=== PATIENT | female | born 1955 | race Hispanic/Latino ===

== ENCOUNTER 2020-03-09 09:00 | Day surgery (SDC) | payer OTHER ==
--- NOTE | 2020-03-06 12:37 | RAD REPORT ---
EXAM DESCRIPTION: RAD - Chest Single View - 03/06/2020 12:28 pm CLINICAL HISTORY: PRE-OP FOR HEART CATH Chest pain. COMPARISON: Chest Pa And Lat (2 Views) dated 06/04/2018 FINDINGS: Portable technique limits examination quality. The lungs are grossly clear. The heart is upper limit of normal in size. No displaced fractures. IMPRESSION: No acute intrathoracic process suspected.
[2020-03-06 12:42] LABS: Absolute Lymphocytes (CBC) 2.8 K/uL (0.7-4.9); Basophils % 0.9 % (0-1.3); Hematocrit 39.4 % (36.0-45.0); Lymphocytes % 25.1 % (15.3-44.8); MPV 8.2 fL (7.6-11.3); RBC Red Blood Cell Count 4.43 M/uL (3.86-4.86)
[2020-03-06 12:47] LABS: Protime INR 1.06
--- OUTSIDE RECORDS SUMMARY | 2020-03-09 10:30 | XMS REPORT ---
:1955 Author Organization eClinicalWorks Care Team Providers Name Role Phone Jess Evans Provider Role Unavailable Allergies No Known Allergies Problems Problem Type Condition Code Onset Dates Condition Statu s Problem Rib pain R07.81 Active Problem Shortness of breath R06.02 Active Problem Essential hypertension I10 Activ e Problem Pain in right hip M25.551 Active Problem Pain in left hip M25.552 Active Problem Encounter for screening for other Z11.59 Active viral diseases Problem Cough, persistent R05 Active Problem Postnasal drip R09.82 Active Problem Allergic rhinitis, unspecified J30.9 Active seasonality, unspecified trigger Problem Right sciatic nerve pain M54.31 Act andres Problem Hypothyroidism, unspecified type E03.9 Active Problem Hyperlipidemia, unspecified E78.5 Active hyperlipidemia type Problem Allergic rhinitis J30.9 Active Problem Prediabetes R73.03 Active Problem Depression, unspecified depression F32.9 Active type Problem Right foot pain M79.671 Active Medications Medication Code Code Instructions Start End Status Dosage System Date Date Atenolol [facility] 69601427177 25 MG Orally Active 1 tabl et Once a day ProAir HFA [facility] 93414990525 108 (90 Base) December 31, Active 2 p uffs as MCG/ACT 2019 needed for Inhalation sob/wheezi Every 4-6 hours ng Liothyronine [facility] [address]-58 Orally Once Active as Sodium daily directed Nature-Throid [facility] 35050414829 195 MG Orally November Active 1 tablet Once a day 2017 on an empty stomach Fish Oil ND 97661930503 1000 MG Orally December 31, Active 1 ca psule Twice a day 2018 (otc) Rosuvastatin [facility] 32783710884 20 MG Oral Active TAKE 1 Calcium TABLET BY MOUTH ONCE DAILY FOR 90 DAYS MetFORMIN HCl ER ND 94838238238 500 MG Orally Activ e 2 tablets tid in the morning and 1 tablet at hs Mobic ND 86154306124 7.5 MG Orally Active 1 tabl et Once a day Indomethacin ND 41830616306 50 MG Oral Active TAKE 1 CAPSULE BY MOUTH TWICE DAILY NEEDED FOR PAIN WITH FOOD OR MILK FOR 30 DAYS Nature-Throid [facility] 95804687485 195 MG Orally Active 1 tablet Once a day on an empty stomach Synthroid ND 37921445977 175 MCG Oral Active TAKE 1 TABLET BY MOUTH ONCE DAILY IN THE MORNING ON AN EMPTY STOMACH FOR 90 DAYS Levothyroxine ND 95721763382 175 MCG Orally Active 1 tablet Sodium Once a day on an empty stomach in the morning Atorvastatin ND 34234918866 10 MG Orally October Active 1 tablet Calcium Once a day 2019 Lisinopril ND 00764740330 20 MG Orally Active 1 ta blet Once a day Trintellix [facility] 13636048871 10 MG Orally Active 1 ta blet Once a day for depression Gabapentin ND 49311464314 300 MG Orally May 30, Active 1 c apsule Twice a day 2018 as needed for pain Crestor [facility] 71043733844 20 MG Orally Jul 02, Active 1 table t Once a day 2018 Liothyronine [facility] 42459168004 5 MCG Orally Active 3 tabs on Sodium Once a day an empty stomach Diflucan [facility] 27332081172 150 MG Orally 1 Jul 31, Active as tablet now; 2017 directed then repeat after completing abx. ProAir HFA [facility] 63765423972 108 (90 Base) Jul 31, Active 2 p uffs as MCG/ACT 2017 needed for Inhalation sob/wheezi every 4-6 hrs ng Levothyroxine [facility] 86706402997 75MCG Orally Active 1 tablet Sodium Once a day on an empty stomach in the morning Results No Known Results Summary Purpose eClinicalWorks Submission
--- OUTSIDE RECORDS SUMMARY | 2020-03-09 10:30 | XMS REPORT ---
:1955 Author Organization eClinicalWorks Care Team Providers Name Role Phone Darin Parmar Provider Role Unavailable Allergies No Known Allergies [...] Problem Right foot pain M79.671 Active Medications No Known Medications Results No Known Results Summary Purpose eClinicalWorks Submission
--- OUTSIDE RECORDS SUMMARY | 2020-03-09 10:30 | XMS REPORT | Continuity of Care Document ---
:[address] [facility] Address [address] [place] [address] Care Team Providers Name Role Phone Unavailable Unavailable Unavailable Problems Condition Condition Condition Status Onset Resolution Last Treating Co mments Source Name Details Category Date Date Treatment Clinician Date Depression Depression Problem Active [facility]ie unspecifie Me moria d d l depression depression Ou tpati type type ent Clinics Hyperlipid Hyperlipid Problem Active [facility] emia, emia, [facility] unspecifie unspecifie Me moria d d l hyperlipid hyperlipid Ou tpati emia type emia type ent Clinics Essential Essential Diagnosis Active [facility] hypertensi hypertensi Suzie kes - on on [facility] Allergic Allergic Problem [facility] Hypothyroi Hypothyroi Problem Active [facility] dism, dism, [facility]ifie unspecifie Me moria d type [facility] Prediabete Prediabete Problem Active [facility] Rib pain Rib pain Problem [facility] Pain in Pain in Problem Active [facility] right hip right hip [facility] Right foot Right foot Problem Active [facility] pain pain [facility] Right Right Problem Active [facility] sciatic sciatic [facility] - nerve pain nerve pain Me moria l [facility] Cough, Cough, Problem Active [facility] persistent persistent Suzie kes - [facility] Shortness Shortness Diagnosis Active [facility] of breath of breath [facility] - [facility] Postnasal Postnasal Problem Active [facility] drip drip [facility] Pain in Pain in Problem Active [facility] left hip left hip [facility] Encounter Encounter Problem Active [facility] for for [facility] - screening screening Zi erika for other for other l viral viral Outpati diseases diseases ent Clinics Follow-up Follow-up Diagnosis Active [facility] exam exam [facility] ent [facility] Anxiety Anxiety Problem Active [facility] Clinics Insomnia, Insomnia, Problem Active [facility] unspecifie unspecifie Suzie kes - d type d type [facility] Right Right Problem Active [facility] lower lower [facility] - quadrant quadrant Memori a abdominal abdominal l pain pain [facility] ent Clinics Allergies, Adverse Reactions, Alerts Allergy Allergy Status Severity Reaction(s) Onset Inactive Treating Comm ents Source Name Type Date Date Clinician Crestor Adverse Active Info Not [facility] Reaction Available [facility] ent Clinics Medications Ordered Filled Start Stop Current Ordering Indication Dosage Frequency Signature Comments Components Source Medication Medication Date Date Medication? Clinician (SIG) Name Name BusPIRone BusPIRone Yes Jess [address] [facility] HCl HCl 6-25 [place] as needed [facility] - 00:[facility]: for Memoria 00 anxiety l [facility] ent Clinics Trazodone Trazodone Yes Jess 1-[address] HCl HCl 6-25 [place] tablets at [facility] - 00:00: bedtime as Memoria 00 needed for l sleep [facility] Clinics Metformin Metformin Yes Jess [address] [facility] HCl HCl 6-23 [place] with a [facility] - 00:00: meal an Memoria 00 one tablet l at pm [facility]ics Atorvastati Atorvastati Yes Jess [address] [facility] n Calcium n Calcium 3-20 Millender [facility] - 00:[facility]: Memoria 00 l [facility] Clinics Crestor Crestor 2018-08 Yes Jess [address] 1-05 [place] [facility] - 00:[facility]: Memoria 00 l [facility] Clinics Gabapentin Gabapentin 2018-08 Yes Jess [address] [facility] 0-03 [place] as needed [facility] - 00:00: for pain Memoria 00 l [facility] Clinics Fish Oil Fish Oil Yes Jess [address] [facility] [facility] 5-06 [place] (otc) [facility] - 00:00: Memoria 00 l [facility] Clinics ProAir HFA ProAir HFA Yes Jess [address] [facility] 5-06 [place] needed for [facility] - 00:00: sob/wheezi [facility]oria 00 ng l [facility] Diflucan Diflucan 2017-08 Yes Jess as [facility] 2-04 [place] directed [facility] - 00:[facility]: [facility] 00 [facility] Nature-Thro Nature-Thro Yes Jess [address] [facility] id id 4-18 [place] on an [facility] - 00:00: empty [facility]oria 00 stomach l [facility] Synthroid Synthroid Yes Jess TAKE [address] [place] TABLET BY [facility] - MOUTH ONCE Memoria DAILY IN l THE Outpati MORNING ON ent AN EMPTY Clinics STOMACH FOR 90 DAYS Atenolol Atenolol Yes Jess [address] [facility] Indomethaci Indomethaci Yes Jess TAKE [address] [facility] n n Millender CAPSULE BY Luke s - MOUTH Memoria TWICE l DAILY Outpati NEEDED FOR ent PAIN WITH Clinics FOOD OR MILK FOR 30 DAYS Mobic Mobic Yes Jess [address] [facility] [place] [facility] Levothyroxi Levothyroxi Yes Jess [address] [facility] [facility] ne Sodium ne Sodium Millender on an [facility] - empty Memoria stomach in l the Outpati morning ent Clinics Rosuvastati Rosuvastati Yes Jess TAKE [address] [facility] [facility] n Calcium n Calcium [place] TABLET BY [facility] - MOUTH ONCE Memoria DAILY FOR l 90 DAYS [facility] Levothyroxi Levothyroxi Yes Jess [address] [facility] [facility] ne Sodium ne Sodium Millender on an [facility] - empty Memoria stomach in l the Outpati morning ent Clinics Liothyronin Liothyronin Yes Jess as [facility] e Sodium e Sodium [place] directed [facility] Lisinopril Lisinopril Yes Jess [address] [facility] Millender [facility] MetFORMIN MetFORMIN Yes Jess [address] HCl ER HCl ER Millender in the Luke s - morning Memoria and 1 l tablet at Outpati hs ent Clinics Trintellix Trintellix Yes Jess [address] [facility] [facility] Mill[place] [facility] Liothyronin Liothyronin Yes Jess [address] [facility] e Sodium e Sodium Millender an empty [facility] - stomach [facility] Procedures This patient has no known procedures. Encounters Start End Encounter Admission Attending Care Care Encounter Source Date/Time Date/Time Type Type Clinicians Facility Department ID 2020-02-20 2020-02-20 Outpatient Brittany Sotot [id number] [facility] 15:00[facility]00 15:00:00 [facility] 2020-02-17 2020-02-17 [facility] [id number] [facility] 14[facility]33:00 14:33:00 [facility] ent [facility] 2020-02-14 2020-02-14 [facility] [id number] 11:24:00 11:24:00 [facility] 2020-02-11 2020-02-11 [facility] [id number] [facility] 12:38:00 12:38:00 [facility] Clinics 2020-02-11 2020-02-11 [facility] [id number] 10:00:00 10:00:00 [facility] Clinics 2019-12-26 2019-12-26 [facility] [id number] 09:17:00 09:17:00 [facility] ent Clinics 2019-11-14 2019-11-14 [facility] [id number] 15:13:00 15:13:00 [facility] ent Clinics 2019-11-06 2019-11-06 [facility] [id number] 11[facility]32:00 11:32:00 [facility] ent Clinics 2019-10-30 2019-10-30 [facility] [id number] [facility] 16[facility]15:00 16:15:00 t [facility] Medicine Outpati ent Clinics 2019-10-15 2019-10-15 [facility] [id number] [address] 08[facility]45:00 08:45:00 [facility] Medicine Outpati ent Clinics 2019-07-01 2019-07-01 [facility] [id number] 14:54:00 14:54:00 t [facility] Medicine Outpati ent Clinics 2019-06-10 2019-06-10 [facility] [id number] 18:38:00 18:38:00 t [facility] Medicine Outpati ent Clinics 2019-06-02 2019-06-02 [facility] [id number] 21:31:00 21:31:00 t [facility] Medicine Outpati ent Clinics 2019-05-30 2019-05-30 [facility] [id number] 10:40:00 10:40:00 t [facility] Medicine Outpati ent Clinics 2019-05-21 2019-05-21 [facility] [id number] 16:34:00 16:34:00 t [facility] Medicine Outpati ent Clinics 2019-01-02 2019-01-02 [facility] [id number] 11:12:00 11:12:00 t [facility] Medicine Outpati ent Clinics 2018-12-31 2018-12-31 [facility] [id number] 09:40:00 09:40:00 t [facility] Medicine Outpati ent Clinics 2018-12-12 2018-12-12 [facility] [id number] [facility] 10:30:00 10:30:00 t [facility] ent Clinics 2018-12-03 2018-12-03 [facility] [id number] 11:00:00 11:00:00 t [facility] ent Clinics 2018-11-29 2018-11-29 [facility] [id number] [facility] 16:31:00 16:31:00 t [facility] Medicine Outpati ent Clinics 2018-11-07 2018-11-07 [facility] [id number] 15:07:00 15:07:00 t [facility] Medicine Outpati ent Clinics 2018-10-30 2018-10-30 [facility] [id number] 13:00:00 13:00:00 t [facility] 2018-08-23 2018-08-23 [facility] [id number] 10:45:00 10:45:00 t [facility] Medicine Outpati ent Clinics 2018-05-29 2018-05-29 [facility] [id number] 23:12:00 23:12:00 t [facility] Medicine Outpati ent Clinics 2018-05-29 2018-05-29 [facility] [id number] [facility] 14:45:00 14:45:00 t [facility] Medicine Outpati ent Clinics 2018-04-04 2018-04-04 [facility] [id number] [facility] [address] 11:00:00 11:00:00 t [facility] Medicine Outpati ent Clinics 2018-04-03 2018-04-03 [facility] [id number] 13:30:00 13:30:00 t [facility] Medicine Outpati ent Clinics 2018-02-20 2018-02-20 [facility] [id number] 09:37:00 09:37:00 t [facility] Medicine l Medicine Outpati ent Clinics 2018-01-30 2018-01-30 [place] [place] [id number] [facility] 14:34:00 14:34:00 t [facility] Medicine Outpati ent Clinics 2018-01-12 2018-01-12 [place] [id number] [facility] 16:45:00 16:45:00 t [facility] Medicine Outpati ent Clinics 2018-01-12 2018-01-12 [place] [place] [id number] 10:34:00 10:34:00 t [facility] Medicine Outpati ent Clinics 2018-01-10 2018-01-10 [place] [place] [place] [id number] [facility] 22:28:00 22:28:00 t [facility] Medicine Outpati ent Clinics 2017-12-28 2017-12-28 Outpatient Brittany [facility] [id number] 13:45:00 13:45:00 t [facility] Medicine Outpati ent Clinics Results This patient has no known results.
--- OUTSIDE RECORDS SUMMARY | 2020-03-09 10:30 | XMS REPORT ---
:1955 Author Organization eClinicalWorks Care Team Providers Name Role Phone Cristina Jess Provider Role Unavailable Allergies No Known Allergies [...]
--- OUTSIDE RECORDS SUMMARY | 2020-03-09 10:31 | XMS REPORT ---
:1955 Author Organization eClinicalWorks Care Team Providers Name Role Phone ParmarDarin Provider Role Unavailable Allergies, Adverse Reactions, Alerts Substance Reaction Event Type Crestor Info Not Available Drug Allergy Problems Problem Type Condition Code Onset Dates Condition Statu s Problem Rib pain R07.81 Active Problem Shortness of breath R06.02 Active Problem Essential hypertension I10 Activ e Problem Pain in right hip M25.551 Active Assessment Left hip pain M25.552 Active Problem Pain in left hip M25.552 Active Problem Encounter for screening for other Z11.59 Active viral diseases Problem Cough, persistent R05 Active Problem Postnasal drip R09.82 Active Problem Allergic rhinitis, unspecified J30.9 Active seasonality, unspecified trigger Problem Right sciatic nerve pain M54.31 Act andres Assessment Trochanteric bursitis of right hip M70.61 Active Assessment Right hip pain M25.551 Active Assessment Trochanteric bursitis, left hip M70.62 Active Problem Hypothyroidism, unspecified type E03.9 Active Problem Hyperlipidemia, unspecified E78.5 Active hyperlipidemia type Problem Allergic rhinitis J30.9 Active Problem Prediabetes R73.03 Active Problem Depression, unspecified depression F32.9 Active type Problem Right foot pain M79.671 Active Medications Medication Code Code Instructions Start End Status Dosage System Date Date Nature-Throid [facility] 48621624881 195 MG Orally Active 1 tablet Once a day on an empty stomach Synthroid [facility] 95597866284 175 MCG Oral Active TAKE 1 TABLET BY MOUTH ONCE DAILY IN THE MORNING ON AN EMPTY STOMACH FOR 90 DAYS Atorvastatin ND 58142278722 10 MG Orally October Active 1 tablet Calcium Once a day 2019 Atenolol ND 68382770792 25 MG Orally Active 1 tabl et Once a day Indomethacin [facility] 34189269813 50 MG Oral Active TAKE 1 CAPSULE BY MOUTH TWICE DAILY NEEDED FOR PAIN WITH FOOD OR MILK FOR 30 DAYS Fish Oil ND 41350393250 1000 MG Orally December 31, Active 1 ca psule Twice a day 2019 (otc) Mobic [facility] 46378874378 7.5 MG Orally Active 1 tabl et Once a day Levothyroxine [facility] 33427920862 75MCG Orally Active 1 tablet Sodium Once a day on an empty stomach in the morning ProAir HFA [facility] 05159465545 108 (90 Base) Jul 31, Active 2 p uffs as MCG/ACT 2017 needed for Inhalation sob/wheezi every 4-6 hrs ng Rosuvastatin [facility] 37451745531 20 MG Oral Active TAKE 1 Calcium TABLET BY MOUTH ONCE DAILY FOR 90 DAYS Nature-Throid [facility] 36932044267 195 MG Orally November Active 1 tablet Once a day 2017 on an empty stomach ProAir HFA [facility] 97561754389 108 (90 Base) December 31, Active 2 p uffs as MCG/ACT 2018 needed for Inhalation sob/wheezi Every 4-6 hours ng Levothyroxine [facility] 84623008332 175 MCG Orally Active 1 tablet Sodium Once a day on an empty stomach in the morning Liothyronine [facility] [address]-68 Orally Once Active as Sodium daily directed Lisinopril [facility] 95283418914 20 MG Orally Active 1 ta blet Once a day MetFORMIN HCl ER [facility] 43577113914 500 MG Orally Activ e 2 tablets tid in the morning and 1 tablet at hs Trintellix [facility] 31085573861 10 MG Orally Active 1 ta blet Once a day for depression Diflucan [facility] 03760295237 150 MG Orally 1 Jul 31, Active as tablet now2017 directed then repeat after completing abx. Liothyronine [facility] 67298184591 5 MCG Orally Active 3 tabs on Sodium Once a day an empty stomach Crestor [facility] 36886276458 20 MG Orally Jul 02, Active 1 table t Once a day 2019 Gabapentin ND 18016682343 300 MG Orally May 30, Active 1 c apsule Twice a day 2019 as needed for pain Results No Known Results Summary Purpose eClinicalWorks Submission
--- OUTSIDE RECORDS SUMMARY | 2020-03-09 10:31 | XMS REPORT ---
[...] Medications Medication Code Code Instructions Start End Date Status Dosage System Date Metformin HCl [facility] 63868446644 500 MG Orally February 17, Active 2 tablet three a day 2019 with a meal an one tablet at pm Results No Known Results Summary Purpose eClinicalWorks Submission
--- OUTSIDE RECORDS SUMMARY | 2020-03-09 10:32 | XMS REPORT ---
:1955 [facility] Organization [facility] Care Team Providers Name Role Phone Cristina Jess Provider Role Unavailable Allergies, Adverse Reactions, Alerts Substance Reaction Event Type Crestor Info Not Available Drug Allergy Problems Problem Type Condition Code Onset Dates Condition Statu s Assessment Pain in right hip M25.551 Active Assessment Pain in left hip M25.552 Active Assessment Hypothyroidism, unspecified type E03.9 Active Assessment Follow-up exam Z09 Active Problem Essential hypertension I10 Activ e Assessment Anxiety F41.9 Active Problem Cough, persistent R05 Active Assessment Insomnia, unspecified type G47.00 A ctive Problem Shortness of breath R06.02 Active Problem Right sciatic nerve pain M54.31 Act andres Problem Postnasal drip R09.82 Active Problem Pain in left hip M25.552 Active Problem Pain in right hip M25.551 Active Assessment Essential hypertension I10 Activ e Assessment Shortness of breath R06.02 Active Problem Encounter for screening for other Z11.59 Active viral diseases Assessment Right lower quadrant abdominal pain R10.31 Active Problem Right lower quadrant abdominal pain R10.31 Active Problem Anxiety F41.9 Active Problem Allergic rhinitis, unspecified J30.9 Active seasonality, unspecified trigger Problem Insomnia, unspecified type G47.00 A ctive Problem Depression, unspecified depression F32.9 Active type Problem Hypothyroidism, unspecified type E03.9 Active Problem Allergic rhinitis J30.9 Active Problem Right foot pain M79.671 Active Problem Rib pain R07.81 Active Problem Hyperlipidemia, unspecified E78.5 Active hyperlipidemia type Problem Prediabetes R73.03 Active Medications Medication Code Code Instructions Start End Status Dosage System Date Date Lisinopril ND 21036680646 20 MG Orally Active 1 ta blet Once a day Nature-Throid [facility] 92290595152 195 MG Orally Active 1 tablet Once a day on an empty stomach BusPIRone HCl ND 25033708634 7.5 MG Orally February 19, Active 1 tablet Twice a day 2019 as needed for anxiety Levothyroxine ND 27004856524 175 MCG Orally Active 1 tablet Sodium Once a day on an empty stomach in the morning Crestor ND 50008609653 20 MG Orally Jul 02, Active 1 table t Once a day 2018 Metformin HCl ND 64425206770 500 MG Orally February 17, Active 2 tablet three a day 2019 with a meal an one tablet at pm Fish Oil ND 11841326751 1000 MG Orally December 31, Active 1 ca psule Twice a day 2018 (otc) Mobic ND 17969918668 7.5 MG Orally Active 1 tabl et Once a day Levothyroxine ND 83699418948 75MCG Orally Active 1 tablet Sodium Once a day on an empty stomach in the morning Atorvastatin ND 54042895668 10 MG Orally October Active 1 tablet Calcium Once a day 2019 ProAir HFA [facility] 31214664521 108 (90 Base) Jul 31, Active 2 p uffs as MCG/ACT 2017 needed for Inhalation sob/wheezi every 4-6 hrs ng Liothyronine [facility] 57284199793 5 MCG Orally Active 3 tabs on Sodium Once a day an empty stomach Diflucan [facility] 37770507375 150 MG Orally Jul 31, Active as tablet now; 2018 directed then repeat after completing abx. Nature-Throid [facility] 02695145922 195 MG Orally November Active 1 tablet Once a day 2017 on an empty stomach Rosuvastatin [facility] 28619532841 20 MG Oral Active TAKE 1 Calcium TABLET BY MOUTH ONCE DAILY FOR 90 DAYS Gabapentin ND 81665536334 300 MG Orally May 30, Active 1 c apsule Twice a day 2018 as needed for pain Trazodone HCl [facility] 85402806856 50 MG Orally February 19, Active 1-2 Once a day 2019 tablets at bedtime as needed for sleep MetFORMIN HCl ER ND 52901022478 500 MG Orally Activ e 2 tablets tid in the morning and 1 tablet at hs Liothyronine [facility] [address]-58 Orally Once Active as Sodium daily directed ProAir HFA [facility] 74202516580 108 (90 Base) December 31, Active 2 p uffs as MCG/ACT 2018 needed for Inhalation sob/wheezi Every 4-6 hours ng Indomethacin [facility] 06004380985 50 MG Oral Active TAKE 1 CAPSULE BY MOUTH TWICE DAILY NEEDED FOR PAIN WITH FOOD OR MILK FOR 30 DAYS Atenolol [facility] 79779052744 25 MG Orally Active 1 tabl et Once a day Synthroid [facility] 51071939287 175 MCG Oral Active TAKE 1 TABLET BY MOUTH ONCE DAILY IN THE MORNING ON AN EMPTY STOMACH FOR 90 DAYS Trintellix [facility] 55202541424 10 MG Orally Active 1 ta blet Once a day for depression Results No Known Results Summary Purpose eClinicalWorks Submission
[2020-03-09] MEDS ORDERED: FENTANYL CITR 100 MCG/2 ML ONE (11:43)
[2020-03-09] MEDS ORDERED: NICARDIPINE HCL 25 MG/10 ML IV ONE (11:43)
[2020-03-09] MEDS ORDERED: ATROPINE SULF 1 MG/10 ML SYR IV ONE (11:43)
[2020-03-09] MEDS ORDERED: HEPARIN 10,000 UNIT/10 ML VIAL IV ONE (11:43)
[2020-03-09] MEDS ORDERED: LIDOCAINE 1% 20 ML MDV ONE (11:43)
[2020-03-09] MEDS ORDERED: MIDAZOLAM HCL 2 MG/2 ML INJ ONE (11:43)
[2020-03-09] MEDS ORDERED: HEPARIN 5000 UNIT/ML 1 ML VIAL ONE (11:43)
[2020-03-09] MEDS ORDERED: NITROGLYCERIN 100 MCG/ML SYR (for cath lab use only) IV ONE (11:43)
[2020-03-09] MEDS ORDERED: NA CHLORIDE 0.9% 500 ML ONE (11:52)
[2020-03-09] MEDS ORDERED: HEPA 1000U/500MLS 2,000 UNIT/1,000 ML BAG IV ONE (12:47)
[2020-03-09] MEDS ORDERED: NA CHLORIDE 0.9% 100 ML IV ONE (12:47)
[2020-03-09 15:33] VITALS: BP 120/64; O2SAT 96
[2020-03-09 15:34] VITALS: TEMP 97.4
[2020-03-09 16:53] LABS: Blood Gas Oxyhemoglobin 75.6 % (94-97); Blood O2 Saturation 77.1 % (92-98.5)
--- NOTE | 2020-03-10 01:22 | OP ---
Date of Procedure: 03/09/2020 Surgeon: CECILIO CAMARGO Procedures Performed: 1.Selective coronary angiogram. 2.Right heart catheterization. Access: Right radial artery 6-South African closed with TR band, right IJ 7-South African closed with manual press ure. Indication: Unstable angina and severe dyspnea on exertion. Complications: None. Anesthesia: Total sedation time was 45 minutes. Description Of Procedure: Patient was brought to the cardiac catheterization laboratory after she si gned informed consent. She was prepped and draped in usual sterile fashion. The access right radial artery using pediatric micropuncture kit and we inserted a 6-South African slender sheath. Then, we access right IJ using ultrasound guidance and using a micropuncture kit and we inserted a 7-South African pinnacle sheath and we took a 7-[place] catheter into the right atrium, then right ventricle, and then th e pulmonary artery, then the wedge, and then obtained around PA saturation. Then, we removed the Swa n-Davey. Then, we proceeded for the coronary angiogram by advancing a 6-[place] African [place] catheter into th e aortic root over J-wire, engaged the left main coronary artery, then engaged the right coronary art royce, and took standard views and then we removed all wires out of the body and closed the 6-South African sl linda sheath for radial artery using TR band and took the 7-South African catheter out of the IJ and applied manual pressure with good hemostasis. Findings: 1.Left main is normal. 2.LAD has proximal 50% stenosis, otherwise, is normal. Left circumflex is normal. Right coronary a rtery is large and normal. The right heart catheterization, RA pressure was 10, RV pressure was 13, PA pressure was 23/13, mean of 18, which was a 7. Impression And Recommendations: 1.Moderate proximal left anterior descending disease. Recommend IFR/FFR, which are not available [facility]. Will schedule the patient to [facility] for this matter and stent only if IFR/FFR are positive. Discussed with the patient and patient's son, she agrees with the plan. 2.Normal filling pressures. SR/MODL Voice ID: [id number] Report ID: [id number]
== END 2020-03-09 15:20 | disposition home or self-care (01) ==
LOC: CCL 09:00
PROVIDERS: ATTEND Internal Medicine
DX: I25.110 Atherosclerotic heart disease of native coronary artery with unstable angina pectoris (principal); I10 Essential (primary) hypertension; E11.9 Type 2 diabetes mellitus without complications; E78.5 Hyperlipidemia, unspecified; Z11.59 Encounter for screening for other viral diseases; Z82.49 Family history of ischemic heart disease and other diseases of the circulatory system
CPT/HCPCS: 85025; 36415; 85610; 85730; 71045; 93456; 82805; U0002; C1893; J1644 ×2; J2250; J3010; J7040

== ENCOUNTER 2023-03-15 10:39 | Day surgery (SDC) | payer MEDICARE ==
[2023-03-15] MEDS ORDERED: NA CHLORIDE 0.9% 1,000 ML ONE (11:05)
[2023-03-15] MEDS ORDERED: propofoL 200 MG/20 ML VIAL IV ONE ×2 (11:29→12:42)
[2023-03-15] MEDS ORDERED: LIDOCAINE 2% MPF 5 ML VIAL ONE (11:30)
[2023-03-15] MEDS ORDERED: BUPIVACAINE 0.25% PF 10 ML VIAL ONE (12:06)
[2023-03-15] MEDS ORDERED: LIDOCAINE 1% 20 ML MDV ONE (12:08)
[2023-03-15] MEDS: TRIAMCINOLONE ACETON 40 MG/ML VIAL ONE ×2 (12:36→12:37)
[2023-03-15] MEDS ORDERED: TRIAMCINOLONE ACETON 40 MG/ML VIAL ONE (13:02)
[2023-03-15 13:30] VITALS: TEMP 97.3
[2023-03-15 14:24] VITALS: BP 106/50
[2023-03-15 14:40] VITALS: O2SAT 98
== END 2023-03-15 14:35 | disposition home or self-care (01) ==
LOC: OR 10:39
PROVIDERS: ATTEND Pain Medicine Interventional Pain Medicine
PROC: 3E0U33Z Introduction of Anti-inflammatory into Joints, Percutaneous Approach (ICD-10-PCS; 2023-03-15)
PROC: 3E0U33Z Introduction of Anti-inflammatory into Joints, Percutaneous Approach (ICD-10-PCS; principal; 2023-03-15 12:15)
DX: M46.1 Sacroiliitis, not elsewhere classified (principal); M70.61 Trochanteric bursitis, right hip; I10 Essential (primary) hypertension; E11.9 Type 2 diabetes mellitus without complications; E78.5 Hyperlipidemia, unspecified; E66.9 Obesity, unspecified
CPT/HCPCS: 27096; 20610; 77002; 82947; 77003; J2704; J2001 ×2; J3301 ×2; J7030; Q9967

== ENCOUNTER 2023-05-09 14:36 | Inpatient (IN) | payer MEDICARE ==
--- OUTSIDE RECORDS SUMMARY | 2023-05-09 14:43 | XMS REPORT | Continuity of Care Document ---
:[address] [facility] t Address [address] [place] [address] Care Team Providers Name Role Phone RADHA ADAMS Primary Care Physician Unavailable Arielle Avila Attending Clinician Unavailable Radha Adams Attending Clinician Unavailable Kyle Avendano Attending Clinician Unavailable Jess Evans Attending Clinician Unavailable [email or web address] Attending Clinician Unavailable FIDE SCHROEDER Attending Clinician Unavailable FARNAZ ELDER Attending Clinician Unavailable FAUSTINO RUBIO Attending Clinician Unavailable FAUSTINO RUBIO Attending Clinician Unavailable FAITH QUINTANILLA Attending Clinician Unavailable Trang Archer Attending Clinician Piper Jorge MD Attending Clinician TRANG OLVERA Attending Clinician Unavailable Faith Quintanilla MD Attending Clinician Doctor Unassigned, [place] Attending Clinician Unavailable RADIOLOGY Attending Clinician Unavailable Radiology Attending Clinician Unavailable Fide Schroeder MD Attending Clinician Farnaz Elder MD Attending Clinician WATERS_S Attending Clinician Unavailable Haven Feng MD Attending Clinician ANTOINE JONES Attending Clinician Unavailable Antoine Jones MD Attending Clinician Jess Evans Admitting Clinician Unavailable [email or web address] Admitting Clinician Unavailable TAYLOR LUGO Admitting Clinician Unavailable FIDE SCHROEDER Admitting Clinician Unavailable WATERS_S Admitting Clinician Unavailable Payers Payer Name Policy Type Policy Number Effective Date Expiration Date Bart lamb [employer] [id number] 2020spring 00:00:00 [facility] [id number] 2022 (MEDICARE 00:00:00 REPLACEMENT HMO) [employer] C1 [id number] 2020 Common g Medicare 00:00:00 [facility] [employer] C1 [id number] 2020 Common g Medicare 00:00:00 [facility] [employer] C1 [id number] 2020 Common g Medicare 00:00:00 [facility] - [facility] CIG[employer] HE[employer]CARE [id number] [employer] C1 [id number] 2020 Common g Medicare 00:00:00 [facility] - [facility] [employer] C1 [id number] 2020 Common g Medicare 00:00:00 [facility] - [facility] [employer] C1 [id number] 2020 Common g Medicare 00:00:00 [facility] - [facility] [employer] C1 [id number] 2020 Common g Medicare 00:00:00 [facility] - [facility] [employer] C1 [id number] 2020 Common g Medicare 00:00:00 [facility] - [facility] [employer] C1 [id number] 2020 Common g Medicare 00:00:00 [facility] - [facility] TERELL RACHEL FROM [id number] [address] [facility] 00:00:00 Problems Condition Condition Condition Status Onset Resolution Last Treating Co mments Source Name Details Category Date Date Treatment Clinician Date UTI UTI Disease Active Univers symptoms symptoms 3-23 ity of 00:00: [place] [facility] Abnormal Abnormal Disease Active Unive rs urinalysis urinalysis 3-23 it y of 00:00: [place] [facility] Obesity Obesity Disease Active Univers (BMI (BMI 3-23 ity of 30-39.9) 30-39.9) 00:00: [place] [address] Medical Branch Vasomotor Vasomotor Disease Active 2016-08 Uni vers symptoms symptoms 2-21 ity of due to due to 00:00: [place] menopause menopause 00 [facility] Branch Unspecifie Unspecifie Disease Active 2015-08 U nivers d urinary d urinary 1-08 ity of incontin[place] [facility] Branch Condyloma Condyloma Disease Active 2015-08 Uni vers acuminatum acuminatum 1-08 it y of 00:00: [place] [facility] Branch S/P S/P Disease Active 2015-08 Univers hysterecto hysterecto 108 it y of my my 00:00: [address] Branch Essential Essential Disease Active 2015-08 Uni vers hypertensi hypertensi 108 it y of on, benign on, benign [place] [facility] Branch Depression Depression Disease Active 2015-08 U jayashreeers , , 1-08 ity of unspecifie unspecifie [place] Medical depression depression Br anch type type Abdominal Abdominal Disease Active 2015-08 Uni vers discomfort discomfort 108 it y of in left in left 00:00: [place] lower lower 00 Medical quadrant quadrant Branch [id number] Right Problem Common sciatic Spirit nerve pain - [facility] [id number] Pain in Problem Common left hip Spirit - [facility] [id number] Insomnia, Problem Com mon unspecifie Spirit d type - [facility] [id number] 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 y, Medical unspecifie Center d trigger [id number] Essential Problem Comm on hypertensi Spirit on - [facility] [id number] Familial Problem Commo n hyperlipid Spirit emia, high - CHI LDL [facility] [id number] Statin Problem Common intoleranc Spirit e - [facility] [id number] Low back Problem Comm on pain, Spirit unspecifie - CHI d back pain 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, syndrome, Spir it acquired acquired - [facility] [id number] Varicose Problem Commo n veins of Spirit bilateral - [facility] lower [facility] s with Medical pain Center Trochanter Trochanter Problem C ommon ic ic Spirit bursitis bursitis - CHI of right of right St hip hip [facility] [id number] 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 [facility] Abnormal Abnormal Problem Commo n mammogram mammogram Spir it - [facility] [id number] Inappropri Problem Com mon ately high Spirit serum - CHI insulin [facility] Kidney Kidney Problem Common stone stones Spirit - [facility] Lower Lower Problem Common urinary urinary [facility] tract tract - CHI symptoms symptoms St (LUTS) [facility] [id number] Lumbago Problem Commo n with Spirit sciatica, - CHI right side [facility] [id number] Other Problem Common chronic Spirit pain [facility] [id number] 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 2 diabetes Medica l mellitus Center RAM - [place] Problem Commo n Nonalcohol titis, Spirit ic nonalcohol - CHI [place] ic [facility] Vaginal Vaginal Problem Common discomfort discomfort Sp caryl - [facility] [id number] Acute Problem Common right-side Spirit d low back - CHI pain with St right-side [facility] sciatica Medica [facility] Leukocytos Leukocytos Problem C larissa is is [facility] [id number] Left renal Problem Co mmon mass [facility] [id number] Neuropathy Problem Co mmon [facility] [id number] Constipati Problem Com mon on, Spirit unspecifie - CHI d St constipati [facility] on type Medical Center Allergies, Adverse Reactions, Alerts Allergy Allergy Status Severity Reaction(s) Onset Inactive Treating Comm ents Source Name Type Date Date Clinician ROSUVAST DRUG Active Unknown-Cmnt 2020-08 Un gayle ATIN INGREDI 10-05 ity of 00:00: [address] rosuvast rosuvast Active muscle aches Common atin atin [facility] Social History Social Habit Start Date Stop Date Quantity Comments Source History of Common Spirit - Tobacco Use [facility] Sex Assigned At Common Sp caryl - [facility] Exposure to 2022-05-27 2022-06-06 Not sure [facility] SARS-CoV-2 00:00:00 11:33:00 [facility] (event) [place] Tobacco use and 2022-06-06 2022-06-06 Smokeless tobacco Un iversity of exposure 00:00:00 00:00:00 non-user [facility] Alcohol intake 2022-06-06 2022-06-06 0 /d University of 00:00:00 00:00:00 [facility] Tobacco Comment 2022-06-06 2022-06-06 Positive smoke Unive rsity of 00:00:00 00:00:00 exposure - [facility] smokes Branch Smoking Status Start Date Stop Date Source Never Smoker [facility] Medications Ordered Filled Start Stop Current Ordering Indication Dosage Frequency Signature Comments Components Source Medication Medication Date Date Medication? Clinician (SIG) Name Name glipiZIDE glipiZIDE No QD glipiZIDE 10 MG 10 MG 4-19 10 MG 00:00: 00 cetirizine 2021-08 Yes [id number] 10mg Take 1 Univers (ZYRTEC) 10 0-10 tablet by ity of mg tablet 00:00[place] the Medical morning. Branch fluticasone 2021-08 Yes [id number] 2{spray Use 2 Univers propionate 0-10 } Sprays in ity of 50 00:00: each [place] mcg/actuati 00 nostril in In dical on nasal the Branch spray morning. benzonatate 2021-08 Yes [id number] 200mg Take 1 Univers 200 mg 0-10 capsule by ity of capsule 00:00: mouth 3 [place] 00 (three) Medical times Branch daily as needed for Cough. acetaminoph Yes TAKE 1 Univ ers en-codeine 9-08 TABLET BY ity of 300-30 mg 00:00: MOUTH [place] tablet 00 EVERY 6 Medical HOURS Branch NEEDED FOR ACUTE PAIN montelukast Yes 10mg Take 10 mg Univers 10 mg 8-29 by mouth ity of tablet 00:00: every [place] 00 morning. Medical Branch gabapentin Yes TAKE 1 Unive rs 100 mg 8-11 CAPSULE BY ity of capsule 00:00: [place]TH [place] DAILY AT Medical BEDTIME Branch Gabapentin Gabapentin 2021-0 No 1{capsu Gabapentin 100 MG 100 MG 8-11 le} 100 MG 00:00: 00 Gabapentin Gabapentin 2021-0 No 1{capsu Gabapentin 100 MG 100 MG 8-11 le} 100 MG 00:00: 00 Gabapentin Gabapentin 2021-0 No 1{capsu Gabapentin 100 MG 100 MG 8-11 le} 100 MG 00:00: 00 Gabapentin Gabapentin 2022-0 No 1{capsu Gabapentin 100 MG 100 MG 8-11 le} 100 MG 00:00: 00 Gabapentin Gabapentin 2022-0 No 1{capsu Gabapentin 100 MG 100 MG 8-11 le} 100 MG 00:00: 00 Gabapentin Gabapentin 2022-0 No 1{capsu Gabapentin 100 MG 100 MG 8-11 le} 100 MG 00:00: 00 Gabapentin Gabapentin 2022-0 No 1{capsu Gabapentin 100 MG 100 MG 8-11 le} 100 MG 00:00: 00 Gabapentin Gabapentin 2022-0 No 1{capsu Gabapentin 100 MG 100 MG 8-11 le} 100 MG 00:00: 00 Gabapentin Gabapentin 2022-0 No 1{capsu Gabapentin 100 MG 100 MG 8-11 le} 100 MG 00:00: 00 Gabapentin Gabapentin No 1{capsu Gabapentin 100 MG 100 MG 04-07 le} 100 MG 00:00: 00 gadobenate 2021- No [id number] .2mL/kg 0.2 mL/kg, Univers dimeglumine 02-16 Intravenou i ty of (MULTIHANCE 15:30: 15:28 s, ONCE, 1 [place] -20 mL) 00 :00 dose, On Medical injection Wed Branch 0.2 mL/kg 02/16/22 at 1030, Routine Levothyroxi Levothyroxi No QD Levothyrox ne Sodium ne Sodium 6-20 ine Sodium 200 MCG 200 MCG 00:00: 200 MCG 00 Levothyroxi Levothyroxi No QD Levothyrox ne Sodium ne Sodium 6-20 ine Sodium 200 MCG 200 MCG 00:00: 200 MCG 00 Levothyroxi Levothyroxi No QD Levothyrox ne Sodium ne Sodium 6-20 ine Sodium 125 MCG 125 MCG 00:00: 125 MCG 00 Levothyroxi Levothyroxi No QD Levothyrox ne Sodium ne Sodium 6-20 ine Sodium 125 MCG 125 MCG 00:00: 125 MCG 00 Levothyroxi Levothyroxi No QD Levothyrox ne Sodium ne Sodium 6-20 ine Sodium 125 MCG 125 MCG 00:00: 125 MCG 00 Levothyroxi Levothyroxi No QD Levothyrox ne Sodium ne Sodium 6-20 ine Sodium 125 MCG 125 MCG 00:00: 125 MCG 00 Levothyroxi Levothyroxi No QD Levothyrox ne Sodium ne Sodium 6-20 ine Sodium 200 MCG 200 MCG 00:00: 200 MCG 00 Levothyroxi Levothyroxi No QD Levothyrox ne Sodium ne Sodium 6-20 ine Sodium 200 MCG 200 MCG 00:00: 200 MCG 00 Levothyroxi Levothyroxi No QD Levothyrox ne Sodium ne Sodium 6-20 ine Sodium 200 MCG 200 MCG 00:00: 200 MCG 00 Levothyroxi Levothyroxi No QD Levothyrox ne Sodium ne Sodium 6-20 ine Sodium 200 MCG 200 MCG 00:00: 200 MCG 00 Levothyroxi Levothyroxi 2021-0 No QD Levothyrox ne Sodium ne Sodium 6-20 ine Sodium 200 MCG 200 MCG 00:00: 200 MCG 00 Levothyroxi Levothyroxi 2021-0 No QD Levothyrox ne Sodium ne Sodium 6-20 ine Sodium 200 MCG 200 MCG 00:00: 200 MCG 00 Levothyroxi Levothyroxi 2021-0 No QD Levothyrox ne Sodium ne Sodium 6-20 ine Sodium 200 MCG 200 MCG 00:00: 200 MCG 00 Levothyroxi Levothyroxi 2021-0 No QD Levothyrox ne Sodium ne Sodium 6-20 ine Sodium 200 MCG 200 MCG 00:00: 200 MCG 00 furosemide 2-0 Yes 40mg Take 1 Unive rs 40 mg 6-08 tablet by ity of tablet 00:00: mouth 2 [place] 00 (two) Medical times Branch daily. furosemide 2022-0 Yes 40mg Take 1 Unive rs 40 mg 6-08 tablet by ity of tablet 00:00: mouth 2 [place] 00 (two) Medical times Branch daily. furosemide 2022-0 Yes 40mg Take 1 Unive rs 40 mg 6-08 tablet by ity of tablet 00:00: mouth 2 [place] 00 (two) Medical times Branch daily. furosemide 2022-0 Yes 40mg Take 1 Unive rs 40 mg 6-08 tablet by ity of tablet 00:00: mouth 2 [place] 00 (two) Medical times Branch daily. furosemide 2022-0 Yes 40mg Take 1 Unive rs 40 mg 6-08 tablet by ity of tablet 00:00: mouth 2 [place] 00 (two) Medical times Branch daily. furosemide 2022-0 Yes 40mg Take 1 Unive rs 40 mg 6-08 tablet by ity of tablet 00:00: mouth 2 [place] (two) Medical times Branch daily. FreeStyle FreeStyle 2-0 No QD FreeStyle Tashi 14 Tashi 14 6-06 Tashi 14 Day [place] Day [place] 00:00: Day [place] - - 00 - FreeStyle FreeStyle 2-0 No QD FreeStyle Tashi 14 Tashi 14 6-06 Tashi 14 Day [place] Day [place] 00:00: Day [place] - - 00 - FreeStyle FreeStyle 2-0 No QD FreeStyle [place] 14 Tashi 14 6-06 Tashi 14 Day [place] Day [place] 00:00: Day [place] - - 00 - FreeStyle FreeStyle 2021-0 No QD FreeStyle [place] 14 Tashi 14 6-06 Tashi 14 Day [place] Day [place] 00:00: Day [place] - - 00 - FreeStyle FreeStyle 2021-0 No QD FreeStyle [place]ashi 14 Tashi 14 6-06 Tashi 14 Day [place] Day [place] 00:00: Day [place] - - 00 - FreeStyle FreeStyle 2021-0 No QD FreeStyle Tashi 14 Tashi 14 6-06 Tashi 14 Day [place] Day [place] 00:00: Day [place] - - 00 - FreeStyle FreeStyle 2021-0 No QD FreeStyle [place]ashi 14 Tashi 14 6-06 Tashi 14 Day [place] Day [place] 00:00: Day [place] - - 00 - FreeStyle FreeStyle 2021-0 No QD FreeStyle [place] 14 Tashi 14 6-06 Tashi 14 Day [place] Day [place] 00:00: Day [place] - - 00 - tamsulosin 0 Yes 1 capsule Un gayle 0.4 mg 24 3-23 ity of hr capsule 13:41: [address] atenoloL 25 0 Yes 1 tablet Un gayle mg tablet 3-23 ity of 13:41: [address] tamsulosin 0 Yes 1 capsule Un gayle 0.4 mg 24 3-23 ity of hr capsule 13:41: [address] atenoloL 25 0 Yes 1 tablet Un gayle mg tablet 3-23 ity of 13:41: [address] tamsulosin 0 Yes 1 capsule Un gayle 0.4 mg 24 3-23 ity of hr capsule 13:41: [address] atenoloL 25 2021-0 Yes 1 tablet Un gayle mg tablet 3-23 ity of 13:41: [address] tamsulosin 2021-0 Yes 1 capsule Un gayle 0.4 mg 24 3-23 ity of hr capsule 13:41: [address] atenoloL 25 2021-0 Yes 1 tablet Un gayle mg tablet 3-23 ity of 13:41: [address] tamsulosin 2021-0 Yes 1 capsule Un gayle 0.4 mg 24 3-23 ity of hr capsule 13:41: [address] atenoloL 25 Yes 1 tablet Un gayle mg tablet 3-23 ity of 13:41: [address] tamsulosin Yes 1 capsule Un gayle 0.4 mg 24 3-23 ity of hr capsule 13:41: [address] atenoloL 25 Yes 1 tablet Un gayle mg tablet 3-23 ity of 13:41: [address] tamsulosin Yes 1 capsule Un gayle 0.4 mg 24 3-23 ity of hr capsule 13:41: [address] atenoloL Yes 1 tablet Un gayle mg tablet 3-23 ity of 13:41: [address] Nitrofurant 2021- No [id number] 100mg Take 1 Univers oin&Nit. 11-17 capsule by ity of [place] 00:00: 04:59 mouth 2 [place] as (MACROBID) 00 :00 (two) Medical 100 mg times Branch capsule daily for 7 days. Nitrofurant 2021- No [id number] 100mg Take 1 Univers oin&Nit. 11-17 capsule by ity of [place] 00:00: 00:00 mouth 2 [place] as (MACROBID) 00 :00 (two) Medical 100 mg times Branch capsule daily for 7 days. Levothyroxi Levothyroxi No QD Levothyrox ne Sodium ne Sodium 3-22 ine Sodium 100 MCG 100 MCG 00:00: 100 MCG 00 Levothyroxi Levothyroxi No QD Levothyrox ne Sodium ne Sodium 3-22 ine Sodium 100 MCG 100 MCG 00:00: 100 MCG 00 Levothyroxi Levothyroxi No QD Levothyrox ne Sodium ne Sodium 3-22 ine Sodium 100 MCG 100 MCG 00:00: 100 MCG 00 Levothyroxi Levothyroxi No QD Levothyrox ne Sodium ne Sodium 3-22 ine Sodium 100 MCG 100 MCG 00:00: 100 MCG 00 Levothyroxi Levothyroxi No QD Levothyrox ne Sodium ne Sodium 3-22 ine Sodium 100 MCG 100 MCG 00:00: 100 MCG 00 Levothyroxi Levothyroxi No QD Levothyrox ne Sodium ne Sodium 3-22 ine Sodium 100 MCG 100 MCG 00:00: 100 MCG 00 Levothyroxi Levothyroxi 0 No QD Levothyrox ne Sodium ne Sodium 3-22 ine Sodium 100 MCG 100 MCG 00:00: 100 MCG 00 Levothyroxi Levothyroxi 0 No QD Levothyrox ne Sodium ne Sodium 3-22 ine Sodium 100 MCG 100 MCG 00:00: 100 MCG 00 tiZANidine tiZANidine 2021- No 1{capsu tiZANidine HCl 2 MG HCl 2 MG -11 28-14 le_as_n HCl 2 MG 00:00: 00:00 eeded} 00 :00 Medrol 4 MG Medrol 4 MG 2021- No QD Medrol 4 3- 03-10 MG 00:00: 00:00 00 :00 Bactrim DS Bactrim DS 2021- No 1{table BID Bactrim DS 800-160 MG 800-160 MG 10-21 03-03 t} 800-160 MG 00:00: 00:00 00 :00 furosemide 2021-0 Yes 40mg Take 1 Unive rs 40 mg 1-11 tablet by ity of tablet 00:00: mouth 2 [place] [address] (two) Medical times Branch daily. Lab needed for further refills. furosemide 0 2021- No 40mg Take 1 Univ ers 40 mg 1-11 -08 tablet by ity of tablet 00:00: 00:00 mouth 2 [place] 00 :00 (two) Medical times Branch daily. Lab needed for further refills. FreeStyle FreeStyle 0 No FreeStyle Tashi 2 Tashi 2 1-10 Tashi 2 Sensor - Sensor - 00:00: Sensor - 00 FreeStyle FreeStyle 2021-0 No FreeStyle Tashi 2 Tashi 2 1-10 Tashi 2 Sensor - Sensor - 00:00: Sensor - 00 FreeStyle FreeStyle 2021-0 No FreeStyle Tashi 2 Tashi 2 1-10 Tashi 2 Sensor - Sensor - 00:00: Sensor - 00 FreeStyle FreeStyle 2021-0 No FreeStyle Tashi 2 Tashi 2 1-10 Tashi 2 Sensor - Sensor - 00:00: Sensor - 00 FreeStyle FreeStyle 2022-0 No FreeStyle Tashi 2 Tashi 2 1-10 Tashi 2 Sensor - Sensor - 00:00: Sensor - 00 FreeStyle FreeStyle 2022-0 No FreeStyle Tashi 2 Tashi 2 1-10 Tashi 2 Sensor - Sensor - 00:00: Sensor - 00 FreeStyle FreeStyle 2022-0 No FreeStyle Tashi 2 Tashi 2 1-10 Tashi 2 Sensor - Sensor - 00:00: Sensor - 00 FreeStyle FreeStyle 2022-0 No FreeStyle Tashi 2 Tashi 2 1-10 Tashi 2 Sensor - Sensor - 00:00: Sensor - 00 Gabapentin Gabapentin 2021-1 No 1{capsu Gabapentin 100 MG 100 MG 2-07 le} 100 MG 00:00: 00 Gabapentin Gabapentin 2021-1 No 1{capsu Gabapentin 100 MG 100 MG 2-07 le} 100 MG 00:00: 00 Gabapentin Gabapentin 2021-1 No 1{capsu Gabapentin 100 MG 100 MG 2-07 le} 100 MG 00:00: 00 Gabapentin Gabapentin 2021-1 No 1{capsu Gabapentin 100 MG 100 MG 2-07 le} 100 MG 00:00: 00 Gabapentin Gabapentin 2021-1 No 1{capsu Gabapentin 100 MG 100 MG 2-07 le} 100 MG 00:00: 00 Gabapentin Gabapentin 2021-1 No 1{capsu Gabapentin 100 MG 100 MG 2-07 le} 100 MG 00:00: 00 Gabapentin Gabapentin 2021-1 No 1{capsu Gabapentin 100 MG 100 MG 2-07 le} 100 MG 00:00: 00 Gabapentin Gabapentin 2021-1 No 1{capsu Gabapentin 100 MG 100 MG 2-07 le} 100 MG 00:00: 00 Gabapentin Gabapentin 2021-1 No 1{capsu Gabapentin 100 MG 100 MG 2-07 le} 100 MG 00:00: 00 Gabapentin Gabapentin 2021-1 No 1{capsu Gabapentin 100 MG 100 MG 2-07 le} 100 MG 00:00: 00 Gabapentin Gabapentin 2021-1 No 1{capsu Gabapentin 100 MG 100 MG 2-07 le} 100 MG 00:00: 00 gabapentin 2021-1 2022- No 1 capsule U nivers 100 mg 2 03- ity of capsule 00:00: 00:00 [place] 00 :00 Medical Branch ergocalcife 2020-08 Yes Caitlin s rol, 1-29 ity of vitamin d2, 00:00: [place] 1,250 mcg 00 Medical (50,000 Branch unit) capsule ergocalcife 2020-08 Yes [place]lin [place] rol, 1-29 ity of vitamin d2, 00:00: [place] 1,250 mcg 00 Medical (50,000 Branch unit) capsule ergocalcife 2020-08 Yes [place]lin [place] rol, 1- ity of vitamin d2, 00:00: [place] 1,250 mcg 00 Medical (50,000 Branch unit) capsule ergocalcife 2020-08 Yes [place]lin s rol, 1- ity of vitamin d2, 00:00: [place] 1,250 mcg 00 Medical (50,000 Branch unit) capsule ergocalcife 2020-08 Yes C[place]lin s rol, 1- ity of vitamin d2, 00:00: [place] 1,250 mcg 00 Medical (50,000 Branch unit) capsule ergocalcife 2020-08 Yes Caitlin sanchez rol, 1- ity of vitamin d2, 00:00: [place] 1,250 mcg 00 Medical (50,000 Branch unit) capsule ergocalcife 2020-08 Yes [place]lin [place] rol, 1- ity of vitamin d2, 00:00: [place] 1,250 mcg 00 Medical (50,000 Branch unit) capsule rosuvastati 2020-08 Yes Univer s n 10 mg 1-12 ity of tablet 00:00: [place] [facility] rosuvastati 2020-08 Yes Univer s n 10 mg 1-12 ity of tablet 00:00: [place] [facility] rosuvastati 2020-08 Yes Univer s n 10 mg 1-12 ity of tablet 00:00: [place] [facility] rosuvastati 2020-08 Yes Univer s n 10 mg 1-12 ity of tablet 00:00: [place] [facility] rosuvastati 2020-08 Yes Univer s n 10 mg 1-12 ity of tablet 00:00: Medical Branch rosuvastati 2020-08 Yes Univer s n 10 mg 1-12 ity of tablet 00:00: [place] [facility] rosuvastati 2020-08 Yes Univer s n 10 mg 1-12 ity of tablet 00:00: [place] [facility] Rosuvastati Rosuvastati 2020-08 No 1{table Rosuvastat n Calcium n Calcium 1-08 t} in Calcium 20 MG 20 MG 00:00: 20 MG 00 pravastatin 2020-08 Yes Univer s 40 mg 1-03 ity of tablet 00:00: [place] [facility] pravastatin 2020-08 Yes Univer s 40 mg 1-03 ity of tablet 00:00: [place] [facility] pravastatin 2020-08 Yes Univer s 40 mg 1-03 ity of tablet 00:00: [place] [facility] pravastatin 2020-08 Yes Univer s 40 mg 1-03 ity of tablet 00:00: [place] [facility] pravastatin 2020-08 Yes Univer s 40 mg 1-03 ity of tablet 00:00: [place] [facility] pravastatin 2020-08 Yes Univer s 40 mg 1-03 ity of tablet 00:00: [place] [address] Medical Branch pravastatin 2020-08 Yes Univer s 40 mg 1-03 ity of tablet 00:00: [place] [facility] nystatin-tr 2020-08 Yes Univer s iamcinolone 0-22 ity of cream 00:00: [place] [facility] nystatin-tr 2020-08 Yes Univer s iamcinolone 0-22 ity of cream 00:00: [place] [facility] nystatin-tr 2020-08 Yes Univer s iamcinolone 0-22 ity of cream 00:00: [place] [address] Medical Branch nystatin-tr 2020-08 Yes Univer s iamcinolone 0-22 ity of cream 00:00: [place] [facility] nystatin-tr 2020-08 Yes Univer s iamcinolone 0-22 ity of cream 00:00: [place] [address] Medical Branch nystatin-tr 2020-08 Yes Univer s iamcinolone 0-22 ity of cream 00:00: [place] [address] Medical Branch nystatin-tr 2020-08 Yes Univer s iamcinolone 0-22 ity of cream 00:00: [place] [address] Medical Branch Kenalog Kenalog 2020-08 No 40mg Common (Triamcinol (Triamcinol 0-22 S pirit one) one) 00:00: - [address] Kenalog Kenalog 2020-08 No 40mg Common (Triamcinol (Triamcinol 0-22 S pirit one) one) 00:00: - [facility] 00 [facility] 2020-08 No 40mg Common (Triamcinol (Triamcinol 0-22 S pirit one) one) 00:00: - [facility] 00 [facility] 2020-08 No 40mg Common (Triamcinol (Triamcinol 0-22 S pirit one) one) 00:00: - [facility] 2020-08 No 40mg Common (Triamcinol (Triamcinol 0-22 S pirit one) one) 00:00: - [facility] 2020-08 No 40mg Common (Triamcinol (Triamcinol 0-22 S pirit one) one) 00:00: - [facility] 2020-08 No 40mg Common (Triamcinol (Triamcinol 0-22 S pirit one) one) 00:00: - [facility] 2020-08 No 40mg Common (Triamcinol (Triamcinol 0-22 S pirit one) one) 00:00: - [facility] 2020-08 No 40mg Common (Triamcinol (Triamcinol 0-22 S pirit one) one) 00:00: - [facility] 2020-08 No 40mg Common (Triamcinol (Triamcinol 0-22 S pirit one) one) 00:00: - [facility] 2020-08 No 40mg Common (Triamcinol (Triamcinol 0-22 S pirit one) one) 00:00: - [facility] 2020-08 No 40mg Common (Triamcinol (Triamcinol 0-22 S pirit one) one) 00:00: - [facility] 00 [facility] 2020-08 No 40mg Common (Triamcinol (Triamcinol 0-22 S pirit one) one) 00:00: - [facility] Jose Antonio Brady 2020-08 No 40mg Common (Triamcinol (Triamcinol 0-22 S pirit one) one) 00:00: - [facility] 00 [facility] Jose Antonio Kensoledad 2020-08 No 40mg Common (Triamcinol (Triamcinol 0-22 S pirit one) one) 00:00: - [facility] 2020-08 No 40mg Common (Triamcinol (Triamcinol 0-22 S pirit one) one) 00:00: - [facility] 00 [facility] 2020-08 No 40mg Common (Triamcinol (Triamcinol 0-22 S pirit one) one) 00:00: - [facility] 2020-08 No 40mg Common (Triamcinol (Triamcinol 0-22 S pirit one) one) 00:00: - [facility] 2020-08 No 40mg Common (Triamcinol (Triamcinol 0-22 S pirit one) one) 00:00: - [facility] 2020-08 No 40mg Common (Triamcinol (Triamcinol 0-22 S pirit one) one) 00:00: - [facility] 00 [facility] Jose Antonio Kensoledad 2020-08 No 40mg Common (Triamcinol (Triamcinol 0-22 S pirit one) one) 00:00: - [facility] 00 [facility] Jose Antonio Kensoledad 2020-08 No 40mg Common (Triamcinol (Triamcinol 0-22 S pirit one) one) 00:00: - [facility] 00 [facility] Jose Antonio Kensoledad 2020-08 No 40mg Common (Triamcinol (Triamcinol 0-22 S pirit one) one) 00:00: - [facility] 00 [facility] Jose Antonio Kensoledad 2020-08 No 40mg Common (Triamcinol (Triamcinol 0-22 S pirit one) one) 00:00: - [facility] 00 [facility] Kenalog Kenalog 2020-08 No 40mg Common (Triamcinol (Triamcinol 0-22 S pirit one) one) 00:00: - [facility] 00 [facility] Kenalog Kenalog 2020-08 No 40mg Common (Triamcinol (Triamcinol 0-22 S pirit one) one) 00:00: - [facility] Nystatin-Tr Nystatin-Tr 2020-08- No 1{appli BID Nystatin-T iamcinolone iamcinolone 0-22 11-18 cation} riamcinolo [id number] 00:00: 00:00 ne UNIT/GM UNIT/GM 00 :00 [id number] UNIT/GM Nystatin-Tr Nystatin-Tr 2020-08- No 1{appli BID Nystatin-T iamcinolone iamcinolone 0-22 11-18 cation} riamcinolo [id number] 00:00: 00:00 ne UNIT/GM UNIT/GM 00 :00 [id number] UNIT/GM Nystatin-Tr Nystatin-Tr 2020-08- No 1{appli BID Nystatin-T iamcinolone iamcinolone 0-22 11-18 cation} riamcinolo [id number] 00:00: 00:00 ne UNIT/GM UNIT/GM 00 :00 [id number] UNIT/GM Nystatin-Tr Nystatin-Tr 2020-08- No 1{appli BID Nystatin-T iamcinolone iamcinolone 0-22 11-18 cation} riamcinolo [id number] 00:00: 00:00 ne UNIT/GM UNIT/GM 00 :00 [id number] UNIT/GM Nystatin-Tr Nystatin-Tr 2020-08- No 1{appli BID Nystatin-T iamcinolone iamcinolone 0-22 11-18 cation} riamcinolo [id number] 00:00: 00:00 ne UNIT/GM UNIT/GM 00 :00 [id number] UNIT/GM Nystatin-Tr Nystatin-Tr 2020-1- No 1{appli BID Nystatin-T iamcinolone iamcinolone 0-22 11-18 cation} riamcinolo [id number] 00:00: 00:00 ne UNIT/GM UNIT/GM 00 :00 [id number] UNIT/GM FREESTYLE 2020-08 Yes Univers TASHI 14 0-20 ity of DAY SENSOR 00:00: [place] [facility] 00 [facility] FREESTYLE 2020-08 Yes Univers TASHI 14 0-20 ity of DAY SENSOR 00:00: [place] [facility] FREESTYLE 2020-08 Yes Univers TASHI 14 0-20 ity of DAY SENSOR 00:00: [place] [facility] FREESTYLE 2020-08 Yes Univers TASHI 14 0-20 ity of DAY SENSOR 00:00: [place] [facility] FREESTYLE 2020-08 Yes Univers TASHI 14 0-20 ity of DAY SENSOR 00:00: [place] [facility] FREESTYLE 2020-08 Yes Univers TASHI 14 0-20 ity of DAY SENSOR 00:00: [place] Kit [facility] FREESTYLE 2020-08 Yes Univers TASHI 14 0-20 ity of DAY SENSOR 00:00: [place] Kit 00 [facility] FreeStyle FreeStyle 0 No QD FreeStyle Tashi 14 Tashi 14 6-11 Tashi 14 Day [place] 00:00: Day [place] - - 00 - FreeStyle FreeStyle 2020-0 No QD FreeStyle Tashi 14 Tashi 14 6-11 Tashi 14 Day [place] Day [place] 00:00: Day [place] - - 00 - FreeStyle FreeStyle 2020-0 No QD FreeStyle Tashi 14 Tashi 14 6-11 Tashi 14 Day [place] Day [place] 00:00: Day [place] - - 00 - FreeStyle FreeStyle 2020-0 No QD FreeStyle Tashi 14 Tashi 14 6-11 Tashi 14 Day [place] Day [place] 00:00: Day [place] - - 00 - FreeStyle FreeStyle 2020-0 No QD FreeStyle Tashi 14 Tashi 14 6-11 Tashi 14 Day [place] Day [place] 00:00: Day [place] - - 00 - FreeStyle FreeStyle 2021-0 No QD FreeStyle Tashi 14 Tashi 14 6-11 Tashi 14 Day [place] Day [place] 00:00: Day [place] - - 00 - FreeStyle FreeStyle 2021-0 No QD FreeStyle Tashi 14 Tashi 14 6-11 Tashi 14 Day [place] Day [place] 00:00: Day [place] - - 00 - FreeStyle FreeStyle 2021-0 No QD FreeStyle Tashi 14 Tashi 14 6-11 Tashi 14 Day [place] Day [place] 00:00: Day [place] - - 00 - FreeStyle FreeStyle 2021-0 No QD FreeStyle Tashi 14 Tashi 14 6-11 Tashi 14 Day [place] Day [place] 00:00: Day [place] - - 00 - FreeStyle FreeStyle 2021-0 No QD FreeStyle Tashi 14 Tashi 14 6-11 Tashi 14 Day [place] Day [place] 00:00: Day [place] - - 00 - FreeStyle FreeStyle 2021-0 No QD FreeStyle Tashi 14 Tashi 14 6-11 Tashi 14 Day [place] Day [place] 00:00: Day [place] - - 00 - FreeStyle FreeStyle 2021-0 No QD FreeStyle Tashi 14 Tashi 14 6-11 Tashi 14 Day [place] Day [place] 00:00: Day [place] - - 00 - FreeStyle FreeStyle 2021-0 No QD FreeStyle Tashi 14 Tashi 14 6-11 Tashi 14 Day [place] Day [place] 00:00: Day [place] - - 00 - FreeStyle FreeStyle 2021-0 No QD FreeStyle Tashi 14 Tashi 14 6-11 Tashi 14 Day [place] Day [place] 00:00: Day [place] - - 00 - FreeStyle FreeStyle 2021-0 No QD FreeStyle Tashi 14 Tashi 14 6-11 Tashi 14 Day [place] Day [place] 00[place]00: Day [place] - - 00 - FreeStyle FreeStyle 2021-0 No QD FreeStyle Tashi 14 Tashi 14 6-11 Tashi 14 Day [place] Day [place] 00:00: Day [place] - - 00 - FreeStyle FreeStyle 2021-0 No QD FreeStyle Tashi 14 Tashi 14 6-11 Tashi 14 Day [place] Day [place] 00:00: Day [place] - - 00 - FreeStyle FreeStyle 2021-0 No QD FreeStyle Tashi 14 Tashi 14 6-11 Tashi 14 Day [place] Day [place] 00:00: Day [place] - - 00 - FreeStyle FreeStyle 1-0 No QD FreeStyle Tashi 14 Tashi 14 6-11 Tashi 14 Day [place] Day [place] 00:00: Day [place] - - 00 - FreeStyle FreeStyle 2021-0 No QD FreeStyle Tashi 14 Tashi 14 6-11 Tashi 14 Day [place] Day [place] 00:00: Day [place] - - 00 - FreeStyle FreeStyle 2021-0 No QD FreeStyle Tashi 14 Tashi 14 6-11 Tashi 14 Day [place] Day [place] 00[place]00: Day [place] - - 00 - FreeStyle FreeStyle 1-0 No QD FreeStyle Tashi 14 Tashi 14 6-11 Tashi 14 Day [place] Day [place] 00:00: Day [place] - - 00 - FreeStyle FreeStyle 1-0 No QD FreeStyle Tashi 14 Tashi 14 6-11 Tashi 14 Day [place] Day [place] 00:00: Day [place] - - 00 - FreeStyle FreeStyle 2021-0 No QD FreeStyle Tashi 14 Tashi 14 6-11 Tashi 14 Day [place] Day [place] 00:00: Day [place] - - 00 - FreeStyle FreeStyle 1-0 No QD FreeStyle Tashi 14 [place] 14 6-11 Tashi 14 Day [place] Day [place] 00:00: Day [place] - - 00 - FreeStyle FreeStyle 1-0 No QD FreeStyle Tashi 14 Tashi 14 6-11 Tashi 14 Day [place] Day [place] 00:00: Day [place] - - 00 - FreeStyle FreeStyle 1-0 No QD FreeStyle Tashi 14 Tashi 14 6-11 Tashi 14 Day [place] Day [place] 00[place]00: Day [place] - - 00 - FreeStyle FreeStyle 1-0 No QD FreeStyle Tashi 14 Tashi 14 6-11 Tashi 14 Day [place] Day [place] 00:00: Day [place] - - 00 - FreeStyle FreeStyle 2021-0 No QD FreeStyle Tashi 14 Tashi 14 6-11 Tashi 14 Day [place] Day [place] 00[place]00: Day [place] - - 00 - FreeStyle FreeStyle 2021-0 No QD FreeStyle Tashi 14 Tashi 14 6-11 Tashi 14 Day [place] Day [place] 00:00: Day [place] - - 00 - FreeStyle FreeStyle 2020-0 No QD FreeStyle Tashi 14 Tashi 14 6-11 Tashi 14 Day [place] Day [place] 00:00: Day [place] - - 00 - FreeStyle FreeStyle 1-0 No QD FreeStyle Tashi 14 Tashi 14 6-11 Tashi 14 Day [place] Day [place] 00:00: Day [place] - - 00 - FreeStyle FreeStyle 2020-0 No QD FreeStyle Tashi 14 Tashi 14 6-11 Tashi 14 Day [place] Day [place] 00:00: Day [place] - - 00 - FreeStyle FreeStyle 2020-0 No QD FreeStyle Tashi 14 Tashi 14 6-11 Tashi 14 Day [place] Day [place] 00:00: Day [place] - - 00 - FreeStyle FreeStyle 1-0 No QD FreeStyle Tashi 14 Tashi 14 6-11 Tashi 14 Day [place] Day [place] 00:00: Day [place] - - 00 - FreeStyle FreeStyle 2020-0 No QD FreeStyle Tashi 14 Tashi 14 6-11 Tashi 14 Day [place] Day [place] 00:00: Day [place] - - 00 - FreeStyle FreeStyle 2020-0 No QD FreeStyle Tashi 14 Tashi 14 6-11 Tashi 14 Day [place] Day [place] 00:00: Day [place] - - 00 - FreeStyle FreeStyle 1-0 No QD FreeStyle Tashi 14 Tashi 14 6-11 Tashi 14 Day [place] Day [place] 00:00: Day [place] - - 00 - levothyroxi 2020-0 Yes TAKE 2 Univ ers ne 112 mcg 4-19 TABLETS BY ity of tablet 00:00: MOUTH ONCE [place] 00 DAILY IN [facility] THE [place] MORNING ON AN EMPTY STOMACH levothyroxi 2020-0 Yes TAKE 2 Univ ers ne 112 mcg 4-19 TABLETS BY ity of tablet 00:00: MOUTH ONCE [place] 00 DAILY IN [facility] THE [place] MORNING ON AN EMPTY STOMACH levothyroxi 2020-0 Yes TAKE 2 Univ ers ne 112 mcg 4-19 TABLETS BY ity of tablet 00:00: MOUTH ONCE [place] 00 DAILY IN [facility] [place] MORNING ON AN EMPTY STOMACH levothyroxi 2020-0 Yes TAKE 2 Univ ers ne 112 mcg 4-19 TABLETS BY ity of tablet 00:00: MOUTH ONCE [place] 00 DAILY IN [facility] MORNING ON AN EMPTY STOMACH levothyroxi Yes TAKE 2 Univ ers ne 112 mcg 4-19 TABLETS BY ity of tablet 00:00: MOUTH ONCE [place] 00 DAILY IN [facility] MORNING ON AN EMPTY STOMACH levothyroxi 2020- Yes TAKE 2 Univ ers ne 112 mcg 4-19 TABLETS BY ity of tablet 00:00: MOUTH ONCE [place] 00 DAILY IN [facility] MORNING ON AN EMPTY STOMACH levothyroxi 2020- Yes TAKE 2 Univ ers ne 112 mcg 4-19 TABLETS BY ity of tablet 00:00: MOUTH ONCE [place] 00 DAILY IN [facility] MORNING ON AN EMPTY STOMACH Claritin 10 Claritin 10 2019-08- No 1{table QD Claritin MG MG 2-15 12-10 t} 10 MG 00:00: 00:00 00 :00 Claritin 10 Claritin 10 2019-08- No 1{table QD Claritin MG MG 2-15 12-10 t} 10 MG 00:00: 00:00 00 :00 Claritin 10 Claritin 10 2019-08- No 1{table QD Claritin MG MG 2-15 12-10 t} 10 MG 00:00: 00:00 00 :00 Claritin 10 Claritin 10 2019-08- No 1{table QD Claritin MG MG 2-15 12-10 t} 10 MG 00:00: 00:00 00 :00 Claritin 10 Claritin 10 2019-08- No 1{table QD Claritin MG MG 2-15 12-10 t} 10 MG 00:00: 00:00 00 :00 Claritin 10 Claritin 10 2019-08- No 1{table QD Claritin MG MG 2-15 12-10 t} 10 MG 00:00: 00:00 00 :00 Claritin 10 Claritin 10 2019-08- No 1{table QD Claritin MG MG 2-15 12-10 t} 10 MG 00:00: 00:00 00 :00 Claritin 10 Claritin 10 2019-08- No 1{table QD Claritin MG MG 2-15 12-10 t} 10 MG 00:00: 00:00 00 :00 Claritin 10 Claritin 10 2020-1 2021- No 1{table QD Claritin MG MG 2-15 12-10 t} 10 MG 00:00: 00:00 00 :00 Claritin 10 Claritin 10 2019- 2021- No 1{table QD Claritin MG MG 2-15 12-10 t} 10 MG 00:00: 00:00 00 :00 Atorvastati Atorvastati 2019-0 Yes Jess 1 tablet Common n Calcium n Calcium 3-20 [facility] 00:00: - [facility] 00 [facility] Atorvastati Atorvastati 2019-0 No 1{table QD Atorvastat n Calcium n Calcium 3-20 t} in Calcium 10 MG 10 MG 00:00: 10 MG 00 Depo Medrol Depo Medrol 2018-0 No 40mg Common (40mg) (40mg) 12-12 Spirit 00:00: - [facility] LIDOCAINE LIDOCAINE 2018-0 No 10mg Com mon HCL 10MG/ML HCL 10MG/ML 4 S pirit 00:00: - [facility] Depo Medrol Depo Medrol 2019-0 No 40mg Common (40mg) (40mg) 12-12 Spirit 00:00: - [facility] LIDOCAINE LIDOCAINE 2018-0 No 10mg Com mon HCL 10MG/ML HCL 10MG/ML 4-17 S pirit 00:00: - [facility] Depo Medrol Depo Medrol 2018-0 No 40mg Common (40mg) (40mg) 12-12 Spirit 00:00: - [facility] LIDOCAINE LIDOCAINE 2019-0 No 10mg Com mon HCL 10MG/ML HCL 10MG/ML 4- S pirit 00:00: - [facility] Depo Medrol Depo Medrol 2019-0 No 40mg Common (40mg) (40mg) 12-12 Spirit 00:00: - [facility] LIDOCAINE LIDOCAINE 2019-0 No 10mg Com mon HCL 10MG/ML HCL 10MG/ML 4-17 S pirit 00:00: - [facility] Depo Medrol Depo Medrol 2019-0 No 40mg Common (40mg) (40mg) 12-12 Spirit 00:00: - [facility] LIDOCAINE LIDOCAINE 2019-0 No 10mg Com mon HCL 10MG/ML HCL 10MG/ML 4- S pirit 00:00: - [facility] Depo Medrol Depo Medrol 2019-0 No 40mg Common (40mg) (40mg) 12-12 Spirit 00:00: - [facility] LIDOCAINE LIDOCAINE 2019-0 No 10mg Com mon HCL 10MG/ML HCL 10MG/ML 12-12 S pirit 00:00: - [facility] Depo Medrol Depo Medrol 2019-0 No 40mg Common (40mg) (40mg) 12-12 Spirit 00:00: - [facility] LIDOCAINE LIDOCAINE 2019-0 No 10mg Com mon HCL 10MG/ML HCL 10MG/ML 12-12 S pirit 00:00: - [facility] Depo Medrol Depo Medrol 2019-0 No 40mg Common (40mg) (40mg) 12-12 Spirit 00:00: - [facility] LIDOCAINE LIDOCAINE 2019-0 No 10mg Com mon HCL 10MG/ML HCL 10MG/ML 12-12 S pirit 00:00: - [facility] Depo Medrol Depo Medrol 2019-0 No 40mg Common (40mg) (40mg) 12-12 Spirit 00:00: - [facility] LIDOCAINE LIDOCAINE 2019-0 No 10mg Com mon HCL 10MG/ML HCL 10MG/ML 12-12 S pirit 00:00: - [facility] Depo Medrol Depo Medrol 2019-0 No 40mg Common (40mg) (40mg) 12-12 Spirit 00:00: - [facility] LIDOCAINE LIDOCAINE 2019-0 No 10mg Com mon HCL 10MG/ML HCL 10MG/ML 12-12 S pirit 00:00: - [facility] Depo Medrol Depo Medrol 2019-0 No 40mg Common (40mg) (40mg) 12-12 Spirit 00:00: - [facility] LIDOCAINE LIDOCAINE 2019-0 No 10mg Com mon HCL 10MG/ML HCL 10MG/ML 4 S pirit 00:00: - [facility] Depo Medrol Depo Medrol 2019-0 No 40mg Common (40mg) (40mg) 12-12 Spirit 00:00: - [facility] LIDOCAINE LIDOCAINE 2019-0 No 10mg Com mon HCL 10MG/ML HCL 10MG/ML 12-12 S pirit 00:00: - [facility] Depo Medrol Depo Medrol 2019-0 No 40mg Common (40mg) (40mg) 12-12 Spirit 00:00: - [facility] LIDOCAINE LIDOCAINE 2019-0 No 10mg Com mon HCL 10MG/ML HCL 10MG/ML 12-12 S pirit 00:00: - [facility] Depo Medrol Depo Medrol 2019-0 No 40mg Common (40mg) (40mg) 12-12 Spirit 00:00: - [facility] LIDOCAINE LIDOCAINE 2019-0 No 10mg Com mon HCL 10MG/ML HCL 10MG/ML 12-12 S pirit 00:00: - [facility] Depo Medrol Depo Medrol 2019-0 No 40mg Common (40mg) (40mg) 12-12 Spirit 00:00: - [facility] LIDOCAINE LIDOCAINE 2019-0 No 10mg Com mon HCL 10MG/ML HCL 10MG/ML 12-12 S pirit 00:00: - [facility] Depo Medrol Depo Medrol 2019-0 No 40mg Common (40mg) (40mg) 12-12 Spirit 00:00: - [facility] LIDOCAINE LIDOCAINE 2019-0 No 10mg Com mon HCL 10MG/ML HCL 10MG/ML 12-12 S pirit 00:00: - [facility] Depo Medrol Depo Medrol 2019-0 No 40mg Common (40mg) (40mg) 12-12 Spirit 00:00: - [facility] LIDOCAINE LIDOCAINE 2019-0 No 10mg Com mon HCL 10MG/ML HCL 10MG/ML 12-12 S pirit 00:00: - [facility] Depo Medrol Depo Medrol 2019-0 No 40mg Common (40mg) (40mg) 12-12 Spirit 00:00: - [facility] LIDOCAINE LIDOCAINE 2019-0 No 10mg Com mon HCL 10MG/ML HCL 10MG/ML 4 S pirit 00:00: - [facility] Depo Medrol Depo Medrol 2019-0 No 40mg Common (40mg) (40mg) 12-12 Spirit 00:00: - [facility] LIDOCAINE LIDOCAINE 2019-0 No 10mg Com mon HCL 10MG/ML HCL 10MG/ML 12-12 S pirit 00:00: - [facility] Depo Medrol Depo Medrol 2019-0 No 40mg Common (40mg) (40mg) 12-12 Spirit 00:00: - [facility] LIDOCAINE LIDOCAINE 2019-0 No 10mg Com mon HCL 10MG/ML HCL 10MG/ML 12-12 S pirit 00:00: - [facility] Depo Medrol Depo Medrol 2019-0 No 40mg Common (40mg) (40mg) 12-12 Spirit 00:00: - [facility] LIDOCAINE LIDOCAINE 2019-0 No 10mg Com mon HCL 10MG/ML HCL 10MG/ML 12-12 S pirit 00:00: - [facility] Depo Medrol Depo Medrol 2019-0 No 40mg Common (40mg) (40mg) 12-12 Spirit 00:00: - [facility] LIDOCAINE LIDOCAINE 2019-0 No 10mg Com mon HCL 10MG/ML HCL 10MG/ML 12-12 S pirit 00:00: - [facility] Depo Medrol Depo Medrol 2019-0 No 40mg Common (40mg) (40mg) 12-12 Spirit 00:00: - [facility] LIDOCAINE LIDOCAINE 2019-0 No 10mg Com mon HCL 10MG/ML HCL 10MG/ML 12-12 S pirit 00:00: - [facility] Depo Medrol Depo Medrol 2019-0 No 40mg Common (40mg) (40mg) 12-12 Spirit 00:00: - [facility] LIDOCAINE LIDOCAINE 2019-0 No 10mg Com mon HCL 10MG/ML HCL 10MG/ML 12-12 S pirit 00:00: - [facility] Depo Medrol Depo Medrol 2019-0 No 40mg Common (40mg) (40mg) 4-17 Spirit 00:00: - [facility] LIDOCAINE LIDOCAINE No 10mg Com mon HCL 10MG/ML HCL 10MG/ML 4-17 S pirit 00:00: - [facility] Depo Medrol Depo Medrol No 40mg Common (40mg) (40mg) 4-17 Spirit 00:00: - [facility] LIDOCAINE LIDOCAINE No 10mg Com mon HCL 10MG/ML HCL 10MG/ML 4-17 S pirit 00:00: - [facility] lisinopril 2015-08 Yes 20mg Take 20 mg U nivers (PRINIVIL,Z 0-20 by mouth ity of ESTRIL) 20 00:00: daily. [place] mg tablet [facility] lisinopril 2015-08 Yes 20mg Take 20 mg U nivers (PRINIVIL,Z 0-20 by mouth ity of ESTRIL) 20 00:00: daily. [place] mg tablet [facility] lisinopril 2015-08 Yes 20mg Take 20 mg U nivers (PRINIVIL,Z 0-20 by mouth ity of ESTRIL) 20 00:00: daily. [place] mg tablet [facility] lisinopril 2015-08 Yes 20mg Take 20 mg U nivers (PRINIVIL,Z 0-20 by mouth ity of ESTRIL) 20 00:00: daily. [place] mg tablet [facility] lisinopril 2015-08 Yes 20mg Take 20 mg U nivers (PRINIVIL,Z 0-20 by mouth ity of ESTRIL) 20 00:00: daily. [place] mg tablet [facility] lisinopril 2015-08 Yes 20mg Take 20 mg U nivers (PRINIVIL,Z 0-20 by mouth ity of ESTRIL) 20 00:00: daily. [place] mg tablet [facility] lisinopril 2015-08 Yes 20mg Take 20 mg U nivers (PRINIVIL,Z 0-20 by mouth ity of ESTRIL) 20 00:00: daily. [place] mg tablet [facility] metFORMIN Yes 1000mg Take 1,000 Univers 1,000 mg 8-21 mg by ity of tablet 00:00: mouth 2 [place] 00 (two) Medical times Branch daily. metFORMIN 2016-0 Yes 1000mg Take 1,000 Univers 1,000 mg 8-21 mg by ity of tablet 00:00: mouth (two) Medical times Branch daily. metFORMIN 2016-0 Yes 1000mg Take 1,000 Univers 1,000 mg 8-21 mg by ity of tablet 00:00: mouth 2 (two) Medical times Branch daily. metFORMIN 2016-0 Yes 1000mg Take 1,000 Univers 1,000 mg 8-21 mg by ity of tablet 00:00: mouth (two) Medical times Branch daily. metFORMIN 2016-0 Yes 1000mg Take 1,000 Univers 1,000 mg 8-21 mg by ity of tablet 00:00: mouth (two) Medical times Branch daily. metFORMIN 2016-0 Yes 1000mg Take 1,000 Univers 1,000 mg 8-21 mg by ity of tablet 00:00: mouth (two) Medical times Branch daily. metFORMIN 2016-0 Yes 1000mg Take 1,000 Univers 1,000 mg 8-21 mg by ity of tablet 00:00: mouth (two) Medical times Branch daily. Lisinopril Lisinopril No 1{table QD Lisinopril 20 MG 20 MG t} 20 MG ZyrTEC ZyrTEC No 1{table QD ZyrTEC Allergy 10 Allergy 10 t} Allergy 10 MG MG MG Singulair Singulair No 1{table QD Singulair 10 MG 10 MG t} 10 MG Atenolol 25 Atenolol 25 No 1{table QD Atenolol MG MG t} 25 MG FreeStyle FreeStyle No QD FreeStyle Tashi 14 Tashi 14 Tashi 14 Day [place] Day [place] Day [place] - - - Furosemide Furosemide No 1{table BID Furosemide 40 MG 40 MG t} 40 MG FreeStyle FreeStyle No FreeStyle Tashi 14 Tashi 14 Tashi 14 Day Sensor Day Sensor Day Sensor - - - Rosuvastati Rosuvastati No Rosuvastat n Calcium n Calcium in Calcium 10 MG 10 MG 10 MG Tylenol # 3 Tylenol # 3 No Tylenol # 300/30mg 300/30mg 3 300/30mg Lisinopril Lisinopril No 1{table QD Lisinopril 20 MG 20 MG t} 20 MG ZyrTEC ZyrTEC No 1{table QD ZyrTEC Allergy 10 Allergy 10 t} Allergy 10 MG MG MG Singulair Singulair No 1{table QD Singulair 10 MG 10 MG t} 10 MG Atenolol 25 Atenolol 25 No 1{table QD Atenolol MG MG t} 25 MG FreeStyle FreeStyle No QD FreeStyle Tashi 14 Tashi 14 Tashi 14 Day [place] Day [place] Day [place] - - - Furosemide Furosemide No 1{table BID Furosemide 40 MG 40 MG t} 40 MG FreeStyle FreeStyle No FreeStyle Tashi 14 Tashi 14 Tashi 14 Day [place] Day Sensor Day Sensor - - - Rosuvastati Rosuvastati No Rosuvastat n Calcium n Calcium in Calcium 10 MG 10 MG 10 MG Tylenol # 3 Tylenol # 3 No Tylenol # 300/30mg 300/30mg 3 300/30mg Lisinopril Lisinopril No 1{table QD Lisinopril 20 MG 20 MG t} 20 MG ZyrTEC ZyrTEC No 1{table QD ZyrTEC Allergy 10 Allergy 10 t} Allergy 10 MG MG MG Singulair Singulair No 1{table QD Singulair 10 MG 10 MG t} 10 MG Atenolol 25 Atenolol 25 No 1{table QD Atenolol MG MG t} 25 MG FreeStyle FreeStyle No QD FreeStyle Tashi 14 Tashi 14 Tashi 14 Day [place] Day [place] - - - Furosemide Furosemide No 1{table BID Furosemide 40 MG 40 MG t} 40 MG Atenolol 25 Atenolol 25 No 1{table QD Atenolol MG MG t} 25 MG Tylenol # 3 Tylenol # 3 No Tylenol # 300/30mg 300/30mg 3 300/30mg Singulair Singulair No 1{table QD Singulair 10 MG 10 MG t} 10 MG FreeStyle FreeStyle No FreeStyle Tashi 14 Tashi 14 Tashi 14 Day Sensor Day Sensor Day Sensor - - - Furosemide Furosemide No 1{table BID Furosemide 40 MG 40 MG t} 40 MG ZyrTEC ZyrTEC No 1{table QD ZyrTEC Allergy 10 Allergy 10 t} Allergy 10 MG MG MG Lisinopril Lisinopril No 1{table QD Lisinopril 20 MG 20 MG t} 20 MG Rosuvastati Rosuvastati No Rosuvastat n Calcium n Calcium in Calcium 10 MG 10 MG 10 MG FreeStyle FreeStyle No QD FreeStyle Tashi 14 Tashi 14 Tashi 14 Day [place] Day [place] Day [place] - - - Atenolol 25 Atenolol 25 No 1{table QD Atenolol MG MG t} 25 MG Tylenol # 3 Tylenol # 3 No Tylenol # 300/30mg 300/30mg 3 300/30mg Singulair Singulair No 1{table QD Singulair 10 MG 10 MG t} 10 MG FreeStyle FreeStyle No FreeStyle Tashi 14 Tashi 14 Tashi 14 Day Sensor Day Sensor Day Sensor - - - Furosemide Furosemide No 1{table BID Furosemide 40 MG 40 MG t} 40 MG ZyrTEC ZyrTEC No 1{table QD ZyrTEC Allergy 10 Allergy 10 t} Allergy 10 MG MG MG Lisinopril Lisinopril No 1{table QD Lisinopril 20 MG 20 MG t} 20 MG Rosuvastati Rosuvastati No Rosuvastat n Calcium n Calcium in Calcium 10 MG 10 MG 10 MG FreeStyle FreeStyle No QD FreeStyle Tashi 14 Tashi 14 Tashi 14 Day [place] Day [place] Day [place] - - - Atenolol 25 Atenolol 25 No 1{table QD Atenolol MG MG t} 25 MG Rosuvastati Rosuvastati No Rosuvastat n Calcium n Calcium in Calcium 10 MG 10 MG 10 MG FreeStyle FreeStyle No QD FreeStyle Tashi 14 Tashi 14 Tashi 14 Day [place] Day [place] Day [place] - - - FreeStyle FreeStyle No FreeStyle Tashi 14 Tashi 14 Tashi 14 Day Sensor Day Sensor Day Sensor - - - Singulair Singulair No 1{table QD Singulair 10 MG 10 MG t} 10 MG Lisinopril Lisinopril No 1{table QD Lisinopril 20 MG 20 MG t} 20 MG ZyrTEC ZyrTEC No 1{table QD ZyrTEC Allergy 10 Allergy 10 t} Allergy 10 MG MG MG Tylenol # 3 Tylenol # 3 No Tylenol # 300/30mg 300/30mg 3 300/30mg Furosemide Furosemide No 1{table BID Furosemide 40 MG 40 MG t} 40 MG Atenolol 25 Atenolol 25 No 1{table QD Atenolol MG MG t} 25 MG Rosuvastati Rosuvastati No Rosuvastat n Calcium n Calcium in Calcium 10 MG 10 MG 10 MG FreeStyle FreeStyle No QD FreeStyle Tashi 14 Tashi 14 Tashi 14 Day [place] Day [place] Day [place] - - - FreeStyle FreeStyle No FreeStyle Tashi 14 Tashi 14 Tashi 14 Day Sensor Day Sensor Day Sensor - - - Singulair Singulair No 1{table QD Singulair 10 MG 10 MG t} 10 MG Lisinopril Lisinopril No 1{table QD Lisinopril 20 MG 20 MG t} 20 MG ZyrTEC ZyrTEC No 1{table QD ZyrTEC Allergy 10 Allergy 10 t} Allergy 10 MG MG MG Tylenol # 3 Tylenol # 3 No Tylenol # 300/30mg 300/30mg 3 300/30mg Furosemide Furosemide No 1{table BID Furosemide 40 MG 40 MG t} 40 MG Furosemide Furosemide No 1{table BID Furosemide 40 MG 40 MG t} 40 MG FreeStyle FreeStyle No QD FreeStyle Tashi 14 Tashi 14 Tashi 14 Day [place] Day [place] Day [place] - - - FreeStyle FreeStyle No FreeStyle Tashi 14 Tashi 14 Tashi 14 Day Sensor Day Sensor Day Sensor - - - Atenolol 25 Atenolol 25 No Atenolol MG MG 25 MG Rosuvastati Rosuvastati No 1{table QD Rosuvastat n Calcium n Calcium t} in Calcium 10 MG 10 MG 10 MG Singulair Singulair No 1{table QD Singulair 10 MG 10 MG t} 10 MG Lisinopril Lisinopril No Lisinopril 20 MG 20 MG 20 MG ZyrTEC ZyrTEC No 1{table QD ZyrTEC Allergy 10 Allergy 10 t} Allergy 10 MG MG MG Tylenol # 3 Tylenol # 3 No Tylenol # 300/30mg 300/30mg 3 300/30mg Rosuvastati Rosuvastati No Rosuvastat n Calcium n Calcium in Calcium 20 MG 20 MG 20 MG Vitamin D3 Vitamin D3 No 1{capsu Vitamin D3 1.25 MG 1.25 MG le} 1.25 MG (66758 UT) (64598 UT) (24994 UT) metFORMIN metFORMIN No 1{table BID metFORMIN HCl 1000 MG HCl 1000 MG t_with_ HCl 1000 a_meal} MG Furosemide Furosemide No 1{table BID Furosemide 40 MG 40 MG t} 40 MG Gabapentin Gabapentin No 1{capsu BID Gabapentin 300 MG 300 MG le} 300 MG Atenolol 25 Atenolol 25 No QD Atenolol MG MG 25 MG Lisinopril Lisinopril No QD Lisinopril 20 MG 20 MG 20 MG Levothyroxi Levothyroxi No QD Levothyrox ne Sodium ne Sodium ine Sodium 200 MCG 200 MCG 200 MCG FreeStyle FreeStyle No FreeStyle Tashi 14 Tashi 14 Tashi 14 Day Sensor Day Sensor Day Sensor - - - Rosuvastati Rosuvastati No Rosuvastat n Calcium n Calcium in Calcium 10 MG 10 MG 10 MG Tylenol # 3 Tylenol # 3 No Tylenol # 300/30mg 300/30mg 3 300/30mg Lisinopril Lisinopril No 1{table QD Lisinopril 20 MG 20 MG t} 20 MG ZyrTEC ZyrTEC No 1{table QD ZyrTEC Allergy 10 Allergy 10 t} Allergy 10 MG MG MG Singulair Singulair No 1{table QD Singulair 10 MG 10 MG t} 10 MG Atenolol 25 Atenolol 25 No 1{table QD Atenolol MG MG t} 25 MG FreeStyle FreeStyle No QD FreeStyle Tashi 14 Tashi 14 Tashi 14 Day [place] Day [place] Day [place] - - - Furosemide Furosemide No 1{table BID Furosemide 40 MG 40 MG t} 40 MG Atenolol 25 Atenolol 25 No 1{table QD Atenolol MG MG t} 25 MG Tylenol # 3 Tylenol # 3 No Tylenol # 300/30mg 300/30mg 3 300/30mg Singulair Singulair No 1{table QD Singulair 10 MG 10 MG t} 10 MG FreeStyle FreeStyle No FreeStyle Tashi 14 Tashi 14 Tashi 14 Day Sensor Day Sensor Day Sensor - - - Furosemide Furosemide No 1{table BID Furosemide 40 MG 40 MG t} 40 MG ZyrTEC ZyrTEC No 1{table QD ZyrTEC Allergy 10 Allergy 10 t} Allergy 10 MG MG MG Lisinopril Lisinopril No 1{table QD Lisinopril 20 MG 20 MG t} 20 MG Rosuvastati Rosuvastati No Rosuvastat n Calcium n Calcium in Calcium 10 MG 10 MG 10 MG FreeStyle FreeStyle No QD FreeStyle Tashi 14 Tashi 14 Tashi 14 Day [place] Day [place] Day [place] - - - Atenolol 25 Atenolol 25 No Atenolol MG MG 25 MG FreeStyle FreeStyle No FreeStyle Tashi 14 Tashi 14 Tashi 14 Day Sensor Day Sensor Day Sensor - - - Furosemide Furosemide No 1{table BID Furosemide 40 MG 40 MG t} 40 MG Lisinopril Lisinopril No Lisinopril 20 MG 20 MG 20 MG Synthroid Synthroid No 2{table QD Synthroid 112 MCG 112 MCG ts} 112 MCG Tylenol # 3 Tylenol # 3 No 1{table BID Tylenol # 300/30mg 300/30mg t_as_ne 3 300/30mg eded} Atenolol 25 Atenolol 25 No Atenolol MG MG 25 MG FreeStyle FreeStyle No FreeStyle Tashi 14 Tashi 14 Tashi 14 Day Sensor Day Sensor Day Sensor - - - Synthroid Synthroid No 2{table QD Synthroid 112 MCG 112 MCG ts} 112 MCG Tylenol # 3 Tylenol # 3 No 1{table BID Tylenol # 300/30mg 300/30mg t_as_ne 3 300/30mg eded} Furosemide Furosemide No 1{table BID Furosemide 40 MG 40 MG t} 40 MG Lisinopril Lisinopril No Lisinopril 20 MG 20 MG 20 MG Atenolol 25 Atenolol 25 No Atenolol MG MG 25 MG FreeStyle FreeStyle No FreeStyle Tashi 14 Tashi 14 Tashi 14 Day Sensor Day Sensor Day Sensor - - - Synthroid Synthroid No 2{table QD Synthroid 112 MCG 112 MCG ts} 112 MCG Tylenol # 3 Tylenol # 3 No 1{table BID Tylenol # 300/30mg 300/30mg t_as_ne 3 300/30mg eded} Furosemide Furosemide No 1{table BID Furosemide 40 MG 40 MG t} 40 MG Lisinopril Lisinopril No Lisinopril 20 MG 20 MG 20 MG Atenolol 25 Atenolol 25 No Atenolol MG MG 25 MG FreeStyle FreeStyle No FreeStyle Tashi 14 Tashi 14 Tashi 14 Day Sensor Day Sensor Day Sensor - - - Synthroid Synthroid No 2{table QD Synthroid 112 MCG 112 MCG ts} 112 MCG Tylenol # 3 Tylenol # 3 No 1{table BID Tylenol # 300/30mg 300/30mg t_as_ne 3 300/30mg eded} Furosemide Furosemide No 1{table BID Furosemide 40 MG 40 MG t} 40 MG Lisinopril Lisinopril No Lisinopril 20 MG 20 MG 20 MG Atenolol 25 Atenolol 25 No Atenolol MG MG 25 MG FreeStyle FreeStyle No FreeStyle Tashi 14 Tashi 14 Tashi 14 Day Sensor Day Sensor Day Sensor - - - Synthroid Synthroid No 2{table QD Synthroid 112 MCG 112 MCG ts} 112 MCG Tylenol # 3 Tylenol # 3 No 1{table BID Tylenol # 300/30mg 300/30mg t_as_ne 3 300/30mg eded} Furosemide Furosemide No 1{table BID Furosemide 40 MG 40 MG t} 40 MG Lisinopril Lisinopril No Lisinopril 20 MG 20 MG 20 MG Synthroid Synthroid No 2{table QD Synthroid 112 MCG 112 MCG ts} 112 MCG Lisinopril Lisinopril No Lisinopril 20 MG 20 MG 20 MG FreeStyle FreeStyle No FreeStyle Tashi 14 Tashi 14 Tashi 14 Day Sensor Day Sensor Day Sensor - - - Tylenol # 3 Tylenol # 3 No 1{table BID Tylenol # 300/30mg 300/30mg t_as_ne 3 300/30mg eded} Atenolol 25 Atenolol 25 No Atenolol MG MG 25 MG Furosemide Furosemide No 1{table BID Furosemide 40 MG 40 MG t} 40 MG Synthroid Synthroid No 2{table QD Synthroid 112 MCG 112 MCG ts} 112 MCG Lisinopril Lisinopril No Lisinopril 20 MG 20 MG 20 MG Rosuvastati Rosuvastati No 1{table Rosuvastat n Calcium n Calcium t} in Calcium 10 MG 10 MG 10 MG FreeStyle FreeStyle No FreeStyle Tashi 14 Tashi 14 Tashi 14 Day Sensor Day Sensor Day Sensor - - - Tylenol # 3 Tylenol # 3 No 1{table BID Tylenol # 300/30mg 300/30mg t_as_ne 3 300/30mg eded} Atenolol 25 Atenolol 25 No Atenolol MG MG 25 MG Furosemide Furosemide No 1{table BID Furosemide 40 MG 40 MG t} 40 MG Synthroid Synthroid No 2{table QD Synthroid 112 MCG 112 MCG ts} 112 MCG Rosuvastati Rosuvastati No 1{table Rosuvastat n Calcium n Calcium t} in Calcium 10 MG 10 MG 10 MG Lisinopril Lisinopril No Lisinopril 20 MG 20 MG 20 MG Atenolol 25 Atenolol 25 No Atenolol MG MG 25 MG Furosemide Furosemide No 1{table BID Furosemide 40 MG 40 MG t} 40 MG FreeStyle FreeStyle No FreeStyle Tashi 14 Tashi 14 Tashi 14 Day Sensor Day Sensor Day Sensor - - - Tylenol # 3 Tylenol # 3 No 1{table BID Tylenol # 300/30mg 300/30mg t_as_ne 3 300/30mg eded} Synthroid Synthroid No 2{table QD Synthroid 112 MCG 112 MCG ts} 112 MCG Rosuvastati Rosuvastati No 1{table Rosuvastat n Calcium n Calcium t} in Calcium 10 MG 10 MG 10 MG Lisinopril Lisinopril No Lisinopril 20 MG 20 MG 20 MG Atenolol 25 Atenolol 25 No Atenolol MG MG 25 MG Furosemide Furosemide No 1{table BID Furosemide 40 MG 40 MG t} 40 MG FreeStyle FreeStyle No FreeStyle Tashi 14 Tashi 14 Tashi 14 Day Sensor Day Sensor Day Sensor - - - Tylenol # 3 Tylenol # 3 No 1{table BID Tylenol # 300/30mg 300/30mg t_as_ne 3 300/30mg eded} Rosuvastati Rosuvastati No 1{table Rosuvastat n Calcium n Calcium t} in Calcium 10 MG 10 MG 10 MG FreeStyle FreeStyle No FreeStyle Tashi 14 Tashi 14 Tashi 14 Day Sensor Day Sensor Day Sensor - - - Furosemide Furosemide No 1{table BID Furosemide 40 MG 40 MG t} 40 MG Lisinopril Lisinopril No Lisinopril 20 MG 20 MG 20 MG Atenolol 25 Atenolol 25 No Atenolol MG MG 25 MG Tylenol # 3 Tylenol # 3 No 1{table BID Tylenol # 300/30mg 300/30mg t_as_ne 3 300/30mg eded} Tamsulosin Tamsulosin No 1{capsu QD Tamsulosin HCl 0.4 MG HCl 0.4 MG le} HCl 0.4 MG Synthroid Synthroid No 2{table QD Synthroid 112 MCG 112 MCG ts} 112 MCG Tylenol # 3 Tylenol # 3 No 1{table BID Tylenol # 300/30mg 300/30mg t_as_ne 3 300/30mg eded} Furosemide Furosemide No 1{table BID Furosemide 40 MG 40 MG t} 40 MG FreeStyle FreeStyle No FreeStyle Tashi 14 Tashi 14 Tashi 14 Day Sensor Day Sensor Day Sensor - - - Rosuvastati Rosuvastati No 1{table Rosuvastat n Calcium n Calcium t} in Calcium 10 MG 10 MG 10 MG Synthroid Synthroid No 2{table QD Synthroid 112 MCG 112 MCG ts} 112 MCG Tamsulosin Tamsulosin No 1{capsu QD Tamsulosin HCl 0.4 MG HCl 0.4 MG le} HCl 0.4 MG Atenolol 25 Atenolol 25 No Atenolol MG MG 25 MG Lisinopril Lisinopril No Lisinopril 20 MG 20 MG 20 MG Tylenol # 3 Tylenol # 3 No 1{table BID Tylenol # 300/30mg 300/30mg t_as_ne 3 300/30mg eded} Furosemide Furosemide No 1{table BID Furosemide 40 MG 40 MG t} 40 MG FreeStyle FreeStyle No FreeStyle Tashi 14 Tashi 14 Tashi 14 Day Sensor Day Sensor Day Sensor - - - Rosuvastati Rosuvastati No 1{table Rosuvastat n Calcium n Calcium t} in Calcium 10 MG 10 MG 10 MG Synthroid Synthroid No 2{table QD Synthroid 112 MCG 112 MCG ts} 112 MCG Tamsulosin Tamsulosin No 1{capsu QD Tamsulosin HCl 0.4 MG HCl 0.4 MG le} HCl 0.4 MG Atenolol 25 Atenolol 25 No Atenolol MG MG 25 MG Lisinopril Lisinopril No Lisinopril 20 MG 20 MG 20 MG Atenolol 25 Atenolol 25 No Atenolol MG MG 25 MG Tylenol # 3 Tylenol # 3 No 1{table BID Tylenol # 300/30mg 300/30mg t_as_ne 3 300/30mg eded} Lisinopril Lisinopril No Lisinopril 20 MG 20 MG 20 MG Synthroid Synthroid No 2{table QD Synthroid 112 MCG 112 MCG ts} 112 MCG FreeStyle FreeStyle No FreeStyle Tashi 14 Tashi 14 Tashi 14 Day Sensor Day Sensor Day Sensor - - - Rosuvastati Rosuvastati No 1{table Rosuvastat n Calcium n Calcium t} in Calcium 10 MG 10 MG 10 MG Tamsulosin Tamsulosin No 1{capsu QD Tamsulosin HCl 0.4 MG HCl 0.4 MG le} HCl 0.4 MG Furosemide Furosemide No 1{table BID Furosemide 40 MG 40 MG t} 40 MG Atenolol 25 Atenolol 25 No Atenolol MG MG 25 MG Tylenol # 3 Tylenol # 3 No 1{table BID Tylenol # 300/30mg 300/30mg t_as_ne 3 300/30mg eded} Lisinopril Lisinopril No Lisinopril 20 MG 20 MG 20 MG Synthroid Synthroid No 2{table QD Synthroid 112 MCG 112 MCG ts} 112 MCG FreeStyle FreeStyle No FreeStyle Tashi 14 Tashi 14 Tashi 14 Day Sensor Day Sensor Day Sensor - - - Rosuvastati Rosuvastati No 1{table Rosuvastat n Calcium n Calcium t} in Calcium 10 MG 10 MG 10 MG Tamsulosin Tamsulosin No 1{capsu QD Tamsulosin HCl 0.4 MG HCl 0.4 MG le} HCl 0.4 MG Furosemide Furosemide No 1{table BID Furosemide 40 MG 40 MG t} 40 MG FreeStyle FreeStyle No FreeStyle Tashi 14 Tashi 14 Tashi 14 Day Sensor Day Sensor Day Sensor - - - Tamsulosin Tamsulosin No 1{capsu QD Tamsulosin HCl 0.4 MG HCl 0.4 MG le} HCl 0.4 MG Rosuvastati Rosuvastati No 1{table Rosuvastat n Calcium n Calcium t} in Calcium 10 MG 10 MG 10 MG Lisinopril Lisinopril No Lisinopril 20 MG 20 MG 20 MG Synthroid Synthroid No 2{table QD Synthroid 112 MCG 112 MCG ts} 112 MCG Atenolol 25 Atenolol 25 No Atenolol MG MG 25 MG Furosemide Furosemide No 1{table BID Furosemide 40 MG 40 MG t} 40 MG Tylenol # 3 Tylenol # 3 No 1{table BID Tylenol # 300/30mg 300/30mg t_as_ne 3 300/30mg eded} Lisinopril Lisinopril No Lisinopril 20 MG 20 MG 20 MG Tylenol # 3 Tylenol # 3 No 1{table BID Tylenol # 300/30mg 300/30mg t_as_ne 3 300/30mg eded} Rosuvastati Rosuvastati No 1{table Rosuvastat n Calcium n Calcium t} in Calcium 10 MG 10 MG 10 MG Atenolol 25 Atenolol 25 No Atenolol MG MG 25 MG FreeStyle FreeStyle No FreeStyle Tashi 14 Tashi 14 Tashi 14 Day Sensor Day Sensor Day Sensor - - - Furosemide Furosemide No 1{table BID Furosemide 40 MG 40 MG t} 40 MG Synthroid Synthroid No 2{table QD Synthroid 112 MCG 112 MCG ts} 112 MCG Tamsulosin Tamsulosin No 1{capsu QD Tamsulosin HCl 0.4 MG HCl 0.4 MG le} HCl 0.4 MG Tylenol # 3 Tylenol # 3 No 1{table BID Tylenol # 300/30mg 300/30mg t_as_ne 3 300/30mg eded} Atenolol 25 Atenolol 25 No Atenolol MG MG 25 MG Synthroid Synthroid No 2{table QD Synthroid 112 MCG 112 MCG ts} 112 MCG FreeStyle FreeStyle No FreeStyle Tashi 14 Tashi 14 Tashi 14 Day Sensor Day Sensor Day Sensor - - - Lisinopril Lisinopril No Lisinopril 20 MG 20 MG 20 MG Rosuvastati Rosuvastati No 1{table Rosuvastat n Calcium n Calcium t} in Calcium 10 MG 10 MG 10 MG Tamsulosin Tamsulosin No 1{capsu QD Tamsulosin HCl 0.4 MG HCl 0.4 MG le} HCl 0.4 MG Furosemide Furosemide No 1{table BID Furosemide 40 MG 40 MG t} 40 MG Tylenol # 3 Tylenol # 3 No 1{table BID Tylenol # 300/30mg 300/30mg t_as_ne 3 300/30mg eded} Atenolol 25 Atenolol 25 No Atenolol MG MG 25 MG Synthroid Synthroid No 2{table QD Synthroid 112 MCG 112 MCG ts} 112 MCG FreeStyle FreeStyle No FreeStyle Tashi 14 Tashi 14 Tashi 14 Day Sensor Day Sensor Day Sensor - - - Lisinopril Lisinopril No Lisinopril 20 MG 20 MG 20 MG Rosuvastati Rosuvastati No 1{table Rosuvastat n Calcium n Calcium t} in Calcium 10 MG 10 MG 10 MG Tamsulosin Tamsulosin No 1{capsu QD Tamsulosin HCl 0.4 MG HCl 0.4 MG le} HCl 0.4 MG Furosemide Furosemide No 1{table BID Furosemide 40 MG 40 MG t} 40 MG Tylenol # 3 Tylenol # 3 No 1{table BID Tylenol # 300/30mg 300/30mg t_as_ne 3 300/30mg eded} Atenolol 25 Atenolol 25 No Atenolol MG MG 25 MG Synthroid Synthroid No 2{table QD Synthroid 112 MCG 112 MCG ts} 112 MCG FreeStyle FreeStyle No FreeStyle Tashi 14 Tashi 14 Tashi 14 Day Sensor Day Sensor Day Sensor - - - Lisinopril Lisinopril No Lisinopril 20 MG 20 MG 20 MG Rosuvastati Rosuvastati No 1{table Rosuvastat n Calcium n Calcium t} in Calcium 10 MG 10 MG 10 MG Tamsulosin Tamsulosin No 1{capsu QD Tamsulosin HCl 0.4 MG HCl 0.4 MG le} HCl 0.4 MG Furosemide Furosemide No 1{table BID Furosemide 40 MG 40 MG t} 40 MG Lisinopril Lisinopril No Lisinopril 20 MG 20 MG 20 MG Tylenol # 3 Tylenol # 3 No 1{table BID Tylenol # 300/30mg 300/30mg t_as_ne 3 300/30mg eded} Atenolol 25 Atenolol 25 No Atenolol MG MG 25 MG FreeStyle FreeStyle No FreeStyle Tashi 14 Tashi 14 Tashi 14 Day Sensor Day Sensor Day Sensor - - - Rosuvastati Rosuvastati No 1{table Rosuvastat n Calcium n Calcium t} in Calcium 10 MG 10 MG 10 MG Tamsulosin Tamsulosin No 1{capsu QD Tamsulosin HCl 0.4 MG HCl 0.4 MG le} HCl 0.4 MG Furosemide Furosemide No 1{table BID Furosemide 40 MG 40 MG t} 40 MG Synthroid Synthroid No 2{table QD Synthroid 112 MCG 112 MCG ts} 112 MCG Lisinopril Lisinopril No 1{table QD Lisinopril 20 MG 20 MG t} 20 MG Rosuvastati Rosuvastati No Rosuvastat n Calcium n Calcium in Calcium 10 MG 10 MG 10 MG Furosemide Furosemide No 1{table BID Furosemide 40 MG 40 MG t} 40 MG FreeStyle FreeStyle No FreeStyle Tashi 14 Tashi 14 Tashi 14 Day Sensor Day Sensor Day Sensor - - - Atenolol 25 Atenolol 25 No 1{table QD Atenolol MG MG t} 25 MG ZyrTEC ZyrTEC No 1{table QD ZyrTEC Allergy 10 Allergy 10 t} Allergy 10 MG MG MG FreeStyle FreeStyle No FreeStyle Tashi 14 Tashi 14 Tashi 14 Day Sensor Day Sensor Day Sensor - - - Atenolol 25 Atenolol 25 No 1{table QD Atenolol MG MG t} 25 MG Lisinopril Lisinopril No 1{table QD Lisinopril 20 MG 20 MG t} 20 MG Furosemide Furosemide No 1{table BID Furosemide 40 MG 40 MG t} 40 MG Singulair Singulair No 1{table QD Singulair 10 MG 10 MG t} 10 MG Rosuvastati Rosuvastati No Rosuvastat n Calcium n Calcium in Calcium 10 MG 10 MG 10 MG ZyrTEC ZyrTEC No 1{table QD ZyrTEC Allergy 10 Allergy 10 t} Allergy 10 MG MG MG FreeStyle FreeStyle No FreeStyle Tashi 14 Tashi 14 Tashi 14 Day Sensor Day Sensor Day Sensor - - - Atenolol 25 Atenolol 25 No 1{table QD Atenolol MG MG t} 25 MG Lisinopril Lisinopril No 1{table QD Lisinopril 20 MG 20 MG t} 20 MG Furosemide Furosemide No 1{table BID Furosemide 40 MG 40 MG t} 40 MG Singulair Singulair No 1{table QD Singulair 10 MG 10 MG t} 10 MG Rosuvastati Rosuvastati No Rosuvastat n Calcium n Calcium in Calcium 10 MG 10 MG 10 MG ZyrTEC ZyrTEC No 1{table QD ZyrTEC Allergy 10 Allergy 10 t} Allergy 10 MG MG MG FreeStyle FreeStyle No FreeStyle Tashi 14 Tashi 14 Tashi 14 Day Sensor Day Sensor Day Sensor - - - Atenolol 25 Atenolol 25 No 1{table QD Atenolol MG MG t} 25 MG Lisinopril Lisinopril No 1{table QD Lisinopril 20 MG 20 MG t} 20 MG Furosemide Furosemide No 1{table BID Furosemide 40 MG 40 MG t} 40 MG Singulair Singulair No 1{table QD Singulair 10 MG 10 MG t} 10 MG Rosuvastati Rosuvastati No Rosuvastat n Calcium n Calcium in Calcium 10 MG 10 MG 10 MG Singulair Singulair No 1{table QD Singulair 10 MG 10 MG t} 10 MG FreeStyle FreeStyle No FreeStyle Tashi 14 Tashi 14 Tashi 14 Day Sensor Day Sensor Day Sensor - - - Atenolol 25 Atenolol 25 No 1{table QD Atenolol MG MG t} 25 MG Lisinopril Lisinopril No 1{table QD Lisinopril 20 MG 20 MG t} 20 MG Furosemide Furosemide No 1{table BID Furosemide 40 MG 40 MG t} 40 MG ZyrTEC ZyrTEC No 1{table QD ZyrTEC Allergy 10 Allergy 10 t} Allergy 10 MG MG MG Rosuvastati Rosuvastati No Rosuvastat n Calcium n Calcium in Calcium 10 MG 10 MG 10 MG Singulair Singulair No 1{table QD Singulair 10 MG 10 MG t} 10 MG FreeStyle FreeStyle No FreeStyle Tashi 14 Tashi 14 Tashi 14 Day Sensor Day Sensor Day Sensor - - - Atenolol 25 Atenolol 25 No 1{table QD Atenolol MG MG t} 25 MG Lisinopril Lisinopril No 1{table QD Lisinopril 20 MG 20 MG t} 20 MG Furosemide Furosemide No 1{table BID Furosemide 40 MG 40 MG t} 40 MG ZyrTEC ZyrTEC No 1{table QD ZyrTEC Allergy 10 Allergy 10 t} Allergy 10 MG MG MG Rosuvastati Rosuvastati No Rosuvastat n Calcium n Calcium in Calcium 10 MG 10 MG 10 MG Singulair Singulair No 1{table QD Singulair 10 MG 10 MG t} 10 MG FreeStyle FreeStyle No FreeStyle Tashi 14 Tashi 14 Tashi 14 Day Sensor Day Sensor Day Sensor - - - Atenolol 25 Atenolol 25 No 1{table QD Atenolol MG MG t} 25 MG Lisinopril Lisinopril No 1{table QD Lisinopril 20 MG 20 MG t} 20 MG Furosemide Furosemide No 1{table BID Furosemide 40 MG 40 MG t} 40 MG ZyrTEC ZyrTEC No 1{table QD ZyrTEC Allergy 10 Allergy 10 t} Allergy 10 MG MG MG Rosuvastati Rosuvastati No Rosuvastat n Calcium n Calcium in Calcium 10 MG 10 MG 10 MG FreeStyle FreeStyle No FreeStyle Tashi 14 Tashi 14 Tashi 14 Day Sensor Day Sensor Day Sensor - - - Atenolol 25 Atenolol 25 No 1{table QD Atenolol MG MG t} 25 MG Rosuvastati Rosuvastati No Rosuvastat n Calcium n Calcium in Calcium 10 MG 10 MG 10 MG Lisinopril Lisinopril No 1{table QD Lisinopril 20 MG 20 MG t} 20 MG Singulair Singulair No 1{table QD Singulair 10 MG 10 MG t} 10 MG Tylenol # 3 Tylenol # 3 No Tylenol # 300/30mg 300/30mg 3 300/30mg Furosemide Furosemide No 1{table BID Furosemide 40 MG 40 MG t} 40 MG ZyrTEC ZyrTEC No 1{table QD ZyrTEC Allergy 10 Allergy 10 t} Allergy 10 MG MG MG FreeStyle FreeStyle No FreeStyle Tashi 14 Tashi 14 Tashi 14 Day Sensor Day Sensor Day Sensor - - - Rosuvastati Rosuvastati No Rosuvastat n Calcium n Calcium in Calcium 10 MG 10 MG 10 MG Tylenol # 3 Tylenol # 3 No Tylenol # 300/30mg 300/30mg 3 300/30mg Immunizations Ordered Filled Immunization Date Status Comments [facility] e Immunization Name Name FLUZONE HIGH DOSE FLUZONE HIGH DOSE 2022-05-05 Completed [facility] - OVER 65 OVER 65 10:20:00 [facility] FLUZONE HIGH DOSE FLUZONE HIGH DOSE 2022-05-05 Completed [facility] - OVER 65 OVER 65 10:20:00 [facility] FLUZONE HIGH DOSE FLUZONE HIGH DOSE 2022-05-05 Completed [facility] - OVER 65 OVER 65 10:20:00 [facility] FLUZONE HIGH DOSE FLUZONE HIGH DOSE 2022-05-05 Completed [facility] - OVER 65 OVER 65 10:20:00 [facility] FLUZONE HIGH DOSE FLUZONE HIGH DOSE 2022-05-05 Completed [facility] - OVER 65 OVER 65 10:20:00 [facility] FLUZONE HIGH DOSE FLUZONE HIGH DOSE 2022-05-05 Completed [facility] - OVER 65 OVER 65 10:20:00 [facility] FLUZONE HIGH DOSE FLUZONE HIGH DOSE 2022-05-05 Completed [facility] - OVER 65 OVER 65 10:20:00 [facility] FLUZONE HIGH DOSE FLUZONE HIGH DOSE 2022-05-05 Completed [facility] - OVER 65 OVER 65 10:20:00 [facility] FLUZONE HIGH DOSE FLUZONE HIGH DOSE 2022-05-05 Completed [facility] - OVER 65 OVER 65 10:20:00 [facility] COVID19 [facility] COVID19 2022-01-28 [facility] (Low Dose Vaccine (Low Dose 14:19:[address] [facility] Booster) Booster) [facility] [address] COVID19 2022-01-28 Com[facility] (Low Dose Vaccine (Low Dose 14:19:[address] [facility] Booster) Booster) [facility] COVID19 [facility] [place] [place] COVID-19 2022-01-28 Com[facility] (Low Dose Vaccine (Low Dose 14:19:[address] [facility] [address] [facility] (Low Dose Vaccine (Low Dose 14:19:[address] [facility] Booster) Booster) [facility] [address] [facility] Com[facility] (Low Dose Vaccine (Low Dose 14:19:[address] [facility] Booster) Booster) [facility] [address] [facility] (Low Dose Vaccine (Low Dose 14:19:[address] [facility] Booster) Booster) [facility] [address] [facility] (Low Dose Vaccine (Low Dose 14:19:[address] [facility]oster) [facility] [address] [facility] (Low Dose Vaccine (Low Dose 14:19:[address] [facility] Booster) Booster) [facility] [address] [facility] (Low Dose Vaccine (Low Dose 14:19:[address] [facility] [facility] (Low Dose Vaccine (Low Dose 14:19:[address] [facility] Booster) Booster) [facility] [address] [facility] Com[facility] (Low Dose Vaccine (Low Dose 14:19:[address] [facility] Booster) Booster) [facility] [address] [facility] Com[facility] (Low Dose Vaccine (Low Dose 14:19:[address] [facility] Booster) Booster) [facility] [address] [facility] Com[facility] (Low Dose Vaccine (Low Dose 14:19:[address] [facility] Booster) Booster) [facility] [address] [facility] Com[facility] (Low Dose Vaccine (Low Dose 14:19:[address] [facility] Booster) Booster) [facility] [address] COVID19 2022-01-28 Completed [facility] (Low Dose Vaccine (Low Dose 14:19:[address] [facility] Booster) Booster) [facility] [address] COVID19 2022-01-28 Completed [facility] (Low Dose Vaccine (Low Dose 14:19:[address] [facility] Booster) Booster) [facility] [address] [facility] Com[facility] (Low Dose Vaccine (Low Dose 14:19:[address] [facility] Booster) Booster) [facility] [address] [facility]-28 Completed [facility] (Low Dose Vaccine (Low Dose 14:19:[address] [facility] Booster) Booster) [facility] [address] [facility] 2021-07-26 Com[facility] (Low Dose Vaccine (Low Dose 08:40:[address] [facility] Booster) Booster) [facility] [address] [facility] 2021-07-26 Com[facility] (Low Dose Vaccine (Low Dose 08:40:[address] [facility] Booster) Booster) [facility] [address] COVID19 2021-07-26 Completed [facility] (Low Dose Vaccine (Low Dose 08:40:[address] [facility] Booster) Booster) [facility] [address] COVID19 2021-07-26 Completed [facility] (Low Dose Vaccine (Low Dose 08:40:[address] [facility] Booster) Booster) [facility] [address] COVID19 2021-07-26 Completed [facility] (Low Dose Vaccine (Low Dose 08:40:[address] [facility] Booster) Booster) [facility] [address] COVID19 2021-07-26 Completed [facility] Vacc[facility] (Low Dose Vaccine (Low Dose 08:40:[address] [facility] Booster) Booster) [facility] [address] COVID19 2021-07-26 Completed [facility] (Low Dose Vaccine (Low Dose 08:40:[address] [facility] Booster) Booster) [facility] [address] [facility] 2021-07-26 Completed [facility] Vacc[facility] (Low Dose Vaccine (Low Dose 08:40:[address] [facility] Booster) Booster) [facility] [address] [facility] 2021-07-26 Completed [facility] (Low Dose Vaccine (Low Dose 08:40:[address] [facility] Booster) Booster) [facility] [address] [facility] 2021-07-26 Completed [facility] (Low Dose Vaccine (Low Dose 08:40:[address] [facility] Booster) Booster) [facility] [address] [facility] 2021-07-26 Completed [facility] (Low Dose Vaccine (Low Dose 08:40:[address] [facility] Booster) Booster) [facility] [address] [facility] 2021-07-26 Completed [facility] (Low Dose Vaccine (Low Dose 08:40:[address] [facility] Booster) Booster) [facility] [address] [facility] 2021-07-26 Com[facility] (Low Dose Vaccine (Low Dose 08:40:[address] [facility] Booster) Booster) [facility] [address] [facility] 2021-07-26 Completed [facility] (Low Dose Vaccine (Low Dose 08:40:[address] [facility] Booster) Booster) [facility] [address] [facility] 2021-07-26 Completed [facility] (Low Dose Vaccine (Low Dose 08:40:[address] [facility] Booster) Booster) [facility] [address] [facility] 2021-07-26 Completed [facility] (Low Dose Vaccine (Low Dose 08:40:[address] [facility] Booster) Booster) [facility] [address] COVID19 2021-07-26 Completed [facility]ine (Low Dose Vaccine (Low Dose 08:40:[address] [facility] Booster) Booster) [facility] [address] COVID19 2021-07-26 Completed [facility] (Low Dose Vaccine (Low Dose 08:40:[address] [facility] Booster) Booster) [facility] COVID19 [facility] COVID19 2021-07-26 Completed [facility] (Low Dose Vaccine (Low Dose 08:40:[address] [facility] Booster) Booster) [facility] [address] COVID19 2021-07-26 Completed [facility] Vaccine (Low Dose Vaccine (Low Dose 08:40:[address] [facility] Booster) Booster) [facility] [address] COVID19 2021-07-26 Completed [facility] Vaccine (Low Dose Vaccine (Low Dose 08:40:[address] [facility] Booster) Booster) [facility] [address] [facility] 2021-07-26 Completed [facility] Vaccine (Low Dose Vaccine (Low Dose 08:40:[address] [facility] Booster) Booster) [facility] [address] [facility] 2021-07-26 Completed [facility] Vaccine (Low Dose Vaccine (Low Dose 08:40:[address] [facility] Booster) Booster) [facility] [address] [facility] 2021-07-26 Completed [facility]ine (Low Dose Vaccine (Low Dose 08:40:[address] [facility] Booster) Booster) [facility] [address] COVID19 2021-07-26 Completed [facility] Vaccine (Low Dose Vaccine (Low Dose 08:40:[address] [facility] Booster) Booster) [facility] [address] COVID19 2021-07-26 Completed [facility] Vaccine (Low Dose Vaccine (Low Dose 08:40:[address] [facility] Booster) Booster) [facility] [address] COVID19 2021-07-26 Completed [facility] Vaccine (Low Dose Vaccine (Low Dose 08:40:[address] [facility] Booster) Booster) [facility] [address] COVID19 2021-07-26 Completed [facility]ine (Low Dose Vaccine (Low Dose 08:40:[address] [facility] Booster) Booster) [facility] COVID19 [facility] [place] COVID19 2021-07-26 Completed [facility] Vaccine (Low Dose Vaccine (Low Dose 08:40:[address] [facility] Booster) Booster) [facility] COVID19 [facility] COVID19 2021-07-26 Completed [facility] Vaccine (Low Dose Vaccine (Low Dose 08:40:[address] [facility] Booster) Booster) [facility] COVID19 [facility] COVID19 2021-07-26 Completed [facility] (Low Dose Vaccine (Low Dose 08:40:[address] [facility] Booster) Booster) [facility] JUANITAIDNathalie 2021-07-26 Completed [facility] (Low Dose Vaccine (Low Dose 08:40:[address] [facility] Booster) Booster) [facility] Jose Antonio 2021-06-18 Completed [facility] - (Triamcinolone) (Triamcinolone) 23:19:00 [facility] Jose Antonio 2021-06-18 Completed [facility] - (Triamcinolone) (Triamcinolone) 23:19:00 [facility] Jose Antonio 2021-06-18 Completed [facility] (Triamcinolone) (Triamcinolone) 23:19:00 [facility] Jose Antonio 2021-06-18 Completed [facility] (Triamcinolone) (Triamcinolone) 23:19:00 [facility] FLUZONE HIGH DOSE FLUZONE HIGH DOSE 2021-05-23 Completed [facility] - OVER 65 OVER 65 16:15:00 [facility] FLUZONE HIGH DOSE FLUZONE HIGH DOSE 2021-05-23 Completed [facility] OVER 65 OVER 65 16:15:00 [facility] FLUZONE HIGH DOSE FLUZONE HIGH DOSE 2021-05-23 Completed [facility] - OVER 65 OVER 65 16:15:00 [facility] FLUZONE HIGH DOSE FLUZONE HIGH DOSE 2021-05-23 Completed [facility] OVER 65 OVER 65 16:15:00 [facility] FLUZONE HIGH DOSE FLUZONE HIGH DOSE 2021-05-23 Completed [facility] OVER 65 OVER 65 16:15:00 [facility] FLUZONE HIGH DOSE FLUZONE HIGH DOSE 2021-05-23 Completed [facility] OVER 65 OVER 65 16:15:00 [facility] FLUZONE HIGH DOSE FLUZONE HIGH DOSE 2021-05-23 Completed [facility] OVER 65 OVER 65 16:15:00 [facility] FLUZONE HIGH DOSE FLUZONE HIGH DOSE 2021-05-23 Completed [facility] OVER 65 OVER 65 16:15:00 [facility] FLUZONE HIGH DOSE FLUZONE HIGH DOSE 2021-05-23 Completed [facility] OVER 65 OVER 65 16:15:00 [facility] FLUZONE HIGH DOSE FLUZONE HIGH DOSE 2021-05-23 Completed [facility] OVER 65 OVER 65 16:15:00 [facility] FLUZONE HIGH DOSE FLUZONE HIGH DOSE 2021-05-23 Completed [facility] OVER 65 OVER 65 16:15:00 [facility] FLUZONE HIGH DOSE FLUZONE HIGH DOSE 2021-05-23 Completed [facility] OVER 65 OVER 65 16:15:00 [facility] FLUZONE HIGH DOSE FLUZONE HIGH DOSE 2021-05-23 Completed [facility] OVER 65 OVER 65 16:15:00 [facility] FLUZONE HIGH DOSE FLUZONE HIGH DOSE 2021-05-23 Completed [facility] OVER 65 OVER 65 16:15:00 [facility] FLUZONE HIGH DOSE FLUZONE HIGH DOSE 2021-05-23 Completed [facility] OVER 65 OVER 65 16:15:00 [facility] FLUZONE HIGH DOSE FLUZONE HIGH DOSE 2021-05-23 Completed [facility] - OVER 65 OVER 65 16:15:00 [facility] FLUZONE HIGH DOSE FLUZONE HIGH DOSE 2021-05-23 Completed [facility] - OVER 65 OVER 65 16:15:00 [facility] FLUZONE HIGH DOSE FLUZONE HIGH DOSE 2021-05-23 Completed [facility] - OVER 65 OVER 65 16:15:00 [facility] FLUZONE HIGH DOSE FLUZONE HIGH DOSE 2021-05-23 Completed [facility] - OVER 65 OVER 65 16:15:00 [facility] FLUZONE HIGH DOSE FLUZONE HIGH DOSE 2021-05-23 Completed [facility] - OVER 65 OVER 65 16:15:00 [facility] FLUZONE HIGH DOSE FLUZONE HIGH DOSE 2021-05-23 Completed [facility] - OVER 65 OVER 65 16:15:00 [facility] FLUZONE HIGH DOSE FLUZONE HIGH DOSE 2021-05-23 Completed [facility] - OVER 65 OVER 65 16:15:00 [facility] FLUZONE HIGH DOSE FLUZONE HIGH DOSE 2021-05-23 Completed [facility] - OVER 65 OVER 65 16:15:00 [facility] FLUZONE HIGH DOSE FLUZONE HIGH DOSE 2021-05-23 Completed [facility] - OVER 65 OVER 65 16:15:00 [facility] FLUZONE HIGH DOSE FLUZONE HIGH DOSE 2021-05-23 Completed [facility] - OVER 65 OVER 65 16:15:00 [facility] FLUZONE HIGH DOSE FLUZONE HIGH DOSE 2021-05-23 Completed [facility] - OVER 65 OVER 65 16:15:00 [facility] FLUZONE HIGH DOSE FLUZONE HIGH DOSE 2021-05-23 Completed [facility] - OVER 65 OVER 65 16:15:00 [facility] FLUZONE HIGH DOSE FLUZONE HIGH DOSE 2021-05-23 Completed [facility] OVER 65 OVER 65 16:15:00 [facility] FLUZONE HIGH DOSE FLUZONE HIGH DOSE 2021-05-23 Completed [facility] - OVER 65 OVER 65 16:15:00 [facility] FLUZONE HIGH DOSE FLUZONE HIGH DOSE 2021-05-23 Completed [facility] - OVER 65 OVER 65 16:15:00 [facility] FLUZONE HIGH DOSE FLUZONE HIGH DOSE 2021-05-23 Completed [facility] - OVER 65 OVER 65 16:15:00 [facility] FLUZONE HIGH DOSE FLUZONE HIGH DOSE 2021-05-23 Completed [facility] - OVER 65 OVER 65 16:15:00 [facility] FLUZONE HIGH DOSE FLUZONE HIGH DOSE 2021-05-23 Completed [facility] - OVER 65 OVER 65 16:15:00 [facility] FLUZONE HIGH DOSE FLUZONE HIGH DOSE 2021-05-23 Completed [facility] - OVER 65 OVER 65 16:15:00 [facility] FLUZONE HIGH DOSE FLUZONE HIGH DOSE 2021-05-23 Completed [facility] - OVER 65 OVER 65 16:15:00 [facility] FLUZONE HIGH DOSE FLUZONE HIGH DOSE 2021-05-23 Completed [facility] - OVER 65 OVER 65 16:15:00 [facility] FLUZONE HIGH DOSE FLUZONE HIGH DOSE 2021-05-23 Completed [facility] - OVER 65 OVER 65 16:15:00 [facility] FLUZONE HIGH DOSE FLUZONE HIGH DOSE 2021-05-23 Completed [facility] - OVER 65 OVER 65 16:15:00 [facility] FLUZONE HIGH DOSE FLUZONE HIGH DOSE 2021-05-23 Completed [facility] - OVER 65 OVER 65 16:15:00 [facility] LIDOCAINE HCL LIDOCAINE HCL 2018-12-12 Completed [facility] - 10MG/ML 10MG/ML 11:39:00 [facility] LIDOCAINE HCL LIDOCAINE HCL 2018-12-12 Completed [facility] - 10MG/ML 10MG/ML 11:39:00 [facility] LIDOCAINE HCL LIDOCAINE HCL 2018-12-12 Completed [facility] - 10MG/ML 10MG/ML 11:39:00 [facility] LIDOCAINE HCL LIDOCAINE HCL 2018-12-12 Completed [facility] - 10MG/ML 10MG/ML 11:39:00 [facility] LIDOCAINE HCL LIDOCAINE HCL 2018-12-12 Completed [facility] - 10MG/ML 10MG/ML 11:39:00 [facility] Depo Medrol (40mg) Depo Medrol (40mg) 2018-12-12 Completed [facility] - 11:38:00 [facility] Depo Medrol (40mg) Depo Medrol (40mg) 2018-12-12 Completed [facility] - 11:38:00 [facility] Depo Medrol (40mg) Depo Medrol (40mg) 2018-12-12 Completed [facility] - 11:38:00 [facility] Depo Medrol (40mg) Depo Medrol (40mg) 2018-12-12 Completed [facility] - 11:38:00 [facility] Depo Medrol (40mg) Depo Medrol (40mg) 2018-12-12 Completed [facility] - 11:38:00 [facility] Influenza Virus 2016-04-18 Completed [facility] 00[facility]00 [facility] Zoster(Zostavax)( 2016-04-18 Completed Unive rsity of ingles) 00:00:00 [facility] Influenza Virus 2016-04-18 Completed [facility] 00:00:00 [facility] Zoster(Zostavax)( 2016-04-18 Completed [facility]ive rs[facility] of ingles) 00:00:00 [facility] Influenza Virus 2016-04-18 Completed [facility] 00:00:00 [facility] Zoster(Zostavax)( 2016-04-18 Completed [facility] ingles) 00:00:00 [facility] Influenza Virus 2016-04-18 Completed [facility] 00:00:00 [facility] Zoster(Zostavax)( 2016-04-18 Completed [facility]ive rs[facility] of ingles) 00:00:00 [facility] Influenza Virus 2016-04-18 Completed [facility] Vaccine 00:00:00 [facility] TDAP 2016-04-18 Completed [facility] 00:00:00 [facility] Zoster(Zostavax)( 2016-04-18 Completed [facility] ingles) 00:00:00 [facility] Influenza Virus 2016-04-18 Completed [facility] 00:00:00 [facility] Zoster(Zostavax)( 2016-04-18 Completed [facility] ingles) 00:00:00 [facility] Influenza Virus 2016-04-18 Completed [facility] of Vaccine 00:00:00 [facility] TDAP 2016-04-18 Completed [facility] 00:00:00 [facility] Zoster(Zostavax)(Sh 2016-04-18 Completed [facility] 00:00:00 [facility] Vital Signs Vital Name Observation Time Observation Value Comments Source height 2022-07-08 14:00:00 66.75 [in_i] Common [facility] weight 2022-07-08 14:00:00 231 [lb_av] [facility] temperature 2022-07-08 14:00:00 97.3 [degF] [facility] bmi 2022-07-08 14:00:00 36.45 kg/m2 [facility] oximetry 2022-07-08 14:00:00 96 % [facility] respiratory rate 2022-07-08 14:00:00 14 /min Comm on [facility] blood pressure 2022-07-08 14:00:00 115 mm[Hg] Common [facility] - systolic [facility] blood pressure 2022-07-08 14:00:00 55 mm[Hg] Common [facility] diastolic [facility] height 2022-07-08 13:40:00 66.75 [in_i] [facility] weight 2022-07-08 13:40:00 231 [lb_av] [facility] temperature 2022-07-08 13:40:00 97.3 [degF] [facility] bmi 2022-07-08 13:40:00 36.45 kg/m2 [facility] oximetry 2022-07-08 13:40:00 96 % [facility] respiratory rate 2022-07-08 13:40:00 14 /min Comm on [facility] blood pressure 2022-07-08 13:40:00 115 mm[Hg] Common [facility] - systolic [facility] blood pressure 2022-07-08 13:40:00 55 mm[Hg] Common [facility] - diastolic [facility] Systolic blood 2022-06-06 16:52:00 143 mm[Hg] Univer sity of pressure [facility] Diastolic blood 2022-06-06 16:52:00 72 mm[Hg] Unive rsity of [facility] Heart rate 2022-06-06 16:52:00 78 /min Universi ty [facility] Body temperature 2022-06-06 16:52:00 37 Alejandrina [facility] 2022-06-06 16:52:00 18 /min [facility] height 2022-06-06 16:52:00 172.7 cm [facility] Body weight 2022-06-06 16:52:00 105.461 kg [facility] BMI 2022-06-06 16:52:00 35.35 kg/m2 [facility] Oxygen saturation in 2022-06-06 16:52:00 97 /min [facility] Arterial blood by [facility] Pulse oximetry Branch height 2022-05-23 10:20:00 66.75 [in_i] [facility] weight 2022-05-23 10:20:00 227.8 [lb_av] [facility] temperature 2022-05-23 10:20:00 97.3 [degF] Common [facility] bmi 2022-05-23 10:20:00 35.94 kg/m2 [facility] oximetry 2022-05-23 10:20:00 95 % [facility] respiratory rate 2022-05-23 10:20:00 16 /min Comm on [facility] blood pressure 2022-05-23 10:20:00 126 mm[Hg] Common [facility] - systolic [facility] blood pressure 2022-05-23 10:20:00 66 mm[Hg] Common [facility] - diastolic [facility] height 2022-04-07 16:00:00 66.75 [in_i] [facility] weight 2022-04-07 16:00:00 230.0 [lb_av] Common [facility] temperature 2022-04-07 16:00:00 97.2 [degF] Common [facility] bmi 2022-04-07 16:00:00 36.29 kg/m2 Common [facility] oximetry 2022-04-07 16:00:00 95 % Common [facility] respiratory rate 2022-04-07 16:00:00 15 /min Comm on [facility] blood pressure 2022-04-07 16:00:00 118 mm[Hg] Common [facility] - systolic [facility] blood pressure 2022-04-07 16:00:00 58 mm[Hg] Common [facility] - diastolic [facility] height 2022-03-09 11:15:00 66.75 [in_i] Common [facility] weight 2022-03-09 11:15:00 233.6 [lb_av] [facility] temperature 2022-03-09 11:15:00 97.2 [degF] Common [facility] bmi 2022-03-09 11:15:00 36.86 kg/m2 [facility] oximetry 2022-03-09 11:15:00 95 % [facility] respiratory rate 2022-03-09 11:15:00 17 /min Comm on [facility] blood pressure 2022-03-09 11:15:00 136 mm[Hg] [facility] blood pressure 2022-03-09 11:15:00 67 mm[Hg] Common [facility] - diastolic [facility] height 2022-02-02 10:30:00 66.75 [in_i] Common [facility] weight 2022-02-02 10:30:00 230.8 [lb_av] Common [facility] temperature 2022-02-02 10:30:00 97.2 [degF] [facility] bmi 2022-02-02 10:30:00 36.42 kg/m2 [facility] oximetry 2022-02-02 10:30:00 99 % [facility] respiratory rate 2022-02-02 10:30:00 16 /min Comm on [facility] blood pressure 2022-02-02 10:30:00 122 mm[Hg] Common [facility] - systolic [facility] blood pressure 2022-02-02 10:30:00 60 mm[Hg] Common [facility] - diastolic [facility] height 2022-01-31 16:20:00 66.75 [in_i] [facility] weight 2022-01-31 16:20:00 227 [lb_av] [facility] temperature 2022-01-31 16:20:00 97.2 [degF] [facility] bmi 2022-01-31 16:20:00 35.82 kg/m2 [facility] oximetry 2022-01-31 16:20:00 96 % [facility] respiratory rate 2022-01-31 16:20:00 16 /min Comm on [facility] blood pressure 2022-01-31 16:20:00 121 mm[Hg] Common [facility] - systolic [facility] blood pressure 2022-01-31 16:20:00 58 mm[Hg] Common [facility] diastolic [facility] Systolic blood 2021-11-17 18:41:00 148 mm[Hg] Univer sity of [facility] Diastolic blood 2021-11-17 18:41:00 82 mm[Hg] Unive rsity of [facility] Heart rate 2021-11-17 18:40:00 87 /min Universi ty [facility] Body temperature 2021-11-17 18:40:00 36.72 Alejandrina Univ ersity [facility] Respiratory rate 2021-11-17 18:40:00 18 /min [facility] Body height 2021-11-17 18:40:00 172.7 cm [facility] Body weight 2021-11-17 18:40:00 102.513 kg [facility] BMI 2021-11-17 18:40:00 34.36 kg/m2 [facility] height 2021-10-29 16:40:00 66.75 [in_i] Common [facility] weight 2021-10-29 16:40:00 222.8 [lb_av] Common [facility] temperature 2021-10-29 16:40:00 96.9 [degF] Common [facility] bmi 2021-10-29 16:40:00 35.15 kg/m2 [facility] oximetry 2021-10-29 16:40:00 97 % [facility] respiratory rate 2021-10-29 16:40:00 16 /min Comm on [facility] blood pressure 2021-10-29 16:40:00 136 mm[Hg] Common [facility] - systolic [facility] blood pressure 2021-10-29 16:40:00 67 mm[Hg] Common [facility] - diastolic [facility] height 2021-10-21 11:00:00 66.75 [in_i] Common [facility] weight 2021-10-21 11:00:00 227.2 [lb_av] Common [facility] temperature 2021-10-21 11:00:00 96.3 [degF] Common [facility] bmi 2021-10-21 11:00:00 35.85 kg/m2 [facility] oximetry 2021-10-21 11:00:00 95 % Common [facility] respiratory rate 2021-10-21 11:00:00 15 /min Comm on [facility] blood pressure 2021-10-21 11:00:00 127 mm[Hg] [facility] - systolic [facility] blood pressure 2021-10-21 11:00:00 58 mm[Hg] [facility] - diastolic [facility] height 2021-08-04 09:40:00 66.75 [in_i] Common S pirit - [facility] weight 2021-08-04 09:40:00 222.6 [lb_av] Common [facility] - [facility] temperature 2021-08-04 09:40:00 97.4 [degF] Common S pirit - [facility] bmi 2021-08-04 09:40:00 35.12 kg/m2 Common S pirit [facility] oximetry 2021-08-04 09:40:00 96 % Common S pirit [facility] blood pressure 2021-08-04 09:40:00 131 mm[Hg] Common [facility] - systolic [facility] blood pressure 2021-08-04 09:40:00 63 mm[Hg] [facility] - diastolic [facility] height 2021-08-03 11:40:00 66.75 [in_i] Common S pirit [facility] weight 2021-08-03 11:40:00 221.8 [lb_av] Common [facility] temperature 2021-08-03 11:40:00 97.3 [degF] Common S pirit [facility] bmi 2021-08-03 11:40:00 35 kg/m2 Common S pirit [facility] oximetry 2021-08-03 11:40:00 98 % Common S pirit [facility] respiratory rate 2021-08-03 11:40:00 16 /min Comm on [facility] - [facility] blood pressure 2021-08-03 11:40:00 134 mm[Hg] [facility] - systolic [facility] blood pressure 2021-08-03 11:40:00 61 mm[Hg] [facility] - diastolic [facility] height 2021-06-18 10:20:00 66.75 [in_i] Common S pirit - [facility] weight 2021-06-18 10:20:00 218 [lb_av] [facility] temperature 2021-06-18 10:20:00 96.3 [degF] [facility] bmi 2021-06-18 10:20:00 34.4 kg/m2 [facility] oximetry 2021-06-18 10:20:00 98 % [facility] respiratory rate 2021-06-18 10:20:00 17 /min Comm on [facility] blood pressure 2021-06-18 10:20:00 131 mm[Hg] Common [facility] systolic [facility] blood pressure 2021-06-18 10:20:00 62 mm[Hg] [facility] diastolic [facility] height 2021-06-03 15:20:00 66.75 [in_i] [facility] weight 2021-06-03 15:20:00 218 [lb_av] [facility] temperature 2021-06-03 15:20:00 96.6 [degF] [facility] bmi 2021-06-03 15:20:00 34.4 kg/m2 [facility] oximetry 2021-06-03 15:20:00 96 % [facility] respiratory rate 2021-06-03 15:20:00 14 /min Comm on [facility] blood pressure 2021-06-03 15:20:00 125 mm[Hg] Common [facility] systolic [facility] blood pressure 2021-06-03 15:20:00 67 mm[Hg] Common [facility] diastolic [facility] Procedures Procedure Date / Time Performed Performing Clinician Sour e REFERRAL- 2022-05-31 05:01:00 Doctor Unassigned, No [facility] REQUEST/RESPONSE Name Medical Branch MR ABDOMEN W WO 2022-02-16 15:27:39 Requisition, Paper [facility] [place] CONTRAST [facility] Branch ASSIGNMENT OF BENEFITS 2022-02-16 14:23:05 Doctor Unassigned, No [facility] POCT URINALYSIS 2021-11-17 18:43:00 Faustino Rubio [facility] Encounters Start End Encounter Admission Attending Care Care Encounter Source Date/Time Date/Time Type Type Clinicians Facility Department ID 2023-05-08 Outpatient Avila, STLMLC STLMLC [id number] Common 08:50:00 Arielle [id number] [facility] 2023-04-07 Outpatient Avila, STLMLC STLMLC [id number] Common 09:31:00 Arielle [id number] [facility] 2023-03-13 Outpatient Avila, STLMLC STLMLC [id number] Common 09:31:00 Arielle [id number] [facility] 2022-12-13 Outpatient Avila, STLMLC STLMLC [id number] Common 08:19:00 Arielle [id number] [facility] 2022-10-12 Outpatient Avila, STLMLC STLMLC [id number] Common 08:43:00 Arielle [id number] [facility] 2022-09-01 Outpatient Avila, STLMLC STLMLC [id number] Common 16:19:00 Arielle [id number] [facility] 2022-07-06 Outpatient Adams, Na STLMLC STLMLC [id number] 2 Common 10:54:00 [facility] 2022-07-05 Outpatient Adams, Na STLMLC STLMLC [id number] 2 Common 15:36:00 [facility] 2022-05-20 Outpatient Adams, Na STLMLC STLMLC [id number] 2 Common 08:02:01 [facility] 2022-04-05 Outpatient Adams, Na STLMLC STLMLC [id number] 2 Common 15:15:00 [facility] 2022-01-27 Outpatient Adams, Na STLMLC STLMLC [id number] 2 Common 15:35:01 [facility] 2021-10-28 Outpatient Adams, Na STLMLC STLMLC [id number] 2 Common 10:41:00 [facility] 2021-10-27 Outpatient Adams, Na STLMLC STLMLC [id number] 2 Common 13:20:00 [facility] 2021-09-22 Outpatient Adams, Na STLMLC STLMLC [id number] 2 Common 14:39:43 [facility] 2021-09-22 Outpatient Adams, Na STLMLC STLMLC [id number] 2 Common 14:32:03 [facility] 2021-09-22 Outpatient Adams, Na STLMLC STLMLC [id number] 2 Common 14:31:07 [facility] 2021-09-22 Outpatient Adams, Na STLMLC STLMLC [id number] 2 Common 14:22:08 [id number] [facility] 2021-09-22 Outpatient Adams, Na STLMLC STLMLC [id number] Common 14:21:42 [facility] 2021-09-22 Outpatient Adams, Na STLMLC STLMLC [id number] 2 Common 13:56:50 [id number] [facility] 2021-09-22 Outpatient Adams, Na STLMLC STLMLC [id number] 2 Common 13:48:06 [id number] [facility] 2021-09-22 Outpatient Adams, Na STLMLC STLMLC [id number] 2 Common 13:47:22 [id number] [facility] 2021-09-22 Outpatient Adams, Na STLMLC STLMLC [id number] 2 Common 13:12:37 [id number] [facility] 2021-09-22 Outpatient Adams, Na STLMLC STLMLC [id number] 2 Common 12:56:05 [id number] [facility] 2021-09-22 Outpatient Adams, Na STLMLC STLMLC [id number] 2 Common 12:39:10 [id number] [facility] 2021-09-22 Outpatient Adams, Na STLMLC STLMLC [id number] 2 Common 12:38:32 [id number] [facility] 2021-09-22 Outpatient Adams, Na STLMLC STLMLC [id number] 2 Common 12:37:48 [id number] [facility] 2021-09-22 Outpatient Adams, Na STLMLC STLMLC [id number] 2 Common 12:35:43 [id number] [facility] 2021-09-22 Outpatient STLMLC STLMLC [id number] Common 12:35:27 [id number] [facility] 2021-09-22 Outpatient STLMLC STLMLC [id number] Common 12:19:59 [id number] [facility] 2021-09-22 Outpatient Juan Alberto, Kin STLMLC STLMLC [id number] Common 12:12:49 [id number] [facility] 2021-09-22 Outpatient Avendano, Kin STLMLC STLMLC [id number] Common 12:08:54 [id number] [facility] 2021-09-22 Outpatient Avendano, Kin STLMLC STLMLC [id number] Common 12:03:08 [id number] [facility] 2021-09-22 Outpatient Millender, STLMLC STLMLC [id number] Common 11:22:54 Jess [id number] [facility] 2021-09-22 Outpatient Millender, STLMLC STLMLC [id number] Common 11:14:03 Jess [id number] [facility] 2021-09-22 Outpatient Millender, STLMLC STLMLC [id number] Common 11:12:01 Jess [id number] [facility] 2021-09-22 Outpatient Millender, STLMLC STLMLC [id number] Common 11:11:19 Jess [id number] [facility] 2021-06-28 Emergency [facility] [id number] Univers 12:18:22 [facility] 2023-05-08 2023-05-08 Outpatient GC_GCBZW_Ka PRIV PRIV [id number] [facility] 00:00:00 00:00:00 sandra_S [id number] Medic al 2022-12-30 2022-12-30 Outpatient DMG DMG [id number] [facility] 00:00:00 00:00:00 [id number] [facility] l [facility] 2022-09-16 2022-09-16 (TEL) STLMLC STLC [id number] Co mmon 00:00:00 00:00:00 Spirit - [facility] 2022-09-07 2022-09-07 Outpatient R ALEXANDRE, [facility] [id number] Univers 11:20:00 11:20:00 FIDE ity o f [facility] 2022-09-05 2022-09-05 Outpatient R FARNAZ ELDER [facility] [id number] Univers 15:30:00 15:30:00 ity [facility] 2022-09-05 2022-09-05 Outpatient R FARNAZ ELDER [facility] [id number] Univers 15:30:00 15:30:00 ity [facility] 2022-09-05 2022-09-05 Outpatient R FARNAZ ELDER [facility] [id number] Univers 15:30:00 15:30:00 [facility] 2022-09-05 2022-09-05 Outpatient R RAMIRO ANYIJONG [facility] B [id number] Univers 13:30:00 13:30:00 FAUSTINO RUBIO [facility] 2022-07-25 2022-07-25 Outpatient DMG DMG [id number] [facility] 00:00:00 00:00:00 [id number] [facility]ica l [facility] 2022-07-08 2022-07-08 SUB ANNUAL STLMLC STLMLC [id number] Common 00:00:00 00:00:00 MCR Spirit WELLNESS - CHI VISIT [facility] 2022-07-08 2022-07-08 OFFICE STLMLC STLMLC [id number] Co mmon 00:00:00 00:00:00 VISIT EST Spir it PT LEVEL 3 - [facility] 2022-06-30 2022-06-30 (TEL) STLMLC STLMLC [id number] Co mmon 00:00:00 00:00:00 [facility] 2022-06-07 2022-06-07 [facility] [id number] Univers 11:00:00 11:00:00 FAITH henderson [facility] 2022-06-06 2022-06-06 [facility] 1.2.840. 114 [id number] Univers 11:40:00 12:00:00 [facility] [id number] ity of [place] 4.2.7.2.686 [place] as KIRSTY?BLEA [phone] [address] MEDICAL OFFICE BUILDING 2022-06-06 2022-06-06 [facility] [id number] Univers 11:40:00 11:40:00 TRANG henderson [facility] 2022-06-01 2022-06-01 Telephone Dwight [facility] 1.2.840.114 [id number] Univers 00:00:00 00:00:00 Faith [facility] [id number] ity of [place] [phone] [facility] 205 Branch 2022-05-31 2022-05-31 Orders Doctor JORGE ALBERTO 1.2.840.114 [id number] Univers 00:00:00 00:00:00 Only Unassigned, JOSEE [id number] ity of [place] [facility] 4.2.7.2.686 [place] as [phone] [facility] 009 Branch 2022-05-23 2022-05-23 OFFICE STLMLC STLMLC [id number] Co mmon 00:00:00 00:00:00 VISIT EST Spir it PT LEVEL 3 - [facility] 2022-05-09 2022-05-09 (TEL) STLMLC STLMLC [id number] Co mmon 00:00:00 00:00:00 Spirit [facility] 2022-04-11 2022-04-11 (TEL) STLMLC STLMLC [id number] Co mmon 00:00:00 00:00:00 [facility] 2022-04-07 2022-04-07 OFFICE STLMLC STLMLC [id number] Co mmon 00:00:00 00:00:00 VISIT EST Spir it PT LEVEL 3 - [facility] 2022-03-29 2022-03-29 Outpatient R RADIOLOGY [facility] [id number] Univers 00:00:00 00:00:00 ity of [facility] 2022-03-09 2022-03-09 OFFICE STLMLC STLMLC [id number] Co mmon 00:00:00 00:00:00 VISIT Spirit ESTAB PT - [facility] LEVEL 2 [facility] 2022-03-08 2022-03-08 (TEL) STLMLC STLMLC [id number] Co mmon 00:00:00 00:00:00 [facility] 2022-02-23 2022-02-23 (TEL) STLMLC STLMLC [id number] Co mmon 00:00:00 00:00:00 [facility] 2022-02-16 2022-02-16 Outpatient R RADIOLOGY [facility] [id number] Univers 09:23:42 23:59:00 ity [facility] 2022-02-16 2022-02-16 Hospital Radiology [facility] 1.2.840.114 [id number] Univers 09:23:42 23:59:00 Encounter [place] 350.1.13.10 ity of [place] 4.2.7.2.686 [facility] [id number] [facility] 804 Branch 2022-02-16 2022-02-16 Orders Doctor JORGE ALBERTO 1.2.840.114 [id number] Univers 00:00:00 00:00:00 Only Unassigned, JOSEE 350.1.13.10 ity of [place] [facility] 4.2.7.2.686 [facility] [phone] [facility] 009 Branch 2022-02-14 2022-02-14 (TEL) STLMLC STLMLC [id number] Co mmon 00:00:00 00:00:00 [facility] 2022-02-04 2022-02-04 (TEL) STLMLC STLMLC [id number] Co mmon 00:00:00 00:00:00 [facility] 2022-02-02 2022-02-02 OFFICE STLMLC STLMLC [id number] Co mmon 00:00:00 00:00:00 VISIT Spirit ESTAB PT - CHI LEVEL 4 [facility] 2022-02-01 2022-02-01 [facility] 1.2.840.114 [id number] Univers 00:00:00 00:00:00 Fide [place] 350.1.13.10 ity [facility] 4.2.7.2.686 Samuel WING [phone] [address] 2022-01-31 2022-01-31 OFFICE STLMLC STLMLC [id number] Co mmon 00:00:00 00:00:00 VISIT EST Spir it PT LEVEL 3 - [facility] 2022-01-31 2022-01-31 (TEL) STLMLC STLMLC [id number] Co mmon 00:00:00 00:00:00 [facility] 2021-12-21 2021-12-21 Outpatient R RADIOLOGY [facility] [id number] Univers 00:00:00 00:00:00 [facility] 2021-12-21 2021-12-21 (TEL) STLMLC STLMLC [id number] Co mmon 00:00:00 00:00:00 [facility] 2021-11-23 2021-11-23 (TEL) STLMLC STLMLC [id number] Co mmon 00:00:00 00:00:00 [facility] 2021-11-18 2021-11-18 (TEL) STLMLC STLMLC [id number] Co mmon 00:00:00 00:00:00 [facility] 2021-11-17 2021-11-17 Outpatient R FAUSTINO RUBIO [facility] B [id number] Univers 13:15:00 13:50:43 FAUSTINO RUBIO [facility] 2021-11-17 2021-11-17 Office Ramiro [facility] 1.2.840.114 [id number] Univers 13:15:00 13:50:43 Visit Anyijong SAEED 350.1.13.10 it y of WOMEN'S 4.2.7.2.686 [facility] [phone] [facility] 134 Branch 2021-11-17 2021-11-17 Outpatient R RAMIRO FAUSTINO [facility] B [id number] Univers 13:15:00 13:50:43 RAMIRO FAUSTINO ity [facility] 2021-11-15 2021-11-15 (TEL) STLMLC STLMLC [id number] Co mmon 00:00:00 00:00:00 [facility] 2021-10-29 2021-10-29 OFFICE STLMLC STLMLC [id number] Co mmon 00:00:00 00:00:00 VISIT EST Spir it PT LEVEL 3 [facility] 2021-10-21 2021-10-21 OFFICE STLMLC STLMLC [id number] Co mmon 00:00:00 00:00:00 VISIT EST Spir it PT LEVEL 3 [facility] 2021-10-20 2021-10-20 (TEL) STLMLC STLMLC [id number] Co mmon 00:00:00 00:00:00 [facility] 2021-10-14 2021-10-14 Orders Doctor AZUL 1.2.840.114 [id number] Univers 00:00:00 00:00:00 Only Unassigned, JOSEE 350.1.13.10 ity of [place] [facility] 4.2.7.2.686 [place] [phone] [facility] 009 Branch 2021-09-06 2021-09-06 (TEL) STLMLC STLMLC [id number] Co mmon 00:00:00 00:00:00 [facility] 2021-09-03 2021-09-03 Kevin Schroeder [facility] 1.2.840.114 [id number] Univers 00:00:00 00:00:00 Fide [place] 350.1.13.10 [place] [phone] In dical [facility] 059 [facility] 2021-09-02 2021-09-02 Office Farnaz Elder [facility] 1.2.840.114 [id number] Univers 14:00:00 15:23:34 Visit SAEED 350.1.13.10 it y [place] [facility] [phone] [facility] 134 Branch 2021-09-02 2021-09-02 Outpatient R FARNAZ ELDER [facility] [id number] Univers 14:00:00 15:23:34 ity [facility] 2021-09-02 2021-09-02 Outpatient R FARNAZ ELDER [facility] [id number] Univers 14:00:00 15:23:34 ity [facility] 2021-09-02 2021-09-02 Outpatient R EMMANUEL FARNAZ [facility] [id number] Univers 14:00:00 14:00:00 ity [facility] 2021-08-12 2021-08-12 Orders Doctor JORGE ALBERTO 1.2.840.114 [id number] Univers 00:00:00 00:00:00 Only Unassigned, JOSEE 350.1.13.10 ity of [facility] 4.2.7.2.686 [place] [phone] [facility] 009 Branch 2021-08-10 2021-08-10 (TEL) STLMLC STLMLC [id number] Co mmon 00:00:00 00:00:00 Spirit - [facility] 2021-08-04 2021-08-04 OFFICE STLMLC STLMLC [id number] Co mmon 00:00:00 00:00:00 VISIT NEW Spir it PT LEVEL 3 - [facility] 2021-08-03 2021-08-03 OFFICE STLMLC STLMLC [id number] Co mmon 00:00:00 00:00:00 VISIT Spirit ESTAB PT - CHI LEVEL 4 [facility] 2021-08-02 2021-08-02 Orders Doctor JORGE ALBERTO Lee.2.840.114 [id number] Univers 00:00:00 00:00:00 Only Unassigned, JOSEE 350.1.13.10 ity of [place] [facility] 4.2.7.2.686 [place] [phone] [facility] 009 Branch 2021-07-30 2021-07-30 Outpatient R ALEXANDRE, [facility] [id number] Univers 14:54:00 23:59:00 FIDE cartery o f [facility] 2021-07-30 2021-07-30 [facility] 1.2.840.114 [id number] Univers 14:54:00 23:59:00 Encounter Fide [place] 350.1.13.10 [place].7.2.686 [place] [facility] [id number] [facility] 850 Branch 2021-07-30 2021-07-30 (TEL) STLMLC STLMLC [id number] Co mmon 00:00:00 00:00:00 Spirit - [facility] 2021-07-30 2021-07-30 Orders Doctor AZUL 1.2.840.114 [id number] Univers 00:00:00 00:00:00 Only Unassigned, JOSEE 350.1.13.10 ity of [place] [facility] 4.2.7.2.686 [place] [id number] [place] [address] Branch 2021-07-26 2021-07-26 (TEL) STLMLC STLMLC [id number] Co mmon 00:00:00 00:00:00 Spirit [facility] 2021-07-09 2021-07-09 Outpatient R ALEXANDRE, [facility] [id number] Univers 15:00:00 15:35:33 FIDE ity o f [facility] 2021-07-09 2021-07-09 Outpatient R ALEXANDRE, [facility] [id number] Univers 15:00:00 15:35:33 FIDE ity o f [facility] 2021-07-09 2021-07-09 Outpatient R ALEXANDRE, [facility] [id number] Univers 15:00:00 15:35:33 FIDE ity o f [facility] 2021-07-09 2021-07-09 Office [facility] 1.2.840.114 [id number] Univers 14:44:32 15:35:33 Visit Fide [place] 350.1.13.10 [facility] 4.2.[place] [phone] [facility] 059 [facility] 2021-07-09 2021-07-09 Orders Doctor JORGE ALBERTO 1.2.840.[id number] [place] [address] 00:00:00 00:00:00 Only Unassigned, JOSEE 350.1.13.10 ity of [place] [facility] 4.2.7.2.686 [place] as [id number] [facility] ilan 009 Branch 2021-07-08 2021-07-08 (TEL) STLMLC STLMLC [id number] Co mmon 00:00:00 00:00:00 [facility] 2021-07-06 2021-07-06 Outpatient WATERS_S [facility] [id number] [place] 12:32:00 12:32:00 [facility] 2021-07-02 2021-07-02 (TEL) STLMLC STLMLC [id number] Co mmon 00:00:00 00:00:00 [facility] 2021-06-28 2021-06-28 (TEL) STLMLC STLMLC [id number] Co mmon 00:00:00 00:00:00 [facility] 2021-06-23 2021-06-23 (TEL) STLMLC STLMLC [id number] Co mmon 00:00:00 00:00:00 [facility] 2021-06-21 2021-06-21 (TEL) STLMLC STLMLC [id number] Co mmon 00:00:00 00:00:00 [facility] 2021-06-21 2021-06-21 Orders Doctor JORGE ALBERTO 1.2.840.114 [id number] 00:00:00 00:00:00 Only Unassigned, JOSEE 350.1.13.10 [place] [facility] 4.2.7.2.686 [place] as [id number] [facility] ilan 009 Branch 2021-06-18 2021-06-18 OFFICE STLMLC STLMLC [id number] Co mmon 00:00:00 00:00:00 VISIT EST Spir it PT LEVEL 3 [facility] 2021-06-16 2021-06-16 (TEL) STLMLC STLMLC [id number] Co mmon 00:00:00 00:00:00 [facility] 2021-06-11 2021-06-11 Orders Doctor AZUL 1.2.840.114 [id number] Univers 00:00:00 00:00:00 Only Unassigned, JOSEE 350.1.13.10 ity of [facility] 4.2.7.2.686 [facility] [phone] [facility] 009 Branch 2021-06-03 2021-06-03 OFFICE STLMLC STLMLC [id number] Co mmon 00:00:00 00:00:00 VISIT Spirit ESTAB PT - CHI LEVEL 4 [facility] 2021-05-06 2021-05-06 Outpatient STLMLC STLMLC [id number] Common 00:00:00 00:00:00 [facility] 2021-05-05 2021-05-05 Outpatient STLMLC STLMLC [id number] Common 00:00:00 00:00:00 [facility] 2021-04-07 2021-04-07 Outpatient STLMLC STLMLC [id number] Common 00:00:00 00:00:00 [facility] 2021-03-28 2021-03-29 Emergency [facility] 1.2.830.842 [id number] [facility] 23:26:00 02:04:00 [place] 350.1.13.10 ity [facility] 4.2.7.2.686 [facility] [phone] [facility] 084 Branch 2021-02-12 2021-02-12 Outpatient STLMLC STLMLC [id number] Common 00:00:00 00:00:00 [facility] 2021-02-05 2021-02-05 Outpatient STLMLC STLMLC [id number] Common 00:00:00 00:00:00 [facility] 2021-01-29 2021-01-29 Outpatient STLMLC STLMLC [id number] Common 00:00:00 00:00:00 [facility] 2021-01-13 2021-01-13 Outpatient STLMLC STLMLC [id number] Common 00:00:00 00:00:00 [facility] 2020-12-24 2020-12-24 Outpatient [facility] [id number] Univers 10:22:32 23:59:00 ANTOINESHAJI coker [facility] 2020-12-24 2020-12-24 Hospital [facility] 1.2.840.114 [id number] Univers 10:22:32 23:59:00 Encounter Antoine Pyle [facility] 350.1.13.10 ity of Surgical 4.2.7.2.686 [place] Specialti [phone] In dical es 809 [facility] 2020-12-24 2020-12-24 Office [facility] 1.2.435.278 [id number] Univers 10:03:51 10:36:04 Visit Antoine Pyle [facility] 350.1.13.10 it y of Surgical 4.2.7.2.686 [place] Specialti [phone] Me dical es 198 [facility] 2020-12-24 2020-12-24 [facility] [id number] Univers 10:30:00 10:30:00 ANTOINE coker [facility] 2020-12-18 2020-12-18 Outpatient STLMLC STLMLC [id number] Common 00:00:00 00:00:00 [facility] [facility] 2020-12-18 2020-12-18 Orders Doctor AZUL [id number] [employer] 00:00:00 00:00:00 Only Unassigned, JOSEE [id number] [facility] [id number] Genaro as [id number] [address] 2020-11-30 2020-11-30 Outpatient STLMLC STLMLC [id number] Common 00:00:00 00:00:00 [facility] 2020-11-24 2020-11-24 Outpatient STLMLC STLMLC [id number] Common 00:00:00 00:00:00 [facility] 2020-11-24 2020-11-24 Outpatient STLMLC STLMLC [id number] Common 00:00:00 00:00:00 [facility] 2020-11-05 2020-11-05 Outpatient STLMLC STLMLC [id number] Common 00:00:00 00:00:00 [facility] 2020-10-27 2020-10-27 Outpatient STLMLC STLMLC [id number] Common 00:00:00 00:00:00 [facility] 2020-08-11 2020-08-11 Outpatient STLMLC STLMLC [id number] Common 00:00:00 00:00:00 [facility] 2020-05-11 2020-05-11 [facility] [id number] Common 17:21:00 17:21:[address] [facility] 2020-05-07 2020-05-07 [facility] [id number] Common 15:39:00 15:39:00 [facility] 2020-05-07 2020-05-07 [facility] [id number] Common 14:30:00 14:30:00 t [facility] 2020-05-05 2020-05-05 [facility] [id number] Common 01:03:00 01:03:[address] [facility] 2020-04-30 2020-04-30 [facility] [id number] Common 13:40:00 13:40:[address] [facility] 2020-04-27 2020-04-27 [facility] [id number] Common 14:51:00 14:51:[address] [facility] 2020-04-15 2020-04-15 [facility] [id number] Common 09:13:00 09:13:[address] [facility] 2020-04-06 2020-04-06 [facility] [id number] Common 11:43:00 11:43:[address] [facility] 2020-02-20 2020-02-20 [facility] [id number] Common 15:00:00 15:00:[address] [facility] 2020-02-17 2020-02-17 [facility] [id number] Common 14:33:00 14:33:[address] [facility] 2020-02-14 2020-02-14 [facility] [id number] Common 11:24:00 11:24:00 t Bone Bone and Spiri t and [facility] 2020-02-11 2020-02-11 [facility] [id number] Common 12:38:00 12:38:00 t Bone Bone and Spiri t and [facility] 2020-02-11 2020-02-11 [facility] [id number] Common 10:00:00 10:00:00 t [facility] Bone and Spiri t and [facility] 2019-12-26 2019-12-26 [facility] [id number] Common 09:17:00 09:17:[address] [facility] 2019-11-14 2019-11-14 [facility] [id number] Common 15:13:00 15:13:[address] [facility] 2019-11-06 2019-11-06 [facility] [id number] Common 11:32:00 11:32:[address] [facility] 2019-10-30 2019-10-30 [facility] [id number] Common 16:15:00 16:15:[address] [facility] 2019-10-15 2019-10-15 [facility] [id number] Common 08:45:00 08:45:[address] [facility] 2019-07-01 2019-07-01 [facility] [id number] Common 14:54:00 14:54:[address] [facility] 2019-06-10 2019-06-10 [facility] [id number] Common 18:38:00 18:38:[address] [facility] 2019-06-02 2019-06-02 [facility] [id number] Common 21:31:00 21:31:[address] [facility] 2019-05-30 2019-05-30 [facility] [id number] Common 10:40:00 10:40:[address] [facility] 2019-05-21 2019-05-21 [facility] [id number] Common 16:34:00 16:34:[address] [facility] 2019-01-02 2019-01-02 [facility] [id number] Common 11:12:00 11:12:[address] [facility] 2018-12-31 2018-12-31 [facility] [id number] Common 09:40:00 09:40:[address] [facility] 2018-12-12 2018-12-12 [facility] [id number] Common 10:30:00 10:30:00 t Bone Bone and Spiri t and Joint [facility] 2018-12-03 2018-12-03 [facility] [id number] Common 11:00:00 11:00:00 t Bone Bone and Spiri t and Joint [facility] 2018-11-29 2018-11-29 [facility] [id number] Common 16:31:00 16:31:[address] [facility] 2018-11-07 2018-11-07 [facility] [id number] Common 15:07:00 15:07:[address] [facility] 2018-10-30 2018-10-30 [facility] [id number] Common 13:00:00 13:00:[address] [facility] 2018-08-23 2018-08-23 [facility] [id number] Common 10:45:00 10:45:[address] [facility] 2018-05-29 2018-05-29 [facility] [id number] Common 23:12:00 23:12:[address] [facility] 2018-05-29 2018-05-29 [facility] [id number] Common 14:45:00 14:45:[address] [facility] 2018-04-04 2018-04-04 [facility] [id number] Common 11:00:00 11:00:[address] [facility] 2018-04-03 2018-04-03 [facility] [id number] Common 13:30:00 13:30:[address] [facility] 2018-02-20 2018-02-20 [facility] [id number] Common 09:37:00 09:37:[address] [facility] 2018-01-30 2018-01-30 [facility] [id number] Common 14:34:00 14:34:[address] [facility] 2018-01-12 2018-01-12 [facility] [id number] Common 16:45:00 16:45:00 t [facility] [address] [facility] 2018-01-12 2018-01-12 [facility] [id number] Common 10:34:00 10:34:[address] [facility] 2018-01-10 2018-01-10 [facility] [id number] Common 22:28:00 22:28:00 t [facility] [address] [facility] 2017-12-28 2017-12-28 Outpatient Brittany [facility]ot[facility] [id number] Common 13:45:00 13:45:00 t [facility] [address] [facility] Results Test Description Test Time Test Comments Results Result Comments Source POCT URINALYSIS W SPECIFIC GRAVITY 2021-11-17 18:44:00 Test Item Value Reference Range Interpretation Comme nts POCT U SP GRAV (test code = 3255) 1.015 mg/dl 1.005-1.025 POCT PH U (test code = 3254) 5 mg/dl 5-8 POCT U LEUK EST (test code = 3263) Trace Negative - Negative POCT U NIT (test code = 3262) Negative Negative - Negative POCT U PROT (test code = 3259) trace Negative - Negative POCT U GLU (test code = 3256) Negative Negative - Negative POCT U KETONE (test code = 3258) positive Negative - Negative POCT U UROBILI (test code = 3260) 0.2 mg/dl 0.2-1 POCT U BILI (test code = 3261) Negative Negative - Negative POCT U BLD (test code = 3257) 1+t Negative - Negative POCT U COLOR (test code = 3266) POCT U APPEAR (test code = 3267) [facility]
[2023-05-09 15:22] LABS: Specific Gravity 1.014 (1.005-1.030); Urine Bacteria None Seen /HPF (<20); Urine Bilirubin NEGATIVE (Negative); Urine Blood Trace (Negative); Urine Clarity Clear (Clear); Urine Color Colorless (Yellow); Urine Glucose NEGATIVE (Negative); Urine Protein 3+ (Negative); Urine RBC <5 /HPF (None Seen); Urine Urobilinogen Normal (Normal); Urine pH 6.5 (5.0-7.0)
[2023-05-09 15:23] LABS: Absolute Lymphocytes (CBC) 2.5 K/uL (0.7-4.9); Hematocrit 37.4 % (36.0-45.0); MCV 88.2 fL (80-100); MPV 7.7 fL (7.6-11.3); Platelets 265 thou/uL (152-406); Protime INR 1.07; RBC Red Blood Cell Count 4.24 M/uL (3.86-4.86)
[2023-05-09 15:55] LABS: ALT/SGPT 22 U/L (13-56); AST/SGOT 18 U/L (15-37); Albumin 3.2 g/dL (3.4-5.0); Alkaline Phosphatase 50 U/L (45-117); BUN Blood Urea Nitrogen 36 mg/dL (7-18); Bicarbonate 23 mEq/L (21-32); Bilirubin Total 0.2 mg/dL (0.2-1.0); Glomerular Filtration Rate 19 ml/min (=/>90); Glucose Level 64 mg/dL (74-106); Magnesium 2.7 mg/dL (1.6-2.4); NT PRO-BNP 84 pg/mL (<125); Potassium 4.3 mEq/L (3.5-5.1); Sodium Level 139 mEq/L (136-145); Troponin High Sensitivity 3.7 pg/mL (<58.9)
[2023-05-09 15:58] LABS: Bilirubin Direct < 0.1 mg/dL (0-0.2); Bilirubin Indirect, Calculated ND mg/dL (0.2-0.8)
[2023-05-09 16:05] LABS: SARS-CoV-2 Antigen Rapid Res Negative (Negative)
--- NOTE | 2023-05-09 16:05 | ER ---
Nurse's Notes [facility] Name: Daphney Herrera Age: 67 yrs Sex: Female : 1955 Arrival Date: 05/09/2023 Time: 14:36 Bed 19 Private MD: Arielle Avila Diagnosis: Acute kidney failure, unspecified Presentation: 05/09 14:53 Chief complaint: Patient states: she received a phone call from her PCP today who ap3 informed her to come to the ED for evaluation after blood work showed poor kidney function. patient denies symptoms. Coronavirus screen: At this time, the client does not indicate any symptoms associated with coronavirus-19. Ebola Screen: No symptoms or risks identified at this time. Initial Sepsis Screen: Does the patient meet any 2 criteria? No. Patient's initial sepsis screen is negative. Does the patient have a suspected source of infection? No. Patient's initial sepsis screen is negative. Risk Assessment: Do you want to hurt yourself or someone else? Patient reports no desire to harm self or others. Onset of symptoms is unknown. 14:53 Method Of Arrival: Ambulatory ap3 14:53 Acuity: GEE 3 ap3 Triage Assessment: 14:56 General: Appears in no apparent distress. Behavior is calm, cooperative, appropriate ap3 for age. Pain: Denies pain. Neuro: Level of Consciousness is awake, alert, obeys commands, Oriented to person, place, time, situation, Appropriate for age. Cardiovascular: Patient's skin is warm and dry. Respiratory: Airway is patent Respiratory effort is even, unlabored, Respiratory pattern is regular, symmetrical. 14:57 : No deficits noted. No signs and/or symptoms were reported regarding the ap3 genitourinary system. Historical: - Allergies: 14:55 No Known Allergies; ap3 - PMHx: 14:55 Hypertensive disorder; Diabetes mellitus; ap3 - Immunization history:: Client reports receiving the 2nd dose of the Covid vaccine. - Social history:: Smoking status: Patient denies any tobacco usage or history of. Screenin:57 [facility] ED Fall Risk Assessment (Adult) History of falling in the last 3 months, ap3 including since admission No falls in past 3 months (0 pts). Abuse screen: Denies threats or abuse. Nutritional screening: No deficits noted. Tuberculosis screening: No symptoms or risk factors identified. Assessment: 15:10 General: Appears in no apparent distress. comfortable, Behavior is calm, cooperative, kc6 appropriate for age. Pain: Denies pain. Neuro: Level of Consciousness is awake, alert, obeys commands, Oriented to person, place, time, situation, Appropriate for age. Cardiovascular: Capillary refill < 3 seconds. Respiratory: Airway is patent Trachea midline Respiratory effort is even, unlabored, Respiratory pattern is regular, symmetrical. GI: No signs and/or symptoms were reported involving the gastrointestinal system. : No signs and/or symptoms were reported regarding the genitourinary system. Urine is clear. EENT: No signs and/or symptoms were reported regarding the EENT system. Derm: No signs and/or symptoms reported regarding the dermatologic system. Skin is intact, is healthy with good turgor, Skin is pink, warm \T\ dry. Musculoskeletal: No signs and/or symptoms reported regarding the musculoskeletal system. Circulation, motion, and sensation intact. Capillary refill < 3 seconds, Range of motion: intact in all extremities. 16:01 Reassessment: Patient appears in no apparent distress at this time. No changes from kc6 previously documented assessment. Patient and/or family updated on plan of care and expected duration. Pain level reassessed. Patient is alert, oriented x 3, equal unlabored respirations, skin warm/dry/pink. 16:16 Reassessment: Pt given turkey sandwich and lemon-berry creek soda per MD. aa5 17:28 Reassessment: Patient appears in no apparent distress at this time. Patient and/or hb family updated on plan of care and expected duration. Pain level reassessed. Patient is alert, oriented x 3, equal unlabored respirations, skin warm/dry/pink. 18:45 Reassessment: Patient appears in no apparent distress at this time. Patient and/or hb family updated on plan of care and expected duration. Pain level reassessed. Patient is alert, oriented x 3, equal unlabored respirations, skin warm/dry/pink. 19:08 Reassessment: Patient appears in no apparent distress at this time. Patient and/or jb4 family updated on plan of care and expected duration. Pain level reassessed. Patient is alert, oriented x 3, equal unlabored respirations, skin warm/dry/pink. 20:02 Reassessment: Patient appears in no apparent distress at this time. Patient and/or jb4 family updated on plan of care and expected duration. Pain level reassessed. Patient is alert, oriented x 3, equal unlabored respirations, skin warm/dry/pink. Vital Signs: 14:53 BP 113 / 72; Pulse 88; Resp 18; Temp 97.7; Pulse Ox 97% ; Weight 103.42 kg; ap3 16:01 BP 106 / 55; Pulse 70; Resp 17 S; Pulse Ox 97% on R/A; kc6 17:28 BP 121 / 58; Pulse 68; Resp 15; Pulse Ox 99% on R/A; hb 19:08 BP 97 / 52; Pulse 80; Resp 16; Pulse Ox 96% on R/A; jb4 20:02 BP 114 / 51; Pulse 85; Resp 16; Pulse Ox 94% on R/A; jb4 ED Course: 14:39 Patient arrived in ED. mr 14:39 Arielle Avila is Private Physician. mr 14:40 Aneudy Su MD is Attending Physician. sp3 14:55 Triage completed. ap3 14:57 Arm band placed on right wrist. ap3 14:57 Patient has correct armband on for positive identification. Bed in low position. Call ap3 light in reach. Side rails up X 1. Pulse ox on. NIBP on. 15:09 Keila Byrd, REHANA is Primary Nurse. kc6 15:09 Inserted saline lock: 20 gauge in right antecubital area, using aseptic technique. kc6 Blood collected. 16:04 Baltazar Mariscal MD is Hospitalizing Provider. sp3 20:02 No provider procedures requiring assistance completed. Patient admitted, IV remains in jb4 place. Administered Medications: No medications were administered Medication: 17:28 VIS not applicable for this client. hb Outcome: 16:04 Decision to Hospitalize by Provider. sp3 20:02 Admitted to Tele accompanied by nurse, via wheelchair, room 425, with chart, Report jb4 called to REHANA armirez 20:02 Condition: stable 20:02 Discharge instructions given to patient, Instructed on the need for admit, Demonstrated understanding of instructions. 20:04 Patient left the ED. jb4 Signatures: Anyi Rich mr Monique Prieto, RN RN aa5 nAa Paula Godfrey RN RN hb Porter Vasquez, RN RN jb4 Piper Chisholm, RN RN ap3 Aneudy Su MD MD sp3 Keila Byrd, RN RN kc6
--- NOTE | 2023-05-09 16:05 | EDPHYS ---
Physician Documentation [facility] Name: Daphney Herrera Age: 67 yrs Sex: Female : 1955 Arrival Date: 05/09/2023 Time: 14:36 Bed 19 Private MD: Arielle Avila ED Physician Aneudy Su HPI: 05/09 15:08 This 67 yrs old Female presents to ER via Ambulatory with complaints of sp3 Abnormal Lab Results. 15:08 67-year-old female with history of hypertension, diabetes presents to the ED referred sp3 by her physician for elevated creatinine. Patient has no complaints whatsoever and has no symptoms. She denies headache, fever, URI symptoms, neck pain, chest pain, shortness of breath, back pain and abdominal pain, nausea, vomiting, diarrhea, changes in her urine output, dysuria, urinary frequency, gross hematuria, syncope, near syncope, focal neurological deficit, known sick contacts, travel history, or any other signs or symptoms on ROS at this time.. Historical: - Allergies: 14:55 No Known Allergies; ap3 - PMHx: 14:55 Hypertensive disorder; Diabetes mellitus; ap3 - Immunization history:: Client reports receiving the 2nd dose of the Covid vaccine. - Social history:: Smoking status: Patient denies any tobacco usage or history of. ROS: 15:13 Constitutional: Negative for fever, chills, and weight loss, Eyes: Negative for injury, sp3 pain, redness, and discharge, ENT: Negative for injury, pain, and discharge, Neck: Negative for injury, pain, and swelling, Cardiovascular: Negative for chest pain, palpitations, and edema, Respiratory: Negative for shortness of breath, cough, wheezing, and pleuritic chest pain, Abdomen/GI: Negative for abdominal pain, nausea, vomiting, diarrhea, and constipation, Back: Negative for injury and pain, MS/Extremity: Negative for injury and deformity, Skin: Negative for injury, rash, and discoloration, Neuro: Negative for headache, weakness, numbness, tingling, and seizure, Psych: Negative for depression, anxiety, suicide ideation, homicidal ideation, and hallucinations, Allergy/Immunology: Negative for hives, rash, and allergies, Endocrine: Negative for neck swelling, polydipsia, polyuria, polyphagia, and marked weight changes. 15:13 All other systems are negative. Exam: 15:14 Constitutional: This is a well developed, well nourished patient who is awake, alert, sp3 and in no acute distress. Head/Face: Normocephalic, atraumatic. Eyes: Pupils equal round and reactive to light, extra-ocular motions intact. Lids and lashes normal. Conjunctiva and sclera are non-icteric and not injected. Cornea within normal limits. Periorbital areas with no swelling, redness, or edema. ENT: Nares patent. No nasal discharge, no septal abnormalities noted. External auditory canals are clear. Oropharynx with no redness, swelling, or masses, exudates, or evidence of obstruction, uvula midline. Mucous membranes moist. Neck: Trachea midline, no thyromegaly or masses palpated, and no cervical lymphadenopathy. Supple, full range of motion without nuchal rigidity, or vertebral point tenderness. No Meningismus. Chest/axilla: Normal chest wall appearance and motion. Nontender with no deformity. No lesions are appreciated. Cardiovascular: Regular rate and rhythm with a normal S1 and S2. No gallops, murmurs, or rubs. Normal PMI, no JVD. No pulse deficits. Respiratory: Lungs have equal breath sounds bilaterally, clear to auscultation and percussion. No rales, rhonchi or wheezes noted. No increased work of breathing, no retractions or nasal flaring. Abdomen/GI: Soft, non-tender, with normal bowel sounds. No distension or tympany. No guarding or rebound. No evidence of tenderness throughout. Back: No spinal tenderness. No costovertebral tenderness. Full range of motion. Skin: Warm, dry with normal turgor. Normal color with no rashes, no lesions, and no evidence of cellulitis. MS/ Extremity: Pulses equal, no cyanosis. Neurovascular intact. Full, normal range of motion. Neuro: Awake and alert, GCS 15, oriented to person, place, time, and situation. Cranial nerves II-XII grossly intact. Motor strength 5/5 in all extremities. Sensory grossly intact. Cerebellar exam normal. Normal gait. Psych: Awake, alert, with orientation to person, place and time. Behavior, mood, and affect are within normal limits. 15:14 ECG was reviewed by the Attending Physician. EKG demonstrates normal sinus rhythm at 83 bpm with normal QRS, normal axis, nonspecific diffuse ST/T changes without evidence of acute ischemia. Intervals are also normal. Vital Signs: 14:53 BP 113 / 72; Pulse 88; Resp 18; Temp 97.7; Pulse Ox 97% ; Weight 103.42 kg; ap3 16:01 BP 106 / 55; Pulse 70; Resp 17 S; Pulse Ox 97% on R/A; kc6 17:28 BP 121 / 58; Pulse 68; Resp 15; Pulse Ox 99% on R/A; hb 19:08 BP 97 / 52; Pulse 80; Resp 16; Pulse Ox 96% on R/A; jb4 20:02 BP 114 / 51; Pulse 85; Resp 16; Pulse Ox 94% on R/A; jb4 MDM: 14:41 Patient medically screened. sp3 15:14 Data reviewed: vital signs, nurses notes, lab test result(s), EKG. ED course: sp3 67-year-old female with reported decreased kidney function. Patient has no symptoms at all. Patient does not have labs with her therefore we will have to repeat them. Full labs are pending and disposition will be based on results and patient course.. 16:02 ED course: Creatinine elevated greater than 2 with no other significant abnormalities. sp3 We will admit patient to hospital service and consult nephrology.. 05/09 14:49 Order name: Basic Metabolic Panel; Complete Time: 16:01 3 05/09 14:49 Order name: CBC with Diff; Complete Time: 15:52 3 05/09 14:49 Order name: LFT's; Complete Time: 16: 3 05/09 14:49 Order name: Magnesium; Complete Time: 16:01 3 05/09 14:49 Order name: NT PRO-BNP; Complete Time: 16:01 3 05/09 14:49 Order name: PT-INR; Complete Time: 15:52 3 05/09 14:49 Order name: Troponin HS; Complete Time: 16:01 3 05/09 14:49 Order name: UAM; Complete Time: 15:52 3 05/09 15:40 Order name: Flu; Complete Time: 17:34 6 05/09 15:40 Order name: SARS RAPID; Complete Time: 17:34 6 05/09 15:40 Order name: Strep kc6 05/09 16:18 Order name: Throat Culture EDSD 05/09 19:37 Order name: PTT, Activated Partial Thromb EDSD 05/09 19:53 Order name: Phosphorus EDSD 05/09 19:53 Order name: T4 Free EDSD 05/09 19:53 Order name: Magnesium EDSD 05/09 19:53 Order name: Thyroid Stimulating Hormone EDSD 05/09 16:11 Order name: Diet Regular; Complete Time: 16:11 aa5 05/09 14:49 Order name: EKG - Nurse/Tech; Complete Time: 15:09 sp3 05/09 14:49 Order name: IV Saline Lock; Complete Time: 15:09 sp3 05/09 14:49 Order name: Labs collected and sent; Complete Time: 15:09 sp3 Administered Medications: No medications were administered Disposition Summary: 05/09/23 16:04 Hospitalization Ordered Hospitalization Status: Observation sp3 Provider: Baltazar Mariscal sp3 Location: Telemetry/MedSurg (observation) sp3 Condition: Stable sp3 Problem: new sp3 Symptoms: have worsened sp3 Bed/Room Type: Standard sp3 Room Assignment: 425(05/09/23 18:53) mw Diagnosis - Acute kidney failure, unspecified sp3 Forms: - Medication Reconciliation Form sp3 - SBAR form sp3 - Leadership Thank You Letter sp3 Signatures: Dispatcher [employer] Sarai Norris RN RN mw Piper Chisholm RN RN ap3 Alexis Hyatt MD MD rn3 Aneudy Su MD MD sp3 Corrections: (The following items were deleted from the chart) 18:53 16:04 sp3 mw
[2023-05-09] MEDS ORDERED: HYDROCODONE/APAP 5/325 MG TAB PO PRN (17:11)
[2023-05-09] MEDS ORDERED: ONDANSETRON 4 MG/2 ML VIAL IV PRN (18:26)
--- NOTE | 2023-05-09 18:28 | P.HP ---
Certification for Inpatient Patient admitted to: Observation With expected LOS: <2 Midnights Patient will require the following post-hospital care: None Practitioner: I am a practitioner with admitting privileges, knowledge of patient current condition, hospital course, and medical plan of care. Services: Services provided to patient in accordance with Admission requirements found in Title 42 Section 412.3 of the Code of Federal Regulations Patient History Date of Service: 05/09/23 Reason for admission: Abnormal labs. History of Present Illness: Patient is a 67-year-old female with a past medical history significant for hypertension, obesity, DM 2 who presents with complaint of abnormal labs. Patient reported that she had a follow-up appointment with his PCP yesterday and patient was called this morning due to abnormal renal functions to come to the ER. Patient reported that yesterday she started having symptoms of sore throat, cough and runny nose. Patient denies any other signs or symptoms. Symptoms are aggravated or relieved by nothing. Patient decided to present to the hospital as directed by her PCP. Allergies No Known Allergies Allergy (Verified 03/10/23 15:49) Home Medications: Atenolol [Tenormin] 25 mg PO BEDTIME 03/10/23 Codeine/APAP [Tylenol W/Codeine #3 tab] 1 tab PO Q6HP PRN 03/10/23 Furosemide 40 mg PO DAILY 03/10/23 Gabapentin 300 mg PO DAILY 03/10/23 Glipizide [Glipizide ER] 10 mg PO DAILY 03/10/23 Levothyroxine Sodium 200 mcg PO DAILY 03/10/23 Lisinopril [Zestril] 20 mg PO BEDTIME 03/10/23 Metformin HCl 1,000 mg PO BID 03/10/23 Rosuvastatin Calcium 20 mg PO DAILY 03/10/23 - Past Medical/Surgical History -: Hypothyroidism -: DM2 with neuropathy -: Hypertension -: Hyperlipidemia -: Hysterectomy -: Neck surgery - Family History Family History: Reviewed- Non-Contributory - Social History Smoking Status: Never smoker Alcohol use: No CD- Drugs: No Caffeine use: Yes Place of Residence: Home Review of Systems General: Unremarkable Eyes: Unremarkable ENT: Throat Pain, Other (Rhinorrhea) Respiratory: Cough Cardiovascular: Unremarkable Gastrointestinal: Unremarkable Genitourinary: Unremarkable Musculoskeletal: Unremarkable Integumentary: Unremarkable Neurological: Unremarkable Lymphatics: Unremarkable Physical Examination - Physical Exam General: Alert, In no apparent distress, Oriented x3, Cooperative HEENT: Atraumatic, PERRLA, Mucous membr. moist/pink, EOMI, Sclerae nonicteric Neck: Supple, 2+ carotid pulse no bruit, No LAD, Without JVD or thyroid abnormality Respiratory: Clear to auscultation bilaterally, Normal air movement Cardiovascular: No edema, Regular rate/rhythm, Normal S1 S2 Capillary refill: <2 Seconds Gastrointestinal: Normal bowel sounds, Soft and benign, No tenderness Musculoskeletal: No clubbing, No swelling, No tenderness Integumentary: No rashes Neurological: Normal speech, Normal tone, Normal affect Lymphatics: No axilla or inguinal lymphadenopathy - Studies Laboratory Data (last 24 hrs) 05/09/23 05/09/23 05/09/23 15:05 15:05 15:05 WBC 10.00 Hgb 12.5 Hct 37.4 Plt Count 265 PT 11.8 INR 1.07 Sodium 139 Potassium 4.3 BUN 36 H Creatinine 2.64 H Glucose 64 L Magnesium 2.7 H Total Bilirubin 0.2 AST 18 ALT 22 Alkaline Phosphatase 50 Microbiology Data (last 24 hrs): 05/09/23 15:43 Throat Group A Streptococcus Rapid Screen - Final 05/09/23 15:43 Nasopharnyx Influenza Type A Antigen Screen - Final 05/09/23 15:43 Nasopharnyx Influenza Type B Antigen Screen - Final Assessment and Plan - Plan --PONCHO. Likely secondary to dehydration. Nephrology consulted. Continue IV hydration. We will await further recommendations. --DM2 with neuropathy. BS monitoring with sliding scale insulin. Continue gabapentin for neuropathy. --Hypertension. Stable. Continue home medication. --Obesity. Likely secondary to excess calories intake. Patient counseled on weight reduction, diet and exercise therapy. --Hypothyroidism. Continue Synthroid. --Hyperlipidemia. Continue statin. --DVT prophylaxis with Lovenox subQ. Discharge Plan: Home - Advance Directives Does patient have a Living Will: No Does patient have a Durable POA for Healthcare: No - Code Status/Comfort Care Code Status Assessed: Yes Physician Review: Patient Assessed, Agree with Above Assessment and Plan Critical Care: No
[2023-05-09] MEDS ORDERED: NA CHLORIDE 0.9% 1,000 ML IV SCH (19:00)
[2023-05-09 19:53] LABS: Magnesium 2.7 mg/dL (1.6-2.4); Phosphorus 3.6 mg/dL (2.5-4.9); Thyroid Stimulating Hormone 0.383 uIU/mL (0.358-3.740)
[2023-05-09] MEDS: INSULIN -REGULAR HUMAN 50 UNIT/0.5 ML ML SQ SCH (21:00)
--- NOTE | 2023-05-09 21:27 | P.CNS ---
Date of Consult: 05/09/23 Reason for Consult: PONCHO Requesting Physician: Baltazar Mariscal Chief Complaint: PONCHO History of Present Illness: Patient is a 67-year-old female with a past medical history significant for hypertension, obesity, DM 2 who presents with complaint of abnormal labs. Patient reported that she had a follow-up appointment with his PCP yesterday and patient was called this morning due to abnormal renal functions to come to the ER. Patient reported that yesterday she started having symptoms of sore throat, cough and runny nose. Patient denies any other signs or symptoms. Symptoms are aggravated or relieved by nothing. Patient decided to present to the hospital as directed by her PCP. She reports that she started a new DM medication 6 weeks ago. She states that she received two back injections about a month ago with an improvement in her pain. Her BP has been persistently low since she received the back injections. Prior to the back injections, she was taking ~8 tabs of 200mg motrin per day. After the back injections, she reduced her motrin to 2 tabs per day. However, she started taking 2 tabs three times per day over the past two days due to a worsening headache. She denies any difficulty with her bladder and empties appropriately. She reports that her PCP referred her to urology for microscopic hematuria but she has not made the appt yet. [id number] 15:08 This 67 yrs old Female presents to ER via Ambulatory with complaints of sp3 Abnormal Lab Results. 15:08 67-year-old female with history of hypertension, diabetes presents to the ED referred sp3 by her physician for elevated creatinine. Patient has no complaints whatsoever and has no symptoms. She denies headache, fever, URI symptoms, neck pain, chest pain, shortness of breath, back pain and abdominal pain, nausea, vomiting, diarrhea, changes in her urine output, dysuria, urinary frequency, gross hematuria, syncope, near syncope, focal neurological deficit, known sick contacts, travel history, or any other signs or symptoms on ROS at this time.. Allergies No Known Allergies Allergy (Verified 03/10/23 15:49) Home medications list reviewed: Yes Home Medications: Atenolol [Tenormin] 25 mg PO BEDTIME 03/10/23 Codeine/APAP [Tylenol W/Codeine #3 tab] 1 tab PO Q6HP PRN 03/10/23 Furosemide 40 mg PO DAILY 03/10/23 Gabapentin 300 mg PO DAILY 03/10/23 Glipizide [Glipizide ER] 10 mg PO DAILY 03/10/23 Levothyroxine Sodium 200 mcg PO DAILY 03/10/23 Lisinopril [Zestril] 20 mg PO BEDTIME 03/10/23 Metformin HCl 1,000 mg PO BID 03/10/23 Rosuvastatin Calcium 20 mg PO DAILY 03/10/23 - Past Medical/Surgical History -: Hypothyroidism -: DM2 with neuropathy -: Hypertension -: Hyperlipidemia -: Hx PONCHO (Dr. Lewis/ Dr. Michel) -: Hysterectomy -: Neck surgery - Social History Alcohol use: No CD- Drugs: No Caffeine use: Yes Place of Residence: Home Review of Systems 10-point ROS is otherwise unremarkable Musculoskeletal: Back Pain Physical Examination Temp Pulse Resp BP Pulse Ox 97.7 F 85 16 114/51 L 05/09/23 14:53 05/09/23 20:02 05/09/23 20:02 05/09/23 20:02 General: Oriented x3, Cooperative HEENT: Atraumatic Neck: Supple Respiratory: Clear to auscultation bilaterally Cardiovascular: No edema, Regular rate/rhythm Gastrointestinal: Soft and benign, Non-distended Musculoskeletal: No clubbing, No contractures Integumentary: No rashes, No cyanosis Neurological: Normal speech Laboratory Data (last 24 hrs) 05/09/23 05/09/23 05/09/23 15:05 15:05 15:05 WBC 10.00 Hgb 12.5 Hct 37.4 Plt Count 265 PT 11.8 INR 1.07 Sodium 139 Potassium 4.3 BUN 36 H Creatinine 2.64 H Glucose 64 L Magnesium 2.7 H Total Bilirubin 0.2 AST 18 ALT 22 Alkaline Phosphatase 50 Conclusions/Impression: Stage III PONCHO in the setting of hypotension complicated by excessive motrin in the setting of Lisinopril Proteinuria Baseline serum creatinine 0.87 on 04-08-23 -No NSAIDs -Continue IVF with LR -Hold furosemide -Renal US prn HTN complicated by hypotension -Hold Lisinopril -Continue IVF with LR DM II with Polyneuropathy -RISS CLBP -No NSAIDs -Consider Lidoderm patch Hospitalist and ER notes reviewed Thank you kindly for the consultation
[2023-05-09] MEDS: BENZONATATE 100 MG CAP PO PRN (22:09)
[2023-05-09] MEDS: Ringers Lactate 1,000 ML IV SCH (22:29)
[2023-05-09 23:31] VITALS: BMI 34.7
[2023-05-10 04:19] LABS: Absolute Lymphocytes (CBC) 2.2 K/uL (0.7-4.9); Hematocrit 33.9 % (36.0-45.0); Lymphocytes % 25.6 % (15.3-44.8); MCV 87.4 fL (80-100); MPV 7.6 fL (7.6-11.3); Platelets 231 thou/uL (152-406); RBC Red Blood Cell Count 3.88 M/uL (3.86-4.86)
[2023-05-10 04:46] LABS: Albumin 2.9 g/dL (3.4-5.0); Bilirubin Total 0.2 mg/dL (0.2-1.0); Protein, Total 7.3 g/dL (6.4-8.2); Uric Acid 6.3 mg/dL (2.6-6.0)
[2023-05-10] MEDS: ACETAMINOPHEN 325 MG TABLET PO PRN ×2 (06:21→15:34)
[2023-05-10] MEDS: BENZONATATE 100 MG CAP PO PRN ×2 (07:10→13:55)
[2023-05-10] MEDS: INSULIN -REGULAR HUMAN 50 UNIT/0.5 ML ML SQ SCH ×4 (07:30→20:59)
[2023-05-10] MEDS: ENOXAPARIN 30 MG/0.3 ML SQ SCH (08:09)
[2023-05-10] MEDS ORDERED: ASPIRIN EC 81 MG TAB PO SCH (09:00)
[2023-05-10] MEDS: Ringers Lactate 1,000 ML IV SCH ×2 (10:42→23:02)
--- NOTE | 2023-05-10 14:56 | EKG ---
Test Date: 2023-05-09 Test Time: 14:58:43 Nurse School: [employer] MEASUREMENT RESULTS: Intervals: Rate: 83 DE: 174 QRSD: 92 QT: 366 QTc: 430 [place]: P: 58 DE: 174 QRS: -3 T: 75 INTERPRETIVE STATEMENTS: Normal sinus rhythm Low voltage QRS Borderline ECG Compared to ECG 01/04/1996 08:47:00 Low QRS voltage now present Electronically Signed On 05-10-23 14:54:09 CDT by Uziel Infante
[2023-05-10] MEDS: guaiFENesin 100 MG/5 ML UCUP PO PRN ×2 (15:31→22:12)
--- NOTE | 2023-05-10 19:32 | P.PN ---
Subjective Date of Service: 05/10/23 Chief Complaint: PONCHO No acute events overnight. She reports that, other than chronic musculoskeletal pain, she feels relatively well. She reports that she has been taking Motrin (4- 8 tablets/day) for this pain. She denies any history of kidney disease. Review of Systems 10-point ROS is otherwise unremarkable Physical Examination - Vital Signs Temperature: 97.4 F Blood Pressure: 160/76 Pulse: 82 Respirations: 16 Pulse Ox (%): 96 - Physical Exam General: Alert, In no apparent distress, Oriented x3 HEENT: Atraumatic, Mucous membr. moist/pink, Sclerae nonicteric Neck: JVD not distended Respiratory: Clear to auscultation bilaterally, Normal air movement Cardiovascular: No edema, Regular rate/rhythm, Normal S1 S2, No gallops, No rubs, No murmurs Gastrointestinal: Normal bowel sounds, Soft and benign, Non-distended, No tenderness, No rebound, No guarding Musculoskeletal: No clubbing Integumentary: No rashes Neurological: Normal speech, Normal affect - Studies Laboratory Data (last 24 hrs) 05/10/23 05/10/23 05/09/23 03:59 03:59 19:15 WBC 8.50 Hgb 11.5 L Hct 33.9 L Plt Count 231 APTT Sodium 139 Potassium 4.0 BUN 34 H Creatinine 2.42 H Glucose 127 H Uric Acid 6.3 H Phosphorus 3.6 Magnesium 2.7 H Total Bilirubin 0.2 AST 13 L ALT 20 Alkaline Phosphatase 45 Triglycerides 104 Cholesterol 122 HDL Cholesterol 28 L Cholesterol/HDL Ratio 4.36 05/09/23 19:15 WBC Hgb Hct Plt Count APTT 31.4 Sodium Potassium BUN Creatinine Glucose Uric Acid Phosphorus Magnesium Total Bilirubin AST ALT Alkaline Phosphatase Triglycerides Cholesterol HDL Cholesterol Cholesterol/HDL Ratio Microbiology Data (last 24 hrs): 05/09/23 15:43 Throat Group A Streptococcus Rapid Screen - Final 05/09/23 15:43 Nasopharnyx Influenza Type A Antigen Screen - Final 05/09/23 15:43 Nasopharnyx Influenza Type B Antigen Screen - Final Assessment And Plan - Plan # KDIGO Stage III Acute Kidney Injury likely due to NSAID use - Consulted Nephrology and spoke with Dr. Lewis - recommendations appreciated - Creatinine = 2.64 -> 2.46 (per PCP outside labs - creatinine was 0.87 on 04/08/2023) - Urinalysis = 3+ protein - Monitor creatinine and urine output - If worsening, obtain renal ultrasound - Renally dose medications - Avoid nephrotoxic agents # Type II Diabetes Mellitus - Hgb A1c = 6.4 % - Correction scale insulin # Hypertension # Hypothyroidism # Hyperlipidemia - Reconcile home medications once verified Baltazar Mariscal M.D.
--- NOTE | 2023-05-10 21:29 | P.PN ---
Date of Service: 05/10/23 Vital Signs Temp Pulse Resp BP Pulse Ox 97.4 F 82 16 160/76 H 96 05/10/23 19:39 05/10/23 19:39 05/10/23 19:39 05/10/23 19:39 05/10/23 19:39 Medications Acetaminophen (Acetaminophen 325 Mg Tablet) 650 mg PO Q6H PRN PRN Reason: TEMP > 100.4' F Last Admin: 05/10/23 15:34 Dose: 650 mg Hydrocodone Bitart/Acetaminophen (Hydrocodone/Apap 5/325 Mg Tab) 1 tab PO Q6H PRN PRN Reason: Pain scale 5-7 (Moderate) Benzonatate (Benzonatate 100 Mg Cap) 100 mg PO TID PRN PRN Reason: COUGH Last Admin: 05/10/23 13:55 Dose: 100 mg Enoxaparin Sodium (Enoxaparin 30 Mg/0.3 Ml) 30 mg SQ DAILY [facility] Last Admin: 05/10/23 08:09 Dose: 30 mg Guaifenesin (Guaifenesin 100 Mg/5 Ml Ucup) 100 mg PO QID PRN PRN Reason: COUGH Last Admin: 05/10/23 15:31 Dose: 100 mg Lactated Ringer's (Lactated Ringers) 1,000 mls @ 85 mls/hr IV .[id number] [facility] Last Admin: 05/10/23 10:42 Dose: 1,000 mls Insulin Human Regular (Insulin -Regular Human 50 Unit/0.5 Ml Ml) 0 unit SQ ACHS [facility]; Protocol Last Admin: 05/10/23 20:59 Dose: Not Given Ondansetron HCl (Ondansetron 4 Mg/2 Ml Vial) 4 mg IV Q6HP PRN PRN Reason: NAUSEA / VOMITING Sodium Chloride (Flush Normal Saline 10 Ml) 10 ml IV BID [facility] Last Admin: 05/10/23 08:09 Dose: 10 ml Lab Results (last 24 hrs) 05/10/23 11:02: POC Glucose 106 05/10/23 07:10: POC Glucose 119 05/10/23 06:28: Urine Color Cancelled, Urine Clarity Cancelled, Urine pH Cancelled, Ur Specific [place] Cancelled, Glucose (UA)(Auto) Cancelled, Urine Ketones Cancelled, Urine Blood Cancelled, Urine Nitrite Cancelled, Urine Bilirubin Cancelled, Urine Urobilinogen Cancelled, Ur Leukocyte Esterase Cancelled, Urine RBC Cancelled, Urine Red Cell Clumps Cancelled, Urine WBC Cancelled, Urine WBC Clumps Cancelled, Ur Squamous Epith Cells Cancelled, U Non- Squamous Epi Cells Cancelled, Ur Transition Epith Cell Cancelled, Ur Renal Epithelial Cell Cancelled, Calcium Carbonate Cryst Cancelled, Calcium Oxalate Crystal Cancelled, Leucine Crystals Cancelled, Cystine Crystals Cancelled, Uric Acid Crystals Cancelled, Triple Phos Crystals Cancelled, Tyrosine Crystals Cancelled, Unidentified Crystals Cancelled, Amorphous Crystals Cancelled, Urine Bacteria Cancelled, Hyaline Casts Cancelled, Granular Casts Cancelled, Waxy Casts Cancelled, RBC Casts Cancelled, WBC Casts Cancelled, Urine Mucus Cancelled, Urine Trichomonas Cancelled, Ur Yeast w Hyphae Cancelled, Urine Yeast (Budding) Cancelled, Urine Sperm Cancelled, Ur Oval Fat Bodies Cancelled, Ur Microscopic Review Cancelled, Urine Culture Reflexed Cancelled, Urine Total Protein Cancelled, Urine Ascorbic Acid Cancelled, Urine Fat Cancelled 05/10/23 03:59: Hemoglobin A1c 6.4 H 05/10/23 03:59: Sodium 139, Potassium 4.0, Chloride 110 H, Carbon Dioxide 23, Anion Gap 10.0, BUN 34 H, Creatinine 2.42 H, Est GFR (CKD-EPI) 21 L, Glucose 127 H, Uric Acid 6.3 H, Calcium 8.4 L, Total Bilirubin 0.2, AST 13 L, ALT 20, Alkaline Phosphatase 45, Creatine Kinase 95, Serum Total Protein 7.3, Albumin 2.9 L, Globulin 4.4 H, Albumin/Globulin Ratio 0.7 L, Triglycerides 104, Cholesterol 122, LDL Cholesterol, Calc 73, HDL Cholesterol 28 L, Cholesterol/HDL Ratio 4.36 05/10/23 03:59: WBC 8.50, RBC 3.88, Hgb 11.5 L, Hct 33.9 L, MCV 87.4, MCH 29.6, MCHC 33.9, RDW 14.4, Plt Count 231, MPV 7.6, Neutrophils % 57.2, Lymphocytes % 25.6, Monocytes % 9.4, Eosinophils % 7.4 H, Basophils % 0.4, Absolute Neutrophils 4.9, Absolute Lymphocytes 2.2, Absolute Monocytes 0.8, Absolute Eosinophils 0.6 H, Absolute Basophils 0.0 Microbiology Results 05/09/23 15:43 Throat Group A Streptococcus Rapid Screen - Final 05/09/23 15:43 Throat Culture & Sensitivity - Preliminary NORMAL UPPER RESPIRATORY LYNDA GROWN. 05/09/23 15:43 Nasopharnyx Influenza Type A Antigen Screen - Final 05/09/23 15:43 Nasopharnyx Influenza Type B Antigen Screen - Final Assessment/ Plan: Nephrology No dyspnea No chest pain No acute events overnight Vitals, medications, blood work and imaging reviewed in the chart General: Oriented x3, Cooperative HEENT: Atraumatic Neck: Supple Respiratory: Clear to auscultation bilaterally Cardiovascular: No edema, Regular rate/rhythm Gastrointestinal: Soft and benign, Non-distended Musculoskeletal: No clubbing, No contractures Integumentary: No rashes, No cyanosis Neurological: Normal speech Laboratory Data (last 24 hrs) 05/09/23 05/09/23 05/09/23 15:05 15:05 15:05 WBC 10.00 Hgb 12.5 Hct 37.4 Plt Count 265 PT 11.8 INR 1.07 Sodium 139 Potassium 4.3 BUN 36 H Creatinine 2.64 H Glucose 64 L Magnesium 2.7 H Total Bilirubin 0.2 AST 18 ALT 22 Alkaline Phosphatase 50 Conclusions/Impression: Stage III PONCHO in the setting of hypotension complicated by excessive motrin in the setting of Lisinopril Proteinuria Baseline serum creatinine 0.87 on 04-08-23 -No NSAIDs -Continue IVF with LR -Hold furosemide -Renal US prn HTN complicated by hypotension -Restart Atenolol DM II with Polyneuropathy -RISS Anemia in chronic illness -Monitor H&H CLBP -No NSAIDs -Consider Lidoderm patch Case reviewed with Dr. Mariscal Hospitalist note reviewed
[2023-05-10] MEDS: atenoloL 25 MG TAB PO SCH (22:56)
[2023-05-11 05:36] LABS: Hematocrit 34.1 % (36.0-45.0)
[2023-05-11 05:38] LABS: Potassium 4.3 mEq/L (3.5-5.1)
[2023-05-11] MEDS: guaiFENesin 100 MG/5 ML UCUP PO PRN ×2 (05:59→15:10)
[2023-05-11 06:33] VITALS: O2SAT 96
[2023-05-11] MEDS: INSULIN -REGULAR HUMAN 50 UNIT/0.5 ML ML SQ SCH ×4 (07:30→20:56)
[2023-05-11] MEDS: BENZONATATE 100 MG CAP PO PRN ×2 (08:26→21:33)
[2023-05-11] MEDS: Ringers Lactate 1,000 ML IV SCH (08:26)
[2023-05-11] MEDS: ENOXAPARIN 30 MG/0.3 ML SQ SCH (08:26)
[2023-05-11] MEDS: ACETAMINOPHEN 325 MG TABLET PO PRN (11:09)
--- NOTE | 2023-05-11 20:19 | P.PN ---
Subjective Date of Service: 05/11/23 Chief Complaint: PONCHO She reports feeling significantly better today. Her renal function continues to improve, but is still well above her baseline. She would likely benefit from an additional day of IV fluids. Can consider discharging tomorrow if creatinine continues to improve. She denies any symptoms at this time. Review of Systems 10-point ROS is otherwise unremarkable General: Malaise (improved) Physical Examination - Vital Signs Temperature: 97.3 F Blood Pressure: 129/61 Pulse: 60 Respirations: 16 Pulse Ox (%): 96 - Studies Microbiology Data (last 24 hrs): 05/09/23 15:43 Throat Group A Streptococcus Rapid Screen - Final 05/09/23 15:43 Throat Culture & Sensitivity - Final NORMAL UPPER RESPIRATORY LYNDA GROWN. Assessment And Plan - Plan - Physical Exam General: Alert, In no apparent distress, Oriented x3 HEENT: Atraumatic, Mucous membr. moist/pink, Sclerae nonicteric Respiratory: Clear to auscultation bilaterally, Normal air movement Cardiovascular: No edema, Regular rate/rhythm, No murmurs Gastrointestinal: Normal bowel sounds, Soft, Non-distended, No tenderness Neurological: Normal speech, Normal affect # KDIGO Stage III Acute Kidney Injury likely due to NSAID use - Consulted Nephrology and spoke with Dr. Lewis - recommendations appreciated - IV fluids per Neph - Creatinine = 2.64 -> 2.46 -> 1.94 (per PCP outside labs - creatinine was 0.87 on 04/08/2023) - Urinalysis = 3+ protein - Monitor creatinine and urine output - If worsening, obtain renal ultrasound - Renally dose medications - Avoid nephrotoxic agents # Type II Diabetes Mellitus - Hgb A1c = 6.4 % - Correction scale insulin # Hypertension # Hypothyroidism # Hyperlipidemia - Reconcile home medications once verified Baltazar Mariscal M.D.
--- NOTE | 2023-05-11 20:46 | P.PN ---
Date of Service: 05/11/23 Vital Signs Temp Pulse Resp BP Pulse Ox 97.3 F 60 16 129/61 96 05/11/23 20:16 05/11/23 20:16 05/11/23 20:16 05/11/23 20:16 05/11/23 20:16 Medications Acetaminophen (Acetaminophen 325 Mg Tablet) 650 mg PO Q6H PRN PRN Reason: TEMP > 100.4' F Last Admin: 05/11/23 11:09 Dose: 650 mg Hydrocodone Bitart/Acetaminophen (Hydrocodone/Apap 5/325 Mg Tab) 1 tab PO Q6H PRN PRN Reason: Pain scale 5-7 (Moderate) Atenolol (Atenolol 25 Mg Tab) 25 mg PO BEDTIME [facility] Last Admin: 05/10/23 22:56 Dose: 25 mg Benzonatate (Benzonatate 100 Mg Cap) 100 mg PO TID PRN PRN Reason: COUGH Last Admin: 05/11/23 08:26 Dose: 100 mg Enoxaparin Sodium (Enoxaparin 30 Mg/0.3 Ml) 30 mg SQ DAILY [facility] Last Admin: 05/11/23 08:26 Dose: 30 mg Guaifenesin (Guaifenesin 100 Mg/5 Ml Ucup) 100 mg PO QID PRN PRN Reason: COUGH Last Admin: 05/11/23 15:10 Dose: 100 mg Lactated Ringer's (Lactated Ringers) 1,000 mls @ 85 mls/hr IV .[id number] [facility] Last Admin: 05/11/23 08:26 Dose: 1,000 mls Insulin Human Regular (Insulin -Regular Human 50 Unit/0.5 Ml Ml) 0 unit SQ ACHS [facility]; Protocol Last Admin: 05/11/23 16:30 Dose: Not Given Ondansetron HCl (Ondansetron 4 Mg/2 Ml Vial) 4 mg IV Q6HP PRN PRN Reason: NAUSEA / VOMITING Sodium Chloride (Flush Normal Saline 10 Ml) 10 ml IV BID [facility] Last Admin: 05/11/23 08:27 Dose: 10 ml Microbiology Results 05/09/23 15:43 Throat Group A Streptococcus Rapid Screen - Final 05/09/23 15:43 Throat Culture & Sensitivity - Final NORMAL UPPER RESPIRATORY LYNDA GROWN. 05/09/23 15:43 Nasopharnyx Influenza Type A Antigen Screen - Final 05/09/23 15:43 Nasopharnyx Influenza Type B Antigen Screen - Final Assessment/ Plan: Nephrology No dyspnea No chest pain Feeling better No acute events overnight Vitals, medications, blood work and imaging reviewed in the chart General: Oriented x3, Cooperative HEENT: Atraumatic Neck: Supple Respiratory: Clear to auscultation bilaterally Cardiovascular: No edema, Regular rate/rhythm Gastrointestinal: Soft and benign, Non-distended Musculoskeletal: No clubbing, No contractures Integumentary: No rashes, No cyanosis Neurological: Normal speech Laboratory Data (last 24 hrs) 05/09/23 05/09/23 05/09/23 15:05 15:05 15:05 WBC 10.00 Hgb 12.5 Hct 37.4 Plt Count 265 PT 11.8 INR 1.07 Sodium 139 Potassium 4.3 BUN 36 H Creatinine 2.64 H Glucose 64 L Magnesium 2.7 H Total Bilirubin 0.2 AST 18 ALT 22 Alkaline Phosphatase 50 Conclusions/Impression: Stage III PONCHO in the setting of hypotension complicated by excessive motrin in the setting of Lisinopril Proteinuria Baseline serum creatinine 0.87 on 04-08-23 -No NSAIDs -Discontinue IVF -Restart furosemide as indicated HTN complicated by hypotension -Continue Atenolol DM II with Polyneuropathy -RISS Anemia in chronic illness -Monitor H&H CLBP -No NSAIDs -Start Lidoderm patch qhs Case reviewed with Dr. Mariscal Hospitalist note reviewed
[2023-05-11] MEDS: DOCUSATE NA 100 MG CAP PO SCH (21:00)
[2023-05-11] MEDS ORDERED: LIDOCAINE 4% PATCH TOP SCH (21:00)
[2023-05-11] MEDS: atenoloL 25 MG TAB PO SCH (21:33)
[2023-05-12 03:22] LABS: Magnesium 2.2 mg/dL (1.6-2.4); Phosphorus 4.2 mg/dL (2.5-4.9); Potassium 4.2 mEq/L (3.5-5.1)
[2023-05-12] MEDS: INSULIN -REGULAR HUMAN 50 UNIT/0.5 ML ML SQ SCH (07:30)
[2023-05-12] MEDS: DOCUSATE NA 100 MG CAP PO SCH (08:27)
[2023-05-12] MEDS: ENOXAPARIN 30 MG/0.3 ML SQ SCH (08:27)
--- NOTE | 2023-05-12 08:45 | P.DS ---
Admission Date: 05/10/23 Discharge Date: 05/12/23 Disposition: ROUTINE DISCHARGE Discharge Condition: GOOD Reason for Admission: PONCHO Consultations: 1. Nephrology Hospital Course: DIAGNOSES: # KDIGO Stage III Acute Kidney Injury likely due to NSAID use # Type II Diabetes Mellitus # Hypertension # Hypothyroidism # Hyperlipidemia HOSPITAL COURSE: Ms. Daphney Herrera is a pleasant 67 year old female with a past medical history significant for type II diabetes mellitus, hypertension, hypothyroidism, and hyperlipidemia who was admitted to the [facility] on 05/09/2023 for generalized malaise with an acute kidney injury. She was admitted to the Medicine service. Upon further evaluation, she was found to have an acute kidney injury. Her initial creatinine was 2.64, with a prior value of 0.87 on 04/08/2023. Her urinalysis was notable for 3+ proteinuria. Nephrology was consulted and she was evaluated by Dr. Lewis. Her kidney injury was found to be secondary to NSAID use. She was started on IV fluids and her creatinine levels were monitored. Over the course of her hospitalization, her creatinine improved significantly. Dr. Lewis has cleared her for discharge with outpatient follow-up. On 05/12/2023, she was seen on morning rounds and deemed medically stable for discharge. She was discharged with instructions to schedule follow-up appointments with her PCP (Dr. Avila) and with Nephrology (Dr. Lewis). She was given the opportunity to ask questions and reported no further questions. Furthermore, all questions were answered to the best of my ability. A copy of this discharge summary will be sent to the above providers to facilitate continuity of care. Today, I personally spent 25 minutes on her case, of which greater than 50% of the time was spent in patient education, counseling, and coordination of care as described above. - Physical Exam General: Alert, In no apparent distress, Oriented x3 HEENT: Atraumatic, Mucous membr. moist/pink, Sclerae nonicteric Respiratory: Clear to auscultation bilaterally, Normal air movement Cardiovascular: No edema, Regular rate/rhythm, No murmurs Gastrointestinal: Normal bowel sounds, Soft, Non-distended, No tenderness Neurological: Normal speech, Normal affect Vital Signs/Physical Exam: Temp Pulse Resp BP Pulse Ox 96.9 F 58 18 109/53 L 97 05/12/23 04:00 05/12/23 04:00 05/12/23 04:00 05/12/23 04:00 05/12/23 04:00 Laboratory Data at Discharge: WBC 8.50 thou/uL (4.3-10.9) 05/10/23 03:59 Hgb 11.7 g/dL (12.0-15.0) L 05/11/23 05:00 Hct 34.1 % (36.0-45.0) L 05/11/23 05:00 Plt Count 231 thou/uL (152-406) 05/10/23 03:59 PT 11.8 SECONDS (9.5-12.5) 05/09/23 15:05 INR 1.07 05/09/23 15:05 APTT 31.4 SECONDS (24.3-36.9) 05/09/23 19:15 Sodium 140 mEq/L (136-145) 05/12/23 02:29 Potassium 4.2 mEq/L (3.5-5.1) 05/12/23 02:29 BUN 27 mg/dL (7-18) H 05/12/23 02:29 Creatinine 1.68 mg/dL (0.55-1.02) H 05/12/23 02:29 Glucose 115 mg/dL (74-106) H 05/12/23 02:29 Uric Acid 6.3 mg/dL (2.6-6.0) H 05/10/23 03:59 Phosphorus 4.2 mg/dL (2.5-4.9) 05/12/23 02:29 Magnesium 2.2 mg/dL (1.6-2.4) 05/12/23 02:29 Total Bilirubin 0.2 mg/dL (0.2-1.0) 05/10/23 03:59 AST 13 U/L (15-37) L 05/10/23 03:59 ALT 20 U/L (13-56) 05/10/23 03:59 Alkaline Phosphatase 45 U/L (45-117) 05/10/23 03:59 Triglycerides 104 mg/dL (<150) 05/10/23 03:59 Cholesterol 122 mg/dL (<200) 05/10/23 03:59 HDL Cholesterol 28 mg/dL (40-60) L 05/10/23 03:59 Cholesterol/HDL Ratio 4.36 05/10/23 03:59 Home Medications: Codeine/APAP [Tylenol W/Codeine #3 tab] 1 tab PO Q6HP PRN 03/10/23 Furosemide 40 mg PO DAILY 03/10/23 Gabapentin 300 mg PO BID 03/10/23 Glipizide [Glipizide ER] 10 mg PO DAILY 03/10/23 Levothyroxine Sodium 200 mcg PO DAILY 03/10/23 Lisinopril [Zestril] 20 mg PO BEDTIME 03/10/23 Metformin HCl 1,000 mg PO BID 03/10/23 Rosuvastatin Calcium 40 mg PO BEDTIME 03/10/23 Physician Discharge Instructions: 1. Please call and schedule a follow-up appointment with your PCP (Dr. Avila) in 3-5 days - Your blood work showed mild anemia. Please discuss further evaluation, including a colonoscopy, with your PCP. 2. Please call and schedule a follow-up appointment with Nephrology (Dr. Lewis) in 3-5 days - Please have him repeat your kidney function blood test at this appointment. Diet: Renal Activity: Ad ashlie Followup: Douglas Lewis, [ACTIVE - CAN ADMIT] - Arielle Avila MD [Primary Care Provider] -
[2023-05-12 10:24] VITALS: BP 136/63; TEMP 97.5
== END 2023-05-12 10:55 | disposition home or self-care (01) | DRG 312 ==
LOC: ER 14:36 → ERHOLD 17:10 → 4TH 19:26 → OBSVTOIN 05-10 12:35
PROVIDERS: ADMIT Internal Medicine; ATTEND Internal Medicine
DX: I95.2 Hypotension due to drugs (principal); N17.9 Acute kidney failure, unspecified; T39.395A Adverse effect of other nonsteroidal anti-inflammatory drugs [NSAID], initial encounter; E86.0 Dehydration; E11.40 Type 2 diabetes mellitus with diabetic neuropathy, unspecified; I10 Essential (primary) hypertension; E03.9 Hypothyroidism, unspecified; E78.5 Hyperlipidemia, unspecified; J02.9 Acute pharyngitis, unspecified; J34.89 Other specified disorders of nose and nasal sinuses; D63.8 Anemia in other chronic diseases classified elsewhere; M54.50 Low back pain, unspecified; G89.29 Other chronic pain; R53.81 Other malaise; E66.09 Other obesity due to excess calories; Z68.34 Body mass index [BMI] 34.0-34.9, adult; Z71.3 Dietary counseling and surveillance; Z79.84 Long term (current) use of oral hypoglycemic drugs; Z79.899 Other long term (current) drug therapy; Z90.710 Acquired absence of both cervix and uterus
CPT/HCPCS: 36415; 80048; 80053; 80061; 80076; 81001; 82550; 82947; 83036; 83735; 83880; 84100; 84439; 84443; 84484; 84550; 85014; 85018; 85025; 85610; 85730; 86038; 86160; 87070; 87081; 87804; 87811; 93005; 99285; G0378; J1650; J7030; J7120

== ENCOUNTER 2023-06-27 08:53 | Day surgery (SDC) | payer MEDICARE ==
[2023-06-27 09:58] LABS: Protime INR 1.03
[2023-06-27 09:58] LABS: Absolute Lymphocytes (CBC) 2.6 K/uL (0.7-4.9); Hematocrit 31.9 % (36.0-45.0); Lymphocytes % 24.6 % (15.3-44.8); MCV 87.9 fL (80-100); MPV 7.4 fL (7.6-11.3); Platelets 275 thou/uL (152-406); RBC Red Blood Cell Count 3.63 M/uL (3.86-4.86)
[2023-06-27 10:05] LABS: Potassium 4.9 mEq/L (3.5-5.1)
[2023-06-27] MEDS ORDERED: NA CHLORIDE 0.9% 1,000 ML ONE (10:10)
[2023-06-27] MEDS ORDERED: FENTANYL CITR 100 MCG/2 ML ONE (10:31)
[2023-06-27] MEDS ORDERED: MIDAZOLAM HCL 2 MG/2 ML INJ ONE (10:31)
--- NOTE | 2023-06-27 11:31 | RAD REPORT ---
EXAM DESCRIPTION: CT - Renal Biopsy CT - 06/27/2023 11:17 am CLINICAL HISTORY: renal bx COMPARISON: No comparisons FINDINGS: Preoperative diagnosis: Proteinuria Post operative diagnosis: Same Conscious Sedation: 30 minutes of [id number] time. 2 milligram Versed. 50 mcg Fentanyl. Patient was continuously monitored by nursing staff. Contrast used: NONE Estimated blood loss: less than 5 mL Specimens: 3 x 18 gauge core samples Image Guidance: Intermittent CT fluoroscopy Postprocedure imaging demonstrated no complications. Samples were given to pathology for analysis. Th e patient tolerated the procedure without immediate complication and transferred to the recovery room in stable condition. IMPRESSION: Technically successful CT-guided random left renal biopsy. No immediate complications. C onscious sedation was utilized. All CT scans are performed using dose optimization technique as appropriate and may include automated exposure control or mA/KV adjustment according to patient size.
[2023-06-27 13:11] VITALS: BMI 34.7
[2023-06-27 15:58] VITALS: BP 121/64; TEMP 97; O2SAT 97
== END 2023-06-27 14:30 | disposition home or self-care (01) ==
LOC: DS 08:53
PROVIDERS: ATTEND Internal Medicine Nephrology
PROC: 0TB13ZX Excision of Left Kidney, Percutaneous Approach, Diagnostic (ICD-10-PCS; principal; 2023-06-27)
DX: N18.32 Chronic kidney disease, stage 3b (principal); E11.42 Type 2 diabetes mellitus with diabetic polyneuropathy; I12.9 Hypertensive chronic kidney disease with stage 1 through stage 4 chronic kidney disease, or unspecified chronic kidney disease; R80.8 Other proteinuria
CPT/HCPCS: 36415; 50200; 80048; 85025; 85610; 85730; 88300; J2250; J3010; J7030

== ENCOUNTER 2025-01-12 07:48 | Emergency (ER) | payer MEDICARE ==
--- OUTSIDE RECORDS SUMMARY | 2025-01-12 07:57 | XMS REPORT | Continuity of Care Document ---
Author Name Unknown Address [address] [facility] [address] [place] [address] [facility] [place] Address [address] [facility] [address] [place] [address] Care Team Providers Care Asian Studies Professor Name Role Phone Arielle Avila MD Primary Care Physician [phone] Arielle Avila Attending Clinician Unavailable Alisha Putnam Attending Clinician Unavailable Kyle Avendano Attending Clinician Unavailable Jess Evans Attending Clinician Unavailable Briana Francis Attending Clinician JACQUELINE JONES Attending Clinician Unavailable Jacqueline Jones MD Attending Clinician [phone] Candi Attending Clinician Unavailable [email or web address] Attending Clinician UnavailBETHANY Navas Attending Clinician Unavailable Bethany Hylton Attending Clinician Alejandra Johnson Attending Clinician FIDE SCHROEDER Attending Clinician Unavailable FARNAZ ELDER Attending Clinician Unavailable JAVIER RUBIO Attending Clinician UnavailJAVIER Soto Attending Clinician UnavailFAITH Harper Attending Clinician UnavailChai Mendoza Attending Clinician [phone] Piper Jorge MD Attending Clinician [phone] CHAI OLVERA Attending Clinician UnavailFaith Moreno MD Attending Clinician [phone] Doctor Unassigned, Rudyard Attending Clinician U navailable RADIOLOGY Attending Clinician Unavailable Radiology Attending Clinician Unavailable Rogerio ALVARADO, Fide Attending Clinician [phone] Farnaz Elder MD Attending Clinician [phone] TAMICA Attending Clinician Unavailable Haven Feng MD Attending Clinician [phone] ANTOINE JONES Attending Clinician UnavailAntoine Choi MD Attending Clinician [phone] Jess Evans Admitting Clinician Unavailable Candi Admitting Clinician Unavailable [email or web address]_S Admitting Clinician Unavaila BETHANY Dubois Admitting Clinician Unavailable TAYLOR LUGO Admitting Clinician Unavailable FIDE SCHROEDER Admitting Clinician Unavailable JUAN_Bart Admitting Clinician Unavailable Payers Payer Name Policy Type Policy Number Effective Date Expirati on Date Source [facility] [id number] 2020 00:00:00 [employer] [facility] MCARE ADVANTAGE PLAN OON [id number] 2023 00:00:00 [employer] [facility] Medicare [id number] 2024 00:00:00 [employer] (MEDICARE REPLACEMENT HMO) [id number] 2022 00:00:00 [employer] Medicare Replace C1 [id number] 2020 00:00:00 [facility] [employer] Medicare Replace C1 [id number] 2020 00:00:00 [facility] [employer] Medicare Replace C1 [id number] 2020 00:00:00 [facility] [id number] [employer] Medicare Replace C1 [id number] 2020 00:00:00 [facility] [employer] Medicare Replace C1 [id number] 2020 00:00:00 [facility] [employer] Medicare Replace C1 [id number] 2020 00:00:00 [facility] [employer] Medicare Replace C1 [id number] 2020 00:00:00 [facility] [employer] Medicare Replace C1 [id number] 2020 00:00:00 [facility] [employer] Medicare Replace C1 [id number] 2020 00:00:00 [facility] [place] [id number] 2018 00:00:00 Problems Condition Name Condition Details Condition Category Status Onset Date Resolution Date Last Treatment Date Treating Clinician Comments Source Constipati on Constipati on Problem Active 224 00:00: 00 [facility] Genital warts Genital Warts Problem Active 2022-08 00:00: 00 [facility] Hypothyroi dism Hypothyroi dism Problem Active 2022-08 00:00: [facility] Type 2 diabetes mellitus Type 2 Diabetes Mellitus Problem Active 2022-08 00:00: 00 [facility] 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 05-24 00:00: 00 Hugh Dickens Epic Benign hypertensi on with chronic kidney disease Benign hypertensi on with chronic kidney disease Disease Active 05-24 00:00: 00 Hugh Zhu Chronic low back pain Chronic low back pain Disease Active 05-24 00:00: 00 Hugh Zhu Long-term current use of opiate analgesic Long-term current use of opiate analgesic Disease Active 12-21 00:00: 00 Hugh Zhu Lumbar radiculopa thy Lumbar radiculopa thy Disease Active 12-21 00:00: 00 Hugh Zhu UTI symptoms UTI symptoms Disease Active 11-17 00:00: 00 [facility] Obesity (BMI 30-39.9) Obesity (BMI 30-39.9) Disease Active 11-17 00:00: 00 [facility] Essential hypertensi on Essential Hypertensi on Problem Active 817 00:00: 00 [facility] Condyloma acuminatum of the anogenital region Condyloma Acuminatum of the Anogenital Region Problem Active 03-06 00:00: 00 [facility] Lateral cystocele Lateral Cystocele Problem Active 03-06 00:00: 00 [facility] Atrophic vaginitis Atrophic Vaginitis Problem Active 03-06 00:00: 00 [facility] History of dysplasia of cervix History of Dysplasia of Cervix Problem Active 03-06 00:00: 00 [facility] Gynecologi ilan examinatio n abnormal Gynecologi ilan Examinatio n Abnormal Problem Active 03-06 00:00: 00 [facility] Vasomotor symptoms due to menopause Vasomotor symptoms due to menopause Disease Active 2016-08 00:00: 00 [facility] Hyperlipid emia Hyperlipid emia Disease Active 2015-08 00:00: 00 Hugh Zhu Depression Depression Disease Active 2015-08 00:00: 00 Hugh Zhu Hypothyroi dism Hypothyroi dism Disease Active 2015-08 00:00: 00 Hugh Zhu Unspecifie d urinary incontinen ce Unspecifie d urinary incontinen ce Disease Active 2015-08 00:00: 00 [facility] Essential hypertensi on, benign Essential hypertensi on, benign Disease Active 2015-08 00:00: 00 [facility] Increased frequency of urination Increased Frequency of Urination Problem Active 02-27 00:00: 00 [facility] [id number] Stage 3b chronic kidney disease Problem [facility] [id number] Right sciatic nerve pain Problem [facility] [id number] Pain in left hip Problem [facility] [id number] Insomnia, unspecifie d type Problem [facility] [id number] Uncontroll ed type 2 diabetes mellitus with hyperglyce raman Problem [facility] [id number] Coronary artery disease involving la posta coronary artery of [place] post[place] heart without angina pectoris Problem [facility] [id number] Thyroid nodule Problem [facility] [id number] Statin intoleranc e Problem [facility] [id number] Low back pain, unspecifie d back pain laterality , unspecifie d chronicity , unspecifie d whether sciatica present Problem [facility] [id number] DDD (degenerat andres disc disease), lumbar Problem [facility] Mixed anxiety and depressive disorder Depression with anxiety Problem [facility] [id number] Hypoglycem ia Problem [facility] Short leg syndrome, acquired Short leg syndrome, acquired Problem [facility] [id number] Varicose veins of bilateral lower extremitie s with pain Problem [facility] Anemia Anemia, unspecifie d type Problem [facility] Pain in coccyx (finding) Coccyx pain Problem [facility] [id number] Atheroscle rosis of left carotid artery Problem [facility] Abnormal mammogram Abnormal mammogram Problem [facility] [id number] Inappropri ately high serum insulin Problem [facility] Kidney stone Kidney stones Problem [facility] Lower urinary tract symptoms Lower urinary tract symptoms Problem [facility] [id number] Other chronic pain Problem [facility] [id number] Diabetic polyneurop athy associated with type 2 diabetes mellitus Problem [facility] RAM - Nonalcohol ic steatohepa titis Steatohepa titis, nonalcohol ic Problem [facility] Vaginal discomfort Vaginal discomfort Problem [facility] [id number] Acute right-side d low back pain with right-side d sciatica Problem [facility] Leukocytos is Leukocytos is Problem [facility] [id number] Left renal mass Problem [facility] [id number] Neuropathy Problem Com [facility] [id number] Vitamin D deficiency Problem [facility] 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) Disease Resolve d 2022-08 00:00: 00 2024-02-08 00:00:00 2024-02-08 15:38:18 Hugh Dcikens [facility] Hyperurice raman Hyperurice raman Disease Resolve d 2022-08 00:00: 00 2024-02-08 00:00:00 2024-02-08 15:38:18 Memjann Dickens Epic Localized edema due to fluid overload Localized edema due to fluid overload Disease Resolve d 2022-08 00:00: 00 2024-02-08 00:00:00 2024-02-08 15:38:18 Hugh Dickens Epic 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 Disease Resolve d 2022-08- 00:00: 00 2024-02-08 00:00:00 2024-02-08 15:38:18 Hugh Dickens Epic Allergic rhinitis Allergic rhinitis Disease Resolve d 05-24 00:00: 00 2024-02-08 00:00:00 2024-02-08 13:47:10 Hugh Dickens Epic Stage 1 chronic kidney disease Stage 1 chronic kidney disease Disease Resolve d 05-24 00:00: 00 2024-02-08 00:00:00 2024-02-08 15:38:18 Hugh Zhu Dysthymia Dysthymia Disease Resolve d 0 9- 00:00: 00 2024-02-08 00:00:00 2024-02-08 15:38:18 Hugh Zhu Muscle pain Muscle pain Disease Resolve d 0 9- 00:00: 00 2024-02-08 00:00:00 2024-02-08 15:38:18 Hugh Zhu Nephrogeno us proteinuri a Nephrogeno us proteinuri a Disease Resolve d 0 9- 00:00: 00 2024-02-08 00:00:00 2024-02-08 15:38:18 Hugh Zhu Onychomyco sis Onychomyco sis Disease Resolve d 0 9- 00:00: 00 2024-02-08 00:00:00 2024-02-08 15:38:18 Hugh Zhu Anemia of chronic disease Anemia of chronic disease Disease Resolve d 0 9- 00:00: 00 2024-02-08 00:00:00 2024-02-08 15:38:18 Hugh Zhu Trochanter ic bursitis of right hip Trochanter ic bursitis of right hip Disease Resolve d 0 7-19 00:00: 00 2024-02-08 00:00:00 2024-02-08 13:47:10 Hugh Zhu Inflammati on of sacroiliac joint Inflammati on of sacroiliac joint Disease Resolve d 0 7-19 00:00: 00 2024-02-08 00:00:00 2024-02-08 15:38:18 Hugh Zhu Myositis Myositis Disease Resolve d 0 4-26 00:00: 00 2024-02-08 00:00:00 2024-02-08 15:38:18 Hugh Zhu Abnormal urinalysis Abnormal urinalysis Disease Resolve d 0 3-23 00:00: 00 2024-02-08 00:00:00 2024-02-08 13:47:10 Hugh Dickens Epic Abdominal discomfort in left lower quadrant Abdominal discomfort in left lower quadrant Disease Resolve d 2015-08 00:00: 00 2024-02-08 00:00:00 2024-02-08 13:47:10 Hugh Dickens Epic Condyloma acuminatum Condyloma acuminatum Disease Resolve d 2015-08 00:00: 00 2024-02-08 00:00:00 2024-02-08 15:38:18 Hugh Dickens Epic S/P hysterecto my S/P hysterecto my Disease Resolve d 2015-08 00:00: 00 2024-02-08 00:00:00 2024-02-08 15:38:18 Hugh Zhu Allergies, Adverse Reactions, Alerts Allergy Name Allergy Type Status Severity Reaction(s) Onset Date Inactive Date Treating Clinician Comments Source ROSUVAST ATIN DRUG INGREDI Active Unknown-Cmnt 2020-08 00:00: 00 [facility] rosuvast atin rosuvast atin Active muscle aches [facility] NO KNOWN ALLERGIE S SYSTEMIC Active [facility] NO KNOWN ALLERGIE S SYSTEMIC Active MHEOUT NO KNOWN ALLERGIE S SYSTEMIC Active M[facility]OUT NO KNOWN ALLERGIE S SYSTEMIC Active [facility] NO KNOWN ALLERGIE S SYSTEMIC Active MHEOUT NO KNOWN ALLERGIE S SYSTEMIC Active MHEOUT NO KNOWN ALLERGIE S SYSTEMIC Active MHEOUT ALLERGIE S NOT ON FILE SYSTEMIC Active MHEOUT ALLERGIE S NOT ON FILE SYSTEMIC Active [facility] NO KNOWN ALLERGIE S SYSTEMIC Active MHEOUT NO KNOWN ALLERGIE S SYSTEMIC Active MHEOUT Social History Social Habit Start Date Stop Date Quantity Comments Source Gender identity 2023-12-27 12:47:31 Identifies as female gender (finding) Anna Zhu History of Tobacco Use [facility] Sex Assigned At [facility] Sexual orientation M oleg Zhu Alcoholic beverage intake 2024-05-03 00:00:00 2024-05-03 00:00:00 Lifetime non-drinker (finding) Anna Zhu History of Social function 2024-05-03 00:00:00 2024-05-03 00:00:00 [facility] Maninder [facility] Exposure to SARS-CoV-2 (event) 2022-05-27 00:00:00 2022-06-06 11:33:00 Not sure [facility] Tobacco use and exposure 2022-06-06 00:00:00 2022-06-06 00:00:00 Smokeless tobacco non-user [facility] Alcohol intake 2022-06-06 00:00:00 2022-06-06 00:00:00 0 /d [facility] Tobacco Comment 2022-06-06 00:00:00 2022-06-06 00:00:00 Positive smoke exposure - smokes [facility] Smoking Status Start Date Stop Date Source Never smoked tobacco Hugh Dickens [facility] Medications Ordered Medication Name Filled Medication Name Start Date Stop Date Current Medication? Ordering Clinician Indication Dosage Frequency Signature (SIG) Comments Components Source Farxiga 5 MG Farxiga 5 MG 03-28 14:25: 52 Yes 5mg Take 5 mg by mouth every morning. Hugh Dickens [facility] predniSONE (Deltasone) 5 MG tablet predniSONE (Deltasone) 5 MG tablet 03-28 00:00: 00 04-04 23:59 :00 No [id number] 10mg QD Take 2 tablets by mouth 1 time each day for 7 days. Hugh Dickens [facility] levothyroxi ne (Synthroid, Levoxyl) 150 MCG tablet levothyroxi ne (Synthroid, Levoxyl) 150 MCG tablet 12-22 00:00: 00 Yes 150ug Take 150 mcg by mouth in the morning. Take before meals. Hugh Zhu Ozempic, 0.25 or 0.5 MG/DOSE, 2 MG/3ML solution pen-injecto r Ozempic, 0.25 or 0.5 MG/DOSE, 2 MG/3ML solution pen-injecto r 12-22 00:00: 00 Yes INJECT 0.5 MG SUBCUTANEO USLY ONCE WEEKLY Hugh Dickens [facility] cholecalcif michael (Vitamin D-3) 1.25 MG (64269 UT) capsule cholecalcif michael (Vitamin D-3) 1.25 MG (33994 UT) capsule 2024-0 4-24 00:00: 00 Yes 1{capsu le} Q1W Take 1 capsule by mouth every 7 days. Hugh Zhu NaCl 0.9% (NS) IV infusion 1,000 mL 08-29 06:15: 08-29 06:28 :00 No 1000mL at 999 mL/hr, Intravenou s, ONCE, 1 dose, On Mon08/29/23 at 0015, Routine [facility] cefTRIAXone (ROCEPHIN) 1,000 mg in NaCl 0.9% (NS) 100 mL MINI-BAG 08-29 05:15: 00 08-29 06:28 :00 No 1000mg 1,000 mg, IV Piggyback, ONCE, 1 dose, On Mon08/28/23 at 2315, Administer over 30 Minutes, 100 mL
Reas on for Anti-Infec tive: Documented Infection< br>Documen elijah Infection Site: Urine
D uration of Therapy: Other (see Comments) [facility] cefdinir 300 mg capsule 08-29 00:00: 00 09-09 05:59 :00 No [id number] 300mg Take 1 capsule by mouth in the morning and 1 capsule in the evening. Do all this for 10 days. [facility] rosuvastati n (Crestor) 20 MG tablet rosuvastati n (Crestor) 20 MG tablet 05 00:00: 00 Yes 5mg Take 5 mg by mouth at bedtime. Hugh Zhu cetirizine (ZYRTEC) 10 mg tablet 2021-08 0 00:00: 00 Yes [id number] 10mg Take 1 tablet by mouth in the morning. [facility] fluticasone propionate 50 mcg/actuati on nasal spray 2021-08 0 00:00: 00 Yes [id number] 2{spray } Use 2 Sprays in each nostril in the morning. [facility] benzonatate 200 mg capsule 2021-08 0 00:00: 00 Yes [id number] 200mg Take 1 capsule by mouth 3 (three) times daily as needed for Cough. [facility] acetaminoph en-codeine 300-30 mg tablet 9-08 00:00: 00 Yes TAKE 1 TABLET BY MOUTH EVERY 6 HOURS NEEDED FOR ACUTE PAIN [facility] montelukast 10 mg tablet 04-25 00:00: 00 Yes 10mg Take 10 mg by mouth every morning. [facility] gabapentin 100 mg capsule 04-07 00:00: 00 Yes TAKE 1 CAPSULE BY MOUTH ONCE DAILY AT BEDTIME [facility] gadobenate dimeglumine (MULTIHANCE -20 mL) injection 0.2 mL/kg 02-16 15:30: 00 02-16 15:28 :00 No [id number] .2mL/kg 0.2 mL/kg, Intravenou s, ONCE, 1 dose, On Mon02/16/22 at 1030, Routine [facility] furosemide 40 mg tablet 02-02 00:00: 00 Yes 40mg Take 1 tablet by mouth 2 (two) times daily. [facility] tamsulosin 0.4 mg 24 hr capsule 11-17 13:41: 45 Yes 1 capsule [facility] atenoloL 25 mg tablet 11-17 13:41: 45 Yes 1 tablet [facility] Nitrofurant oin&Nit. Macrocryst (MACROBID) 100 mg capsule 11-17 00:00: 00 11-17 00:00 :00 No [id number] 100mg Take 1 capsule by mouth 2 (two) times daily for 7 days. [facility] furosemide 40 mg tablet 09-07 00:00: 00 Yes 40mg Take 1 tablet by mouth 2 (two) times daily. Lab needed for further refills. [facility] gabapentin 100 mg capsule 2020-08 2 00:00: 00 11-17 00:00 :00 No 1 capsule [facility] ergocalcife rol, vitamin d2, 1,250 mcg (50,000 unit) capsule 2020-08 00:00: 00 Yes [facility] rosuvastati n 10 mg tablet 2020-08 00:00: 00 Yes [facility] pravastatin 40 mg tablet 2020-08 00:00: 00 Yes [facility] Kenalog (Triamcinol one) Kenalog (Triamcinol one) 2020-08 00:00: 00 No 40mg [facility] nystatin-tr iamcinolone cream 2020-08 00:00: 00 Yes [facility] FREESTYLE PIERCE 14 DAY SENSOR Kit 2020-08 00:00: 00 Yes [facility] levothyroxi ne 112 mcg tablet 12-14 00:00: 00 Yes TAKE 2 TABLETS BY MOUTH ONCE DAILY IN THE MORNING ON AN EMPTY STOMACH [facility] Depo Medrol (40mg) Depo Medrol (40mg) 12-12 00:00: 00 No 40mg [facility] LIDOCAINE HCL 10MG/ML LIDOCAINE HCL 10MG/ML 12-12 00:00: 00 No 10mg [facility] lisinopril (PRINIVIL,Z ESTRIL) 20 mg tablet 2015-08 00:00: 00 Yes 20mg Take 20 mg by mouth daily. [facility] metFORMIN 1,000 mg tablet 04-17 00:00: 00 Yes 1000mg Take 1,000 mg by mouth 2 (two) times daily. [facility] acetaminoph en-codeine 300-60 mg tablet acetaminoph en-codeine 300-60 mg tablet Yes [facility] Farxiga 5 MG Farxiga 5 MG No 1{table t} QD Farxiga 5 MG Lisinopril 10 MG Lisinopril 10 MG No QD Lisinopril 10 MG Rosuvastati n Calcium 40 MG Rosuvastati n Calcium 40 MG No QD Rosuvastat in Calcium 40 MG Gabapentin 300 MG Gabapentin 300 MG No 1{capsu le} BID Gabapentin 300 MG Acetaminoph en-Codeine #4 Acetaminoph en-Codeine #4 No Acetaminop hen-Codein e #4 Acetaminoph en-Codeine 300-60 MG Acetaminoph en-Codeine 300-60 MG No Acetaminop hen-Codein e 300-60 MG Furosemide 40 MG Furosemide 40 MG No 1{table t} BID Furosemide 40 MG rosuvastati n calcium 40 mg tablet rosuvastati n calcium 40 mg tablet Yes [facility] gabapentin 300 mg capsule gabapentin 300 mg capsule Yes [facility] acetaminoph en-codeine acetaminoph en-codeine No acetaminop hen-codein e [facility] cetirizine 10 mg tablet Take 1 tablet every day by oral route. cetirizine 10 mg tablet Take 1 tablet every day by oral route. No 1 Q1D cetirizine 10 mg tablet Take 1 tablet every day by oral route. [facility] Farxiga 5 mg tablet Take 1 tablet every day by oral route. Farxiga 5 mg tablet Take 1 tablet every day by oral route. No 1 Q1D Farxiga 5 mg tablet Take 1 tablet every day by oral route. [facility] furosemide 40 mg tablet Take 1 tablet every day by oral route. furosemide 40 mg tablet Take 1 tablet every day by oral route. No 1 Q1D furosemide 40 mg tablet Take 1 tablet every day by oral route. [facility] gabapentin 300 mg capsule Take 1 capsule every day by oral route. gabapentin 300 mg capsule Take 1 capsule every day by oral route. No 1capsul e(s) Q1D gabapentin 300 mg capsule Take 1 capsule every day by oral route. [facility] levothyroxi ne 200 mcg tablet Take 1 tablet every day by oral route. levothyroxi ne 200 mcg tablet Take 1 tablet every day by oral route. No 1 Q1D levothyrox ine 200 mcg tablet Take 1 tablet every day by oral route. [facility] lisinopril 20 mg tablet Take 0.5 tablets every day by oral route. lisinopril 20 mg tablet Take 0.5 tablets every day by oral route. No .5 Q1D lisinopril 20 mg tablet Take 0.5 tablets every day by oral route. [facility] Ozempic Ozempic No Ozempic [facility] No [facility] rosuvastati n 40 mg tablet Take 1 tablet every day by oral route. rosuvastati n 40 mg tablet Take 1 tablet every day by oral route. No 1 Q1D rosuvastat in 40 mg tablet Take 1 tablet every day by oral route. [facility] FARXIGA 10 MG TABLET FARXIGA 10 MG TABLET Yes [facility] lisinopril 10 mg tablet lisinopril 10 mg tablet Yes [facility] cyclobenzap rine hcl 5 mg tablet cyclobenzap rine hcl 5 mg tablet Yes [facility] levothyroxi ne sodium 175 mcg tablet levothyroxi ne sodium 175 mcg tablet Yes [facility] Immunizations Ordered Immunization Name Filled Immunization Name Date Status Comments Source FLUZONE HIGH DOSE OVER 65 FLUZONE HIGH DOSE OVER 65 2022-05-05 10:20:00 Completed [facility] FLUZONE HIGH DOSE OVER 65 FLUZONE HIGH DOSE OVER 65 2022-05-05 10:20:00 Completed [facility] FLUZONE HIGH DOSE OVER 65 FLUZONE HIGH DOSE OVER 65 2022-05-05 10:20:00 Completed [facility] FLUZONE HIGH DOSE OVER 65 FLUZONE HIGH DOSE OVER 65 2022-05-05 10:20:00 Completed [facility] FLUZONE HIGH DOSE OVER 65 FLUZONE HIGH DOSE OVER 65 2022-05-05 10:20:00 Completed [facility] FLUZONE HIGH DOSE OVER 65 FLUZONE HIGH DOSE OVER 65 2022-05-05 10:20:00 Completed [facility] FLUZONE HIGH DOSE OVER 65 FLUZONE HIGH DOSE OVER 65 2022-05-05 10:20:00 Completed [facility] FLUZONE HIGH DOSE OVER 65 FLUZONE HIGH DOSE OVER 65 2022-05-05 10:20:00 Completed [facility] Moderna COVID-19 Vaccine (Low Dose Booster) Moderna COVID-19 Vaccine (Low Dose Booster) 2022-01-28 14:19:00 Completed [facility] Moderna COVID-19 Vaccine (Low Dose Booster) Moderna COVID-19 Vaccine (Low Dose Booster) 2022-01-28 14:19:00 Completed [facility] Moderna COVID-19 Vaccine (Low Dose Booster) Moderna COVID-19 Vaccine (Low Dose Booster) 2022-01-28 14:19:00 Completed [facility] Moderna COVID-19 Vaccine (Low Dose Booster) Moderna COVID-19 Vaccine (Low Dose Booster) 2022-01-28 14:19:00 Completed [facility] Moderna COVID-19 Vaccine (Low Dose Booster) Moderna COVID-19 Vaccine (Low Dose Booster) 2022-01-28 14:19:00 Completed [facility] Moderna COVID-19 Vaccine (Low Dose Booster) Moderna COVID-19 Vaccine (Low Dose Booster) 2022-01-28 14:19:00 Completed [facility] Moderna COVID-19 Vaccine (Low Dose Booster) Moderna COVID-19 Vaccine (Low Dose Booster) 2022-01-28 14:19:00 Completed [facility] Moderna COVID-19 Vaccine (Low Dose Booster) Moderna COVID-19 Vaccine (Low Dose Booster) 2022-01-28 14:19:00 Completed [facility] Moderna COVID-19 Vaccine (Low Dose Booster) Moderna COVID-19 Vaccine (Low Dose Booster) 2022-01-28 14:19:00 Completed [facility] Moderna COVID-19 Vaccine (Low Dose Booster) Moderna COVID-19 Vaccine (Low Dose Booster) 2022-01-28 14:19:00 Completed [facility] Moderna COVID-19 Vaccine (Low Dose Booster) Moderna COVID-19 Vaccine (Low Dose Booster) 2022-01-28 14:19:00 Completed [facility] Moderna COVID-19 Vaccine (Low Dose Booster) Moderna COVID-19 Vaccine (Low Dose Booster) 2021-07-26 08:40:00 Completed [facility] Moderna COVID-19 Vaccine (Low Dose Booster) Moderna COVID-19 Vaccine (Low Dose Booster) 2021-07-26 08:40:00 Completed [facility] Moderna COVID-19 Vaccine (Low Dose Booster) Moderna COVID-19 Vaccine (Low Dose Booster) 2021-07-26 08:40:00 Completed [facility] Moderna COVID-19 Vaccine (Low Dose Booster) Moderna COVID-19 Vaccine (Low Dose Booster) 2021-07-26 08:40:00 Completed [facility] Moderna COVID-19 Vaccine (Low Dose Booster) Moderna COVID-19 Vaccine (Low Dose Booster) 2021-07-26 08:40:00 Completed [facility] Moderna COVID-19 Vaccine (Low Dose Booster) Moderna COVID-19 Vaccine (Low Dose Booster) 2021-07-26 08:40:00 Completed [facility] Moderna COVID-19 Vaccine (Low Dose Booster) Moderna COVID-19 Vaccine (Low Dose Booster) 2021-07-26 08:40:00 Completed [facility] Moderna COVID-19 Vaccine (Low Dose Booster) Moderna COVID-19 Vaccine (Low Dose Booster) 2021-07-26 08:40:00 Completed [facility] Moderna COVID-19 Vaccine (Low Dose Booster) Moderna COVID-19 Vaccine (Low Dose Booster) 2021-07-26 08:40:00 Completed [facility] Moderna COVID-19 Vaccine (Low Dose Booster) Moderna COVID-19 Vaccine (Low Dose Booster) 2021-07-26 08:40:00 Completed [facility] Moderna COVID-19 Vaccine (Low Dose Booster) Moderna COVID-19 Vaccine (Low Dose Booster) 2021-07-26 08:40:00 Completed [facility] Moderna COVID-19 Vaccine (Low Dose Booster) Moderna COVID-19 Vaccine (Low Dose Booster) 2021-07-26 08:40:00 Completed [facility] Moderna COVID-19 Vaccine (Low Dose Booster) Moderna COVID-19 Vaccine (Low Dose Booster) 2021-07-26 08:40:00 Completed [facility] Kenalog (Triamcinolone) Kenalog (Triamcinolone) 2021-06-18 23:19:00 Completed [facility] Kenalog (Triamcinolone) Kenalog (Triamcinolone) 2021-06-18 23:19:00 Completed [facility] FLUZONE HIGH DOSE OVER 65 FLUZONE HIGH DOSE OVER 65 2021-05-23 16:15:00 Completed [facility] FLUZONE HIGH DOSE OVER 65 FLUZONE HIGH DOSE OVER 65 2021-05-23 16:15:00 Completed [facility] FLUZONE HIGH DOSE OVER 65 FLUZONE HIGH DOSE OVER 65 2021-05-23 16:15:00 Completed [facility] FLUZONE HIGH DOSE OVER 65 FLUZONE HIGH DOSE OVER 65 2021-05-23 16:15:00 Completed [facility] FLUZONE HIGH DOSE OVER 65 FLUZONE HIGH DOSE OVER 65 2021-05-23 16:15:00 Completed [facility] FLUZONE HIGH DOSE OVER 65 FLUZONE HIGH DOSE OVER 65 2021-05-23 16:15:00 Completed [facility] FLUZONE HIGH DOSE OVER 65 FLUZONE HIGH DOSE OVER 65 2021-05-23 16:15:00 Completed [facility] FLUZONE HIGH DOSE OVER 65 FLUZONE HIGH DOSE OVER 65 2021-05-23 16:15:00 Completed [facility] FLUZONE HIGH DOSE OVER 65 FLUZONE HIGH DOSE OVER 65 2021-05-23 16:15:00 Completed [facility] FLUZONE HIGH DOSE OVER 65 FLUZONE HIGH DOSE OVER 65 2021-05-23 16:15:00 Completed [facility] FLUZONE HIGH DOSE OVER 65 FLUZONE HIGH DOSE OVER 65 2021-05-23 16:15:00 Completed [facility] FLUZONE HIGH DOSE OVER 65 FLUZONE HIGH DOSE OVER 65 2021-05-23 16:15:00 Completed [facility] FLUZONE HIGH DOSE OVER 65 FLUZONE HIGH DOSE OVER 65 2021-05-23 16:15:00 Completed [facility] FLUZONE HIGH DOSE OVER 65 FLUZONE HIGH DOSE OVER 65 2021-05-23 16:15:00 Completed [facility] FLUZONE HIGH DOSE OVER 65 FLUZONE HIGH DOSE OVER 65 2021-05-23 16:15:00 Completed [facility] LIDOCAINE HCL 10MG/ML LIDOCAINE HCL 10MG/ML 2018-12-12 11:39:00 Completed [facility] LIDOCAINE HCL 10MG/ML LIDOCAINE HCL 10MG/ML 2018-12-12 11:39:00 Completed [facility] Depo Medrol (40mg) Depo Medrol (40mg) 2018-12-12 11:38:00 Completed [facility] Depo Medrol (40mg) Depo Medrol (40mg) 2018-12-12 11:38:00 Completed [facility] Influenza Virus Vaccine 2016-04-18 00:00:00 Completed [facility] TDAP 2016-04-18 00:00:00 Completed [facility] Zoster(Zostavax)( ingaura) 2016-04-18 00:00:00 Completed [facility] Influenza Virus Vaccine 2016-04-18 00:00:00 Completed [facility] TDAP 2016-04-18 00:00:00 Completed [facility] Zoster(Zostavax)( ingles) 2016-04-18 00:00:00 Completed [facility] Influenza Virus Vaccine 2016-04-18 00:00:00 Completed [facility] TDAP 2016-04-18 00:00:00 Completed [facility] Zoster(Zostavax)( ingles) 2016-04-18 00:00:00 Completed [facility] Influenza Virus Vaccine 2016-04-18 00:00:00 Completed [facility] TDAP 2016-04-18 00:00:00 Completed [facility] Zoster(Zostavax)( ingles) 2016-04-18 00:00:00 Completed [facility] Influenza Virus Vaccine 2016-04-18 00:00:00 Completed [facility] TDAP 2016-04-18 00:00:00 Completed [facility] Zoster(Zostavax)( maggi) 2016-04-18 00:00:00 Completed [facility] Influenza Virus Vaccine 2016-04-18 00:00:00 Completed [facility] TDAP 2016-04-18 00:00:00 Completed [facility] Zoster(Zostavax)( reginaldoaura) 2016-04-18 00:00:00 Completed [facility] Influenza Virus Vaccine 2016-04-18 00:00:00 Completed [facility] TDAP 2016-04-18 00:00:00 Completed [facility] Zoster(Zostavax)( reginaldoaura) 2016-04-18 00:00:00 Completed [facility] MODERNA COVID-19 VACCINE (LOW DOSE BOOSTER) MODERNA COVID-19 VACCINE (LOW DOSE BOOSTER) Unknown Completed [facility] FLUZONE HIGH DOSE OVER 65 FLUZONE HIGH DOSE OVER 65 Unknown Completed [facility] Moderna COVID-19 Vaccine (Low Dose Booster) Moderna COVID-19 Vaccine (Low Dose Booster) Unknown Completed [facility] FLUZONE HIGH DOSE OVER 65 FLUZONE HIGH DOSE OVER 65 Unknown Completed [facility] Moderna COVID-19 Vaccine (Low Dose Booster) Moderna COVID-19 Vaccine (Low Dose Booster) Unknown Completed [facility] FLUZONE HIGH DOSE OVER 65 FLUZONE HIGH DOSE OVER 65 Unknown Completed [facility] Moderna COVID-19 Vaccine (Low Dose Booster) Moderna COVID-19 Vaccine (Low Dose Booster) Unknown Completed [facility] FLUZONE HIGH DOSE OVER 65 FLUZONE HIGH DOSE OVER 65 Unknown Completed [facility] Moderna COVID-19 Vaccine (Low Dose Booster) Moderna COVID-19 Vaccine (Low Dose Booster) Unknown Completed [facility] FLUZONE HIGH DOSE OVER 65 FLUZONE HIGH DOSE OVER 65 Unknown Completed [facility] Moderna COVID-19 Vaccine (Low Dose Booster) Moderna COVID-19 Vaccine (Low Dose Booster) Unknown Completed [facility] FLUZONE HIGH DOSE OVER 65 FLUZONE HIGH DOSE OVER 65 Unknown Completed [facility] Moderna COVID-19 Vaccine (Low Dose Booster) Moderna COVID-19 Vaccine (Low Dose Booster) Unknown Completed [facility] FLUZONE HIGH DOSE OVER 65 FLUZONE HIGH DOSE OVER 65 Unknown Completed [facility] Moderna COVID-19 Vaccine (Low Dose Booster) Moderna COVID-19 Vaccine (Low Dose Booster) Unknown Completed [facility] FLUZONE HIGH DOSE OVER 65 FLUZONE HIGH DOSE OVER 65 Unknown Completed [facility] Moderna COVID-19 Vaccine (Low Dose Booster) Moderna COVID-19 Vaccine (Low Dose Booster) Unknown Completed [facility] FLUZONE HIGH DOSE OVER 65 FLUZONE HIGH DOSE OVER 65 Unknown Completed [facility] Moderna COVID-19 Vaccine (Low Dose Booster) Moderna COVID-19 Vaccine (Low Dose Booster) Unknown Completed [facility] FLUZONE HIGH DOSE OVER 65 FLUZONE HIGH DOSE OVER 65 Unknown Completed [facility] Moderna COVID-19 Vaccine (Low Dose Booster) Moderna COVID-19 Vaccine (Low Dose Booster) Unknown Completed [facility] FLUZONE HIGH DOSE OVER 65 FLUZONE HIGH DOSE OVER 65 Unknown Completed [facility] Moderna COVID-19 Vaccine (Low Dose Booster) Moderna COVID-19 Vaccine (Low Dose Booster) Unknown Completed [facility] FLUZONE HIGH DOSE OVER 65 FLUZONE HIGH DOSE OVER 65 Unknown Completed [facility] Moderna COVID-19 Vaccine (Low Dose Booster) Moderna COVID-19 Vaccine (Low Dose Booster) Unknown Completed [facility] FLUZONE HIGH DOSE OVER 65 FLUZONE HIGH DOSE OVER 65 Unknown Completed [facility] Moderna COVID-19 Vaccine (Low Dose Booster) Moderna COVID-19 Vaccine (Low Dose Booster) Unknown Completed [facility] FLUZONE HIGH DOSE OVER 65 FLUZONE HIGH DOSE OVER 65 Unknown Completed [facility] Moderna COVID-19 Vaccine (Low Dose Booster) Moderna COVID-19 Vaccine (Low Dose Booster) Unknown Completed [facility] FLUZONE HIGH DOSE OVER 65 FLUZONE HIGH DOSE OVER 65 Unknown Completed [facility] Moderna COVID-19 Vaccine (Low Dose Booster) Moderna COVID-19 Vaccine (Low Dose Booster) Unknown Completed [facility] FLUZONE HIGH DOSE OVER 65 FLUZONE HIGH DOSE OVER 65 Unknown Completed [facility] MODERNA COVID-19 VACCINE (LOW DOSE BOOSTER) MODERNA COVID-19 VACCINE (LOW DOSE BOOSTER) Unknown Completed [facility] FLUZONE HIGH DOSE OVER 65 FLUZONE HIGH DOSE OVER 65 Unknown Completed [facility] MODERNA COVID-19 VACCINE (LOW DOSE BOOSTER) MODERNA COVID-19 VACCINE (LOW DOSE BOOSTER) Unknown Completed [facility] FLUZONE HIGH DOSE OVER 65 FLUZONE HIGH DOSE OVER 65 Unknown Completed [facility] MODERNA COVID-19 VACCINE (LOW DOSE BOOSTER) MODERNA COVID-19 VACCINE (LOW DOSE BOOSTER) Unknown Completed [facility] FLUZONE HIGH DOSE OVER 65 FLUZONE HIGH DOSE OVER 65 Unknown Completed [facility] MODERNA COVID-19 VACCINE (LOW DOSE BOOSTER) MODERNA COVID-19 VACCINE (LOW DOSE BOOSTER) Unknown Completed [facility] FLUZONE HIGH DOSE OVER 65 FLUZONE HIGH DOSE OVER 65 Unknown Completed [facility] MODERNA COVID-19 VACCINE (LOW DOSE BOOSTER) MODERNA COVID-19 VACCINE (LOW DOSE BOOSTER) Unknown Completed [facility] FLUZONE HIGH DOSE OVER 65 FLUZONE HIGH DOSE OVER 65 Unknown Completed [facility] MODERNA COVID-19 VACCINE (LOW DOSE BOOSTER) MODERNA COVID-19 VACCINE (LOW DOSE BOOSTER) Unknown Completed [facility] FLUZONE HIGH DOSE OVER 65 FLUZONE HIGH DOSE OVER 65 Unknown Completed [facility] MODERNA COVID-19 VACCINE (LOW DOSE BOOSTER) MODERNA COVID-19 VACCINE (LOW DOSE BOOSTER) Unknown Completed [facility] FLUZONE HIGH DOSE OVER 65 FLUZONE HIGH DOSE OVER 65 Unknown Completed [facility] MODERNA COVID-19 VACCINE (LOW DOSE BOOSTER) MODERNA COVID-19 VACCINE (LOW DOSE BOOSTER) Unknown Completed [facility] FLUZONE HIGH DOSE OVER 65 FLUZONE HIGH DOSE OVER 65 Unknown Completed [facility] Influenza Virus Vaccine Unknown Completed [facility] TDAP Unknown Completed [facility] Zoster(Zostavax)(Sh ingles) Unknown Completed [facility] Vital Signs Vital Name Observation Time Observation Value Comments S ource height 2024-10-25 08:30:00 66.5 [in_i] Comm on [facility] weight 2024-10-25 08:30:00 216 [lb_av] Comm on [facility] temperature 2024-10-25 08:30:00 97.7 [degF] Com mon [facility] bmi 2024-10-25 08:30:00 34.34 kg/m2 Comm on [facility] BP Systolic 2024-10-21 00:00:00 130 mm[Hg] [facility] Body Weight 2024-10-21 00:00:00 212.6 [lb_av] [facility] Height 2024-10-21 00:00:00 68 [in_i] [facility] BP Diastolic 2024-10-21 00:00:00 67 mm[Hg] [facility] BMI (Body Mass Index) 2024-10-21 00:00:00 32.3 kg/m2 [facility] height 2024-09-20 14:20:00 66.5 [in_i] Comm on [facility] weight 2024-09-20 14:20:00 216.6 [lb_av] Co mmon [facility] temperature 2024-09-20 14:20:00 97.6 [degF] Com mon [facility] bmi 2024-09-20 14:20:00 34.43 kg/m2 Comm on [facility] oximetry 2024-09-20 14:20:00 97 % Commo n [facility] respiratory rate 2024-09-20 14:20:00 16 /min Common [facility] blood pressure systolic 2024-09-20 14:20:00 116 mm[Hg] [facility] blood pressure diastolic 2024-09-20 14:20:00 80 mm[Hg[facility] 2024-09-20 14:20:00 66.5 [in_i] Comm on [facility] weight 2024-09-20 14:20:00 216.6 [lb_av] Co mmon [facility] temperature 2024-09-20 14:20:00 97.6 [degF] Com mon [facility] bmi 2024-09-20 14:20:00 34.43 kg/m2 Comm on [facility] oximetry 2024-09-20 14:20:00 97 % Commo n [facility] respiratory rate 2024-09-20 14:20:00 16 /min Common [facility] blood pressure systolic 2024-09-20 14:20:00 116 mm[Hg] [facility] blood pressure diastolic 2024-09-20 14:20:00 80 mm[Hg] Common [facility] height 2024-09-20 14:20:00 66.5 [in_i] Comm on [facility] weight 2024-09-20 14:20:00 216.6 [lb_av] Co mmon [facility] temperature 2024-09-20 14:20:00 97.6 [degF] Com mon [facility] bmi 2024-09-20 14:20:00 34.43 kg/m2 Comm on [facility] oximetry 2024-09-20 14:20:00 97 % Commo n [facility] respiratory rate 2024-09-20 14:20:00 16 /min Common [facility] blood pressure systolic 2024-09-20 14:20:00 116 mm[Hg] Common [facility] blood pressure diastolic 2024-09-20 14:20:00 80 mm[Hg] [facility] height 2024-09-13 13:40:00 66.5 [in_i] Comm on [facility] weight 2024-09-13 13:40:00 215 [lb_av] Comm on [facility] temperature 2024-09-13 13:40:00 96.7 [degF] Com mon [facility] bmi 2024-09-13 13:40:00 34.18 kg/m2 Comm on [facility] oximetry 2024-09-13 13:40:00 97 % Commo n [facility] respiratory rate 2024-09-13 13:40:00 16 /min Common [facility] blood pressure systolic 2024-09-13 13:40:00 110 mm[Hg] [facility] blood pressure diastolic 2024-09-13 13:40:00 72 mm[Hg] Common [facility] height 2024-05-24 14:00:00 66.5 [in_i] Comm on [facility] weight 2024-05-24 14:00:00 243.6 [lb_av] Co mmon [facility] temperature 2024-05-24 14:00:00 97.3 [degF] Com mon [facility] bmi 2024-05-24 14:00:00 38.72 kg/m2 Comm on [facility] oximetry 2024-05-24 14:00:00 95 % Commo n [facility] respiratory rate 2024-05-24 14:00:00 16 /min [facility] blood pressure systolic 2024-05-24 14:00:00 138 mm[Hg] [facility] blood pressure diastolic 2024-05-24 14:00:00 82 mm[Hg] [facility] height 2024-05-24 14:00:00 66.5 [in_i] Comm on [facility] weight 2024-05-24 14:00:00 243.6 [lb_av] Co mmon [facility] temperature 2024-05-24 14:00:00 97.3 [degF] Com mon [facility] bmi 2024-05-24 14:00:00 38.72 kg/m2 Comm on [facility] oximetry 2024-05-24 14:00:00 95 % Commo n [facility] respiratory rate 2024-05-24 14:00:00 16 /min [facility] blood pressure systolic 2024-05-24 14:00:00 138 mm[Hg] [facility] blood pressure diastolic 2024-05-24 14:00:00 82 mm[Hg] [facility] Systolic blood pressure 2024-05-03 12:04:00 131 mm[Hg] [facility] Diastolic blood pressure 2024-05-03 12:04:00 79 mm[Hg] [facility] Heart rate 2024-05-03 12:04:00 72 /min [facility] Body weight 2024-05-03 12:04:00 102.059 kg Zimu [facility] [place] [facility] BMI 2024-05-03 12:04:00 34.21 kg/m2 Zi erikal [facility] Systolic blood pressure 2024-05-03 12:04:00 131 mm[Hg] [facility] Diastolic blood pressure 2024-05-03 12:04:00 79 mm[Hg] [facility] Heart rate 2024-05-03 12:04:00 72 /min [facility] [place] [facility] Body weight 2024-05-03 12:04:00 102.059 kg Iz rial [place] [facility] BMI 2024-05-03 12:04:00 34.21 kg/m2 Zi rial [place] [facility] Systolic blood pressure 2024-03-28 14:22:00 139 mm[Hg] [facility] Di[facility] blood pressure 2024-03-28 14:22:00 81 mm[Hg] [facility] Heart rate 2024-03-28 14:22:00 86 /min [facility] [place] [facility] Body weight 2024-03-28 14:22:00 102.059 kg Zi jose [facility] BMI 2024-03-28 14:22:00 34.21 kg/m2 Zi erikal [place] [facility] Systolic blood pressure 2024-03-28 14:22:00 139 mm[Hg] [facility] Diastolic blood pressure 2024-03-28 14:22:00 81 mm[Hg] [facility] Heart rate 2024-03-28 14:22:00 86 /min [facility] [place] [facility] Body weight 2024-03-28 14:22:00 102.059 kg Zi erikal [place] [facility] BMI 2024-03-28 14:22:00 34.21 kg/m2 Zi rial [facility] height 2024-02-20 14:20:00 66.5 [in_i] Comm on [facility] weight 2024-02-20 14:20:00 228 [lb_av] Comm on [facility] temperature 2024-02-20 14:20:00 97.6 [degF] Com mon [facility] bmi 2024-02-20 14:20:00 36.24 kg/m2 Comm on [facility] oximetry 2024-02-20 14:20:00 97 % Commo n [facility] respiratory rate 2024-02-20 14:20:00 16 /min Common [facility] blood pressure systolic 2024-02-20 14:20:00 122 mm[Hg] Common [facility] blood pressure diastolic 2024-02-20 14:20:00 78 mm[Hg] Common [facility] Systolic blood pressure 2024-02-08 13:29:00 122 mm[Hg] [facility] Diastolic blood pressure 2024-02-08 13:29:00 79 mm[Hg] [facility] Heart rate 2024-02-08 13:29:00 80 /min [facility] [place] [facility] Body height 2024-02-08 13:29:00 172.7 cm Zi Dickens [facility] Body weight 2024-02-08 13:29:00 103.874 kg Zi Dickens [facility] BMI 2024-02-08 13:29:00 34.82 kg/m2 Zimu Dickens [facility] Systolic blood pressure 2024-02-08 13:29:00 122 mm[Hg] [facility] Diastolic blood pressure 2024-02-08 13:29:00 79 mm[Hg] [facility] Heart rate 2024-02-08 13:29:00 80 /min Memor ial Maninder [facility] Body height 2024-02-08 13:29:00 [facility]-08 13:29:00 [facility]874 [facility] 2024-02-08 13:29:00 34.82 [facility] 2023-11-17 11:20:00 66.5 [in_i] Comm on [facility] weight 2023-11-17 11:20:00 228 [lb_av] Comm on [facility] temperature 2023-11-17 11:20:00 97.6 [degF] Com mon [facility] bmi 2023-11-17 11:20:00 36.24 kg/m2 Comm on [facility] oximetry 2023-11-17 11:20:00 96 % Commo n [facility] respiratory rate 2023-11-17 11:20:00 16 /min Common [facility] blood pressure systolic 2023-11-17 11:20:00 138 mm[Hg] Common [facility] blood pressure diastolic 2023-11-17 11:20:00 82 mm[Hg] Common [facility] height 2023-09-27 11:20:00 66.5 [in_i] Comm on [facility] weight 2023-09-27 11:20:00 225 [lb_av] Comm on [facility] temperature 2023-09-27 11:20:00 97.2 [degF] Com mon [facility] bmi 2023-09-27 11:20:00 35.77 kg/m2 Comm on [facility] oximetry 2023-09-27 11:20:00 97 % Commo n [facility] respiratory rate 2023-09-27 11:20:00 16 /min Common [facility] blood pressure systolic 2023-09-27 11:20:00 130 mm[Hg] [facility] blood pressure diastolic 2023-09-27 11:20:00 76 mm[Hg] Common [facility] height 2023-09-27 11:20:00 66.5 [in_i] Comm on [facility] weight 2023-09-27 11:20:00 225 [lb_av] Comm on [facility] temperature 2023-09-27 11:20:00 97.2 [degF] Com mon [facility] bmi 2023-09-27 11:20:00 35.77 kg/m2 Comm on [facility] oximetry 2023-09-27 11:20:00 97 % Commo n [facility] respiratory rate 2023-09-27 11:20:00 16 /min Common [facility] blood pressure systolic 2023-09-27 11:20:00 130 mm[Hg] [facility] blood pressure diastolic 2023-09-27 11:20:00 76 mm[Hg] Common [facility] height 2023-09-01 08:40:00 66.5 [in_i] Comm on [facility] weight 2023-09-01 08:40:00 227 [lb_av] Comm on [facility] bmi 2023-09-01 08:40:00 36.09 kg/m2 Comm on [facility] Systolic blood pressure 2023-08-29 07:00:00 135 mm[Hg] [facility] Diastolic blood pressure 2023-08-29 07:00:00 74 mm[Hg] [facility] Heart rate 2023-08-29 07:00:00 96 /min [facility] Body temperature 2023-08-29 07:00:00 36.94 Alejandrina [facility] Respiratory rate 2023-08-29 07:00:00 16 /min [facility] Oxygen saturation in Arterial blood by Pulse oximetry 2023-08-29 07:00:00 96 /min [facility] Body height 2023-08-29 03:43:00 172.7 cm [facility] Body weight 2023-08-29 03:43:00 102.422 kg [facility] BMI 2023-08-29 03:43:00 34.33 kg/m2 [facility] height 2023-08-09 10:40:00 66.5 [in_i] Comm on [facility] weight 2023-08-09 10:40:00 227 [lb_av] Comm on [facility] temperature 2023-08-09 10:40:00 97.2 [degF] Com mon [facility] bmi 2023-08-09 10:40:00 36.09 kg/m2 Comm on [facility] oximetry 2023-08-09 10:40:00 97 % Commo n [facility] respiratory rate 2023-08-09 10:40:00 16 /min Common [facility] blood pressure systolic 2023-08-09 10:40:00 134 mm[Hg] Common [facility] blood pressure diastolic 2023-08-09 10:40:00 66 mm[Hg] Common [facility] height 2023-05-16 10:20:00 66.5 [in_i] Comm on [facility] weight 2023-05-16 10:20:00 228 [lb_av] Comm on [facility] temperature 2023-05-16 10:20:00 97.6 [degF] Com mon [facility] bmi 2023-05-16 10:20:00 36.24 kg/m2 Comm on [facility] oximetry 2023-05-16 10:20:00 96 % Commo n [facility] respiratory rate 2023-05-16 10:20:00 17 /min Common [facility] blood pressure systolic 2023-05-16 10:20:00 112 mm[facility]Hg] [facility] diastolic 2023-05-16 10:20:00 68 mm[Hg] [facility] height 2023-04-11 09:40:00 66.5 [in_i] Comm on [facility] weight 2023-04-11 09:40:00 233 [lb_av] Comm on [facility] temperature 2023-04-11 09:40:00 97.0 [degF] Com [facility] bmi 2023-04-11 09:40:00 37.04 kg/m2 Comm on [facility] oximetry 2023-04-11 09:40:00 97 % Commo n [facility] respiratory rate 2023-04-11 09:40:00 16 /min [facility] blood pressure systolic 2023-04-11 09:40:00 114 mm[Hg] [facility] blood pressure diastolic 2023-04-11 09:40:00 60 mm[Hg] [facility] height 2022-12-14 16:20:00 66.75 [in_i] Com mon [facility] weight 2022-12-14 16:20:00 263.3 [lb_av] Co mmon [facility] temperature 2022-12-14 16:20:00 98.2 [degF] Com [facility] bmi 2022-12-14 16:20:00 41.54 kg/m2 Comm on [facility] oximetry 2022-12-14 16:20:00 95 % Commo n [facility] respiratory rate 2022-12-14 16:20:00 17 /min Common [facility] blood pressure systolic 2022-12-14 16:20:00 128 mm[Hg] Common [facility] blood pressure diastolic 2022-12-14 16:20:00 70 mm[Hg] Common [facility] height 2022-12-14 15:00:00 66.75 [in_i] Com [facility] weight 2022-12-14 15:00:00 236.3 [lb_av] Co mmon [facility] temperature 2022-12-14 15:00:00 98.2 [degF] Com [facility] bmi 2022-12-14 15:00:00 37.28 kg/m2 Comm on [facility] oximetry 2022-12-14 15:00:00 95 % Commo n [facility] respiratory rate 2022-12-14 15:00:00 17 /min Common [facility] blood pressure systolic 2022-12-14 15:00:00 128 mm[Hg] Common [facility] blood pressure diastolic 2022-12-14 15:00:00 70 mm[Hg] [facility] height 2022-10-14 14:40:00 66.75 [in_i] Com [facility] weight 2022-10-14 14:40:00 229.6 [lb_av] Co mmon [facility] temperature 2022-10-14 14:40:00 97.2 [degF] Com [facility] bmi 2022-10-14 14:40:00 36.23 kg/m2 Comm on [facility] oximetry 2022-10-14 14:40:00 97 % Commo n [facility] respiratory rate 2022-10-14 14:40:00 16 /min Common [facility] blood pressure systolic 2022-10-14 14:40:00 122 mm[Hg] [facility] blood pressure diastolic 2022-10-14 14:40:00 68 mm[Hg] [facility] height 2022-07-08 14:00:00 66.75 [in_i] Com [facility] weight 2022-07-08 14:00:00 231 [lb_av] Comm on [facility] temperature 2022-07-08 14:00:00 97.3 [degF] Com [facility] bmi 2022-07-08 14:00:00 36.45 kg/m2 Comm on [facility] oximetry 2022-07-08 14:00:00 96 % Commo n [facility] respiratory rate 2022-07-08 14:00:00 14 /min [facility] blood pressure systolic 2022-07-08 14:00:00 115 mm[Hg] [facility] blood pressure diastolic 2022-07-08 14:00:00 55 mm[Hg] Common [facility] height 2022-07-08 13:40:00 66.75 [in_i] Com [facility] weight 2022-07-08 13:40:00 231 [lb_av] Comm on [facility] temperature 2022-07-08 13:40:00 97.3 [degF] Com [facility] bmi 2022-07-08 13:40:00 36.45 kg/m2 Comm on [facility] oximetry 2022-07-08 13:40:00 96 % Commo n [facility] respiratory rate 2022-07-08 13:40:00 14 /min [facility] blood pressure systolic 2022-07-08 13:40:00 115 mm[Hg] [facility] blood pressure diastolic 2022-07-08 13:40:00 55 mm[Hg] [facility] Systolic blood pressure 2022-06-06 16:52:00 143 mm[Hg] [facility] Diastolic blood pressure 2022-06-06 16:52:00 72 mm[Hg] [facility] Heart rate 2022-06-06 16:52:00 78 /min [facility] 2022-06-06 16:52:00 37 Alejandrina [facility] Respiratory rate 2022-06-06 16:52:00 18 /min [facility] Body height 2022-06-06 16:52:00 172.7 cm [facility] Body weight 2022-06-06 16:52:00 105.461 kg [facility] BMI 2022-06-06 16:52:00 35.35 kg/m2 [facility] Oxygen saturation in Arterial blood by Pulse oximetry 2022-06-06 16:52:00 97 /min [facility] height 2022-05-23 10:20:00 66.75 [in_i] Com [facility] weight 2022-05-23 10:20:00 227.8 [lb_av] Co mmon [facility] temperature 2022-05-23 10:20:00 97.3 [degF] Com [facility] bmi 2022-05-23 10:20:00 35.94 kg/m2 Comm on [facility] oximetry 2022-05-23 10:20:00 95 % Commo n [facility] respiratory rate 2022-05-23 10:20:00 16 /min Common [facility] blood pressure systolic 2022-05-23 10:20:00 126 mm[Hg] [facility] blood pressure diastolic 2022-05-23 10:20:00 66 mm[Hg] [facility] height 2022-04-07 16:00:00 66.75 [in_i] Com [facility] weight 2022-04-07 16:00:00 230.0 [lb_av] Co [facility] temperature 2022-04-07 16:00:00 97.2 [degF] Com [facility] bmi 2022-04-07 16:00:00 36.29 kg/m2 Comm on [facility] oximetry 2022-04-07 16:00:00 95 % Commo n [facility] respiratory rate 2022-04-07 16:00:00 15 /min Common [facility] blood pressure systolic 2022-04-07 16:00:00 118 mm[Hg] Common [facility] blood pressure diastolic 2022-04-07 16:00:00 58 mm[Hg] Common [facility] height 2022-03-09 11:15:00 66.75 [in_i] Com [facility] weight 2022-03-09 11:15:00 233.6 [lb_av] Co [facility] temperature 2022-03-09 11:15:00 97.2 [degF] Com [facility] bmi 2022-03-09 11:15:00 36.86 kg/m2 Comm on [facility] oximetry 2022-03-09 11:15:00 95 % Commo n [facility] respiratory rate 2022-03-09 11:15:00 17 /min Common [facility] blood pressure systolic 2022-03-09 11:15:00 136 mm[Hg] Common [facility] blood pressure diastolic 2022-03-09 11:15:00 67 mm[Hg] [facility] height 2022-02-02 10:30:00 66.75 [in_i] Com [facility] weight 2022-02-02 10:30:00 230.8 [lb_av] Co [facility] temperature 2022-02-02 10:30:00 97.2 [degF] Com [facility] bmi 2022-02-02 10:30:00 36.42 kg/m2 Comm on [facility] oximetry 2022-02-02 10:30:00 99 % Commo n [facility] respiratory rate 2022-02-02 10:30:00 16 /min [facility] blood pressure systolic 2022-02-02 10:30:00 122 mm[Hg] [facility] blood pressure diastolic 2022-02-02 10:30:00 60 mm[Hg] [facility] height 2022-01-31 16:20:00 66.75 [in_i] Com [facility] weight 2022-01-31 16:20:00 227 [lb_av] Comm on [facility] temperature 2022-01-31 16:20:00 97.2 [degF] Com [facility] bmi 2022-01-31 16:20:00 35.82 kg/m2 Comm on [facility] oximetry 2022-01-31 16:20:00 96 % Commo n [facility] respiratory rate 2022-01-31 16:20:00 16 /min [facility] blood pressure systolic 2022-01-31 16:20:00 121 mm[Hg] [facility] blood pressure diastolic 2022-01-31 16:20:00 58 mm[Hg] [facility] Systolic blood pressure 2021-11-17 18:41:00 148 mm[Hg] [facility] Diastolic blood pressure 2021-11-17 18:41:00 82 mm[Hg] [facility] Heart rate 2021-11-17 18:40:00 87 /min [facility] Body temperature 2021-11-17 18:40:00 36.72 Alejandrina [facility] Respiratory rate 2021-11-17 18:40:00 18 /min [facility] Body height 2021-11-17 18:40:00 172.7 cm [facility] Body weight 2021-11-17 18:40:00 102.513 kg [facility] BMI 2021-11-17 18:40:00 34.36 kg/m2 [facility] height 2021-10-29 16:40:00 66.75 [in_i] Com [facility] weight 2021-10-29 16:40:00 222.8 [lb_av] Co [facility] temperature 2021-10-29 16:40:00 96.9 [degF] Com [facility] bmi 2021-10-29 16:40:00 35.15 kg/m2 Comm on [facility] oximetry 2021-10-29 16:40:00 97 % Commo n [facility] respiratory rate 2021-10-29 16:40:00 16 /min [facility] blood pressure systolic 2021-10-29 16:40:00 136 mm[Hg] [facility] blood pressure diastolic 2021-10-29 16:40:00 67 mm[Hg] [facility] height 2021-10-21 11:00:00 66.75 [in_i] Com [facility] weight 2021-10-21 11:00:00 227.2 [lb_av] Co mmon [facility] temperature 2021-10-21 11:00:00 96.3 [degF] Com [facility] bmi 2021-10-21 11:00:00 35.85 kg/m2 Comm on [facility] oximetry 2021-10-21 11:00:00 95 % Commo n [facility] respiratory rate 2021-10-21 11:00:00 15 /min [facility] blood pressure systolic 2021-10-21 11:00:00 127 mm[Hg] [facility] blood pressure diastolic 2021-10-21 11:00:00 58 mm[Hg] [facility] height 2021-08-04 09:40:00 66.75 [in_i] Com [facility] weight 2021-08-04 09:40:00 222.6 [lb_av] Co [facility] temperature 2021-08-04 09:40:00 97.4 [degF] Com [facility] bmi 2021-08-04 09:40:00 35.12 kg/m2 Comm on [facility] oximetry 2021-08-04 09:40:00 96 % Commo n [facility] blood pressure systolic 2021-08-04 09:40:00 131 mm[Hg] Common [facility] blood pressure diastolic 2021-08-04 09:40:00 63 mm[Hg] Common [facility] height 2021-08-03 11:40:00 66.75 [in_i] Com [facility] weight 2021-08-03 11:40:00 221.8 [lb_av] Co [facility] temperature 2021-08-03 11:40:00 97.3 [degF] Com [facility] bmi 2021-08-03 11:40:00 35 kg/m2 Commo n [facility] oximetry 2021-08-03 11:40:00 98 % Commo n [facility] respiratory rate 2021-08-03 11:40:00 16 /min Common [facility] blood pressure systolic 2021-08-03 11:40:00 134 mm[Hg] [facility] blood pressure diastolic 2021-08-03 11:40:00 61 mm[Hg] [facility] height 2021-06-18 10:20:00 66.75 [in_i] Com [facility] weight 2021-06-18 10:20:00 218 [lb_av] Comm on [facility] temperature 2021-06-18 10:20:00 96.3 [degF] Com [facility] bmi 2021-06-18 10:20:00 34.4 kg/m2 Commo n [facility] oximetry 2021-06-18 10:20:00 98 % Commo n [facility] respiratory rate 2021-06-18 10:20:00 17 /min [facility] blood pressure systolic 2021-06-18 10:20:00 131 mm[Hg] Common [facility] blood pressure diastolic 2021-06-18 10:20:00 62 mm[Hg] [facility] height 2021-06-03 15:20:00 66.75 [in_i] Com [facility] weight 2021-06-03 15:20:00 218 [lb_av] Comm on [facility] temperature 2021-06-03 15:20:00 96.6 [degF] Com [facility] bmi 2021-06-03 15:20:00 34.4 kg/m2 Commo n [facility] oximetry 2021-06-03 15:20:00 96 % Commo n [facility] respiratory rate 2021-06-03 15:20:00 14 /min [facility] blood pressure systolic 2021-06-03 15:20:00 125 mm[Hg] [facility] blood pressure diastolic 2021-06-03 15:20:00 67 mm[Hg] [facility] Procedures Procedure Date / Time Performed Performing Clinician Source Sedimentation Rate 2024-02-08 00:00:00 [facility] C-Reactive Protein 2024-02-08 00:00:00 [facility] Complete Blood Count w/Diff and Platelet 2024-02-08 00:00:00 [facility] Comprehensive Metabolic Panel 2024-02-08 00:00:00 [facility] Uric Acid 2024-02-08 00:00:00 [facility] Ferritin 2024-02-08 00:00:00 [facility] Hepatitis B Surface Antigen 2024-02-08 00:00:00 [facility] Hepatitis B core AB Total w/refl IgM 2024-02-08 00:00:00 [facility] Hepatitis C Antibody w/HCV RNA PCR if Indicated 2024-02-08 00:00:00 [facility] Cyclic Citrul Peptide Antibody IgG 2024-02-08 00:00:00 [facility] Rheumatoid Factor 2024-02-08 00:00:00 [facility] orial [facility] US soft tissue extremity complete 2024-02-08 00:00:00 [facility] XR hand 3+ views bilateral 2024-02-08 00:00:00 [facility] CT ABDOMEN PELVIS WO CONTRAST 2023-08-29 06:37:21 Bethany Salguero [facility] COMP. METABOLIC PANEL (44527) 2023-08-29 05:24[facility]00 [facility] CBC WITH DIFF 2023-08-29 05:[facility] ASSIGNMENT OF BENEFITS 2023-08-29 04:15:03 Docto r Unassigned, Rudyard [facility] URINALYSIS 2023-08-29 04:05:00 Bethany Salguero [facility] CONSENT/REFUSAL FOR DIAGNOSIS AND TREATMENT 2023-08-29 03:32:22 Doctor Unassigned, Rudyard [facility] REFERRAL- REQUEST/RESPONSE 2022-05-31 05:01:00 Doctor Unassigned, Rudyard [facility] MR ABDOMEN W WO CONTRAST 2022-02-16 15:27:39 Requisiti on, Paper [facility] ASSIGNMENT OF BENEFITS 2022-02-16 14:23:05 Docto r Unassigned, Rudyard [facility] POCT URINALYSIS 2021-11-17 18:43:00 Miladis Rubio [facility] Procedure on Neck 1997[birth year]28 00:00:00 Gabriella via Medical Hyste[facility] En[facility] Start Date/Time End Date/Time Encounter Type Admission Type Attending [facility] Care Department Encounter ID Source 2024-10-08 17:19:00 Outpatient Arielle Avila STLMLC STLMLC [id number] [facility] 2024-09-22 18:05:00 Outpatient Arielle Avila CLS CLS [id number] [facility] 2024-05-22 08:15:00 Outpatient AvilaArielle freeman STLMLC STLMLC [id number] [facility] 2024-02-16 09:40:00 Outpatient AvilaArielle freeman STLMLC STLMLC [id number] [facility] 2023-09-25 09:31:00 Outpatient AvilaArielle freeman STLMLC STLMLC [id number] [facility] 2023-08-31 16:59:00 Outpatient AvilaArielle freeman STLMLC STLMLC [id number] [facility] 2023-08-08 14:00:00 Outpatient AvilaArielle freeman STLMLC STLMLC [id number] [facility] 2023-08-07 09:53:00 Outpatient AvilaArielle freeman STLMLC STLMLC [id number] [facility] 2023-05-08 08:50:00 Outpatient AvilaArielle freeman STLMLC STLMLC [id number] [facility] 2023-04-07 09:31:00 Outpatient AvilaArielle freeman STLMLC STLMLC [id number] [facility] 2023-03-13 09:31:00 Outpatient AvilaArielle freeman STLMLC STLMLC [id number] [facility] 2022-12-13 08:19:00 Outpatient AvilaArielle STLMLC STLMLC [id number] [facility] 2022-10-12 08:43:00 Outpatient Arielle Avila STLMLC STLMLC [id number] [facility] 2022-09-01 16:19:00 Outpatient Arielle Avila STLMLC STLMLC [id number] [facility] 2022-07-06 10:54:00 Outpatient Putnam, Na STLMLC STLMLC [id number] [facility] 2022-07-05 15:36:00 Outpatient Putnam, Na STLMLC STLMLC [id number] [facility] 2022-05-20 08:02:01 Outpatient Putnam, Na STLMLC STLMLC [id number] [facility] 2022-04-05 15:15:00 Outpatient Uptnam, Na STLMLC STLMLC [id number] [facility] 2022-01-27 15:35:01 Outpatient Putnam, Na STLMLC STLMLC [id number] [facility] 2021-10-28 10:41:00 Outpatient Putnam, Na STLMLC STLMLC [id number] [facility] 2021-10-27 13:20:00 Outpatient Putnam, Na STLMLC STLMLC [id number] [facility] 2021-09-22 14:39:43 Outpatient Putnam, Na STLMLC STLMLC [id number] [facility] 2021-09-22 14:32:03 Outpatient Putnam, Na STLMLC STLMLC [id number] [facility] 2021-09-22 14:31:07 Outpatient Putnam, Na STLMLC STLMLC [id number] [facility] 2021-09-22 14:22:08 Outpatient Putnam, Na STLMLC STLMLC [id number] [facility] 2021-09-22 14:21:42 Outpatient Putnam, Na STLMLC STLMLC [id number] [facility] 2021-09-22 13:56:50 Outpatient Putnam, Na STLMLC STLMLC [id number] [facility] 2021-09-22 13:48:06 Outpatient Putnam, Na STLMLC STLMLC [id number] [facility] 2021-09-22 13:47:22 Outpatient Putnam, Na STLMLC STLMLC [id number] [facility] 2021-09-22 13:12:37 Outpatient Putnam, Na STLMLC STLMLC [id number] [facility] 2021-09-22 12:56:05 Outpatient Putnam, Na STLMLC STLMLC [id number] [facility] 2021-09-22 12:39:10 Outpatient Putnam, Na STLMLC STLMLC [id number] [facility] 2021-09-22 12:38:32 Outpatient Putnam, Na STLMLC STLMLC [id number] [facility] 2021-09-22 12:37:48 Outpatient Putnam, Na STLMLC STLMLC [id number] [facility] 2021-09-22 12:35:43 Outpatient Putnam, Na STLMLC STLMLC [id number] [facility] 2021-09-22 12:35:27 Outpatient STLMLC STLMLC [id number] [facility] 2021-09-22 12:19:59 Outpatient STLMLC STLMLC [id number] [facility] 2021-09-22 12:12:49 Outpatient Juan Alberto, Kin STLMLC STLMLC [id number] [facility] 2021-09-22 12:08:54 Outpatient Kyle Avendano STLILA STLC [id number] [facility] 2021-09-22 12:03:08 Outpatient Kyle Avendano [facility] [id number] [facility] 2021-09-22 11:22:54 Outpatient Jess Evans [facility] [id number] [facility] 2021-09-22 11:14:03 Outpatient Jess Evans ST[facility]IL[facility] [id number] [facility] 2021-09-22 11:12:01 Outpatient Jess Evans [facility] [id number] [facility] 2021-09-22 11:11:19 Outpatient Jess Evans ST[facility]IL[facility] [id number] [facility] 2021-06-28 12:18:22 Emergency [facility] [id number] [facility] 2025-01-11 12:40:00 2025-01-11 12:40:00 Outpatient R [facility] [id number] [facility] 2024-12-17 00:00:00 2024-12-17 00:00:00 (TEL) STLMLC STLC [id number] [facility] 2024-12-17 00:00:00 2024-12-17 00:00:00 (TEL) STLC STLC [id number] [facility] 2024-10-31 00:00:00 2024-10-31 00:00:00 (TEL) STLC STLMLC [id number] [facility] 2024-10-25 15:30:00 2024-10-25 16:00:00 Annual D2Me Sera Iyanoye [id number] [facility] 2024-10-25 00:00:00 2024-10-25 00:00:00 NON-BILLAB LE VISIT STLMLC STLMLC [id number] [facility] 2024-10-24 00:00:00 2024-10-24 00:00:00 (TEL) STLMLC STLMLC [id number] [facility] 2024-10-21 00:00:00 2024-10-21 00:00:00 Meryl Caruso, TR[employer] FIELD COACH: [address] [place], [place] [address], [place] [address] , Ph. Formerly [facility], [facility] - [id number] tom Ruiz* [id number] [facility] 2024-10-18 00:00:00 2024-10-18 00:00:00 (TEL) STLMLC STLMLC [id number] [facility] 2024-10-18 00:00:00 2024-10-18 00:00:00 (TEL) STLMLC STLMLC [id number] [facility] 2024-10-16 00:00:00 2024-10-16 00:00:00 (TEL) STLMLC STLMLC [id number] [facility] 2024-10-08 00:00:00 2024-10-08 00:00:00 (TEL) STLMLC STLMLC [id number] [facility] 2024-10-07 00:00:00 2024-10-07 00:00:00 (TEL) STLMLC STLMLC [id number] [facility] 2024-10-04 00:00:00 2024-10-04 00:00:00 (TEL) STLMLC STLMLC [id number] [facility] 2024-09-24 00:00:00 2024-09-24 00:00:00 (TEL) STLMLC STLMLC [id number] [facility] 2024-09-20 00:00:00 2024-09-20 00:00:00 SUB ANNUAL MCR WELLNESS VISIT STLMLC STLMLC [id number] [facility] 2024-09-20 00:00:00 2024-09-20 00:00:00 OFFICE VISIT ESTAB PT LEVEL 4 STLMLC STLMLC [id number] [facility] 2024-09-13 00:00:00 2024-09-13 00:00:00 (TEL) STLMLC STLMLC [id number] [facility] 2024-09-13 00:00:00 2024-09-13 00:00:00 OFFICE VISIT ESTAB PT LEVEL 4 STLMLC STLMLC [id number] [facility] 2024-09-03 00:00:00 2024-09-03 00:00:00 (TEL) STLMLC STLMLC [id number] [facility] 2024-07-03 00:00:00 2024-07-03 00:00:00 (TEL) STLMLC STLMLC [id number] [facility] 2024-06-26 00:00:00 2024-06-26 00:00:00 (TEL) STLMLC STLMLC [id number] [facility] 2024-06-11 00:00:00 2024-06-11 00:00:00 (TEL) STLMLC STLMLC [id number] [facility] 2024-05-30 00:00:00 2024-05-30 00:00:00 (TEL) STLMLC STLMLC [id number] [facility] 2024-05-30 00:00:00 2024-05-30 00:00:00 (TEL) STLMLC STLMLC [id number] [facility] 2024-05-24 00:00:00 2024-05-24 00:00:00 OFFICE VISIT ESTAB PT LEVEL 4 STLMLC STLMLC [id number] [facility] 2024-05-03 11:54:14 2024-05-03 12:14:08 Outpatient JACQUELINE JONES MHEOUT MHEOUT [id number] [facility] 2024-05-03 11:40:00 2024-05-03 12:14:08 [facility] [id number] [facility] 2024-04-26 00:00:00 2024-04-26 00:00:00 (TEL) STLMLC STLMLC [id number] [facility] 2024-04-09 13:12:31 2024-04-09 14:05:56 Outpatient MHEOUT EOUT [id number] EOUT 2024-03-28 14:40:00 2024-03-28 15:02:45 Consult Jacqueline Jones Rheumatol [facility] [id number] [facility] 2024-03-28 14:06:06 2024-03-28 15:02:45 Outpatient Elective JACQUELINE JONES EOUT EOUT [id number] [facility] 2024-03-27 00:00:00 2024-03-27 00:00:00 (TEL) STLMLC STLMLC [id number] [facility] 2024-02-20 00:00:00 2024-02-20 00:00:00 OFFICE VISIT ESTAB PT LEVEL 4 STLMLC STLMLC [id number] [facility] 2024-02-08 13:26:02 2024-02-08 14:05:52 Outpatient Elective JACQUELINE JONES EOUT EOUT [id number] [facility]HEOUT 2024-02-08 13:20:00 2024-02-08 14:05:52 Consult [facility] [id number] Hugh Dickens [facility] 2023-12-21 00:00:00 2023-12-21 00:00:00 (TEL) STLMLC STLMLC [id number] [facility] 2023-12-19 00:00:00 2023-12-19 00:00:00 (TEL) STLMLC STLMLC [id number] [facility] 2023-11-17 00:00:00 2023-11-17 00:00:00 OFFICE VISIT ESTAB PT LEVEL 4 STLMLC STLMLC [id number] [facility] 2023-10-30 00:00:00 2023-10-30 00:00:00 Outpatient Momo HALL VFP VFP [id number] [facility] 2023-09-27 00:00:00 2023-09-27 00:00:00 SUB ANNUAL [facility] WELLNESS VISIT STLMLC STLMLC [id number] [facility] 2023-09-27 00:00:00 2023-09-27 00:00:00 OFFICE VISIT ESTAB PT LEVEL 4 STLMLC STLMLC [id number] [facility] 2023-09-25 00:00:00 2023-09-25 00:00:00 (TEL) STLMLC STLMLC [id number] [facility] 2023-09-14 00:00:00 2023-09-14 00:00:00 Outpatient GC_GCBZW_Ka mitula_S [facility] [id number] [facility] 2023-09-01 00:00:00 2023-09-01 00:00:00 OFFICE VISIT ESTAB PT LEVEL 5 STLMLC STLMLC [id number] [facility] 2023-08-31 00:00:00 2023-08-31 00:00:00 (TEL) STLMLC STLMLC [id number] [facility] 2023-08-31 00:00:00 2023-08-31 00:00:00 (TEL) [facility] [id number] [facility] 2023-08-28 21:48:00 2023-08-29 01:41:00 Emergency X BETHANY SALGUERO [facility] ERT [id number] [facility] 2023-08-28 21:48:00 2023-08-29 01:41:00 Emergency Bethany Salguero [facility] 1.2.840.114 350.1.13.10 4.2.7.2.686 [id number] [facility] 2023-08-17 00:00:00 2023-08-17 00:00:00 Outpatient GC_GCBZW_Ka diyala_S PRIV PRIV [id number] [facility] 2023-08-09 00:00:00 2023-08-09 00:00:00 OFFICE VISIT ESTAB PT LEVEL 4 [facility] [id number] [facility] 2023-07-20 00:00:00 2023-07-20 00:00:00 Outpatient GC_GCBZW_Ka diyala_S PRIV PRIV [id number] [facility] 2023-07-14 21:00:00 2023-07-14 21:30:00 Care OnBenniemand Alejandra Johnson 2.16.840. [id number] 2.16.840.1. [id number] [facility] 2023-07-12 19:00:00 2023-07-12 20:00:00 D2Me Sera Iyanoye 2.16.840. [id number]. [id number] 2.16.840.1. [id number] [facility] 2023-07-03 00:00:00 2023-07-03 00:00:00 Outpatient GC_GCBZW_Ka diyala_S PRIV PRIV [id number] [facility] 2023-06-02 00:00:00 2023-06-02 00:00:00 (TEL) STLMLC STLMLC [id number] [facility] 2023-06-01 00:00:00 2023-06-01 00:00:00 (TEL) STLMLC STLMLC [id number] [facility] 2023-05-16 00:00:00 2023-05-16 00:00:00 (HOSP F/U) Hospital Follow Up STLMLC STLMLC [id number] [facility] 2023-05-15 00:00:00 2023-05-15 00:00:00 (TEL) STLMLC STLMLC [id number] [facility] 2023-05-09 00:00:00 2023-05-09 00:00:00 (TEL) STLMLC STLMLC [id number] [facility] 2023-05-08 00:00:00 2023-05-08 00:00:00 Outpatient GC_GCBZW_Ka diyala_S [facility] [id number] [facility] 2023-04-11 00:00:00 2023-04-11 00:00:00 OFFICE VISIT ESTAB PT LEVEL 4 STLMLC STLMLC [id number] [facility] 2023-04-05 00:00:00 2023-04-05 00:00:00 (TEL) STLMLC STLMLC [id number] [facility] 2023-02-14 00:00:00 2023-02-14 00:00:00 (TEL) STLMLC STLMLC [id number] [facility] 2023-01-24 00:00:00 2023-01-24 00:00:00 (TEL) STLMLC STLMLC [id number] [facility] 2022-12-30 00:00:00 2022-12-30 00:00:00 Outpatient DMG [facility] [id number] [facility] 2022-12-14 00:00:00 2022-12-14 00:00:00 OFFICE VISIT ESTAB PT LEVEL 4 STLMLC STLMLC [id number] [facility] 2022-12-14 00:00:00 2022-12-14 00:00:00 SUB ANNUAL [facility] WELLNESS VISIT STLMLC STLMLC [id number] [facility] 2022-11-01 00:00:00 2022-11-01 00:00:00 (TEL) STLMLC STLMLC [id number] [facility] 2022-10-14 00:00:00 2022-10-14 00:00:00 OFFICE VISIT ESTAB PT LEVEL 4 STLMLC STLMLC [id number] [facility] 2022-09-16 00:00:00 2022-09-16 00:00:00 (TEL) STLMLC STLMLC [id number] [facility] 2022-09-07 11:20:00 2022-09-07 11:20:00 Outpatient R FIDE SCHROEDER [facility] [id number] [facility] 2022-09-05 15:30:00 2022-09-05 15:30:00 Outpatient FARNAZ BALBUENA [facility] [id number] [facility] 2022-09-05 15:30:00 2022-09-05 15:30:00 Outpatient R FARNAZ ELDER [facility] [id number] [facility] 2022-09-05 15:30:00 2022-09-05 15:30:00 Outpatient R FARNAZ ELDER [facility] [id number] [facility] 2022-09-05 13:30:00 2022-09-05 13:30:00 Outpatient JAVIER CA CHERYAL [facility] [id number] [facility] 2022-07-25 00:00:00 2022-07-25 00:00:00 Outpatient DMG [facility] [id number] [facility] 2022-07-08 00:00:00 2022-07-08 00:00:00 SUB ANNUAL [facility] WELLNESS VISIT STLMLC [facility] [id number] [facility] 2022-07-08 00:00:00 2022-07-08 00:00:00 OFFICE VISIT EST PT LEVEL 3 STLMLC STLMLC [id number] [facility] 2022-06-30 00:00:00 2022-06-30 00:00:00 (TEL) ST[facility] [id number] [facility] 2022-06-07 11:00:00 2022-06-07 11:00:00 Outpatient R FAITH QUINTANILLA [facility] [id number] [facility] 2022-06-06 11:40:00 2022-06-06 12:00:00 Urgent Care Chai Olvera, [facility] 1..840.114 350.1.13.10 4.2.7.2.686 [id number] [facility] 2022-06-06 11:40:00 2022-06-06 11:40:00 Outpatient CHAI POOL [facility] [id number] [facility] 2022-06-01 00:00:00 2022-06-01 00:00:00 Telephone Faith Quintanilla [facility] 1.840.114 350.1.13.10 4.2.7.2.686 [id number] [facility] 2022-05-31 00:00:00 2022-05-31 00:00:00 Orders Only Doctor Unassigned, Rudyard [facility] 1.840.114 350.1.13.10 4.2.7.2.686 [id number] [facility] 2022-05-23 00:00:00 2022-05-23 00:00:00 OFFICE VISIT EST PT LEVEL 3 ST[facility]C [facility] [id number] [facility] 2022-05-09 00:00:00 2022-05-09 00:00:00 (TEL) STLMLC STLMLC [id number] [facility] 2022-04-11 00:00:00 2022-04-11 00:00:00 (TEL) STLMLC STLMLC [id number] [facility] 2022-04-07 00:00:00 2022-04-07 00:00:00 OFFICE VISIT EST PT LEVEL 3 STLMLC STLMLC [id number] [facility] 2022-03-29 00:00:00 2022-03-29 00:00:00 Outpatient R RADIOLOGY [facility] [id number] [facility] 2022-03-09 00:00:00 2022-03-09 00:00:00 OFFICE VISIT ESTAB PT LEVEL 2 STLMLC STLMLC [id number] [facility] 2022-03-08 00:00:00 2022-03-08 00:00:00 (TEL) STLMLC STLMLC [id number] [facility] 2022-02-23 00:00:00 2022-02-23 00:00:00 (TEL) STLMLC STLMLC [id number] [facility] 2022-02-16 09:23:42 2022-02-16 23:59:00 Outpatient R RADIOLOGY [facility] [id number] [facility] 2022-02-16 09:23:42 2022-02-16 23:59:00 Hospital Encounter Radiology [facility] 1.840.114 350.1.13.10 4.2.7.2.686 [id number] [facility] 2022-02-16 00:00:00 2022-02-16 00:00:00 Orders Only Doctor Unassigned, Rudyard [facility] 1.2.840.114 350.1.13.10 4.2.7.2.686 [id number] [facility] 2022-02-14 00:00:00 2022-02-14 00:00:00 (TEL) STLMLC STLMLC [id number] [facility] 2022-02-04 00:00:00 2022-02-04 00:00:00 (TEL) STLMLC STLMLC [id number] [facility] 2022-02-02 00:00:00 2022-02-02 00:00:00 OFFICE VISIT ESTAB PT LEVEL 4 STLMLC STLMLC [id number] [facility] 2022-02-01 00:00:00 2022-02-01 00:00:00 [address] Schroeder [facility] 1.2.840.114 350.1.13.10 4.2.7.2.686 [id number] [facility] 2022-01-31 00:00:00 2022-01-31 00:00:00 OFFICE VISIT EST PT LEVEL 3 STLMLC STLMLC [id number] [facility] 2022-01-31 00:00:00 2022-01-31 00:00:00 (TEL) STLMLC STLMLC [id number] [facility] 2021-12-21 00:00:00 2021-12-21 00:00:00 Outpatient R RADIOLOGY [facility] [id number] [facility] 2021-12-21 00:00:00 2021-12-21 00:00:00 (TEL) STLMLC STLMLC [id number] [facility] 2021-11-23 00:00:00 2021-11-23 00:00:00 (TEL) STLMLC STLMLC [id number] [facility] 2021-11-18 00:00:00 2021-11-18 00:00:00 (TEL) STLMLC STLMLC [id number] [facility] 2021-11-17 13:15:00 2021-11-17 13:50:43 Outpatient R JAVIER RUBIO CHERYAL [facility] [id number] [facility] 2021-11-17 13:15:00 2021-11-17 13:50:43 Office Visit Javier Rubio [facility] 1..840.114 350.1.13.10 4.2.7.2.686 [id number] [facility] 2021-11-17 13:15:00 2021-11-17 13:50:43 Outpatient R JAVIER RUBIO CHERYAL [facility] [id number] [facility] 2021-11-15 00:00:00 2021-11-15 00:00:00 (TEL) STLMLC STLMLC [id number] [facility] 2021-10-29 00:00:00 2021-10-29 00:00:00 OFFICE VISIT EST PT LEVEL 3 STLMLC STLMLC [id number] [facility] 2021-10-21 00:00:00 2021-10-21 00:00:00 OFFICE VISIT EST PT LEVEL 3 STLMLC STLMLC [id number] [facility] 2021-10-20 00:00:00 2021-10-20 00:00:00 (TEL) STLMLC STLMLC [id number] [facility] 2021-10-14 00:00:00 2021-10-14 00:00:00 Orders Only Doctor Unassigned, Rudyard [facility] 1..840.114 350.1.13.10 4.2.7.2.686 [id number] [facility] 2021-09-06 00:00:00 2021-09-06 00:00:00 (TEL) STLMLC STLMLC [id number] [facility] 2021-09-03 00:00:00 2021-09-03 00:00:00 Refill Fide Schroeder [facility] 1..840.114 350.1.13.10 4.2.7.2.686 [id number] [facility] 2021-09-02 14:00:00 2021-09-02 15:23:34 Office Visit Farnaz Elder [facility] 1.2.840.114 350.1.13.10 4.2.7.2.686 [id number] [facility] 2021-09-02 14:00:00 2021-09-02 15:23:34 Outpatient R EMMANUEL FARNAZ [facility] [id number] [facility] 2021-09-02 14:00:00 2021-09-02 15:23:34 Outpatient FARNAZ BALBUENA [facility] [id number] [facility] 2021-09-02 14:00:00 2021-09-02 14:00:00 Outpatient R FARNAZ ELDER [facility] [id number] [facility] 2021-08-12 00:00:00 2021-08-12 00:00:00 Orders Only Doctor Unassigned, Rudyard [facility] 1.2.840.114 350.1.13.10 4.2.7.2.686 [id number] [facility] 2021-08-10 00:00:00 2021-08-10 00:00:00 (TEL) STLMLC STLMLC [id number] [facility] 2021-08-04 00:00:00 2021-08-04 00:00:00 OFFICE VISIT NEW PT LEVEL 3 STLMLC STLMLC [id number] [facility] 2021-08-03 00:00:00 2021-08-03 00:00:00 OFFICE VISIT ESTAB PT LEVEL 4 STLMLC STLMLC [id number] [facility] 2021-08-02 00:00:00 2021-08-02 00:00:00 Orders Only Doctor Unassigned, Rudyard [facility] 1.2.840.114 350.1.13.10 4.2.7.2.686 [id number] [facility] 2021-07-30 14:54:00 2021-07-30 23:59:00 [facility] [id number] [facility] 2021-07-30 14:54:00 2021-07-30 23:59:00 [facility] 1.2.840.114 350.1.13.10 4.2.7.2.686 [id number] [facility] 2021-07-30 00:00:00 2021-07-30 00:00:00 Orders Only Doctor Unassigned, Rudyard [facility] 1.2.840.114 350.1.13.10 4.2.7.2.686 [id number] [facility] 2021-07-30 00:00:00 2021-07-30 00:00:00 (TEL) STLMLC STLMLC [id number] [facility] 2021-07-26 00:00:00 2021-07-26 00:00:00 (TEL) STLMLC STLMLC [id number] [facility] 2021-07-09 15:00:00 2021-07-09 15:35:33 [facility] [id number] [facility] 2021-07-09 15:00:00 2021-07-09 15:35:33 Outpatient R ROGERIO [facility] [id number] [facility] 2021-07-09 15:00:00 2021-07-09 15:35:33 Outpatient R ROGERIO [facility] [id number] [facility] 2021-07-09 14:44:32 2021-07-09 15:35:33 Office Visit Rogerio [facility] 1..840.114 350.1.13.10 4.2.7.2.686 [id number] [facility] 2021-07-09 00:00:00 2021-07-09 00:00:00 Orders Only Doctor Unassigned, Rudyard [facility] 1..840.114 350.1.13.10 4.2.7.2.686 [id number] [facility] 2021-07-08 00:00:00 2021-07-08 00:00:00 (TEL) STLMLC STLMLC [id number] [facility] 2021-07-06 12:32:00 2021-07-06 12:32:00 Outpatient WATERS_S [facility] [id number] [facility] 2021-07-02 00:00:00 2021-07-02 00:00:00 (TEL) STLMLC STLMLC [id number] [facility] 2021-06-28 00:00:00 2021-06-28 00:00:00 (TEL) STLMLC STLMLC [id number] [facility] 2021-06-23 00:00:00 2021-06-23 00:00:00 (TEL) STLMLC STLMLC [id number] [facility] 2021-06-21 00:00:00 2021-06-21 00:00:00 Orders Only Doctor Unassigned, Rudyard [facility] 1..840.114 350.1.13.10 4.2.7.2.686 [id number] [facility] 2021-06-21 00:00:00 2021-06-21 00:00:00 (TEL) STLMLC STLMLC [id number] [facility] 2021-06-18 00:00:00 2021-06-18 00:00:00 OFFICE VISIT EST PT LEVEL 3 STLMLC STLMLC [id number] [facility] 2021-06-16 00:00:00 2021-06-16 00:00:00 (TEL) STLMLC STLMLC [id number] [facility] 2021-06-11 00:00:00 2021-06-11 00:00:00 Orders Only Doctor Unassigned, Rudyard [facility] 1.2.840.114 350.1.13.10 4.2.7.2.686 [id number] [facility] 2021-06-03 00:00:00 2021-06-03 00:00:00 OFFICE VISIT ESTAB PT LEVEL 4 STLMLC STLMLC [id number] [facility] 2021-05-06 00:00:00 2021-05-06 00:00:00 Outpatient STLMLC STLMLC [id number] [facility] 2021-05-05 00:00:00 2021-05-05 00:00:00 Outpatient STLMLC STLMLC [id number] [facility] 2021-04-07 00:00:00 2021-04-07 00:00:00 Outpatient STLMLC STLMLC [id number] [facility] 2021-03-28 23:26:00 2021-03-29 02:04:00 Emergency [facility] 1.2.840.114 350.1.13.10 4.2.7.2.686 [id number] [facility] 2021-02-12 00:00:00 2021-02-12 00:00:00 Outpatient STLMLC STLMLC [id number] [facility] 2021-02-05 00:00:00 2021-02-05 00:00:00 Outpatient STLMLC STLMLC [id number] [facility] 2021-01-29 00:00:00 2021-01-29 00:00:00 Outpatient STLMLC STLMLC [id number] [facility] 2021-01-13 00:00:00 2021-01-13 00:00:00 Outpatient STLMLC STLMLC [id number] [facility] 2020-12-24 10:22:32 2020-12-24 23:59:00 Outpatient ANTOINE JONES [facility] [id number] [facility] 2020-12-24 10:22:32 2020-12-24 23:59:00 Hospital Encounter Antoine Jones [facility] 1.2.840.114 350.1.13.10 4.2.7.2.686 [id number] [facility] 2020-12-24 10:03:51 2020-12-24 10:36:04 Office Visit Antoine Jones [facility] [place] 1.2.840.114 350.1.13.10 4.2.7.2.686 [id number] [facility] 2020-12-24 10:30:00 2020-12-24 10:30:00 Outpatient R ANTOINE JONES [facility] [id number] [facility] 2020-12-18 00:00:00 2020-12-18 00:00:00 Orders Only Doctor Unassigned, Rudyard [facility] 1.2.840.114 350.1.13.10 4.2.7.2.686 [id number] [facility] 2020-12-18 00:00:00 2020-12-18 00:00:00 Outpatient STLMLC STLMLC [id number] [facility] 2020-11-30 00:00:00 2020-11-30 00:00:00 Outpatient STLMLC STLMLC [id number] [facility] 2020-11-24 00:00:00 2020-11-24 00:00:00 Outpatient STLMLC STLMLC [id number] [facility] 2020-11-24 00:00:00 2020-11-24 00:00:00 Outpatient STLMLC STLMLC [id number] [facility] 2020-11-05 00:00:00 2020-11-05 00:00:00 Outpatient STLMLC STLMLC [id number] [facility] 2020-10-27 00:00:00 2020-10-27 00:00:00 Outpatient STLMLC STLMLC [id number] [facility] 2020-08-11 00:00:00 2020-08-11 00:00:00 Outpatient STLMLC STLMLC [id number] [facility] 2020-05-11 17:21:00 2020-05-11 17:21:00 [place] [facility] [id number] [facility] 2020-05-07 15:39:00 2020-05-07 15:39:00 [facility] [id number] [facility] 2020-05-07 14:30:00 2020-05-07 14:30:00 [facility] [id number] [facility] 2020-05-05 01:03:00 2020-05-05 01:03:00 Out[place] [facility] [place] [facility] [id number] [facility] 2020-04-30 13:40:00 2020-04-30 13:40:00 Out[place] [facility] [place] [facility] [id number] [facility] 2020-04-27 14:51:00 2020-04-27 14:51:00 [facility] [place] [facility] [id number] [facility] 2020-04-15 09:13:00 2020-04-15 09:13:00 Outpatient [place] [facility] [id number] [facility] 2020-04-06 11:43:00 2020-04-06 11:43:00 Out[place] [facility] [place] [facility] [id number] [facility] 2020-02-20 15:00:00 2020-02-20 15:00:00 [place] [facility] [place] [facility] [id number] [facility] 2020-02-17 14:33:00 2020-02-17 14:33:00 [place] [facility] [place] [facility] [id number] [facility] 2020-02-14 11:24:00 2020-02-14 11:24:00 [facility] [id number] [facility] 2020-02-11 12:38:00 2020-02-11 12:38:00 [facility] [id number] [facility] 2020-02-11 10:00:00 2020-02-11 10:00:00 [facility] [id number] [facility] 2019-12-26 09:17:00 2019-12-26 09:17:00 Out[place] [facility] [place] [facility] [id number] [facility] 2019-11-14 15:13:00 2019-11-14 15:13:00 [place] [facility] [place] [facility] [id number] [facility] 2019-11-06 11:32:00 2019-11-06 11:32:00 [place] [facility] [place] [facility] [id number] [facility] 2019-10-30 16:15:00 2019-10-30 16:15:00 [place] [facility] [place] [facility] [id number] [facility] 2019-10-15 08:45:00 2019-10-15 08:45:00 [place] [address] [facility] [place] [facility] [id number] [facility] 2019-07-01 14:54:00 2019-07-01 14:54:[address] [place] [facility] [place] [facility] [id number] [facility] 2019-06-10 18:38:00 2019-06-10 18:38:00 [facility] [address] [facility] [id number] [facility] 2019-06-02 21:31:00 2019-06-02 21:31:00 [facility] [id number] [facility] 2019-05-30 10:40:00 2019-05-30 10:40:00 [facility] [id number] [facility] 2019-05-21 16:34:00 2019-05-21 16:34:00 [facility] [address] [facility] [id number] [facility] 2019-01-02 11:12:00 2019-01-02 11:12:00 [facility] [id number] [facility] 2018-12-31 09:40:00 2018-12-31 09:40:00 [facility] [address] [facility] [id number] [facility] 2018-12-12 10:30:00 2018-12-12 10:30:00 [facility] [id number] [facility] 2018-12-03 11:00:00 2018-12-03 11:00:00 [facility] [id number] [facility] 2018-11-29 16:31:00 2018-11-29 16:31:00 [facility] [address] [facility] [id number] [facility] 2018-11-07 15:07:00 2018-11-07 15:07:[address] [facility] [facility] [id number] [facility] 2018-10-30 13:00:00 2018-10-30 13:00:[address] [facility] [address] [facility] [id number] [facility] 2018-08-23 10:45:00 2018-08-23 10:45:[address] [facility] [facility] [id number] [facility] 2018-05-29 23:12:00 2018-05-29 23:12:00 [facility] [id number] [facility] 2018-05-29 14:45:00 2018-05-29 14:45:[address] [facility] [id number] [facility] 2018-04-04 11:00:00 2018-04-04 11:00:[address] [facility] [id number] [facility] 2018-04-03 13:30:00 2018-04-03 13:30:[address] [facility] [id number] [facility] 2018-02-20 09:37:00 2018-02-20 09:37:[address] [facility] [id number] [facility] 2018-01-30 14:34:00 2018-01-30 14:34:[address] [facility] [id number] [facility] 2018-01-12 16:45:00 2018-01-12 16:45:[address] [facility] [id number] [facility] 2018-01-12 10:34:00 2018-01-12 10:34:00 Outpatient [facility] [id number] [facility] 2018-01-10 22:28:00 2018-01-10 22:28:00 Outpatient [facility] [id number] [facility] 2017-12-28 13:45:00 2017-12-28 13:45:00 Outpatient [facility] [id number] [facility] Results Test Description Test Time Test Comments Results Result Co mments Source urinalysis, [id number] 10:53:16* Test Item Value Reference Range Interpretation Comme nts Leukocytes (test code = Leukocytes) Negative Nitrite (test code = Nitrite) negative Urobilinogen (test code = Urobilinogen) Normal Protein (test code = Protein) 3+ pH (test code = pH) 6.5 Blood (test code = Blood) 1+ Specific [place] (test code = Specific [place]) 1.020 Ketone (test code = Ketone) Negative Bilirubin (test code = Bilirubin) Negative Glucose (test code = Glucose) 2+ Appearance (test code = Appearance) Clear Color (test code = Color) Yellow [facility] MedicalCOMPREHENSIVE METABOLIC [id number] 00:00:00* Test Item Value Reference Range Interpretation Comme nts NUCLEATED RBCS (test code = 10647-6) 0.0 /100 WBC'S See_Comment [Automated message] The system which generated this result transmitted reference range: 0.0 /100 WBC'S. The reference range was not used to interpret this result as normal/abnormal. ABSOLUTE EOSINOPHILS (test code = 95959-0) 0.61 K/UL See_Comment H [Automated message] The system which generated this result transmitted reference range: 0.00-0.50 K/UL. The reference range was not used to interpret this result as normal/abnormal. ABSOLUTE LYMPHOCYTES (test code = 46865-1) 2.31 K/UL See_Comment [Automated message] The system which generated this result transmitted reference range: 1.00-4.00 K/UL. The reference range was not used to interpret this result as normal/abnormal. ABSOLUTE MONOCYTES (test code = 63342-7) 0.48 K/UL See_Comment [Automated message] The system which generated this result transmitted reference range: 0.20-1.00 K/UL. The reference range was not used to interpret this result as normal/abnormal. ABSOLUTE NEUTROPHILS (test code = 06782-8) 5.65 K/UL See_Comment [Automated message] The system which generated this result transmitted reference range: 1.50-7.50 K/UL. The reference range was not used to interpret this result as normal/abnormal. BASOPHILS (test code = 35922-7) 0.7 % EOSINOPHILS (test code = 59174-5) 6.7 % HEMATOCRIT (test code = 40536-9) 39.7 % See_Comment [Automated messa ge] The system which generated this result transmitted reference range: 34.0-45.0 %. The reference range was not used to interpret this result as normal/abnormal. HEMOGLOBIN (test code = 718-7) 12.8 G/DL See_Comment [Automated messa ge] The system which generated this result transmitted reference range: 11.5-15.5 G/DL. The reference range was not used to interpret this result as normal/abnormal. LYMPHOCYTES (test code = 45350-5) 25.3 % MCH (test code = 33141-3) 28.6 PG See_Comment [Automated messa ge] The system which generated this result transmitted reference range: 25.0-33.0 PG. The reference range was not used to interpret this result as normal/abnormal. MCHC (test code = 12843-5) 32.2 G/DL See_Comment [Automated messa ge] The system which generated this result transmitted reference range: 31.0-36.0 G/DL. The reference range was not used to interpret this result as normal/abnormal. MCV (test code = 51163-9) 88.6 fL See_Comment [Automated messa ge] The system which generated this result transmitted reference range: 80.0-99.0 fL. The reference range was not used to interpret this result as normal/abnormal. MONOCYTES (test code = 65961-9) 5.3 % NEUTROPHILS (test code = 38385-1) 61.8 % PLATELET COUNT (test code = 49328-0) 308 K/UL See_Comment [Automated messa ge] The system which generated this result transmitted reference range: 130-400 K/UL. The reference range was not used to interpret this result as normal/abnormal. RBC (test code = 37850-3) 4.48 M/UL See_Comment [Automated iCADa ge] The system which generated this result transmitted reference range: 3.80-5.40 M/UL. The reference range was not used to interpret this result as normal/abnormal. RDW (test code = 91896-2) 13.1 % See_Comment [Automated iCADa ge] The system which generated this result transmitted reference range: 11.5-15.0 %. The reference range was not used to interpret this result as normal/abnormal. WBC (test code = 60238-3) 9.1 K/UL See_Comment [Automated iCADa ge] The system which generated this result transmitted reference range: 3.5-11.0 K/UL. The reference range was not used to interpret this result as normal/abnormal. HEMOGLOBIN A1c (test code = 4548-4) 6.1 % See_Comment H [Automated iCADa ge] The system which generated this result transmitted reference range: 4.2-5.6 %. The reference range was not used to interpret this result as normal/abnormal. VITAMIN D, 25 OH (test code = 1988-) 43 NG/ML SEE BELOW NG/ML CALC LDL CHOL (test code = 66257-9) 98 MG/DL See_Comment [Automated iCADa ge] The system which generated this result transmitted reference range: <100 MG/DL. The reference range was not used to interpret this result as normal/abnormal. CHOLESTEROL (test code = 2093-3) 152 MG/DL See_Comment [Automated iCADa ge] The system which generated this result transmitted reference range: <200 MG/DL. The reference range was not used to interpret this result as normal/abnormal. HDL CHOLESTEROL (test code = 208-9) 29 MG/DL See_Comment L [Automated iCADa ge] The system which generated this result transmitted reference range: >39 MG/DL. The reference range was not used to interpret this result as normal/abnormal. RISK RATIO LDL/HDL (test code = 11110-7) 3.38 RATIO See_Comment H [Automated message] The system which generated this result transmitted reference range: <3.22 RATIO. The reference range was not used to interpret this result as normal/abnormal. TRIGLYCERIDES (test code = 2571-8) 153 MG/DL See_Comment H [Automated iCADa ge] The system which generated this result transmitted reference range: <150 MG/DL. The reference range was not used to interpret this result as normal/abnormal. FREE T4 (THYROXINE) (test code = 3024-7) 1.37 NG/DL See_Comment [Automated message] The system which generated this result transmitted reference range: 0.80-1.90 NG/DL. The reference range was not used to interpret this result as normal/abnormal. TSH, THIRD GENERATION (test code = 22661-2) 10.500 UIU/ML See_Comment H [Automated message] The system which generated this result transmitted reference range: 0.400-4.100 UIU/ML. The reference range was not used to interpret this result as normal/abnormal. ALBUMIN, URINE, RANDOM (test code = 52339-2) 393.2 MG/DL NOT ESTAB MG/DL CALC ALBUMIN/CREAT, RND (test code = 80764-6) 5292 MG/G See_Comment H [Automated iCADa ge] The system which generated this result transmitted reference range: <30 MG/G. The reference range was not used to interpret this result as normal/abnormal. CREATININE, URINE, CONC. (test code = 2161-8) 74.3 MG/DL NOT ESTAB MG/DL ALBUMIN (test code = 1751-7) 4.0 G/DL See_Comment [Automated iCADa ge] The system which generated this result transmitted reference range: 3.5-5.2 G/DL. The reference range was not used to interpret this result as normal/abnormal. ALKALINE PHOSPHATASE (test code = 6768-6) 68 U/L See_Comment [Automated message] The system which generated this result transmitted reference range: 40-142 U/L. The reference range was not used to interpret this result as normal/abnormal. BILIRUBIN, TOTAL (test code = 1975-2) 0.3 MG/DL See_Comment [Automated iCADa ge] The system which generated this result transmitted reference range: <=1.2 MG/DL. The reference range was not used to interpret this result as normal/abnormal. BUN (test code = 3094-0) 25 MG/DL See_Comment H [Automated messa ge] The system which generated this result transmitted reference range: 8-23 MG/DL. The reference range was not used to interpret this result as normal/abnormal. CALCIUM (test code = 28891-6) 9.3 MG/DL See_Comment [Automated messa ge] The system which generated this result transmitted reference range: 8.5-10.5 MG/DL. The reference range was not used to interpret this result as normal/abnormal. CALC A/G RATIO (test code = 1759-0) 1.3 RATIO See_Comment [Automated messa ge] The system which generated this result transmitted reference range: 1.0-2.6 RATIO. The reference range was not used to interpret this result as normal/abnormal. CALC BUN/CREAT (test code = 3097-3) 15 RATIO See_Comment [Automated messa ge] The system which generated this result transmitted reference range: 6-28 RATIO. The reference range was not used to interpret this result as normal/abnormal. CALC GLOBULIN (test code = 88863-8) 3.1 G/DL See_Comment [Automated messa ge] The system which generated this result transmitted reference range: 1.9-3.7 G/DL. The reference range was not used to interpret this result as normal/abnormal. CARBON DIOXIDE (test code = 1963-8) 23 MEQ/L See_Comment [Automated messa ge] The system which generated this result transmitted reference range: 19-31 MEQ/L. The reference range was not used to interpret this result as normal/abnormal. CHLORIDE (test code = 2075-0) 103 MEQ/L See_Comment [Automated messa ge] The system which generated this result transmitted reference range: 95-107 MEQ/L. The reference range was not used to interpret this result as normal/abnormal. CREATININE (test code = 2160-0) 1.66 MG/DL See_Comment H [Automated messa ge] The system which generated this result transmitted reference range: 0.60-1.30 MG/DL. The reference range was not used to interpret this result as normal/abnormal. eGFR (2020 CKD-EPI) (test code = 26457-9) 33 ML/MIN/1.73 See_Comment L [Automated message] The system which generated this result transmitted reference range: >60 ML/MIN/1.73. The reference range was not used to interpret this result as normal/abnormal. GLUCOSE (test code = 1558-6) 101 MG/DL See_Comment H [Automated messa ge] The system which generated this result transmitted reference range: 70-99 MG/DL. The reference range was not used to interpret this result as normal/abnormal. POTASSIUM (test code = 2823-3) 4.5 MEQ/L See_Comment [Automated messa ge] The system which generated this result transmitted reference range: 3.5-5.4 MEQ/L. The reference range was not used to interpret this result as normal/abnormal. PROTEIN, TOTAL (test code = 2885-2) 7.1 G/DL See_Comment [Automated messa ge] The system which generated this result transmitted reference range: 6.1-8.3 G/DL. The reference range was not used to interpret this result as normal/abnormal. AST (test code = 1920-8) 14 U/L See_Comment [Automated messa ge] The system which generated this result transmitted reference range: 9-40 U/L. The reference range was not used to interpret this result as normal/abnormal. ALT (test code = 1742-6) 11 U/L See_Comment [Automated messa ge] The system which generated this result transmitted reference range: 5-40 U/L. The reference range was not used to interpret this result as normal/abnormal. SODIUM (test code = 2951-2) 139 MEQ/L See_Comment [Automated messa ge] The system which generated this result transmitted reference range: 133-146 MEQ/L. The reference range was not used to interpret this result as normal/abnormal. COMPREHENSIVE METABOLIC [id number] 00:00:00* Test Item Value Reference Range Interpretation Comme nts NUCLEATED RBCS (test code = 40003-4) 0.0 /100 WBC'S See_Comment [Automated message] The system which generated this result transmitted reference range: 0.0 /100 WBC'S. The reference range was not used to interpret this result as normal/abnormal. ABSOLUTE EOSINOPHILS (test code = 46187-5) 0.35 K/UL See_Comment [Automated message] The system which generated this result transmitted reference range: 0.00-0.50 K/UL. The reference range was not used to interpret this result as normal/abnormal. ABSOLUTE LYMPHOCYTES (test code = 23206-6) 2.48 K/UL See_Comment [Automated message] The system which generated this result transmitted reference range: 1.00-4.00 K/UL. The reference range was not used to interpret this result as normal/abnormal. ABSOLUTE MONOCYTES (test code = 44463-5) 0.50 K/UL See_Comment [Automated message] The system which generated this result transmitted reference range: 0.20-1.00 K/UL. The reference range was not used to interpret this result as normal/abnormal. ABSOLUTE NEUTROPHILS (test code = 25966-3) 5.64 K/UL See_Comment [Automated message] The system which generated this result transmitted reference range: 1.50-7.50 K/UL. The reference range was not used to interpret this result as normal/abnormal. BASOPHILS (test code = 39367-3) 0.8 % EOSINOPHILS (test code = 81614-1) 3.9 % HEMATOCRIT (test code = 25555-2) 42.1 % See_Comment [Automated messa ge] The system which generated this result transmitted reference range: 34.0-45.0 %. The reference range was not used to interpret this result as normal/abnormal. HEMOGLOBIN (test code = 718-7) 13.5 G/DL See_Comment [Automated messa ge] The system which generated this result transmitted reference range: 11.5-15.5 G/DL. The reference range was not used to interpret this result as normal/abnormal. LYMPHOCYTES (test code = 30740-0) 27.4 % MCH (test code = 01896-5) 29.5 PG See_Comment [Automated messa ge] The system which generated this result transmitted reference range: 25.0-33.0 PG. The reference range was not used to interpret this result as normal/abnormal. MCHC (test code = 71533-8) 32.1 G/DL See_Comment [Automated messa ge] The system which generated this result transmitted reference range: 31.0-36.0 G/DL. The reference range was not used to interpret this result as normal/abnormal. MCV (test code = 70309-3) 91.9 fL See_Comment [Automated messa ge] The system which generated this result transmitted reference range: 80.0-99.0 fL. The reference range was not used to interpret this result as normal/abnormal. MONOCYTES (test code = 66573-1) 5.5 % NEUTROPHILS (test code = 64463-4) 62.2 % PLATELET COUNT (test code = 84059-7) 267 K/UL See_Comment [Automated messa ge] The system which generated this result transmitted reference range: 130-400 K/UL. The reference range was not used to interpret this result as normal/abnormal. RBC (test code = 92562-2) 4.58 M/UL See_Comment [Automated messa ge] The system which generated this result transmitted reference range: 3.80-5.40 M/UL. The reference range was not used to interpret this result as normal/abnormal. RDW (test code = 65994-2) 13.0 % See_Comment [Automated iCADa ge] The system which generated this result transmitted reference range: 11.5-15.0 %. The reference range was not used to interpret this result as normal/abnormal. WBC (test code = 22885-6) 9.1 K/UL See_Comment [Automated messa ge] The system which generated this result transmitted reference range: 3.5-11.0 K/UL. The reference range was not used to interpret this result as normal/abnormal. HEMOGLOBIN A1c (test code = 4548-4) 6.3 % See_Comment H [Automated iCADa ge] The system which generated this result transmitted reference range: 4.2-5.6 %. The reference range was not used to interpret this result as normal/abnormal. VITAMIN D, 25 OH (test code = 1988-) 42 NG/ML SEE BELOW NG/ML CALC LDL CHOL (test code = 56381-1) 117 MG/DL See_Comment H [Automated messa ge] The system which generated this result transmitted reference range: <100 MG/DL. The reference range was not used to interpret this result as normal/abnormal. CHOLESTEROL (test code = 2092-3) 174 MG/DL See_Comment [Automated iCADa ge] The system which generated this result transmitted reference range: <200 MG/DL. The reference range was not used to interpret this result as normal/abnormal. HDL CHOLESTEROL (test code = 5-9) 27 MG/DL See_Comment L [Automated messa ge] The system which generated this result transmitted reference range: >39 MG/DL. The reference range was not used to interpret this result as normal/abnormal. RISK RATIO LDL/HDL (test code = 91408-2) 4.33 RATIO See_Comment H [Automated message] The system which generated this result transmitted reference range: <3.22 RATIO. The reference range was not used to interpret this result as normal/abnormal. TRIGLYCERIDES (test code = 2571-8) 183 MG/DL See_Comment H [Automated messa ge] The system which generated this result transmitted reference range: <150 MG/DL. The reference range was not used to interpret this result as normal/abnormal. FREE T4 (THYROXINE) (test code = 3024-7) 1.11 NG/DL See_Comment [Automated message] The system which generated this result transmitted reference range: 0.80-1.90 NG/DL. The reference range was not used to interpret this result as normal/abnormal. TSH, THIRD GENERATION (test code = 52617-1) 13.800 UIU/ML See_Comment H [Automated message] The system which generated this result transmitted reference range: 0.400-4.100 UIU/ML. The reference range was not used to interpret this result as normal/abnormal. ALBUMIN, URINE, RANDOM (test code = 58718-5) >440.0 MG/DL NOT ESTAB MG/DL CALC ALBUMIN/CREAT, RND (test code = 62293-9) (NOTE) MG/G See_Comment [Automated iCADa ge] The system which generated this result transmitted reference range: <30 MG/G. The reference range was not used to interpret this result as normal/abnormal. CREATININE, URINE, CONC. (test code = 2161-8) 101.0 MG/DL NOT ESTAB MG/DL ALBUMIN (test code = 1751-7) 4.1 G/DL See_Comment [Automated iCADa ge] The system which generated this result transmitted reference range: 3.5-5.2 G/DL. The reference range was not used to interpret this result as normal/abnormal. ALKALINE PHOSPHATASE (test code = 6768-6) 68 U/L See_Comment [Automated message] The system which generated this result transmitted reference range: 40-142 U/L. The reference range was not used to interpret this result as normal/abnormal. BILIRUBIN, TOTAL (test code = 1975-2) 0.2 MG/DL See_Comment [Automated messa ge] The system which generated this result transmitted reference range: <=1.2 MG/DL. The reference range was not used to interpret this result as normal/abnormal. BUN (test code = 3094-0) 25 MG/DL See_Comment H [Automated messa ge] The system which generated this result transmitted reference range: 8-23 MG/DL. The reference range was not used to interpret this result as normal/abnormal. CALCIUM (test code = 98634-0) 9.8 MG/DL See_Comment [Automated messa ge] The system which generated this result transmitted reference range: 8.5-10.5 MG/DL. The reference range was not used to interpret this result as normal/abnormal. CALC A/G RATIO (test code = 1759-0) 1.4 RATIO See_Comment [Automated messa ge] The system which generated this result transmitted reference range: 1.0-2.6 RATIO. The reference range was not used to interpret this result as normal/abnormal. CALC BUN/CREAT (test code = 3097-3) 15 RATIO See_Comment [Automated messa ge] The system which generated this result transmitted reference range: 6-28 RATIO. The reference range was not used to interpret this result as normal/abnormal. CALC GLOBULIN (test code = 50397-2) 2.9 G/DL See_Comment [Automated messa ge] The system which generated this result transmitted reference range: 1.9-3.7 G/DL. The reference range was not used to interpret this result as normal/abnormal. CARBON DIOXIDE (test code = 1963-8) 22 MEQ/L See_Comment [Automated messa ge] The system which generated this result transmitted reference range: 19-31 MEQ/L. The reference range was not used to interpret this result as normal/abnormal. CHLORIDE (test code = 2075-0) 102 MEQ/L See_Comment [Automated messa ge] The system which generated this result transmitted reference range: 95-107 MEQ/L. The reference range was not used to interpret this result as normal/abnormal. CREATININE (test code = 2160-0) 1.71 MG/DL See_Comment H [Automated messa ge] The system which generated this result transmitted reference range: 0.60-1.30 MG/DL. The reference range was not used to interpret this result as normal/abnormal. eGFR (2020 CKD-EPI) (test code = 18268-2) 32 ML/MIN/1.73 See_Comment L [Automated message] The system which generated this result transmitted reference range: >60 ML/MIN/1.73. The reference range was not used to interpret this result as normal/abnormal. GLUCOSE (test code = 1558-6) 110 MG/DL See_Comment H [Automated messa ge] The system which generated this result transmitted reference range: 70-99 MG/DL. The reference range was not used to interpret this result as normal/abnormal. POTASSIUM (test code = 2823-3) 4.5 MEQ/L See_Comment [Automated messa ge] The system which generated this result transmitted reference range: 3.5-5.4 MEQ/L. The reference range was not used to interpret this result as normal/abnormal. PROTEIN, TOTAL (test code = 2885-2) 7.0 G/DL See_Comment [Automated messa ge] The system which generated this result transmitted reference range: 6.1-8.3 G/DL. The reference range was not used to interpret this result as normal/abnormal. AST (test code = 1920-8) 13 U/L See_Comment [Automated messa ge] The system which generated this result transmitted reference range: 9-40 U/L. The reference range was not used to interpret this result as normal/abnormal. ALT (test code = 1742-6) 9 U/L See_Comment [Automated messa ge] The system which generated this result transmitted reference range: 5-40 U/L. The reference range was not used to interpret this result as normal/abnormal. SODIUM (test code = 2951-2) 139 MEQ/L See_Comment [Automated messa ge] The system which generated this result transmitted reference range: 133-146 MEQ/L. The reference range was not used to interpret this result as normal/abnormal. CBC W/AUTO [id number] 00:00:00* Test Item Value Reference Range Interpretation Comme nts NUCLEATED RBCS (test code = 76275-8) 0.0 /100 WBC'S See_Comment [Automated messa ge] The system which generated this result transmitted reference range: 0.0 /100 WBC'S. The reference range was not used to interpret this result as normal/abnormal. ABSOLUTE EOSINOPHILS (test code = 18722-1) 0.38 K/UL See_Comment [Automated messa ge] The system which generated this result transmitted reference range: 0.00-0.50 K/UL. The reference range was not used to interpret this result as normal/abnormal. ABSOLUTE LYMPHOCYTES (test code = 76470-0) 2.54 K/UL See_Comment [Automated messa ge] The system which generated this result transmitted reference range: 1.00-4.00 K/UL. The reference range was not used to interpret this result as normal/abnormal. ABSOLUTE MONOCYTES (test code = 67651-6) 0.46 K/UL See_Comment [Automated messa ge] The system which generated this result transmitted reference range: 0.20-1.00 K/UL. The reference range was not used to interpret this result as normal/abnormal. ABSOLUTE NEUTROPHILS (test code = 68768-5) 5.49 K/UL See_Comment [Automated messa ge] The system which generated this result transmitted reference range: 1.50-7.50 K/UL. The reference range was not used to interpret this result as normal/abnormal. BASOPHILS (test code = 16291-9) 0.8 % EOSINOPHILS (test code = 88472-7) 4.2 % HEMATOCRIT (test code = 14426-0) 38.0 % See_Comment [Automated messa ge] The system which generated this result transmitted reference range: 34.0-45.0 %. The reference range was not used to interpret this result as normal/abnormal. HEMOGLOBIN (test code = 718-7) 12.6 G/DL See_Comment [Automated messa ge] The system which generated this result transmitted reference range: 11.5-15.5 G/DL. The reference range was not used to interpret this result as normal/abnormal. LYMPHOCYTES (test code = 40644-2) 28.3 % MCH (test code = 08762-2) 28.8 PG See_Comment [Automated messa ge] The system which generated this result transmitted reference range: 25.0-33.0 PG. The reference range was not used to interpret this result as normal/abnormal. MCHC (test code = 36441-9) 33.2 G/DL See_Comment [Automated messa ge] The system which generated this result transmitted reference range: 31.0-36.0 G/DL. The reference range was not used to interpret this result as normal/abnormal. MCV (test code = 50635-6) 87.0 fL See_Comment [Automated messa ge] The system which generated this result transmitted reference range: 80.0-99.0 fL. The reference range was not used to interpret this result as normal/abnormal. MONOCYTES (test code = 00713-3) 5.1 % NEUTROPHILS (test code = 71319-7) 61.4 % PLATELET COUNT (test code = 77501-7) 288 K/UL See_Comment [Automated messa ge] The system which generated this result transmitted reference range: 130-400 K/UL. The reference range was not used to interpret this result as normal/abnormal. RBC (test code = 56143-4) 4.37 M/UL See_Comment [Automated messa ge] The system which generated this result transmitted reference range: 3.80-5.40 M/UL. The reference range was not used to interpret this result as normal/abnormal. RDW (test code = 46630-1) 13.1 % See_Comment [Automated messa ge] The system which generated this result transmitted reference range: 11.5-15.0 %. The reference range was not used to interpret this result as normal/abnormal. WBC (test code = 77033-8) 9.0 K/UL See_Comment [Automated messa icomply] The system which generated this result transmitted reference range: 3.5-11.0 K/UL. The reference range was not used to interpret this result as normal/abnormal. CT ABDOMEN PELVIS WO [id number] 07:04:19Exam: CT Abdomen and Pelvis without Contrast, 08/29/2023 12:30 AM. Ordering Physician: BETHANY SALGUERO. History: Flank pain, kidney stone suspected uti, worsening renal function,leukocytosis . Comparison: MRI abdomen 02/16/2022. Technique: CT abdomen and pelvis was obtained without intravenous contrast.CT was performed according to ALARA (As Low As Reasonably Achievable). Technical Quality: Adequate. Findings: LOWER CHEST:Lungs are clear ABDOMEN/PELVIS:Liver: Enlarged 22.2 cm in cephalocaudad dimension.Gallbladder/biliary: Contracted No biliary ductal dilation.Pancreas: Normal noncontrast appearanceSpleen: Normal Adrenal glands: Normal.Kidneys and ureters: No nephrolithiasis or ureter stone. Noh ydroureteronephrosis. Minimal perinephritic stranding bilaterally.Bladder: Diffuse wall thickening.Reproductive organs: Hysterectomy Stomach/bowel: No bowel obstruction. No CT evidence of acute appendicitis.Descending colon is decompressed with likely related wall thickening. Lymph nodes: No lymphad enopathy.Peritoneum: No intraperitoneal free air. No intraperitoneal free fluid.Vessels: Atherosclerosis without aneurysm. MUSCULOSKELETAL:Bones: No acute osseous abnormality. Advanced multilevel spondylosis.Schmorl's node L2. Degenerative changes in the hips and pelvis.Soft tissues: Small fat-containing right inguinal hernia.[facility]. Metabolic Panel ([id number])2023-08-29 06:16:26* Test Item Value Reference Range Interpretation Comme nts NA (test code = 5946245472) 138 mmol/L 135-145 K (test code = 0037510703) 5.0 mmol/L 3.5-5.0 CL (test code = 3278384778) 107 mmol/L 98-108 CO2 TOTAL (test code = 5520100258) 19 mmol/L 23-31 L AGAP (test code = 6443287660) 12 2-16 BUN (test code = 7338313754) 45 mg/dL 7-23 H GLUCOSE (test code = 7121581307) 167 mg/dL 70-110 H CREATININE (test code = 1343604827) 2.03 mg/dL 0.50-1.04 H TOTAL BILI (test code = 0717204957) 0.4 mg/dL 0.1-1.1 CALCIUM (test code = 9248197420) 9.9 mg/dL 8.6-10.6 T PROTEIN (test code = 0091212773) 8.6 g/dL 6.3-8.2 H ALBUMIN (test code = 7740440734) 4.5 g/dL 3.5-5.0 ALK PHOS (test code = 3019270289) 61 U/L 34-122 ALTv (test code = 1742-6) 16 U/L 5-35 AST(SGOT) (test code = 6126921685) 18 U/L 13-40 eGFR (test code = 80611-8) 26.3 mL/min/1.73m2 CKD-EPI eGFR (2020). Assuming creatinine has been stable day-to-day for at least three months, the eGFR indicates Category G4 (15 - 29 mL/min/1.73 m2) Lab Interpretation (test code = 54908-2) Abnormal General acute hospital with [id number] 06:00:46* Test Item Value Reference Range Interpretation Comme nts WBC (test code = 6690-2) 17.64 See_Comment H [Automated message] The system which generated this result transmitted reference range: 4.30 - 11.10 10*3/?L. The reference range was not used to interpret this result as normal/abnormal. RBC (test code = 789-8) 4.28 See_Comment [Automated message] The system which generated this result transmitted reference range: 3.93 - 5.25 10*6/?L. The reference range was not used to interpret this result as normal/abnormal. HGB (test code = 718-7) 12.6 g/dL 11.6-15.0 HCT (test code = 4544-3) 38.2 % 35.7-45.2 MCV (test code = 787-2) 89.3 fL 80.6-95.5 MCH (test code = 785-6) 29.4 pg 25.9-32.8 MCHC (test code = 786-4) 33.0 g/dL 31.6-35.1 RDW-SD (test code = 05338-4) 37.9 fL 39.0-49.9 L RDW-CV (test code = 788-0) 11.9 % 12.0-15.5 L PLT (test code = 777-3) 291 See_Comment [Automated message] The system which generated this result transmitted reference range: 166 - 358 10*3/?L. The reference range was not used to interpret this result as normal/abnormal. MPV (test code = 45248-5) 9.8 fL 9.5-12.9 NRBC/100 WBC (test code = 8463175948) 0.0 See_Comment [Automated message] The system which generated this result transmitted reference range: 0.0 - 10.0 /100 WBCs. The reference range was not used to interpret this result as normal/abnormal. NRBC x10^3 (test code = 6663660168) See_Comment [Automated message] The system which generated this result transmitted reference range: 10*3/?L. The reference range was not used to interpret this result as normal/abnormal. GRAN MAT (NEUT) % (test code = 770-8) 74.0 % IMM GRAN % (test code = 1541769042) 0.40 % LYMPH % (test code = 736-9) 17.0 % MONO % (test code = 5905-5) 5.9 % EOS % (test code = 713-8) 2.2 % BASO % (test code = 706-2) 0.5 % GRAN MAT x10^3(ANC) (test code = 7487362248) 13.06 10*3/uL 1.88-7.09 H IMM GRAN x10^3 (test code = 6602556958) 0.07 10*3/uL 0.00-0.06 H LYMPH x10^3 (test code = 731-0) 2.99 10*3/uL 1.32-3.29 MONO x10^3 (test code = 742-7) 1.04 10*3/uL 0.33-0.92 H EOS x10^3 (test code = 711-2) 0.39 10*3/uL 0.03-0.39 BASO x10^3 (test code = 704-7) 0.09 10*3/uL 0.01-0.07 H Lab Interpretation (test code = 45362-5) Abnormal [facility] W/AUTO [id number] 00:00:00* Test Item Value Reference Range Interpretation Comme nts NUCLEATED RBCS (test code = 60427-2) 0.0 /100 WBC'S See_Comment [Automated messa ge] The system which generated this result transmitted reference range: 0.0 /100 WBC'S. The reference range was not used to interpret this result as normal/abnormal. ABSOLUTE EOSINOPHILS (test code = 31647-8) 0.51 K/UL See_Comment H [Automated messa ge] The system which generated this result transmitted reference range: 0.00-0.50 K/UL. The reference range was not used to interpret this result as normal/abnormal. ABSOLUTE LYMPHOCYTES (test code = 92833-6) 2.32 K/UL See_Comment [Automated messa ge] The system which generated this result transmitted reference range: 1.00-4.00 K/UL. The reference range was not used to interpret this result as normal/abnormal. ABSOLUTE MONOCYTES (test code = 81048-6) 0.40 K/UL See_Comment [Automated messa ge] The system which generated this result transmitted reference range: 0.20-1.00 K/UL. The reference range was not used to interpret this result as normal/abnormal. ABSOLUTE NEUTROPHILS (test code = 79485-5) 3.86 K/UL See_Comment [Automated messa ge] The system which generated this result transmitted reference range: 1.50-7.50 K/UL. The reference range was not used to interpret this result as normal/abnormal. BASOPHILS (test code = 52595-0) 0.8 % EOSINOPHILS (test code = 72571-2) 7.1 % HEMATOCRIT (test code = 81152-2) 34.1 % See_Comment [Automated messa ge] The system which generated this result transmitted reference range: 34.0-45.0 %. The reference range was not used to interpret this result as normal/abnormal. HEMOGLOBIN (test code = 718-7) 11.2 G/DL See_Comment L [Automated messa ge] The system which generated this result transmitted reference range: 11.5-15.5 G/DL. The reference range was not used to interpret this result as normal/abnormal. LYMPHOCYTES (test code = 19340-3) 32.4 % MCH (test code = 15218-8) 29.8 PG See_Comment [Automated messa ge] The system which generated this result transmitted reference range: 25.0-33.0 PG. The reference range was not used to interpret this result as normal/abnormal. MCHC (test code = 94921-2) 32.8 G/DL See_Comment [Automated messa ge] The system which generated this result transmitted reference range: 31.0-36.0 G/DL. The reference range was not used to interpret this result as normal/abnormal. MCV (test code = 67697-7) 90.7 fL See_Comment [Automated messa ge] The system which generated this result transmitted reference range: 80.0-99.0 fL. The reference range was not used to interpret this result as normal/abnormal. MONOCYTES (test code = 15806-5) 5.6 % NEUTROPHILS (test code = 78105-1) 54.0 % PLATELET COUNT (test code = 21005-6) 303 K/UL See_Comment [Automated messa ge] The system which generated this result transmitted reference range: 130-400 K/UL. The reference range was not used to interpret this result as normal/abnormal. RBC (test code = 51886-4) 3.76 M/UL See_Comment L [Automated messa ge] The system which generated this result transmitted reference range: 3.80-5.40 M/UL. The reference range was not used to interpret this result as normal/abnormal. RDW (test code = 26109-1) 11.9 % See_Comment [Automated messa ge] The system which generated this result transmitted reference range: 11.5-15.0 %. The reference range was not used to interpret this result as normal/abnormal. WBC (test code = 00369-9) 7.2 K/UL See_Comment [Automated messa ge] The system which generated this result transmitted reference range: 3.5-11.0 K/UL. The reference range was not used to interpret this result as normal/abnormal. CBC W/AUTO [id number] 00:00:00* Test Item Value Reference Range Interpretation Comme nts NUCLEATED RBCS (test code = 49488-0) 0.0 /100 WBC'S See_Comment [Automated messa ge] The system which generated this result transmitted reference range: 0.0 /100 WBC'S. The reference range was not used to interpret this result as normal/abnormal. ABSOLUTE EOSINOPHILS (test code = 82573-3) 0.70 K/UL See_Comment H [Automated messa ge] The system which generated this result transmitted reference range: 0.00-0.50 K/UL. The reference range was not used to interpret this result as normal/abnormal. ABSOLUTE LYMPHOCYTES (test code = 01643-2) 1.14 K/UL See_Comment [Automated messa ge] The system which generated this result transmitted reference range: 1.00-4.00 K/UL. The reference range was not used to interpret this result as normal/abnormal. ABSOLUTE MONOCYTES (test code = 73853-2) 0.56 K/UL See_Comment [Automated messa ge] The system which generated this result transmitted reference range: 0.20-1.00 K/UL. The reference range was not used to interpret this result as normal/abnormal. ABSOLUTE NEUTROPHILS (test code = 93065-7) 5.93 K/UL See_Comment [Automated messa ge] The system which generated this result transmitted reference range: 1.50-7.50 K/UL. The reference range was not used to interpret this result as normal/abnormal. BASOPHILS (test code = 32591-2) 0.8 % EOSINOPHILS (test code = 04247-4) 8.3 % HEMATOCRIT (test code = 16900-6) 37.5 % See_Comment [Automated messa ge] The system which generated this result transmitted reference range: 34.0-45.0 %. The reference range was not used to interpret this result as normal/abnormal. HEMOGLOBIN (test code = 718-7) 12.5 G/DL See_Comment [Automated messa ge] The system which generated this result transmitted reference range: 11.5-15.5 G/DL. The reference range was not used to interpret this result as normal/abnormal. LYMPHOCYTES (test code = 81736-6) 13.5 % MCH (test code = 04742-9) 29.6 PG See_Comment [Automated messa ge] The system which generated this result transmitted reference range: 25.0-33.0 PG. The reference range was not used to interpret this result as normal/abnormal. MCHC (test code = 18079-2) 33.3 G/DL See_Comment [Automated messa ge] The system which generated this result transmitted reference range: 31.0-36.0 G/DL. The reference range was not used to interpret this result as normal/abnormal. MCV (test code = 26320-3) 88.9 fL See_Comment [Automated messa ge] The system which generated this result transmitted reference range: 80.0-99.0 fL. The reference range was not used to interpret this result as normal/abnormal. MONOCYTES (test code = 70323-7) 6.6 % NEUTROPHILS (test code = 49394-1) 70.3 % PLATELET COUNT (test code = 89879-1) 247 K/UL See_Comment [Automated messa ge] The system which generated this result transmitted reference range: 130-400 K/UL. The reference range was not used to interpret this result as normal/abnormal. RBC (test code = 66191-9) 4.22 M/UL See_Comment [Automated messa ge] The system which generated this result transmitted reference range: 3.80-5.40 M/UL. The reference range was not used to interpret this result as normal/abnormal. RDW (test code = 82973-1) 13.6 % See_Comment [Automated messa ge] The system which generated this result transmitted reference range: 11.5-15.0 %. The reference range was not used to interpret this result as normal/abnormal. WBC (test code = 48832-9) 8.4 K/UL See_Comment [Automated messa ge] The system which generated this result transmitted reference range: 3.5-11.0 K/UL. The reference range was not used to interpret this result as normal/abnormal. CBC W/AUTO [id number] 00:00:00* Test Item Value Reference Range Interpretation Comme nts NUCLEATED RBCS (test code = 85043-9) 0.0 /100 WBC'S See_Comment [Automated messa ge] The system which generated this result transmitted reference range: 0.0 /100 WBC'S. The reference range was not used to interpret this result as normal/abnormal. ABSOLUTE EOSINOPHILS (test code = 92855-8) 0.31 K/UL See_Comment [Automated messa ge] The system which generated this result transmitted reference range: 0.00-0.50 K/UL. The reference range was not used to interpret this result as normal/abnormal. ABSOLUTE LYMPHOCYTES (test code = 79267-1) 2.69 K/UL See_Comment [Automated messa ge] The system which generated this result transmitted reference range: 1.00-4.00 K/UL. The reference range was not used to interpret this result as normal/abnormal. ABSOLUTE MONOCYTES (test code = 61094-5) 0.42 K/UL See_Comment [Automated messa ge] The system which generated this result transmitted reference range: 0.20-1.00 K/UL. The reference range was not used to interpret this result as normal/abnormal. ABSOLUTE NEUTROPHILS (test code = 84464-6) 5.00 K/UL See_Comment [Automated messa ge] The system which generated this result transmitted reference range: 1.50-7.50 K/UL. The reference range was not used to interpret this result as normal/abnormal. BASOPHILS (test code = 42189-9) 0.7 % EOSINOPHILS (test code = 63377-6) 3.6 % HEMATOCRIT (test code = 69590-7) 41.5 % See_Comment [Automated messa ge] The system which generated this result transmitted reference range: 34.0-45.0 %. The reference range was not used to interpret this result as normal/abnormal. HEMOGLOBIN (test code = 718-7) 13.8 G/DL See_Comment [Automated messa ge] The system which generated this result transmitted reference range: 11.5-15.5 G/DL. The reference range was not used to interpret this result as normal/abnormal. LYMPHOCYTES (test code = 72632-6) 31.6 % MCH (test code = 10576-6) 28.6 PG See_Comment [Automated messa ge] The system which generated this result transmitted reference range: 25.0-33.0 PG. The reference range was not used to interpret this result as normal/abnormal. MCHC (test code = 89227-7) 33.3 G/DL See_Comment [Automated messa ge] The system which generated this result transmitted reference range: 31.0-36.0 G/DL. The reference range was not used to interpret this result as normal/abnormal. MCV (test code = 42499-0) 85.9 fL See_Comment [Automated messa ge] The system which generated this result transmitted reference range: 80.0-99.0 fL. The reference range was not used to interpret this result as normal/abnormal. MONOCYTES (test code = 85056-2) 4.9 % NEUTROPHILS (test code = 12952-8) 58.8 % PLATELET COUNT (test code = 18049-4) 308 K/UL See_Comment [Automated messa ge] The system which generated this result transmitted reference range: 130-400 K/UL. The reference range was not used to interpret this result as normal/abnormal. RBC (test code = 48835-8) 4.83 M/UL See_Comment [Automated iCADa icomply] The system which generated this result transmitted reference range: 3.80-5.40 M/UL. The reference range was not used to interpret this result as normal/abnormal. RDW (test code = 43989-4) 13.8 % See_Comment [Automated iCADa icomply] The system which generated this result transmitted reference range: 11.5-15.0 %. The reference range was not used to interpret this result as normal/abnormal. WBC (test code = 70169-9) 8.5 K/UL See_Comment [Automated iCADa icomply] The system which generated this result transmitted reference range: 3.5-11.0 K/UL. The reference range was not used to interpret this result as normal/abnormal. POCT URINALYSIS W SPECIFIC [id number] 18:44:00* Test Item Value Reference Range Interpretation Comme nts POCT U SP GRAV (test code = 3255) 1.015 mg/dl 1.005-1.025 POCT PH U (test code = 3254) 5 mg/dl 5-8 POCT U LEUK EST (test code = 3263) Trace Negative - Negative POCT U NIT (test code = 3262) Negative Negative - Negati ve POCT U PROT (test code = 3259) trace Negative - Negative POCT U GLU (test code = 3256) Negative Negative - Negati ve POCT U KETONE (test code = 3258) positive Negative - Negative POCT U UROBILI (test code = 3260) 0.2 mg/dl 0.2-1 POCT U BILI (test code = 3261) Negative Negative - Negative POCT U BLD (test code = 3257) 1+t Negative - Negati ve POCT U COLOR (test code = 3266) POCT U APPEAR (test code = 3267) [facility] ResourcesDEX[facility], BONE DENSITY AXIAL SKELEDEXA, BONE DENSITY AXIAL EPADD9W SCR TERESA BILAT W/CAD3D SCR TERESA BILAT W/CAD3D SCR TERESA BILAT W/CAD3D SCR TERESA BILAT W/CADLumbar Spine 3 ViewsLumbar Spine 3 ViewsAbdomen 1 View (KUB)Abdomen 1 View (KUB)CoccyxCoccyxLumbar Spine 3 ViewsLumbar Spine 3 ViewsAbdomen 1 View (KUB)Abdomen 1 View (KUB)CoccyxCoccyx Notes Date/Time Note Provider Source 2024-10-25 15:30:00 ASSESSMENT SUMMARY DAPHNEY HERRERA is a 68 year old woman seen today by [facility] for a [facility]. PATIENT'S NEXT STEPS: 1. Complete eye exam as disucssed Members Preferred Language German Patient Currently Located in their home state of [place], YES DIAGNOSIS FIDYWIQX69.69 - Type 2 diabetes mellitus with other specified [id number] - Chronic kidney disease, stage 3bE11.22 - Type 2 diabetes mellitus with diabetic chronic kidney ehpxociE92.9 - Hypertensive chronic kidney disease with stage 1 through stage 4 chronic kidney disease, or unspecified chronic kidney jadmfaoG69.5 - Hyperlipidemia, unspecified VISIT PURPOSE, PATIENT'S GOALS, & AGENDA SETTING Annual Wellness Visit with PCP completed this year?: AWV already scheduled Today's Member Goals: pcp visit scheduled -- May 2025 MEDICATION RECONCILIATION Did you review the patient's prescription and non-prescription drugs, vitamins, herbal remedies, and other supplements, AND is the accompanying medication list documented in the medical record?: Yes GENERAL ASSESSMENT* Feet: 5 Inches: 6 WEIGHT (pounds): 212 <hr> BODY MEASUREMENTS:<em>Patient Height in centimeters</em>: 167.64<em>Patient Weight in kilograms</em>: 96.16<em>Patient Body Mass Index</em>: 34.21 Do you exercise regularly?: Yes Physical activity level during a typical week: stationary bike elliptical SCREENING - Depression Previously diagnosed with major depressive disorder?: No Is the patient currently on antidepressant medication?: No Little interest or pleasure in doing things?: Not at all (0) Feeling down, depressed, or hopeless?: Not at all (0) Previously recorded diagnosis of bipolar disorder, schizoaffective disorder, or schizophrenia?: No / Unknown Additional Notes: Mbr denies SCREENING - Fall Risk Have you fallen in the past year?: No Do you feel unsteady when standing or walking?: No SCREENING - DME & Home Health Does the patient use any durable medical equpiment?: No Does the patient use home health, physical therapy or fpc services?: No New orders, referrals, or any other assistance with DME or home health needed at this time?: No GENERAL REVIEW OF SYSTEMS Chest Pain or Pressure: No Palpitations: No Wheezing: No Cough: No GI Symptoms Notes: constipation Urinary Incontinence: Yes Genitourinary Symptoms Notes: stress incontinence Neurology Symptoms Notes: neuropathy bilateral toes Wounds / Sores That Don't Heal: No MSK Symptoms Notes: bilateral hip- and lower back pain CARDIOVASCULAR - Coronary Artery Disease/Angina Does the patient currently take isosorbide mononitrate, isosorbide dinitrate, or ranexa for treatment of angina?: No Has the member had SYMPTOMATIC angina within the PAST 12 MONTHS?: No STATIN USE IN PERSONS WITH DIABETES OR CARDIOVASCULAR DISEASE Statin status: Already on a statin regimen Statin refilled within last 90 days?: Yes Approxomiate date of statin refill: 2024-08-22 Select the intensity of the patient's statin therapy: Moderate or High RENAL - Chronic Kidney Disease Does patient carry a diagnosis of chronic kidney disease?: Yes Dx: N18.32 - Chronic kidney disease, stage 3b Notes for N18.32: ..Stage _3b CKD Most recent GFR: ( result and date) Currently compliant on Farxiga and Lisinopril for renal protection Recommend low sodium diet, avoidance of NSAIDS, tight control of blood pressure and blood sugar Follows with _nephrologyACTION: Confirm that the patient is on an MALIK inhibitor or ARBACTION: Discuss with the patient that referral to a office professionals is needed if the patient progresses to CKD Stage 4 (eGFR < 30) ENDOCRINE - Diabetes Diabetes Diagnosis: Type 2 Most recent Hg A1c value: 6.7 Date of Hg a1c value: 2024-09-14 Statin status: Already on a statin regimen The patient has the following medical complication secondary to diabetes: Hyperlipidemia: Yes The patient has the following medical complication secondary to diabetes: Chronic Kidney Disease with GFR < 90: Yes Taking an an MALIK inhibitor or ARB?: Yes Dx: E11.69 - Type 2 diabetes mellitus with other specified complication Notes for E11: ..Type 2 DM complicated by: hyperlipidemia Most recent A1c: (6.7% 09/14/2024) Compliant with: ozempic for dm2. Rosuvastatin for hld Eye exam-- Mbr will self schedule Recommended low carbohydrate diet and regular exercise regimen as tolerated Follows with PCP. Dx: E78.5 - Hyperlipidemia, unspecified Notes for E78.5: Compliant with: rosuvastatin Most recent lipid levels: Total Chol<em>152</em>, HDL_29 , LDL_98, TRIG<em>153</em> (09/13/2024) Counseled on low fat diet and increased exercise. Continue to follow up with pcp for labs and monitoring Dx: E11.22 - Type 2 diabetes mellitus with diabetic chronic kidney disease Notes for E11.22: ..Type 2 DM complicated by: Most recent A1c: 6.7% 09/14/2024 (non)Compliant with: Eye exam-- Mbr will self schedule Recommended low carbohydrate diet and regular exercise regimen as tolerated Follows with PCP. Does (not) follow with a specialist IMMUNODEFICIENCY Does patient CURRENTLY take a drug that suppresses the immune system?: No COMMON DIAGNOSES The patient has a diagnosis of hypertension: Yes Statin status: Already on a statin regimen Dx: E78.5 - Hyperlipidemia, unspecified Notes for E78.5: Compliant with: rosuvastatin Most recent lipid levels: Total Chol<em>152</em>, HDL_29 , LDL_98, TRIG<em>153</em> (09/13/2024) Counseled on low fat diet and increased exercise. Continue to follow up with pcp for labs and monitoring In addition to hypertension, the patient has the following condition(s): CKD Stage 1-4 Dx: I12.9 - Hypertensive chronic kidney disease with stage 1 through stage 4 chronic kidney disease, or unspecified chronic kidney disease Notes for I12.9: Compliant with: lisinopril, farxiga Current blood pressure noted to be controlled today Denies s/s of chest pain, Counseled on weight loss, maintaining a low sodium diet and increased exercise regimen as tolerated HTN managed by PCP 2024 APPOINTMENT CPT CODE Please indicate how this visit was conducted: Audio-Only Please select the reason why an audio-only visit is being performed: Unable to perform Video Please record the total amount of time you spent on this patient visit- Total time includes time spent on preparation, speaking with the patient, documentation, and post-visit coordination of care - This is limited to time spent ON THE DATE OF SERVICE (e.g. does not include time spent on days prior to or after the date of service) 30 - 39 minutes CARE COORDINATION, REFERRALS, AND SCHEDULING Does the member have labs (for example: Diabetes medications require A1c and/or GFR) less than 12 months from today?: Yes Briana Allen Medical Referral ID Status Reason Start Date Expiration Date V isits Requested Visits Authorized [id number] Authorized 11/28/2023 11/27/2024 36 36 [facility]Goiswrs1427-46-48 12:34:50 [place] [id number] 12:34:50* Jacqueline Jones MD - 05/03/2024 11:40 AM CDT Images from the original note were not included. Subjective Patient ID: Daphney Herrera is a 68 y.o. female who presents for follow up for joint pain. HPI Pt with HTN, DM2, CKD3, hypothyroidism presents for eval of joint pain. Joint pain: Started at least , worsening for the past few months, occ hand swelling, can't hold fist. Am stiffness 30min. Involves b/l hands/shoulders/elbows/lower back. Unable to use NSAIDs given CKD. 08/2023 lab showed WBC 17, Neg hgb/plt; Cr 2(EGFR 26); neg LFT Further eval showed: 01/2024 Neg CCP/RF, neg serology for hepB/C exposure, uric acid 7.1, neg ferritin, neg CRP, ESR 58, neg CBC, Cr 1.89(EGFR 28), neg LFT. 01/2024 hand x ray: erosive OA or less likely inflammatory arthritis. 03/2024 bilateral hand US: Significant DJD features within the bilateral digits, no synovitis, erosive or crystalline disease. She was given low dose prednisone trial at last visit, and reports not much improvement. Denies any PsO/Blood in stool, fever/wt loss. Current Outpatient Medications on File Prior to Visit Medication Sig Dispense Refill acetaminophen-codeine (Tylenol w/ Codeine #4) 300-60 MG tablet Take 1 tablet by mouth 2 times a day as needed. cholecalciferol (Vitamin D-3) 1.25 MG (77592 UT) capsule Take 1 capsule by mouth every 7 days. cyclobenzaprine (Flexeril) 5 MG tablet Take 5 mg by mouth 2 times a day as needed. Farxiga 5 MG Take 5 mg by mouth every morning. gabapentin (Neurontin) 300 MG capsule Take 1 capsule by mouth in the morning and 1 capsule in the evening. Take with meals. levothyroxine (Synthroid, Levoxyl) 150 MCG tablet Take 150 mcg by mouth in the morning. Take before meals. lisinopril 10 MG tablet Take 10 mg by mouth 1 time each day. Ozempic, 0.25 or 0.5 MG/DOSE, 2 MG/3ML solution pen-injector INJECT 0.5 MG SUBCUTANEOUSLY ONCE WEEKLY rosuvastatin (Crestor) 20 MG tablet Take 5 mg by mouth at bedtime. No current facility-administered medications on file prior to visit. Past Medical History: Diagnosis Date Abdominal discomfort in left lower quadrant 07/05/2016 Abnormal urinalysis 11/17/2021 Allergic rhinitis 05/24/2023 Anemia of chronic disease 05/24/2023 Chronic kidney disease Stage 3 Chronic kidney disease-mineral and bone disorder (CKD-MBD) 08/02/2023 Condyloma acuminatum 07/05/2016 Diabetes (HCC) Dysthymia 05/24/2023 Hyperlipidemia Hypertension Hyperuricemia 08/02/2023 Inflammation of sacroiliac joint (HCC) 03/15/2023 Localized edema due to fluid overload 07/02/2023 Muscle pain 05/24/2023 Myositis 12/21/2022 Onychomycosis 05/24/2023 S/P hysterectomy 07/05/2016 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 Social History Socioeconomic History Marital status: Spouse name: Not on file Number of children: Not on file Years of education: Not on file Highest education level: Not on file Occupational History Not on file Tobacco Use Smoking status: Never Smokeless tobacco: Not on file Vaping Use Vaping status: Never Used Substance and Sexual Activity Alcohol use: Never Drug use: Never Sexual activity: Not on file Other Topics Concern Not on file Social History Narrative Not on file Social Determinants of Health Financial Resource Strain: Not on file Food Insecurity: Not on file Transportation Needs: Not on file Physical Activity: Not on file Stress: Not on file Social Connections: Not on file Intimate Partner Violence: Not on file Housing Stability: Not on file No Known Allergies Review of Systems Constitutional: Negative. HENT: Negative. Eyes: Negative. Respiratory: Negative. Cardiovascular: Negative. Gastrointestinal: Negative. Endocrine: Negative. Genitourinary: Negative. Musculoskeletal: Positive for arthralgias, back pain and joint swelling. Skin: Negative. Allergic/Immunologic: Negative. Neurological: Negative. Hematological: Negative. Psychiatric/Behavioral: Negative. Objective Physical Exam: Herberden and lady nodules in bilateral hands. Assessment/PlanPatient ID: Daphney Herrera is a 68 y.o. female who presents for follow up for joint pain. Joint pain with mixed features, neg c reative protein. Elevated ESR. X ray with erosions, erosive OA vs inflammatory arthritis. Elevated uric acid, ?gouty arthritis. Assessment & PlanMultiple joint pain Non response to low dose steroid trial. US confirmed significant DJD changes without active inflammation. Joint pain most likely from OA. Continue to monitor. Counseled that this is wear and tear arthritis, recommend symptomatic supportive treatment. Renal insufficiency Not a candidate for NSAIDs. Continue to follow with nephro. Long-term current use of opiate analgesic Continue to follow with PCP Generalized osteoarthritis of hand As above. Recommend to consider paraffin wax bath. Avoid NSAIDs. Follow up: PRN Management options were discussed. Answered all questions. Side effects of medications were discussed. Reviewed labs and diagnostics with patient. Pt to continue to follow up with PCP for routine health evaluation [facility]queline Jones [facility]villePqrnzox4104-44-98 12:34:50 [facility]villeAanaviy8059-33-51 12:34:50 Diagnosis Multiple joint pain - Primary Pain in joint, multiple sites Renal insufficiency Unspecified disorder of kidney and ureter Long-term current use of opiate analgesic Encounter for long-term (current) use of other medications Generalized osteoarthritis of hand Generalized osteoarthrosis, involving hand [facility] [id number] 12:34:50 [facility] CampusNvnbrao6992-23-23 12:34:50* * Consultation (Routine) - Authorized Specialty Diagnoses / Procedures Referred By Contac t Referred To Contact Diagnoses Pain in unspecified joint Procedures [place] OFFICE/OUTPATIENT ESTABLISHED MOD MDM 30-39 MIN Arielle Avila MD [address] [place] [address] [place] [id number] [facility] [address] [place] [address] Referral ID Status Reason Start Date Expiration Date V isits Requested Visits Authorized [id number] Authorized 11/28/2023 11/27/2024 36 36 [facility] CampusWjnektj1337-27-82 12:34:50 [place] [id number] 12:34:50* Jacqueline Jones MD - 05/03/2024 11:40 AM CDT Images from the original note were not included. Subjective Patient ID: Daphney Herrera is a 68 y.o. female who presents for follow up for joint pain. HPI Pt with HTN, DM2, CKD3, hypothyroidism presents for eval of joint pain. Joint pain: Started at least , worsening for the past few months, occ hand swelling, can't hold fist. Am stiffness 30min. Involves b/l hands/shoulders/elbows/lower back. Unable to use NSAIDs given CKD. 08/2023 lab showed WBC 17, Neg hgb/plt; Cr 2(EGFR 26); neg LFT Further eval showed: 01/2024 Neg CCP/RF, neg serology for hepB/C exposure, uric acid 7.1, neg ferritin, neg CRP, ESR 58, neg CBC, Cr 1.89(EGFR 28), neg LFT. 01/2024 hand x ray: erosive OA or less likely inflammatory arthritis. 03/2024 bilateral hand US: Significant DJD features within the bilateral digits, no synovitis, erosive or crystalline disease. She was given low dose prednisone trial at last visit, and reports not much improvement. Denies any PsO/Blood in stool, fever/wt loss. Current Outpatient Medications on File Prior to Visit Medication Sig Dispense Refill acetaminophen-codeine (Tylenol w/ Codeine #4) 300-60 MG tablet Take 1 tablet by mouth 2 times a day as needed. cholecalciferol (Vitamin D-3) 1.25 MG (60757 UT) capsule Take 1 capsule by mouth every 7 days. cyclobenzaprine (Flexeril) 5 MG tablet Take 5 mg by mouth 2 times a day as needed. Farxiga 5 MG Take 5 mg by mouth every morning. gabapentin (Neurontin) 300 MG capsule Take 1 capsule by mouth in the morning and 1 capsule in the evening. Take with meals. levothyroxine (Synthroid, Levoxyl) 150 MCG tablet Take 150 mcg by mouth in the morning. Take before meals. lisinopril 10 MG tablet Take 10 mg by mouth 1 time each day. Ozempic, 0.25 or 0.5 MG/DOSE, 2 MG/3ML solution pen-injector INJECT 0.5 MG SUBCUTANEOUSLY ONCE WEEKLY rosuvastatin (Crestor) 20 MG tablet Take 5 mg by mouth at bedtime. No current facility-administered medications on file prior to visit. Past Medical History: Diagnosis Date Abdominal discomfort in left lower quadrant 07/05/2016 Abnormal urinalysis 11/17/2021 Allergic rhinitis 05/24/2023 Anemia of chronic disease 05/24/2023 Chronic kidney disease Stage 3 Chronic kidney disease-mineral and bone disorder (CKD-MBD) 08/02/2023 Condyloma acuminatum 07/05/2016 Diabetes ([facility]) Dysthymia 05/24/2023 Hyperlipidemia Hypertension Hyperuricemia 08/02/2023 Inflammation of sacroiliac joint (HCC) 03/15/2023 Localized edema due to fluid overload 07/02/2023 Muscle pain 05/24/2023 Myositis 12/21/2022 Onychomycosis 05/24/2023 S/P hysterectomy 07/05/2016 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 Social History Socioeconomic History Marital status: Spouse name: Not on file Number of children: Not on file Years of education: Not on file Highest education level: Not on file Occupational History Not on file Tobacco Use Smoking status: Never Smokeless tobacco: Not on file Vaping Use Vaping status: Never Used Substance and Sexual Activity Alcohol use: Never Drug use: Never Sexual activity: Not on file Other Topics Concern Not on file Social History Narrative Not on file Social Determinants of Health Financial Resource Strain: Not on file Food Insecurity: Not on file Transportation Needs: Not on file Physical Activity: Not on file Stress: Not on file Social Connections: Not on file Intimate Partner Violence: Not on file Housing Stability: Not on file No Known Allergies Review of Systems Constitutional: Negative. HENT: Negative. Eyes: Negative. Respiratory: Negative. Cardiovascular: Negative. Gastrointestinal: Negative. Endocrine: Negative. Genitourinary: Negative. Musculoskeletal: Positive for arthralgias, back pain and joint swelling. Skin: Negative. Allergic/Immunologic: Negative. Neurological: Negative. Hematological: Negative. Psychiatric/Behavioral: Negative. Objective Physical Exam: Herber[place] and lady nodules in bilateral hands. Assessment/PlanPatient ID: Dpahney Herrera is a 68 y.o. female who presents for follow up for joint pain. Joint pain with mixed features, neg c reative protein. Elevated ESR. X ray with erosions, erosive OA vs inflammatory arthritis. Elevated uric acid, ?gouty arthritis. Assessment & PlanMultiple joint pain Non response to low dose steroid trial. US confirmed significant DJD changes without active inflammation. Joint pain most likely from OA. Continue to monitor. Counseled that this is wear and tear arthritis, recommend symptomatic supportive treatment. Renal insufficiency Not a candidate for NSAIDs. Continue to follow with nephro. Long-term current use of opiate analgesic Continue to follow with PCP Generalized osteoarthritis of hand As above. Recommend to consider paraffin wax bath. Avoid NSAIDs. Follow up: PRN Management options were discussed. Answered all questions. Side effects of medications were discussed. Reviewed labs and diagnostics with patient. Pt to continue to follow up with PCP for routine health evaluation Jacqueline Jones [facility] [id number] 12:34:50 [facility] CampusAwbspeb5247-61-25 12:34:50 Diagnosis Multiple joint pain - Primary Pain in joint, multiple sites Renal insufficiency Unspecified disorder of kidney and ureter Long-term current use of opiate analgesic Encounter for long-term (current) use of other medications Generalized osteoarthritis of hand Generalized osteoarthrosis, involving hand [facility] CampusJgdqmhn1508-16-98 12:34:50 [facility] CampusUjiwfzw0893-71-91 16:03:20* Consultation (Routine) - Authorized Specialty Diagnoses / Procedures Referred By Christopher t Referred To Contact Diagnoses Pain in unspecified joint Procedures [place] OFFICE/OUTPATIENT ESTABLISHED MOD MDM 30-39 MIN Arielle Avila MD [address] [place] [address] [place] [address] [facility] [address] [place] [address] Referral ID Status Reason Start Date Expiration Date V isits Requested Visits Authorized [id number] Authorized 11/28/2023 11/27/2024 36 36 [facility] CampusRqvtkgp7480-66-62 16:03:20 [facility] CampusOmwkedu6020-39-57 16:03:20* Jacqueline Jones MD - 03/28/2024 2:40 PM CDT Images from the original note were not included. Subjective Patient ID: Daphney Herrera is a 68 y.o. female who presents for follow up for joint pain. HPI Pt with HTN, DM2, CKD3, hypothyroidism presents for eval of joint pain. Joint pain: Started at least , worsening for the past few months, occ hand swelling, can't hold fist. Am stiffness 30min. Involves b/l hands/shoulders/elbows/lower back. Unable to use NSAIDs given CKD. 08/2023 lab showed WBC 17, Neg hgb/plt; Cr 2(EGFR 26); neg LFT Further eval showed: 01/2024 Neg CCP/RF, neg serology for hepB/C exposure, uric acid 7.1, neg ferritin, neg CRP, ESR 58, neg CBC, Cr 1.89(EGFR 28), neg LFT. 01/2024 hand x ray: erosive OA or less likely inflammatory arthritis. Denies any PsO/Blood in stool, fever/wt loss. Current Outpatient Medications on File Prior to Visit Medication Sig Dispense Refill acetaminophen-codeine (Tylenol w/ Codeine #4) 300-60 MG tablet Take 1 tablet by mouth 2 times a day as needed. cholecalciferol (Vitamin D-3) 1.25 MG (06561 UT) capsule Take 1 capsule by mouth every 7 days. cyclobenzaprine (Flexeril) 5 MG tablet Take 5 mg by mouth 2 times a day as needed. Farxiga 5 MG Take 5 mg by mouth every morning. gabapentin (Neurontin) 300 MG capsule Take 1 capsule by mouth in the morning and 1 capsule in the evening. Take with meals. levothyroxine (Synthroid, Levoxyl) 150 MCG tablet Take 150 mcg by mouth in the morning. Take before meals. lisinopril 10 MG tablet Take 10 mg by mouth 1 time each day. Ozempic, 0.25 or 0.5 MG/DOSE, 2 MG/3ML solution pen-injector INJECT 0.5 MG SUBCUTANEOUSLY ONCE WEEKLY rosuvastatin (Crestor) 20 MG tablet Take 5 mg by mouth at bedtime. No current facility-administered medications on file prior to visit. Past Medical History: Diagnosis Date Abdominal discomfort in left lower quadrant 07/05/2016 Abnormal urinalysis 11/17/2021 Allergic rhinitis 05/24/2023 Anemia of chronic disease 05/24/2023 Chronic kidney disease Stage 3 Chronic kidney disease-mineral and bone disorder (CKD-MBD) 08/02/2023 Condyloma acuminatum 07/05/2016 Diabetes (HCC) Dysthymia 05/24/2023 Hyperlipidemia Hypertension Hyperuricemia 08/02/2023 Inflammation of sacroiliac joint (HCC) 03/15/2023 Localized edema due to fluid overload 07/02/2023 Muscle pain 05/24/2023 Myositis 12/21/2022 Onychomycosis 05/24/2023 S/P hysterectomy 07/05/2016 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 Social History Socioeconomic History Marital status: Spouse name: Not on file Number of children: Not on file Years of education: Not on file Highest education level: Not on file Occupational History Not on file Tobacco Use Smoking status: Never Smokeless tobacco: Not on file Vaping Use Vaping status: Never Used Substance and Sexual Activity Alcohol use: Never Drug use: Never Sexual activity: Not on file Other Topics Concern Not on file Social History Narrative Not on file Social Determinants of Health Financial Resource Strain: Not on file Food Insecurity: Not on file Transportation Needs: Not on file Physical Activity: Not on file Stress: Not on file Social Connections: Not on file Intimate Partner Violence: Not on file Housing Stability: Not on file No Known Allergies Review of Systems Constitutional: Negative. HENT: Negative. Eyes: Negative. Respiratory: Negative. Cardiovascular: Negative. Gastrointestinal: Negative. Endocrine: Negative. Genitourinary: Negative. Musculoskeletal: Positive for arthralgias, back pain and joint swelling. Skin: Negative. Allergic/Immunologic: Negative. Neurological: Negative. Hematological: Negative. Psychiatric/Behavioral: Negative. Objective Physical Exam Herberden and lady nodules in bilateral hands. Assessment/PlanPatient ID: Daphney Herrera is a 68 y.o. female who presents for follow up for joint pain. Joint pain with mixed features, neg c reative protein. Elevated c reative protein. X ray with erosions, erosive OA vs inflammatory arthritis. Elevated uric acid, ?gouty arthritis. Assessment & PlanMultiple joint pain Joint pain with mixed features, neg c reative protein. Elevated c reative protein. X ray with erosions, erosive OA vs inflammatory arthritis. Elevated uric acid, ?gouty arthritis. Will request US to be done. Will give low dose steroid trial. Will follow up on steroid response on next visit. Orders:predniSONE (Deltasone) 5 MG tablet; Take 2 tablets by mouth 1 time each day for 7 days. Renal insufficiencyAvoid all NSAIDs. Continue to follow with nephro. Long-term current use of opiate analgesic Continue to follow with pain management. Elevated sed rate As above. Pending US. FU: FU: 2wks after US Management options were discussed. Answered all questions. Side effects of medications were discussed. Reviewed labs and diagnostics with patient. Pt to continue to follow up with PCP for routine health evaluation [facility] CampusKayqrqg9376-51-98 16:03:20Upcoming Encounters Health Maintenance Due Date Last Done Comments CT Colonography 1954 Colonoscopy 1954 Colorectal Cancer Screening 1954 Diabetes: Hemoglobin A1C 1954 FIT-DNA 1954 FIT 1954 FOBT 1954 Lipid Panel 1954 Medicare Annual Wellness (AWV) 1954 Sigmoidoscopy 1954 Pneumococcal Vaccine: 65+ Years (1 of 2 - PCV) 1960 Diabetes: Foot Exam 1964 Diabetes: Retinopathy Screening 1964 Diabetes: Urine Protein Screening 1973 Respiratory Syncytial Virus (RSV) or >=60 (1 - 1-dose 60+ series) 2014 Zoster Vaccines (2 of 3) 06/13/2016 04/18/2016 Influenza Vaccine (#1) 2024 04/18/2016 Mammogram 07/04/2025 07/04/2023, 01/27, 05/03/2017, Additional history exists DTaP/Tdap/Td Vaccines (2 - Td or Tdap) 04/18/2026 04/18/2016 HIB Vaccines Aged Out No longer eligi ble based on patient's age to complete this topic HPV Vaccines Aged Out No longer eligi ble based on patient's age to complete this topic Hepatitis A Vaccines Aged Out No long er eligible based on patient's age to complete this topic Hepatitis B Vaccines Aged Out No long er eligible based on patient's age to complete this topic IPV Vaccines Aged Out No longer eligi ble based on patient's age to complete this topic Meningococcal Vaccine Aged Out No cassandra israel eligible based on patient's age to complete this topic Rotavirus Vaccines Aged Out No longer eligible based on patient's age to complete this topic [facility] [id number] 16:03:20 Diagnosis Multiple joint pain - Primary Pain in joint, multiple sites Renal insufficiency Unspecified disorder of kidney and ureter Long-term current use of opiate analgesic Encounter for long-term (current) use of other medications Elevated sed rate Elevated sedimentation rate [facility] CampusCyuogxr5397-57-04 16:03:20 [facility] CampusKirrgcq6798-64-04 15:41:31* [facility] CampusPehchjf6614-23-75 15:41:31 [facility] CampusUmncflh6880-35-26 15:41:31* Jacqueline Jones MD - 02/08/2024 1:20 PM CDT Images from the original note were not included. Subjective Patient ID: Daphney Herrera is a 68 y.o. female who presents for Joint Pain (Pain, swelling, stiffness B/L hands, shoulders, hips (mostly mornings)). HPI Pt with HTN, DM2, CKD3, hypothyroidism presents for eval of joint pain. Joint pain: Started at least , worsening for the past few months, occ hand swelling, can't hold fist. Am stiffness 30min. Involves b/l hands/shoulders/elbows/lower back. Unable to use NSAIDs given CKD. 08/2023 lab showed WBC 17, Neg hgb/plt; Cr 2(EGFR 26); neg LFT Denies any PsO/Blood in stool, fever/wt loss. Current Outpatient Medications on File Prior to Visit Medication Sig Dispense Refill acetaminophen-codeine (Tylenol w/ Codeine #4) 300-60 MG tablet Take 1 tablet by mouth 2 times a day as needed. cholecalciferol (Vitamin D-3) 1.25 MG (56221 UT) capsule Take 1 capsule by mouth every 7 days. cyclobenzaprine (Flexeril) 5 MG tablet Take 5 mg by mouth 2 times a day as needed. Farxiga 5 MG Take 5 mg by mouth every morning. gabapentin (Neurontin) 300 MG capsule Take 1 capsule by mouth in the morning and 1 capsule in the evening. Take with meals. levothyroxine (Synthroid, Levoxyl) 150 MCG tablet Take 150 mcg by mouth in the morning. Take before meals. lisinopril 10 MG tablet Take 10 mg by mouth 1 time each day. Ozempic, 0.25 or 0.5 MG/DOSE, 2 MG/3ML solution pen-injector INJECT 0.5 MG SUBCUTANEOUSLY ONCE WEEKLY rosuvastatin (Crestor) 20 MG tablet Take 5 mg by mouth at bedtime. No current facility-administered medications on file prior to visit. Past Medical History: Diagnosis Date Abdominal discomfort in left lower quadrant 07/05/2016 Abnormal urinalysis 11/17/2021 Allergic rhinitis 05/24/2023 Chronic kidney disease Stage 3 Diabetes (HCC) Hyperlipidemia Hypertension Trochanteric bursitis of right hip 03/15/2023 Past Surgical History: Procedure Laterality Date HYSTERECTOMY NECK SURGERY No family history on file. Social History Socioeconomic History Marital status: Spouse name: Not on file Number of children: Not on file Years of education: Not on file Highest education level: Not on file Occupational History Not on file Tobacco Use Smoking status: Never Smokeless tobacco: Not on file Vaping Use Vaping status: Never Used Substance and Sexual Activity Alcohol use: Never Drug use: Never Sexual activity: Not on file Other Topics Concern Not on file Social History Narrative Not on file Social Determinants of Health Financial Resource Strain: Not on file Food Insecurity: Not on file Transportation Needs: Not on file Physical Activity: Not on file Stress: Not on file Social Connections: Not on file Intimate Partner Violence: Not on file Housing Stability: Not on file No Known Allergies Review of Systems Constitutional: Negative. HENT: Negative. Eyes: Negative. Respiratory: Negative. Cardiovascular: Negative. Gastrointestinal: Negative. Endocrine: Negative. Genitourinary: Negative. Musculoskeletal: Positive for arthralgias, back pain and joint swelling. Skin: Negative. Allergic/Immunologic: Negative. Neurological: Negative. Hematological: Negative. Psychiatric/Behavioral: Negative. Objective Physical Exam Assessment/Plan Patient ID: Daphney Herrera is a 68 y.o. female who presents for Joint Pain (Pain, swelling, stiffness B/L hands, shoulders, hips (mostly mornings)). Assessment & PlanMultiple joint pain Joint pain with mixed features. Exam showed tender joints with bony hypertrophy. Will complete eval. hand OA vs gout? Orders: Sedimentation Rate; Future C-Reactive Protein; Future Complete Blood Count w/Diff and Platelet; Future Comprehensive Metabolic Panel; Future Uric Acid; Future Ferritin; Future Hepatitis B Surface Antigen; Future Hepatitis B core AB Total w/refl IgM; Future Hepatitis C Antibody w/HCV RNA PCR if Indicated; Future Cyclic Citrul Peptide Antibody IgG; Future Rheumatoid Factor; Future US soft tissue extremity complete; Future XR hand 3+ views bilateral; Future Renal insufficiencyContinue to follow with Nephro; avoid all NSAIDs Long-term current use of opiate analgesic Continue to follow with PCP FU: 2wks, lab, hand US, hand x ray Management options were discussed. Answered all questions. Side effects of medications were discussed. Reviewed labs and diagnostics with patient. Pt to continue to follow up with PCP for routine health evaluation [facility]queline Jones [facility] [id number] 15:41:31Upcoming Encounters Scheduled Orders Name Type Priority Associated Diagnoses Orde r Schedule Sedimentation Rate Lab Routine Multiple joint pa in Expected: 02/08/2024 (Approximate), Expires: 02/07/2025 C-Reactive Protein Lab Routine Multiple joint pa in Expected: 02/08/2024 (Approximate), Expires: 02/07/2025 Complete Blood Count w/Diff and Platelet Lab Routine Multiple joint pain Expected : 02/08/2024 (Approximate), Expires: 02/07/2025 Comprehensive Metabolic Panel Lab Routine Multiple joint pain Expected: (Approximate), Expires: 02/07/2025 Uric Acid Lab Routine Multiple joint pain Expec elijah: 02/08/2024 (Approximate), Expires: 02/07/2025 Ferritin Lab Routine Multiple joint pain Expec elijah: 02/08/2024 (Approximate), Expires: 02/07/2025 Hepatitis B Surface Antigen Lab Routine Multiple joint pain Expected: (Approximate), Expires: 02/07/2025 Hepatitis B core AB Total w/refl IgM Lab Routine Multiple joint pain Expected: (Approximate), Expires: 02/07/2025 Hepatitis C Antibody w/HCV RNA PCR if Indicated Lab Routine Multiple joint pain Expecte d: 02/08/2024 (Approximate), Expires: 02/07/2025 Cyclic Citrul Peptide Antibody IgG Lab Routine Multiple joint pain Expected: (Approximate), Expires: 02/07/2025 Rheumatoid Factor Lab Routine Multiple joint nilesh n Expected: 02/08/2024 (Approximate), Expires: 02/07/2025 US soft tissue extremity complete Imaging Routine Multiple joint pain Expected: (Approximate), Expires: 02/07/2025 XR hand 3+ views bilateral Imaging Routine Multiple joint pain Expected: 02/08/2024 (Approximate), Expires: 08/09/2024 Health Maintenance Due Date Last Done Comments CT Colonography 1955 Colonoscopy 1955 Colorectal Cancer Screening 1955 Diabetes: Hemoglobin A1C 1955 FIT-DNA 1955 FIT 1955 FOBT 1955 Lipid Panel 1955 Medicare Annual Wellness (AWV) 1955 Sigmoidoscopy 1955 Pneumococcal Vaccine: 65+ Years (1 of 2 - PCV) 1960 Diabetes: Foot Exam 1964 Diabetes: Retinopathy Screening 1964 Diabetes: Urine Protein Screening 1973 Respiratory Syncytial Virus (RSV) or >=60 (1 - 1-dose 60+ series) 2014 Zoster Vaccines (2 of 3) 06/13/2016 04/18/2016 Mammogram 02/24/2024 02/23/2022, 05/03/2017, 05/03/2017 Influenza Vaccine (Season Ended) 2024 04/18/2016 DTaP/Tdap/Td Vaccines (2 - T d or Tdap) 04/18/2026 04/18/2016 HIB Vaccines Aged Out No longer eligi ble based on patient's age to complete this topic HPV Vaccines Aged Out No longer eligi ble based on patient's age to complete this topic Hepatitis A Vaccines Aged Out No long er eligible based on patient's age to complete this topic Hepatitis B Vaccines Aged Out No long er eligible based on patient's age to complete this topic IPV Vaccines Aged Out No longer eligi ble based on patient's age to complete this topic Meningococcal Vaccine Aged Out No cassandra israel eligible based on patient's age to complete this topic Rotavirus Vaccines Aged Out No longer eligible based on patient's age to complete this topic [facility] [id number] 15:41:31 Diagnosis Multiple joint pain - Primary Pain in joint, multiple sites Renal insufficiency Unspecified disorder of kidney and ureter Long-term current use of opiate analgesic Encounter for long-term (current) use of other medications [facility] [id number] 15:41:31 [place] [id number] 01:40:05 Pt given printed and verbal discharge instructions regarding pyelonephritis, dysuria, tachycardia, leukocytosis, and CKD Prescriptions provided Pt verbalized understanding of instructions, pt awake alert oriented, resp reg unlabored, skin w/d, color appropriate for race, moves all ext well,pt encouraged to follow up with pcp Advised to seek medical attention for new/prolonged/worsening of symptoms No adverse reaction to meds given in ER noted upon discharge PIV d'cd, dressing to site, catheter in tact. Awake, alert oriented, resp reg unlabored, skin w/d, pt leaving amb with steady gait, in no apparent distress HA Hawley RUST - [id number] 21:33:53 Patient arrived ambulatory to ED c/o urination problems that started last night after midnight. Patient states it is "pain near pelvis and it holguin when I pee, I can see small spots of blood sometimes and I go to pee about every ten minutes. It's very painful." Patient denies any history of UTIs. States took cranberry pills and juice today for it with no relief. HA Lipscomb [facility]
--- NOTE | 2025-01-12 08:18 | RAD REPORT ---
EXAM: Chest Single View HISTORY: 69 years Female COUGH COMPARISON: 03/06/2020 FINDINGS: LUNGS/PLEURA: The lungs are clear. No pleural effusions or pneumothorax. No pulmonary edema. CARDIAC/MEDIASTINUM: Magnified by portable technique, but probably within normal limits. UPPER ABDOMEN: No significant abnormality. BONES: No acute abnormality. LINES/TUBES/OTHER: N/A IMPRESSION: No evidence of acute cardiopulmonary disease. Some nonspecific prominence of the pulmonary interstiti um but no evidence of overt pulmonary edema or consolidative airspace disease.
[2025-01-12 08:40] LABS: PT Prothrombin Time 12.4 SECONDS (10-13.0); Protime INR 1.09
[2025-01-12 08:52] LABS: ALT/SGPT 15 U/L (13-56); Albumin 3.1 g/dL (3.4-5.0); Albumin/Globulin Ratio 0.7 (1.1-1.8); Alkaline Phosphatase 62 U/L (45-117); Anion Gap 12.3 mEq/L (5.0-15.0); BUN Blood Urea Nitrogen 24 mg/dL (7-18); Bicarbonate 23 mEq/L (21-32); Bilirubin Total 0.4 mg/dL (0.2-1.0); Globulin 4.3 g/dL (2.3-3.5); Glomerular Filtration Rate 40 ml/min (=/>90); Glucose Level 97 mg/dL (74-106); Magnesium 2.4 mg/dL (1.6-2.4); NT PRO-BNP 51 pg/mL (<125); Potassium 4.3 mEq/L (3.5-5.1); Protein, Total 7.4 g/dL (6.4-8.2); Sodium Level 140 mEq/L (136-145); Troponin High Sensitivity 5.3 pg/mL (<58.9)
[2025-01-12 08:54] LABS: AST/SGOT < 10 U/L (15-37); Bilirubin Direct < 0.2 mg/dL (0-0.2); Bilirubin Indirect, Calculated 0.2 mg/dL (0.2-0.8)
[2025-01-12 08:59] LABS: Influenza A Ag Negative; Influenza B Ag Negative; SARS-CoV-2 Antigen Rapid Res Negative (Negative)
[2025-01-12] MEDS ORDERED: BENZONATATE 100 MG CAP PO ONE (09:01)
[2025-01-12 09:03] LABS: MCH 29.4 pg (27.0-35.0)
[2025-01-12 09:09] LABS: Absolute Basophils 0.1 K/uL (0-0.5); Absolute Eosinophils 0.7 K/uL (0-0.5); Absolute Lymphocytes (CBC) 1.9 K/uL (0.7-4.9); Absolute Monocytes 0.6 K/uL (0.1-1.3); Absolute Neutrophil 8.4 K/uL (1.8-8.0); Basophils % 0.7 % (0-1.3); Eosinophils % 5.7 % (0-4.4); Hematocrit 32.1 % (36.0-45.0); Lymphocytes % 16.2 % (15.3-44.8); MCHC 34.2 g/dL (32.0-36.0); MCV 85.8 fL (80-100); MPV 8.2 fL (7.6-11.3); Monocytes % 5.3 % (3.3-12.3); Neutrophils % 72.1 % (41.7-73.7); Platelets 269 thou/uL (152-406); RBC Red Blood Cell Count 3.74 M/uL (3.86-4.86); Red Cell Distribution Width 13.1 % (12.1-15.2)
--- NOTE | 2025-01-12 09:15 | EDPHYS ---
Physician Documentation [facility] Name: Daphney Herrera Age: 69 yrs Sex: Female : 1955 Arrival Date: 01/12/2025 Time: 07:48 Bed 4 Private MD: ED Physician Aneudy Su HPI: 01/12 08:10 This 69 yrs old Female presents to ER via Ambulatory with complaints of sp3 Painful Cough, Flu Symptoms, Chest Pain. 08:10 69-year-old female with history of diabetes, hypertension, renal insufficiency presents sp3 to the ED with chief complaint cough, congestion upper respiratory symptoms for the last 2 to 3 days. She denies any shortness of breath, significant chest pain abdominal pain, nausea, vomiting, syncope, bleeding, fever, or any other signs or symptoms on ROS at this time. She also denies any travel history or known sick contacts or prolonged immobilization.. Historical: - Allergies: 08:01 No Known Allergies; ll1 - PMHx: 08:01 diabetes mellitus; Hypertensive disorder; kidney problems; ll1 - Immunization history:: Adult Immunizations up to date. - Social history:: Smoking status: Patient denies any tobacco usage or history of. ROS: 08:11 Constitutional: Negative for fever, chills, and weight loss, Eyes: Negative for injury, sp3 pain, redness, and discharge, Neck: Negative for injury, pain, and swelling, Cardiovascular: Negative for chest pain, palpitations, and edema, Abdomen/GI: Negative for abdominal pain, nausea, vomiting, diarrhea, and constipation, Back: Negative for injury and pain, MS/Extremity: Negative for injury and deformity, Skin: Negative for injury, rash, and discoloration, Neuro: Negative for headache, weakness, numbness, tingling, and seizure, Psych: Negative for depression, anxiety, suicide ideation, homicidal ideation, and hallucinations, Allergy/Immunology: Negative for hives, rash, and allergies, Endocrine: Negative for neck swelling, polydipsia, polyuria, polyphagia, and marked weight changes, Hematologic/Lymphatic: Negative for swollen nodes, abnormal bleeding, and unusual bruising, 08:11 All other systems are negative, Exam: 08:11 Constitutional: This is a well developed, well nourished patient who is awake, alert, sp3 and in no acute distress. Head/Face: Normocephalic, atraumatic. Eyes: Pupils equal round and reactive to light, extra-ocular motions intact. Lids and lashes normal. Conjunctiva and sclera are non-icteric and not injected. Cornea within normal limits. Periorbital areas with no swelling, redness, or edema. Neck: Trachea midline, no thyromegaly or masses palpated, and no cervical lymphadenopathy. Supple, full range of motion without nuchal rigidity, or vertebral point tenderness. No Meningismus. Chest/axilla: Normal chest wall appearance and motion. Nontender with no deformity. No lesions are appreciated. Cardiovascular: Regular rate and rhythm with a normal S1 and S2. No gallops, murmurs, or rubs. Normal PMI, no JVD. No pulse deficits. Abdomen/GI: Soft, non-tender, with normal bowel sounds. No distension or tympany. No guarding or rebound. No evidence of tenderness throughout. Back: No spinal tenderness. No costovertebral tenderness. Full range of motion. Skin: Warm, dry with normal turgor. Normal color with no rashes, no lesions, and no evidence of cellulitis. MS/ Extremity: Pulses equal, no cyanosis. Neurovascular intact. Full, normal range of motion. Neuro: Awake and alert, GCS 15, oriented to person, place, time, and situation. Cranial nerves II-XII grossly intact. Motor strength 5/5 in all extremities. Sensory grossly intact. Cerebellar exam normal. Normal gait. Psych: Awake, alert, with orientation to person, place and time. Behavior, mood, and affect are within normal limits. 08:11 ENT: Sinus congestion noted. Mild rhinorrhea.. 08:11 Respiratory: Active cough noted., 08:15 ECG was reviewed by the Attending Physician. EKG demonstrates normal sinus rhythm at 76 sp3 bpm with normal intervals, normal QRS, normal axis, normal ST/T-segment's without evidence of acute ischemia. Vital Signs: 08:01 BP 117 / 71; Pulse 82; Resp 16; Temp 98.1; Pulse Ox 98% on R/A; Weight 91.63 kg; Height ll1 5 ft. 8 in. ; Pain 6/10; 09:20 BP 109 / 69; Pulse 80; Resp 18 S; Pulse Ox 97% on R/A; aa5 08:01 Body Mass Index 30.71 (91.63 kg, 172.72 cm) ll1 08:01 Pain Scale: Adult ll1 MDM: 07:57 Medical Screening Exam initiated sp3 08:12 Data reviewed: vital signs, nurses notes, lab test result(s), EKG, radiologic studies. sp3 ED course: 69-year-old female with PMH above now presents with upper respiratory symptoms. Differential diagnosis includes viral illness, influenza, COVID-19, pneumonia, bronchitis, CHF, ACS, among others. Vital signs are normal. Workup will include EKG, chest x-ray, viral swabs, general labs including troponin and BNP, with disposition pending workup and patient course.. 09:14 ED course: Full workup negative. Patient likely has a viral illness. Will discharge on 3 Tessalon Perles and Medrol Dosepak with follow-up to PCP.. 01/12 07:57 Order name: Basic Metabolic Panel; Complete Time: 09:14 sp3 01/12 07:57 Order name: CBC with Diff; Complete Time: 09:14 sp3 01/12 07:57 Order name: LFT's; Complete Time: 09:14 sp3 01/12 07:57 Order name: Magnesium; Complete Time: 09:14 sp3 01/12 07:57 Order name: NT PRO-BNP; Complete Time: 09:14 sp3 01/12 07:57 Order name: PT-INR; Complete Time: 09:14 sp3 01/12 07:57 Order name: Troponin HS; Complete Time: 09:14 sp3 01/12 07:57 Order name: COVID-19 Ag + Flu A+B Ag; Complete Time: 09:14 sp3 01/12 07:57 Order name: XRAY Chest (1 view); Complete Time: 08:33 sp3 01/12 07:57 Order name: Cardiac monitoring; Complete Time: 08:15 sp3 01/12 07:57 Order name: EKG - Nurse/Tech; Complete Time: 08:15 sp3 01/12 07:57 Order name: IV Saline Lock; Complete Time: 08:57 sp3 01/12 07:57 Order name: Labs collected and sent; Complete Time: 08:57 sp3 01/12 07:57 Order name: O2 Per Protocol; Complete Time: 08:58 sp3 01/12 07:57 Order name: O2 Sat Monitoring; Complete Time: 08:58 sp3 Administered Medications: 09:09 Drug: Tessalon Perle PO 200 mg PO once Route: PO; aa5 09:39 Follow up: Response: No adverse reaction aa5 Disposition Summary: 01/12/25 09:14 Discharge Ordered Notes: Location: Home sp3 Condition: Stable sp3 Diagnosis - Bronchitis sp3 Followup: sp3 - With: Private Physician - When: Upon discharge from the Emergency Department - Reason: Continuance of care Discharge Instructions: - Discharge Summary Sheet sp3 - Acute Bronchitis, Adult sp3 Forms: - Medication Reconciliation Form sp3 - Antibiotic Education sp3 - Prescription Opioid Use sp3 - Patient Portal Instructions sp3 - Leadership Thank You Letter sp3 Prescriptions: - Tessalon Perles 100 mg Oral Capsule - take 1 capsule ORAL route every 8 hours As needed; 15 capsule; Refills: 0, sp3 Product Selection Permitted - Medrol (Alexander) 4 mg Oral Tablets, Dose Pack - take 1 tablet ORAL route as directed - follow package instructions; 1 packet; sp3 Refills: 0, Product Selection Permitted Signatures: Dispatcher [employer] EDMS Monique Prieto RN RN aa5 Bro Leblanc RN RN ll1 Aneudy Su MD MD sp3 Corrections: (The following items were deleted from the chart) 07:58 07:58 BASIC METABOLIC PANEL+C.LAB.BRZ ordered. EDMS EDMS 07:58 07:58 CBC+H.LAB.BRZ ordered. EDMS EDMS 07:58 07:58 HEPATIC FUNCTION+C.LAB.BRZ ordered. EDMS EDMS 07:58 07:58 MAGNESIUM+C.LAB.BRZ ordered. EDMS EDMS 07:58 07:58 PROBNP+C.LAB.BRZ ordered. EDMS EDMS 07:58 07:58 PROTIME (+INR)+COAG.LAB.BRZ ordered. EDMS EDMS 07:58 07:58 Troponin High Sensitivity+C.LAB.BRZ ordered. EDMS EDMS 07:58 07:58 COVID-19 Ag + Flu A+B Ag+I.LAB.BRZ ordered. EDMS EDMS 07:58 07:58 Chest Single View+RAD.RAD.BRZ ordered. EDMS EDMS
--- NOTE | 2025-01-12 09:15 | ER ---
Nurse's Notes [facility] Name: Daphney Herrera Age: 69 yrs Sex: Female : 1955 Arrival Date: 01/12/2025 Time: 07:48 Bed 4 Private MD: Diagnosis: Bronchitis Presentation: 01/12 08:01 Chief complaint: Patient states: Cough, congestion, TODD since Monday night. Coronavirus ll1 screen: Client denies travel out of the [place] in the last 14 days. congestion, cough unrelated to allergies. Ebola Screen: Patient denies travel to an Ebola-affected area in the 21 days before illness onset. Initial Sepsis Screen: Does the patient meet any 2 criteria? No. Patient's initial sepsis screen is negative. Does the patient have a suspected source of infection? No. Patient's initial sepsis screen is negative. Risk Assessment: Do you want to hurt yourself or someone else? Patient reports no desire to harm self or others. Onset of symptoms was January 10, 2025. 08:01 Method Of Arrival: Ambulatory ll1 08:01 Acuity: GEE 3 ll1 Triage Assessment: 08:03 General: Appears uncomfortable, ill, Behavior is calm, cooperative, appropriate for ll1 age, Reports feeling ill for fatigue for. Pain: Complains of pain in head Pain currently is 6 out of 10 on a pain scale. Quality of pain is described as aching. Neuro: Reports headache weakness. Respiratory: Reports cough that is pain with cough. GI: Reports cramping. Historical: - Allergies: 08:01 No Known Allergies; ll1 - PMHx: 08:01 diabetes mellitus; Hypertensive disorder; kidney problems; ll1 - Immunization history:: Adult Immunizations up to date. - Social history:: Smoking status: Patient denies any tobacco usage or history of. Screenin:10 [facility] ED Fall Risk Assessment (Adult) History of falling in the last 3 months, aa5 including since admission No falls in past 3 months (0 pts) Confusion or Disorientation No (0 pts) Intoxicated or Sedated No (0 pts) Impaired Gait No (0 pts) Mobility Assist Device Used No (0 pt) Altered Elimination No (0 pt) Score/Fall Risk Level 0 - 2 = Low Risk Oriented to surroundings, Maintained a safe environment, Educated pt \T\ family on fall prevention, incl call for assistance when getting out of bed, Assessed \T\ reinforced patient's understanding of fall precautions. Abuse screen: Denies threats or abuse. Nutritional screening: No deficits noted. Tuberculosis screening: No symptoms or risk factors identified. Assessment: 08:10 General: Appears uncomfortable, Behavior is calm, cooperative. Pain: Complains of pain aa5 in chest with cough Pain does not radiate. Quality of pain is described as aching, Pain began 2-3 days ago. Is intermittent. Neuro: Level of Consciousness is awake, alert, obeys commands, Oriented to person, place, time, situation. Cardiovascular: Heart tones S1 S2 present Rhythm is regular. Respiratory: Reports cough Airway is patent Respiratory effort is even, unlabored, Respiratory pattern is regular, symmetrical, Breath sounds are clear bilaterally. GI: No signs and/or symptoms were reported involving the gastrointestinal system. : No signs and/or symptoms were reported regarding the genitourinary system. EENT: Reports nasal congestion nasal discharge that is watery. Derm: Skin is pink, warm \T\ dry. Musculoskeletal: Range of motion: intact in all extremities. 09:09 Reassessment: Patient and/or family updated on plan of care and expected duration. Pain aa5 level reassessed. Patient is alert, oriented x 3, equal unlabored respirations, skin warm/dry/pink. 09:39 Reassessment: Patient is alert, oriented x 3, equal unlabored respirations, skin aa5 warm/dry/pink. Vital Signs: 08:01 BP 117 / 71; Pulse 82; Resp 16; Temp 98.1; Pulse Ox 98% on R/A; Weight 91.63 kg; Height ll1 5 ft. 8 in. ; Pain 6/10; 09:20 BP 109 / 69; Pulse 80; Resp 18 S; Pulse Ox 97% on R/A; aa5 08:01 Body Mass Index 30.71 (91.63 kg, 172.72 cm) ll1 08:01 Pain Scale: Adult ll1 ED Course: 07:52 Patient arrived in ED. sj2 07:56 Aneudy Su MD is Attending Physician. sp3 08:01 Monique Prieto, REHANA is Primary Nurse. aa5 08:01 Arm band placed on Patient placed in an exam room, on a stretcher. ll1 08:03 Triage completed. ll1 08:09 XRAY Chest (1 view) In Process Unspecified. EDMS 08:10 Patient has correct armband on for positive identification. Bed in low position. Call aa5 light in reach. Side rails up X 1. Client placed on continuous cardiac and pulse oximetry monitoring. NIBP monitoring applied. ekg monitor tech on. Pulse ox on. NIBP on. 08:15 EKG done, by ED staff, reviewed by Aneudy Su MD. em1 08:15 No provider procedures requiring assistance completed. Patient maintains SpO2 aa5 saturation greater than 95% on room air. 08:25 Initial lab(s) drawn, by me, sent to lab. Inserted saline lock: 20 gauge in right aa5 antecubital area, using aseptic technique. Blood collected. Flushed with 10 mL NS. 09:39 IV discontinued, intact, bleeding controlled, No redness/swelling at site. Pressure aa5 dressing applied. Administered Medications: 09:09 Drug: Tessalon Perle PO 200 mg PO once Route: PO; aa5 09:39 Follow up: Response: No adverse reaction aa5 Medication: 09:39 VIS not applicable for this client. aa5 Outcome: 09:14 Discharge ordered by . sp3 09:39 Discharged to home ambulatory, aa5 09:39 Condition: stable 09:39 Discharge instructions given to patient, Instructed on discharge instructions, follow up and referral plans. medication usage, Demonstrated understanding of instructions, follow-up care, medications, Prescriptions given X 2, 09:40 Patient left the ED. aa5 Signatures: Dispatcher [employer] EDNH Andrzej Becker em1 Monique Prieto RN RN aa5 Bro Leblanc, REHANA RN ll1 Aneudy Su MD MD sp3 Mohit Prince sj2 Corrections: (The following items were deleted from the chart) 13:37 09:39 Discharge instructions given to patient, Instructed on discharge instructions, aa5 follow up and referral plans. medication usage, Demonstrated understanding of instructions, follow-up care, medications, aa5
[2025-01-12 09:47] VITALS: TEMP 98.1
[2025-01-12 09:49] VITALS: BP 109/69; O2SAT 97
--- NOTE | 2025-01-13 16:45 | EKG ---
Test Date: 2025-01-12 Test Time: 08:12:54 Environmental Tech: ISIDRO MEASUREMENT RESULTS: Intervals: Rate: 76 LA: 170 QRSD: 86 QT: 386 QTc: 434 [place]: P: 76 LA: 170 QRS: 13 T: 70 INTERPRETIVE STATEMENTS: Normal sinus rhythm Low voltage QRS Cannot rule out Anterior infarct, age undetermined Abnormal ECG Compared to ECG 05/09/2023 14:58:43 Myocardial infarct finding now present Electronically Signed On 01-13-25 16:43:52 CDT by Dakotah Mendoza
== END 2025-01-12 09:40 | disposition home or self-care (01) ==
LOC: ER 07:48
DX: J40 Bronchitis, not specified as acute or chronic (principal); Z11.52 Encounter for screening for COVID-19
CPT/HCPCS: 36415; 71045; 80048; 80076; 83735; 83880; 84484; 85025; 85610; 87428; 93005; 99284